=== PATIENT | female | born 1985 | race Caucasian/White ===

== ENCOUNTER 2019-12-15 23:16 | Inpatient (IN) | payer SELFPAY ==
[~2019-12-15] VITALS: Ht 165 cm; Wt 82.3 kg
[2019-12-15 23:44] LABS: BILIRUBIN,URINE NEGATIVE (NEGATIVE); CLARITY,URINE TURBID; COLOR,URINE OTHER; GLUCOSE, URINE (UA) 3+ (NEGATIVE); KETONES,URINE NEGATIVE (NEGATIVE); LEUKOCYTE ESTERASE ,URINE 2+ (NEGATIVE); NITRITE,URINE NEGATIVE (NEGATIVE); PROTEIN,URINE 3+ (NEGATIVE)
[2019-12-16 00:05] LABS: RBC,URINE TNTC /HPF
[2019-12-16 00:09] LABS: WBC,URINE >100 /HPF
[2019-12-16 00:10] LABS: BACTERIA,URINE FEW /HPF
[2019-12-16] MEDS ORDERED: fentaNYL INJECTION 100 MCG/2 ML AMP IVP STA (00:53)
[2019-12-16] MEDS ORDERED: LACTATED RINGERS 1,000 ML IV ONE ×2 (00:53→03:28)
--- NOTE | 2019-12-16 01:11 | ED GU-Female ---
General Chief Complaint: - Urinary Stated Complaint: FREQ URINATION, BURNING SENSATION, CRAMPING Nursing Triage Note: COMPLAINT OF URINARY ISSUES X1 MONTH. STATES RECENTLY TREATED WITH BACTRIM. Nursing Sepsis Screen: No Definite Risk Source: patient Exam Limitations: no limitations History of Present Illness Date Seen by Provider: Dec 16, 2019 Time Seen by Provider: 00:48 Initial Comments Here with report of dysuria and hematuria over the last month associated with frequency. Patient has been on Bactrim DS multiple times including within the last month and is not getting better. She does have history of multiple renal stones and 5 stents placed. She states that she always has some blood in her urine and was told that was likely related to her diabetes. She states that her blood sugars are probably out of control. Does have history of seizure disorder. Denies nausea or vomiting but has had chills recently and believes that she is starting to get sick. Reports that she has had sepsis from urinary tract infections previously and she is starting to feel that way. Tearful on exam due to pain. Timing/Duration: week, getting worse Severity/Quality: moderate, severe Location: suprapubic, urethral Radiation: none Activities at Onset: none Prior Genitourinary Problems: similar symptoms Associated Symptoms: abdominal pain, dysuria, fever/chills; No lower back pain, No nausea/vomiting; urinary frequency Allergies and Home Medications Allergies Coded Allergies: aspirin (Verified Allergy, Unknown, 12/16/19) Patient Home Medication List Home Medication List Reviewed: Yes Review of Systems Review of Systems Constitutional: see HPI EENTM: no symptoms reported Respiratory: no symptoms reported Cardiovascular: no symptoms reported Gastrointestinal: see HPI, constipation; No diarrhea, No vomiting Genitourinary: see HPI Musculoskeletal: no symptoms reported Skin: no symptoms reported All Other Systemes Reviewed Negative Unless Noted: Yes Past Umzzekb-Oxxnmm-Wyyhme Hx Past Med/Social Hx: Reviewed Nursing Past Med/Soc Hx Patient Social History Alcohol Use: Denies Use Recreational Drug Use: No Smoking Status: Never a Smoker Recent Foreign Travel: No Contact w/Someone Who Travel: No Recent Infectious Disease Expo: No Past Medical History Surgeries: Yes (ureteral stents) Respiratory: No Cardiac: No Neurological: Yes Seizure Disorder : No Genitourinary: Yes Kidney Stones Gastrointestinal: No Musculoskeletal: No Endocrine: Yes Diabetes, Non-Insulin dep Integumentary: No Family Medical History Reviewed Nursing Family Hx Physical Exam Vital Signs Vital Signs - First Documented 12/15/19 23:38 Temp 36.7 Pulse 99 Resp 18 B/P (MAP) 141/91 (108) O2 Delivery Room Air Capillary Refill : Less Than 3 Seconds Height, Weight, BMI Height: '" Weight: lbs. oz. kg; 31.00 BMI Method: General Appearance: WD/WN, mild distress HEENT: PERRL/EOMI, pharynx normal Neck: full range of motion, supple Cardiovascular: no murmur, tachycardia Respiratory: lungs clear, normal breath sounds Gastrointestinal: non tender, soft Back: normal inspection, no CVA tenderness, no vertebral tenderness Extremities: non-tender, normal inspection Neurologic/Psychiatric: alert, oriented x 3 Skin: normal color, warm/dry Focused Exam Lactate Level 12/16/19 01:07: Lactic Acid Level 0.94 Lactic Acid Level Laboratory Tests Test 12/16/19 01:07 Lactic Acid Level 0.94 MMOL/L (0.50-2.00) Progress/Results/Core Measures Suspected Sepsis Recent Fever Within 48 Hours: No Infection Criteria Present: None New/Unexplained Altered Menta: No Sepsis Screen: No Definite Risk SIRS Temperature: Pulse: 99 Respiratory Rate: 18 Laboratory Tests 12/16/19 01:07: White Blood Count 10.6 Blood Pressure 141 /91 Mean: 108 12/16/19 01:07: Lactic Acid Level 0.94 Laboratory Tests 12/16/19 01:07: Creatinine 1.18, INR Comment 0.9, Platelet Count 327, Total Bilirubin 0.1 Results/Orders Lab Results Laboratory Tests Test 12/15/19 23:34 12/16/19 01:07 Range/Units Urine Color OTHER H Urine Clarity TURBID Urine pH 6.0 5-9 Urine Specific [place] 1.020 1.016-1.022 Urine Protein 3+ H NEGATIVE Urine Glucose (UA) 3+ H NEGATIVE Urine Ketones NEGATIVE NEGATIVE Urine Nitrite NEGATIVE NEGATIVE Urine Bilirubin NEGATIVE NEGATIVE Urine Urobilinogen 0.2 < = 1.0 MG/DL Urine Leukocyte Esterase 2+ H NEGATIVE Urine RBC (Auto) 3+ H NEGATIVE Urine RBC TNTC H /HPF Urine WBC >100 H /HPF Urine Squamous Epithelial Cells NONE /HPF Urine Crystals NONE /LPF Urine Bacteria FEW H /HPF Urine Casts NONE /LPF Urine Mucus NEGATIVE /LPF Urine Culture Indicated YES White Blood Count 10.6 4.3-11.0 10^3/uL Red Blood Count 3.81 L 4.35-5.85 10^6/uL Hemoglobin 8.9 L 11.5-16.0 G/DL Hematocrit 29 L 35-52 % Mean Corpuscular Volume 76 L 80-99 FL Mean Corpuscular Hemoglobin 23 L 25-34 PG Mean Corpuscular Hemoglobin Concent 31 L 32-36 G/DL Red Cell Distribution Width 15.4 H 10.0-14.5 % Platelet Count 327 130-400 10^3/uL Mean Platelet Volume 10.2 7.4-10.4 FL Neutrophils (%) (Auto) 70 42-75 % Lymphocytes (%) (Auto) 21 12-44 % Monocytes (%) (Auto) 7 0-12 % Eosinophils (%) (Auto) 2 0-10 % Basophils (%) (Auto) 0 0-10 % Neutrophils # (Auto) 7.4 1.8-7.8 X 10^3 Lymphocytes # (Auto) 2.2 1.0-4.0 X 10^3 Monocytes # (Auto) 0.7 0.0-1.0 X 10^3 Eosinophils # (Auto) 0.2 0.0-0.3 10^3/uL Basophils # (Auto) 0.0 0.0-0.1 10^3/uL Prothrombin Time 12.7 12.2-14.7 SEC INR Comment 0.9 0.8-1.4 Activated Partial Thromboplast Time 26 24-35 SEC Sodium Level 135 135-145 MMOL/L Potassium Level 4.6 3.6-5.0 MMOL/L Chloride Level 102 98-107 MMOL/L Carbon Dioxide Level 22 21-32 MMOL/L Anion Gap 11 5-14 MMOL/L Blood Urea Nitrogen 20 H 7-18 MG/DL Creatinine 1.18 0.60-1.30 MG/DL Estimat Glomerular Filtration Rate 53 BUN/Creatinine Ratio 17 Glucose Level 338 H 70-105 MG/DL Lactic Acid Level 0.94 0.50-2.00 MMOL/L Calcium Level 9.2 8.5-10.1 MG/DL Corrected Calcium 9.5 8.5-10.1 MG/DL Total Bilirubin 0.1 0.1-1.0 MG/DL Aspartate Amino Transf (AST/SGOT) 15 5-34 U/L Alanine Aminotransferase (ALT/SGPT) 10 0-55 U/L Alkaline Phosphatase 77 40-136 U/L Total Protein 8.3 H 6.4-8.2 GM/DL Albumin 3.6 3.2-4.5 GM/DL My Orders Orders - ESTUARDO RODRIGUEZ MD Cbc With Automated Diff (12/16/19 00:53) Comprehensive Metabolic Panel (12/16/19 00:53) Blood Culture (12/16/19 00:53) Sputum Culture (12/16/19 00:53) Protime With Inr (12/16/19 00:53) Partial Thromboplastin Time (12/16/19 00:53) Chest 1 View, Ap/Pa Only (12/16/19 00:53) Ed Iv/Invasive Line Start (12/16/19 00:53) Vital Signs Adult Sepsis Patie Q15M (12/16/19 00:53) O2 (12/16/19 00:53) Remove Rings In Anticipation O (12/16/19 00:53) Lactic Acid Analyzer (12/16/19 00:53) Lactated Ringers (Lr 1000 Ml Iv Solution (12/16/19 00:53) Fentanyl Injection (Sublimaze Injection (12/16/19 00:53) Ct Abd/Pelvis Wo(Kidney Stone) (12/16/19 00:57) Piperacillin Sodium/Tazobactam (Zosyn Vi (12/16/19 02:45) Piperacillin Sodium/Tazobactam (Zosyn Vi (12/16/19 02:45) Hemoglobin A1c (12/16/19 02:37) Medications Given in ED Current Medications Medications Dose Ordered Sig/Colton Route Start Time Stop Time Status Last Admin Dose Admin Lactated Ringer's 1,000 ml @ 0 mls/hr Q0M ONCE IV 12/16/19 00:53 12/16/19 00:56 DC 12/16/19 01:17 999 MLS/HR Vital Signs/I&O 12/15/19 23:38 Temp 36.7 Pulse 99 Resp 18 B/P (MAP) 141/91 (108) O2 Delivery Room Air Capillary Refill : Less Than 3 Seconds Blood Pressure Mean: 108 Progress Note : Progress Note Seen and evaluated. IV, labs, UA, blood cultures, lactic acid, LR 1 L bolus and fentanyl 50 g IV ordered. Monitor patient. CT abdomen and pelvis kidney stone protocol ordered. Monitor patient. 0235: Findings of right pyelonephritis and hydroureter. In the setting of uncontrolled diabetes, I have significant concerns related to the patient progress into sepsis. Labs look okay at currently and blood pressures are right ring she does need hydration and better control of her sugars as well as aggressive antibiotic management. Does have history of cephalosporins precipitating seizures in her so we will avoid that currently. Zosyn 4.5 g IV initiated. I did discuss the case with Dr. Salvador and she accepts patient for admission, inpatient status. Findings concerns were discussed with the patient and significant other and they agree with plan. Patient has no local doctor currently but is considering [facility]. Diagnostic Imaging Diagonstic Imaging: Xray Plain Films/CT/US/NM/MRI: chest Comments No acute findings Diagonstic Imaging: CT Plain Films/CT/US/NM/MRI: abdomen, pelvis Comments Findings of right pyelonephritis and cystitis with possible infected right renal collecting system. There are dilated irregular calyces with decompressed or inflammatory scarring of the renal pelvis. Pyonephrosis needs to be considered. There is a 6 mm stone in a dilated lower pole calyx. No ureteral stones or stones in the urinary bladder are noted. Reviewed: Reviewed Night Sidney Study, Reviewed by Me Departure Communication (Admissions) Time/Spoke to Admitting Phy: 02:35 Impression Primary Impression: Pyelonephritis of right kidney Disposition: ADMITTED INPATIENT Condition: Stable Admissions Decision to Admit Reason: Admit from ER (General) Decision to Admit/Date: Dec 16, 2019 Time/Decision to Admit Time: 02:35 Departure-Patient Inst. Referrals: NO,LOCAL PHYSICIAN (PCP/Family) Primary Care Physician ESTUARDO RODRIGUEZ MD Dec 16, 2019 01:11
[2019-12-16 01:33] LABS: BASOPHILS % (AUTO) 0 % (0-10); EOSINOPHILS # (AUTO) 0.2 10^3/uL (0.0-0.3); EOSINOPHILS % (AUTO) 2 % (0-10); HEMATOCRIT 29 % (35-52); HEMOGLOBIN 8.9 G/DL (11.5-16.0); LYMPHOCYTES # (AUTO) 2.2 X 10^3 (1.0-4.0); LYMPHOCYTES % (AUTO) 21 % (12-44); MEAN CORPUSCULAR HEMOGLOBIN 23 PG (25-34); MEAN CORPUSCULAR HGB CONC 31 G/DL (32-36); MEAN CORPUSCULAR VOLUME 76 FL (80-99); MEAN PLATELET VOLUME 10.2 FL (7.4-10.4); MONOCYTES # (AUTO) 0.7 X 10^3 (0.0-1.0); MONOCYTES % (AUTO) 7 % (0-12); NEUTROPHILS # (AUTO) 7.4 X 10^3 (1.8-7.8); NEUTROPHILS % (AUTO) 70 % (42-75); PLATELET COUNT 327 10^3/uL (130-400); RED CELL DISTRIBUTION WIDTH 15.4 % (10.0-14.5); WHITE BLOOD COUNT 10.6 10^3/uL (4.3-11.0)
[2019-12-16 01:38] LABS: INR 0.9 (0.8-1.4); PROTHROMBIN TIME PATIENT 12.7 SEC (12.2-14.7)
[2019-12-16 01:43] LABS: ALBUMIN 3.6 GM/DL (3.2-4.5); BILIRUBIN,TOTAL 0.1 MG/DL (0.1-1.0); CALCIUM 9.2 MG/DL (8.5-10.1); CREATININE SERUM 1.18 MG/DL (0.60-1.30); POTASSIUM 4.6 MMOL/L (3.6-5.0); TOTAL PROTEIN 8.3 GM/DL (6.4-8.2)
[2019-12-16] MEDS ORDERED: PIPERACILLIN SODIUM/TAZOBACTAM 4.5 GM in NS (IVPB) 100 ML IV ONE ×4 (02:45)
[2019-12-16 03:50] VITALS: BP 130/85
[2019-12-16 04:01] VITALS: BP 130/85
[2019-12-16] MEDS ORDERED: ACETAMINOPHEN 500 MG TAB (TYLENOL) ONE (04:50)
[2019-12-16] MEDS: LACTATED RINGERS 1,000 ML IV SCH ×2 (05:00→15:08)
[2019-12-16] MEDS: ACETAMINOPHEN 500 MG TAB (TYLENOL) PO PRN ×2 (05:00→11:14)
[2019-12-16] MEDS: inSUlin ASPART (NovoLOG) 1 UNIT/0.01 ML (CHARGE PER UNIT) SC SCH ×5 (06:13→20:15)
[2019-12-16] MEDS: fentaNYL INJECTION 100 MCG/2 ML AMP IV PRN ×3 (06:42→12:08)
--- NOTE | 2019-12-16 08:17 | NUR ---
REPORT CALLED TO STEFANO SINGER. PT TRANSPORTED VIA W/C TO ROOM 411 WITHOUT DIFFICULTIES. ALL PERSONAL BELONGINGS WITH PATIENT.
--- NOTE | 2019-12-16 08:30 | NUR ---
TRANSFERRED FROM ICU TO ROOM 411. ALERT AND COOPERATIVE. SKIN W/D. RESP.REGULAR. UP TO BATHROOM VOIDED SMALL AMT. REDDISH-YELLOWISH URINE AFTER STRAINING TO HAVE A BM. HEART RATE REGULAR. LUNGS CLEAR AND DIM. DEEP BREATHING ENCOURAGED. SL. EDEMA IN ANKLES. ABD. SOFT. BOWEL SOUNDS PRESENT. DR. JUNIOR HERE AND TOLD HIM ABOUT PT. STRAINING AND BLOOD IN URINE. PT. TALKATIVE. IN SEIZURE PRECAUTIONS. PT. STATED IT HAS BEEN A MONTH SINCE HER LAST CONFUSION,
--- NOTE | 2019-12-16 08:36 | Diagnostic Imaging Report ---
EXAMINATION: Chest radiograph, portable AP view. DATE: 12/16/2019 1:56 AM. INDICATION: 34-year-old female, cough. COMPARISON: March 23, 2016. FINDINGS: The heart size and mediastinal contours are unremarkable. There is no identified pneumothorax. There is no large pleural effusion. There is no identified focal airspace consolidation. IMPRESSION: No identified acute cardiopulmonary abnormality. Dictated by: Dictated on workstation # [id number]
--- NOTE | 2019-12-16 08:40 | Diagnostic Imaging Report ---
PROCEDURE: CT urinary tract, rule out kidney stone. TECHNIQUE: Multiple contiguous axial images were obtained through the abdomen and pelvis without the use of intravenous contrast. Auto Exposure Controls were utilized during the CT exam to meet ALARA standards for radiation dose reduction. DATE: December 16, 2019. COMPARISON: CT abdomen pelvis April 21, 2016. INDICATION: 34-year-old female, frequent urination and burning sensations. FINDINGS: There are limitations for evaluation of the abdominal organs, neoplastic processes, abscess, and limited evaluation of the vasculature relating to the lack of intravenous contrast. The visualized portions of the lung bases are clear. The heart is not enlarged. There is no identified pericardial effusion. The liver is unremarkable in size and contour. The gallbladder is unremarkable. There is no biliary ductal dilation. The main pancreatic duct is not abnormally dilated. Limited noncontrast evaluation of the pancreatic parenchyma is unremarkable. The spleen is not enlarged. The adrenal glands are unremarkable. There are multiple abnormal low-attenuation foci in the right kidney which potentially could relate to abnormal dilated renal calyces. There is a nonobstructing right renal stone present on axial image 56 which measures 7 mm in size. There are additional smaller nonobstructing right renal stones. There appears to be abnormal high attenuation in the region of the right renal pelvis and proximal right ureter. There is abnormal dilation of the right ureter. There is no identified distal ureteral stone. There is diffuse urinary bladder wall thickening with adjacent inflammatory stranding. There is no left hydroureter or hydronephrosis. Unremarkable noncontrast appearance of the left renal parenchyma. The intestinal tract is not distended. The appendix is unremarkable. There is no free intraperitoneal air. There is no drainable fluid collection. There is no free pelvic fluid. There is an abnormally enlarged right retroperitoneal lymph node measuring 1.6 cm in short axis on axial image 42. This is unchanged from prior exam. There are additional abnormally enlarged right retroperitoneal lymph nodes which also appear present previously. There are mildly prominent subcentimeter short axis left retroperitoneal lymph nodes. There is no acute bony abnormality. IMPRESSION: CT ABDOMEN AND PELVIS. 1. Abnormal low-attenuation lesions in the right kidney which potentially could relate to abnormally dilated and distorted renal calyces. There are nonobstructing right renal stones. There appears to be abnormal high attenuation in the region of the right renal pelvis and proximal right ureter. There is moderate right hydroureter without identified distal ureteral stone. Noncontrast CT does not well evaluate for pyelonephritis. The findings at the level of the renal pelvis in particular do raise at least some concern for potential upper tract infectious or inflammatory process. 2. Diffuse abnormal urinary bladder wall thickening suspicious for cystitis. 3. Abnormally enlarged right retroperitoneal lymph nodes similar to prior exam. Dictated by: Dictated on workstation # [id number]
[2019-12-16 08:50] VITALS: BP 124/85
[2019-12-16] MEDS: PIPERACILLIN/TAZO 4.5 GM/NS 100 ML IV SCH ×4 (09:32→16:24)
[2019-12-16] MEDS ORDERED: IBUP-2473 PO (10:42)
[2019-12-16] MEDS ORDERED: ACET-2267 PO (10:42)
--- NOTE | 2019-12-16 10:42 | NUR ---
SPOKE WITH THE PT AND CALLED [facility] IN [facility] ([facility]) TO COMPLETE THE MED REC. PT SAID SHE TAKES A TOTAL OF 750MG OF DEPAKOTE AT BEDTIME (250MG +500MG) HOWEVER WHEN I CALLED [facility] THEY LET ME KNOW THEY HAVE NOT FILLED ANYTHING FOR HER SINCE NOVEMBER 2018. THEY DID LET ME KNOW THE 500MG AND 250MG ARE BOTH EXTENDED RELEASE. DUE TO THE LAST DUE FILL I AM NOT INCLUDING EITHER OF THESE DOSES ON THE MED REC. PT ALSO MENTIONED SHE WAS TAKING GABAPENTIN 400 : 1 TAB TID- HOWEVER THIS HAS ALSO NOT BEEN FILLED SINCE NOVEMBER 2018- THIS WAS ALSO NOT INCLUDED ON THE MED REC. PT SAYS SHE HAS TAKEN SHORT (USES A SLIDING SCALE) AND LONG (60 UNITS HS) ACTING INSULIN AND THINKS SHE HAS PICKED THAT UP FROM A COMMUNITY CLINIC/PHARM IN [place] BUT COULD NOT REMEMBER WHEN SHE HAS PICKED THIS UP (PT ADMITS SHE IS NOT COMPLIANT). I CALLED A FACILITY CALLED [facility] BUT I JUST HAD TO LEAVE A MESSAGE. I DID NOT INCLUDE EITHER OF THESE ON THE MED REC AT THIS TIME- BUT WHEN I HEAR BACK FROM THE CLINIC I WILL UPDATE MED REC AND NOTES NEEDED. OTC MEDS: TYLENOL IBUPROFEN DUE TO THE MISSING INFORMATION OR OVER DUE FILLS THE OTC MEDS WERE THE ONLY MEDS THAT WERE PUT ON THE MED REC AT THIS TIME. I WILL UPDATE NEEDED.
[2019-12-16 12:00] VITALS: BP 108/72
--- NOTE | 2019-12-16 14:00 | NUR ---
VOIDED 250 CC GUSTAVO COLORED VERY CLOUDY URINE. C/O OF PAIN IN RIGHT KIDNEY AND STATED IT HURTS IN PERINEUM AREA WHEN SHE VOIDS. C/O OF CRAMPING IN LOWER ABD.
[2019-12-16] MEDS ORDERED: MELATONIN 3 MG TABLET PO PRN (15:15)
[2019-12-16] MEDS ORDERED: ONDANSETRON 4 MG/2 ML (SDV) Z0FRAN IV PRN (15:15)
[2019-12-16] MEDS ORDERED: CATHETER FLUSH 10 ML SYR IV PRN (15:15)
[2019-12-16] MEDS ORDERED: diphenhydrAMINE 25 MG TAB (BENADRYL) PO PRN (15:15)
[2019-12-16] MEDS ORDERED: BISACODYL 10 MG SUPP (DULCOLAX) PR PRN (15:15)
[2019-12-16] MEDS ORDERED: ACETAMINOPHEN 325 MG TABLET PO PRN (15:15)
[2019-12-16] MEDS ORDERED: ACETAMINOPHEN 500 MG TAB (TYLENOL) PO PRN (15:15)
[2019-12-16] MEDS ORDERED: MILK OF MAGNESIA 400 MG/5 ML 30 ML UDC PO PRN (15:15)
[2019-12-16] MEDS ORDERED: ANTACID SUSP 30 ML UDC (MYLANTA) PO PRN (15:15)
[2019-12-16] MEDS ORDERED: polyethylene glycoL POWDER 17 GM (MIRALAX) PACK PO PRN (15:15)
--- NOTE | 2019-12-16 15:19 | History & Physical-Hospitalist ---
History of Present Illness HPI/Chief Complaint Verónica Ogedn is a 34-year-old female with past medical history of bipolar disorder, seizure disorder, type II diabetes mellitus, who presented with multiple urinary symptoms. She reports that she has been having dysuria, urinary frequency, hematuria, and suprapubic abdominal pain. She denies any fevers or chills. She reports some right-sided back pain. She denies any nausea or vomiting. She denies any chest pain or shortness of breath. She was recently treated for urinary tract infection with Bactrim but says that she never got better. She recently moved to the area and has not been on her medications for an unknown amount of time. Source: patient Exam Limitations: no limitations Date Seen 12/16/19 Time Seen by a Provider: 09:50 Attending Physician Katerin Salvador MD PCP No,Local Physician Referring Physician Date of Admission Dec 16, 2019 at 02:57 Home Medications & Allergies Home Medications Reviewed patient Home Medication Reconciliation performed by pharmacy medication reconciliations shop technician and/or nursing. Patients Allergies have been reviewed. Allergies Allergies Coded Allergies cephalexin (Verified Allergy, Severe, 12/16/19) SEIZURES cinnamon (Verified Allergy, Severe, Anaphylaxis, 12/16/19) aspirin (Verified Allergy, Unknown, 12/16/19) Past Innklbg-Xhwcfn-Cobmwr Hx Past Med/Social Hx: Reviewed Nursing Past Med/Soc Hx Patient Social History Alcohol Use: Denies Use Recreational Drug Use: No Smoking Status: Never a Smoker Recent Foreign Travel: No Contact w/other who traveled: No Recent Infectious Disease Expo: No Past Medical History Neurological: Seizure Disorder : No Genitourinary: Kidney Stones Endocrine: Diabetes, Non-Insulin dep Family History Reviewed Nursing Family Hx Diabetes mellitus 19 MOTHER FH: bipolar disorder 19 MOTHER Hypertension 19 MOTHER Review of Systems Constitutional: no symptoms reported EENTM: no symptoms reported Respiratory: no symptoms reported Cardiovascular: no symptoms reported Gastrointestinal: abdominal pain Genitourinary: dysuria, frequency, hematuria, pain Musculoskeletal: no symptoms reported Skin: no symptoms reported Psychiatric/Neurological: No Symptoms Reported Physical Exam Physical Exam Vital Signs Vital Signs - First Documented 12/15/19 12/16/19 23:38 03:26 Temp 36.7 Pulse 99 Resp 18 B/P (MAP) 141/91 (108) Pulse Ox 100 O2 Delivery Room Air Capillary Refill : Less Than 3 Seconds Height, Weight, BMI Height: '" Weight: lbs. oz. kg; 30.33 BMI Method: General Appearance: No Apparent Distress, WD/WN, Other (uncomfortable) Neck: Normal Inspection, Supple Respiratory: Lungs Clear, Normal Breath Sounds, No Respiratory Distress Cardiovascular: Regular Rate, Rhythm, No Edema Gastrointestinal: Normal Bowel Sounds, Soft, Tenderness Extremity: Normal Inspection, Non Tender, No Pedal Edema Neurologic/Psychiatric: Alert, Oriented x3, No Motor/Sensory Deficits, Normal Mood/Affect Skin: Normal Color, Warm/Dry Results Results/Procedures Labs Laboratory Tests 12/16/19 01:07 Patient resulted labs reviewed. Imaging: Reviewed Imaging Report Assessment/Plan Admission Diagnosis acute pyelonephritis Admission Status: Inpatient Order (span 2 midnights) Reason for Inpatient Admission: acute pyelonephritis requiring IV antibiotics Assessment and Plan acute pyelonephritis UA consistent with urinary tract infection Urine culture pending Failed outpatient antibiotics Continue Zosyn continue IV fluids ALDO on CKD creatinine 1.18, unknown baseline Continue IV fluids anemia Hemoglobin 8.9, microcytic, unknown baseline Obtain iron studies bipolar disorder Seizure disorder Resume Depakote Type II diabetes mellitus with polyneuropathy begin Levemir 15 units nightly NovoLog 3 units with meals NovoLog sliding scale Resume gabapentin obtain hemoglobin A1c DVT prophylaxis: Lovenox Diagnosis/Problems Diagnosis/Problems (1) Pyelonephritis of right kidney Status: Acute (2) Urinary tract infection Status: Acute Qualifiers: Urinary tract infection type: acute cystitis Hematuria presence: with hematuria Qualified Codes: N30.01 - Acute cystitis with hematuria (3) Acute kidney injury superimposed on chronic kidney disease Status: Acute (4) Microcytic anemia Status: Acute (5) Bipolar disorder Status: Chronic Qualifiers: Active/Remission status: remission status unspecified Qualified Codes: F31.9 - Bipolar disorder, unspecified (6) Seizure disorder Status: Chronic (7) Type II diabetes mellitus Status: Chronic Qualifiers: Diabetes mellitus termination clerk insulin use: with correction use Diabetes mellitus complication status: with neurologic complications Diabetes mellitus complication detail: with polyneuropathy Qualified Codes: E11.42 - Type 2 diabetes mellitus with diabetic polyneuropathy; Z79.4 - MCC (current) use of insulin Clinical Quality Measures DVT/VTE Risk/Contraindication: Risk Factor Score Per Nursin RFS Level Per Nursing on Admit: 2=Moderate KRISH JUNIOR MD Dec 16, 2019 15:19
[2019-12-16 16:00] VITALS: BP 114/72
[2019-12-16] MEDS ORDERED: ENOXAPARIN 40 MG/0.4 ML (LOVENOX) SYR SC SCH (16:00)
[2019-12-16] MEDS: ONDANSETRON 4 MG (ZOFRAN) ORAL DISSOLVE TAB PO PRN (16:25)
[2019-12-16 20:00] VITALS: BP 106/70
[2019-12-16] MEDS: GABAPENTIN 100 MG (NEURONTIN) CAP PO SCH (20:14)
[2019-12-16] MEDS: SENNOSIDES 8.6 MG (SENOKOT) TAB PO SCH (20:14)
[2019-12-16] MEDS: DOCUSATE SODIUM 100 MG (COLACE) CAP PO SCH (20:14)
[2019-12-16] MEDS ORDERED: DIVALPROEX EXT RELEASE 250 MG (DEPAKOTE ER) TAB PO SCH (21:00)
[2019-12-17] VITALS: BP 116/75
[2019-12-17] MEDS: ONDANSETRON 4 MG (ZOFRAN) ORAL DISSOLVE TAB PO PRN (00:03)
[2019-12-17] MEDS: LACTATED RINGERS 1,000 ML IV SCH ×2 (00:03→12:17)
[2019-12-17 01:13] VITALS: BP 116/75
[2019-12-17] MEDS: PIPERACILLIN/TAZO 4.5 GM/NS 100 ML IV SCH ×4 (02:13→09:52)
[2019-12-17 04:00] VITALS: BP 106/68
[2019-12-17 07:03] LABS: BASOPHILS % (AUTO) 0 % (0-10); EOSINOPHILS # (AUTO) 0.2 10^3/uL (0.0-0.3); EOSINOPHILS % (AUTO) 2 % (0-10); HEMATOCRIT 24 % (35-52); HEMOGLOBIN 7.4 G/DL (11.5-16.0); LYMPHOCYTES # (AUTO) 2.7 X 10^3 (1.0-4.0); LYMPHOCYTES % (AUTO) 26 % (12-44); MEAN CORPUSCULAR HEMOGLOBIN 24 PG (25-34); MEAN CORPUSCULAR HGB CONC 31 G/DL (32-36); MEAN CORPUSCULAR VOLUME 78 FL (80-99); MEAN PLATELET VOLUME 10.2 FL (7.4-10.4); MONOCYTES # (AUTO) 0.7 X 10^3 (0.0-1.0); MONOCYTES % (AUTO) 6 % (0-12); NEUTROPHILS # (AUTO) 6.7 X 10^3 (1.8-7.8); NEUTROPHILS % (AUTO) 65 % (42-75); PLATELET COUNT 261 10^3/uL (130-400); RED CELL DISTRIBUTION WIDTH 15.9 % (10.0-14.5); WHITE BLOOD COUNT 10.3 10^3/uL (4.3-11.0)
[2019-12-17 07:20] LABS: BUN/CREATININE RATIO 20; CALCIUM 8.8 MG/DL (8.5-10.1); CARBON DIOXIDE 22 MMOL/L (21-32); CHLORIDE 104 MMOL/L (98-107); CREATININE SERUM 0.85 MG/DL (0.60-1.30); GFR ESTIMATED > 60; GLUCOSE 253 MG/DL (70-105); POTASSIUM 4.3 MMOL/L (3.6-5.0); SODIUM 136 MMOL/L (135-145)
[2019-12-17] MEDS: inSUlin ASPART (NovoLOG) 1 UNIT/0.01 ML (CHARGE PER UNIT) SC SCH ×3 (07:22→12:23)
[2019-12-17] MEDS ORDERED: NS IV 500 ML 500 ML IV SCH (08:08)
[2019-12-17] MEDS ORDERED: IRON DEXTRAN INJECTION 25 MG in NS (IVPB) 5.75 ML IV NR (08:15)
[2019-12-17] MEDS ORDERED: diphenhydrAMINE 50 MG/ML INJ (BENADRYL) IV PRN (08:15)
[2019-12-17] MEDS ORDERED: EPINEPHrine INJECTION 1 MG/ML AMP IM PRN (08:15)
[2019-12-17] MEDS ORDERED: RT-ALBUTEROL SULF 2.5 MG/3 ML PRE-MIX VIAL IH PRN (08:15)
[2019-12-17] MEDS ORDERED: IRON DEXTRAN INJECTION 1,000 MG in NS (IVPB) 250 ML IV NR (08:15)
[2019-12-17] MEDS ORDERED: HYDROCORTISONE 100 MG/2 ML (Solu-CORTEF) VIAL IV PRN (08:15)
--- NOTE | 2019-12-17 08:20 | NUR ---
DR. JUNIOR NOTIFIED THAT LAST PM NURSE REPORTS PT REFUSED PM LEVEMIR.
--- NOTE | 2019-12-17 08:30 | NUR ---
IV STARTED WITH #22 RT HAND X 1 STICK SECOND IV NEEDED FOR INFED ADMINISTRATION.
[2019-12-17 08:57] VITALS: BP 105/56
[2019-12-17] MEDS: DOCUSATE SODIUM 100 MG (COLACE) CAP PO SCH (09:50)
[2019-12-17] MEDS: GABAPENTIN 100 MG (NEURONTIN) CAP PO SCH (09:50)
[2019-12-17] MEDS: SENNOSIDES 8.6 MG (SENOKOT) TAB PO SCH (09:50)
--- NOTE | 2019-12-17 10:05 | NUR ---
OXYIR 5MG PO FOR PELVIC DISCOMFORT.
[2019-12-17 12:00] VITALS: BP 125/77
[2019-12-17] MEDS ORDERED: inSUlin ASPART (NovoLOG) 1 UNIT/0.01 ML (CHARGE PER UNIT) SC SCH (12:00)
[2019-12-17] MEDS ORDERED: CEFD300C3 PO (13:25)
[2019-12-17] MEDS ORDERED: METF-397 PO (13:25)
[2019-12-17] MEDS ORDERED: INSU100I10 SQ (13:25)
--- NOTE | 2019-12-17 14:00 | NUR ---
DISCHARGE PLANNING: PATIENT TO DISCHARGE TODAY AFTER IV ABX AND HER IRON INFUSION. SHE IS SET UP AT [facility] FOR HER PRESCRIPTIONS THROUGH THE [facility] AND PALS PROGRAM. PATIENT IS AWARE OF THIS AND HER RN STEFANO IS ALSO MADE AWARE.
--- NOTE | 2019-12-17 15:06 | Discharge Summary ---
Discharge Summary Hospital Course Was the Problem List Reviewed?: Yes Problems/Dx: (1) Pyelonephritis of right kidney Status: Acute (2) Urinary tract infection Status: Acute Qualifiers: Qualified Codes: N30.01 - Acute cystitis with hematuria (3) Acute kidney injury superimposed on chronic kidney disease Status: Acute (4) Microcytic anemia Status: Acute (5) Bipolar disorder Status: Chronic Qualifiers: Qualified Codes: F31.9 - Bipolar disorder, unspecified (6) Seizure disorder Status: Chronic (7) Type II diabetes mellitus Status: Chronic Qualifiers: Qualified Codes: E11.42 - Type 2 diabetes mellitus with diabetic polyneuropathy; 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 She had recently taken antibiotics as an outpatient and her symptoms failed to improve. Her urinalysis was indicative of a urinary tract infection. She had a CT scan which was indicative of pyelonephritis. She was started on ceftriaxone and her symptoms began to improve. Her urine culture appeared to be contaminated and thus was not speciated. She was given an empiric course of Omnicef on discharge. Her course was complicated by type II diabetes mellitus for which she had not been taking medications. Her hemoglobin A1c was 10.9 percent. She was given a prescription for Lantus and metformin on discharge. She also has a history of bipolar disorder and a seizure disorder for which she had not been taking her Depakote. Due to financial constraints she chose to wait until her follow-up appointment for a prescription for this. Her course was also complicated by iron deficiency anemia and she was given an infusion of Infed. She should have a repeat CBC at her follow-up appointment. She was set up to establish care with the [facility] in about a week. Labs and Pending Lab Test: Laboratory Tests 12/16/19 16:19: Glucometer 332H 12/16/19 20:02: Glucometer 149H 12/17/19 06:10: White Blood Count 10.3, Red Blood Count 3.11L, Hemoglobin 7.4L, Hematocrit 24L, Mean Corpuscular Volume 78L, Mean Corpuscular Hemoglobin 24L, Mean Corpuscular Hemoglobin Concent 31L, Red Cell Distribution Width 15.9H, Platelet Count 261, Mean Platelet Volume 10.2, Neutrophils (%) (Auto) 65, Lymphocytes (%) (Auto) 26, Monocytes (%) (Auto) 6, Eosinophils (%) (Auto) 2, Basophils (%) (Auto) 0, Neutrophils # (Auto) 6.7, Lymphocytes # (Auto) 2.7, Monocytes # (Auto) 0.7, Eosinophils # (Auto) 0.2, Basophils # (Auto) 0.0, Sodium Level 136, Potassium Level 4.3, Chloride Level 104, Carbon Dioxide Level 22, Anion Gap 10, Blood Urea Nitrogen 17, Creatinine 0.85, Estimat Glomerular Filtration Rate > 60, BUN/Creatinine Ratio 20, Glucose Level 253H, Calcium Level 8.8 12/17/19 11:12: Glucometer 182H Microbiology 12/15/19 Urine Culture - Final, Complete 3 or more isolates Home Meds Active Lantus Solostar (Insulin Glargine,Hum.rec.anlog) 100 Unit/1 Ml Insuln.pen 15 Unit SQ DAILY 90 Days PLEASE USE 340B PLAN Cefdinir 300 Mg Capsule 300 Mg PO BID 8 Days Metformin HCl 500 Mg Tablet 1,000 Mg PO BID 90 Days Reported Ibuprofen 200 Mg Tablet 400 Mg PO Q8H PRN Tylenol Extra Strength (Acetaminophen) 500 Mg Tablet 1,000 Mg PO Q8H PRN Assessment/Pt Instructions Take medications as prescribed. Complete your antibiotics even if you are feeling better. Establish care with a new primary care physician. Discharge Planning: <30 minutes discharge planning Discharge Instructions Discharge Diet: ADA Diet Activity as Tolerated: Yes Discharge Physical Examination Vital Signs Vital Signs Date Time Temp Pulse Resp B/P (MAP) Pulse Ox O2 Delivery O2 Flow Rate FiO2 12/17/19 12:00 36.8 85 18 125/77 (93) 98 Nasal Cannula 2.00 General Appearance: No Apparent Distress, WD/WN Respiratory: Lungs Clear, Normal Breath Sounds, No Respiratory Distress Cardiovascular: Regular Rate, Rhythm, No Edema, No Murmur Gastrointestinal: Normal Bowel Sounds, Non Tender, Soft Extremity: Normal Inspection, Non Tender, No Pedal Edema Skin: Normal Color, Warm/Dry Neurologic/Psychiatric: Alert, Oriented x3, No Motor/Sensory Deficits, Normal M ood/Affect Allergies: Coded Allergies: cephalexin (Verified Allergy, Severe, 12/16/19) SEIZURES cinnamon (Verified Allergy, Severe, Anaphylaxis, 12/16/19) aspirin (Verified Allergy, Unknown, 12/16/19) Discharge Summary Date of Admission Dec 16, 2019 at 02:57 Date of Discharge Discharge Date: Dec 17, 2019 Discharge Time: 15:04 Admission Diagnosis acute pyelonephritis Discharge Diagnosis acute pyelonephritis (1) Pyelonephritis of right kidney Status: Acute (2) Urinary tract infection Status: Acute Qualifiers: Qualified Codes: N30.01 - Acute cystitis with hematuria (3) Acute kidney injury superimposed on chronic kidney disease Status: Acute (4) Microcytic anemia Status: Acute (5) Bipolar disorder Status: Chronic Qualifiers: Qualified Codes: F31.9 - Bipolar disorder, unspecified (6) Seizure disorder Status: Chronic (7) Type II diabetes mellitus Status: Chronic Qualifiers: Qualified Codes: E11.42 - Type 2 diabetes mellitus with diabetic polyneuropathy; 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
--- NOTE | 2019-12-17 15:18 | NUR ---
IVS REMOVED, SITES CLEAR. RX AND INST REVIEWED AND VERBALIZED UNDERSTANDING. AWAITING RIDE. READY FOR DISCHARGE.
--- NOTE | 2019-12-17 15:20 | NUR ---
DC'D AMBULATORY WITH SO.
== END 2019-12-17 15:20 | disposition home or self-care (01) | DRG 690 ==
LOC: ER 23:19 → ICU 12-16 02:57 → 4TH 12-16 08:30
PROVIDERS: ADMIT Family Medicine; ATTEND Family Medicine
DX: N10 Acute pyelonephritis (principal); N17.9 Acute kidney failure, unspecified; N18.9 Chronic kidney disease, unspecified; D50.9 Iron deficiency anemia, unspecified; F31.9 Bipolar disorder, unspecified; G40.909 Epilepsy, unspecified, not intractable, without status epilepticus; E11.42 Type 2 diabetes mellitus with diabetic polyneuropathy; E11.49 Type 2 diabetes mellitus with other diabetic neurological complication; N92.0 Excessive and frequent menstruation with regular cycle; Z79.4 Long term (current) use of insulin
CPT/HCPCS: 36415; 71045; 74176; 80048; 80053; 81000; 82728; 82962; 83036; 83540; 83605; 84703; 85025; 85610; 85730; 87040; 87088; 96361; 96365; 96375

== ENCOUNTER 2020-02-25 11:43 | Emergency (ER) | payer SELFPAY ==
[~2020-02-25] VITALS: Ht 165 cm; Wt 76.5 kg
[~2020-02-25 11:43] MED LIST: ACET-2267 PO; CEFD300C3 PO; IBUP-2473 PO; INSU100I10 SQ; METF-397 PO
--- NOTE | 2020-02-25 11:59 | ED GU-Female ---
General Chief Complaint: Abdominal/GI Problems Stated Complaint: URINATING BLOOD Source: patient Exam Limitations: no limitations History of Present Illness Date Seen by Provider: February 25, 2020 Time Seen by Provider: 11:56 Initial Comments To ER by private vehicle with reports of kidney infection. For the past week she has had suprapubic discomfort, urinary frequency. She was given Macrobid one week ago but denies improvement. No fever no chills. She did vomit once this morning. She is a type I diabetic. History of surgical extraction of staghorn calculus right kidney several years ago, history of several kidney stones.. She was admitted here in December for pyelonephritis on the right. Timing/Duration: week, getting worse Severity/Quality: moderate Radiation: none Activities at Onset: none Prior Genitourinary Problems: none Associated Symptoms: dysuria, nausea/vomiting, urinary frequency Allergies and Home Medications Allergies Coded Allergies: cephalexin (Verified Allergy, Severe, 12/16/19) SEIZURES cinnamon (Verified Allergy, Severe, Anaphylaxis, 12/16/19) aspirin (Verified Allergy, Unknown, 12/16/19) Home Medications Cefdinir 300 Mg Capsule, 300 MG PO BID Prescribed by: BRAYDEN TORRES on 02/25/20 1304 Hydrocodone/Acetaminophen 1 Each Tablet, 1 EACH PO Q4-6HR PRN for PAIN-MODERATE Prescribed by: BRAYDEN TORRES on 02/25/20 1304 Insulin Glargine,Hum.rec.anlog 100 Unit/1 Ml Insuln.pen, 15 UNIT SQ DAILY PLEASE USE 340B PLAN Prescribed by: KRISH JUNIOR on 12/17/19 1325 Metformin HCl 500 Mg Tablet, 1,000 MG PO BID Prescribed by: KRISH JUNIOR on 12/17/19 1325 Patient Home Medication List Home Medication List Reviewed: Yes Review of Systems Review of Systems Constitutional: see HPI EENTM: see HPI Respiratory: no symptoms reported Cardiovascular: no symptoms reported Genitourinary: see HPI Musculoskeletal: no symptoms reported Skin: no symptoms reported Psychiatric/Neurological: No Symptoms Reported Endocrine: No Symptoms Reported Past Xiqxuoi-Ryrcpx-Ioxnot Hx Patient Social History Recent Foreign Travel: No Contact w/Someone Who Travel: No Past Medical History Surgeries: Yes (ureteral stents) Respiratory: No Cardiac: No Neurological: Yes Seizure Disorder Genitourinary: Yes Kidney Stones Gastrointestinal: No Musculoskeletal: No Endocrine: Yes Diabetes, Non-Insulin dep Integumentary: No Family Medical History Diabetes mellitus 19 MOTHER FH: bipolar disorder 19 MOTHER Hypertension 19 MOTHER Physical Exam Vital Signs Vital Signs - First Documented 02/25/20 11:48 Temp 36.6 Pulse 89 Resp 16 B/P (MAP) 135/92 (106) Pulse Ox 97 O2 Delivery Room Air Capillary Refill : Height, Weight, BMI Height: '" Weight: lbs. oz. kg; 30.33 BMI Method: General Appearance: WD/WN, no apparent distress HEENT: PERRL/EOMI, normal ENT inspection Neck: non-tender, full range of motion Cardiovascular: regular rate, rhythm, no murmur Respiratory: no respiratory distress, no accessory muscle use Gastrointestinal: normal bowel sounds, non tender, soft Back: CVA tenderness (R); No CVA tenderness (L) Extremities: normal range of motion, non-tender Neurologic/Psychiatric: alert, normal mood/affect, oriented x 3 Skin: normal color, warm/dry Focused Exam Lactate Level 02/25/20 11:49: Lactic Acid Level 0.98 Lactic Acid Level Progress/Results/Core Measures Suspected Sepsis SIRS Temperature: Pulse: Respiratory Rate: Laboratory Tests 02/25/20 11:49: White Blood Count 9.0 Blood Pressure / Mean: 02/25/20 11:49: Lactic Acid Level 0.98 Laboratory Tests 02/25/20 11:49: Creatinine 1.11, INR Comment 0.9, Platelet Count 359, Total Bilirubin 0.1 Results/Orders Lab Results Laboratory Tests Test 02/25/20 11:49 02/25/20 11:50 02/25/20 13:22 Range/Units White Blood Count 9.0 4.3-11.0 10^3/uL Red Blood Count 4.23 L 4.35-5.85 10^6/uL Hemoglobin 10.3 L 11.5-16.0 G/DL Hematocrit 33 L 35-52 % Mean Corpuscular Volume 78 L 80-99 FL Mean Corpuscular Hemoglobin 24 L 25-34 PG Mean Corpuscular Hemoglobin Concent 31 L 32-36 G/DL Red Cell Distribution Width 15.7 H 10.0-14.5 % Platelet Count 359 130-400 10^3/uL Mean Platelet Volume 10.3 7.4-10.4 FL Neutrophils (%) (Auto) 69 42-75 % Lymphocytes (%) (Auto) 21 12-44 % Monocytes (%) (Auto) 7 0-12 % Eosinophils (%) (Auto) 2 0-10 % Basophils (%) (Auto) 0 0-10 % Neutrophils # (Auto) 6.3 1.8-7.8 X 10^3 Lymphocytes # (Auto) 1.9 1.0-4.0 X 10^3 Monocytes # (Auto) 0.7 0.0-1.0 X 10^3 Eosinophils # (Auto) 0.2 0.0-0.3 10^3/uL Basophils # (Auto) 0.0 0.0-0.1 10^3/uL Prothrombin Time 12.0 L 12.2-14.7 SEC INR Comment 0.9 0.8-1.4 Sodium Level 136 135-145 MMOL/L Potassium Level 4.7 3.6-5.0 MMOL/L Chloride Level 101 98-107 MMOL/L Carbon Dioxide Level 25 21-32 MMOL/L Anion Gap 10 5-14 MMOL/L Blood Urea Nitrogen 29 H 7-18 MG/DL Creatinine 1.11 0.60-1.30 MG/DL Estimat Glomerular Filtration Rate 57 BUN/Creatinine Ratio 26 Glucose Level 415 *H 70-105 MG/DL Lactic Acid Level 0.98 0.50-2.00 MMOL/L Calcium Level 10.1 8.5-10.1 MG/DL Corrected Calcium 10.3 H 8.5-10.1 MG/DL Total Bilirubin 0.1 0.1-1.0 MG/DL Aspartate Amino Transf (AST/SGOT) 10 5-34 U/L Alanine Aminotransferase (ALT/SGPT) 6 0-55 U/L Alkaline Phosphatase 69 40-136 U/L Total Protein 9.0 H 6.4-8.2 GM/DL Albumin 3.7 3.2-4.5 GM/DL Beta-Hydroxybutyrate (Chem panel) 0.15 0.00-0.27 MMOL/L Serum Test, Qualitative NEGATIVE NEGATIVE Urine Color OTHER H Urine Clarity CLOUDY Urine pH 6.0 5-9 Urine Specific [place] 1.015 L 1.016-1.022 Urine Protein 2+ H NEGATIVE Urine Glucose (UA) 3+ H NEGATIVE Urine Ketones NEGATIVE NEGATIVE Urine Nitrite NEGATIVE NEGATIVE Urine Bilirubin NEGATIVE NEGATIVE Urine Urobilinogen 0.2 < = 1.0 MG/DL Urine Leukocyte Esterase 2+ H NEGATIVE Urine RBC (Auto) 3+ H NEGATIVE Urine RBC TNTC H /HPF Urine WBC TNTC H /HPF Urine Crystals NONE /LPF Urine Bacteria MODERATE H /HPF Urine Casts NONE /LPF Urine Mucus NEGATIVE /LPF Urine Culture Indicated YES Glucometer 266 H 70-110 MG/DL My Orders Orders - BRAYDEN TORRES APRN Cbc With Automated Diff (02/25/20 11:44) Hcg,Qualitative Serum (02/25/20 11:44) Comprehensive Metabolic Panel (02/25/20 11:44) Ua Culture If Indicated (02/25/20 11:44) Ed Iv/Invasive Line Start (02/25/20 11:44) Blood Culture (02/25/20 11:44) Lactic Acid Analyzer (02/25/20 11:44) Accucheck Achs ACHS (02/25/20 11:44) Beta Hydroxybutyrate (02/25/20 11:44) Protime With Inr (02/25/20 11:55) Ondansetron Injection (Zofran Injectio (02/25/20 12:00) Fentanyl Injection (Sublimaze Injection (02/25/20 12:00) Ns Iv 1000 Ml (Sodium Chloride 0.9%) (02/25/20 12:00) Ct Abd/Pelvis Wo(Kidney Stone) (02/25/20 11:55) Urine Culture (02/25/20 11:50) Ceftriaxone For Iv Use (Rocephin For I (02/25/20 12:30) Insulin (Regular) Human (Humulin R (Per (02/25/20 12:45) Medications Given in ED Current Medications Medications Dose Ordered Sig/Colton Route Start Time Stop Time Status Last Admin Dose Admin Ceftriaxone Sodium 1000 mg/ Sterile Water 10 ml @ 200 mls/hr ONCE ONCE IV 02/25/20 12:30 02/25/20 12:32 DC 02/25/20 12:52 200 MLS/HR Fentanyl Citrate 50 mcg ONCE ONCE IVP 02/25/20 12:00 02/25/20 12:01 DC 02/25/20 12:04 50 MCG Insulin Human Regular 8 unit ONCE ONCE IV 02/25/20 12:45 02/25/20 12:46 DC 5/12/20 12:55 8 UNIT Ondansetron HCl 4 mg ONCE ONCE IVP 02/25/20 12:00 02/25/20 12:01 DC 02/25/20 12:04 4 MG Vital Signs/I&O 02/25/20 02/25/20 11:48 13:17 Temp 36.6 Pulse 89 95 Resp 16 16 B/P (MAP) 135/92 (106) 126/88 Pulse Ox 97 100 O2 Delivery Room Air Room Air Capillary Refill : Diagnostic Imaging Diagonstic Imaging: CT Comments NAME: [facility] REC#: [id number] PT STATUS: REG ER : 1985 PHYSICIAN: BRAYDEN TORRES APRN ADMIT DATE: 02/25/20/ER Draft Date of Exam:02/25/20 CT ABD/PELVIS WO(KIDNEY STONE) PROCEDURE: CT urinary tract, rule out kidney stone. TECHNIQUE: Multiple contiguous axial images were obtained through the abdomen and pelvis without the use of intravenous contrast. Auto Exposure Controls were utilized during the CT exam to meet ALARA standards for radiation dose reduction. INDICATION: Right-sided abdominal pain and hematuria. Correlation is made with prior CT from 12/16/2019. FINDINGS: The lung bases are clear. The liver and gallbladder are unremarkable. No biliary ductal dilatation is seen. The pancreas and spleen are unremarkable. No adrenal mass is detected. The left kidney is without evidence of calculi or hydronephrosis. Rounded low-attenuation lesions within the right kidney are again noted and similar to prior exam. Multiple nonobstructing calculi lower pole right kidney are seen, largest 7 mm in size. There continues to diffuse dilatation of the right ureter traced into the pelvis but no definite obstructing calculus is identified. No bladder calculus is seen. Diffuse bladder wall thickening is again noted and appears improved when compared with prior CT. There continues to be some mild higher attenuation in the upper right ureter and right renal pelvis, similar to prior exam. Mild surrounding inflammatory stranding is seen. The prominent lymph node in the right central retroperitoneum is 15 mm compared with 16 mm. Additional prominent aortocaval nodes are similar. Aorta is non-aneurysmal. The small and large bowel loops are normal caliber. There is no obstruction. The appendix is unremarkable. No free fluid or fluid collection is identified. The uterus is unremarkable. No definite pelvic lymphadenopathy is identified. IMPRESSION: Nonobstructing right renal calculi. Continues to be diffuse dilatation of the right ureter without evidence of an opaque obstructing lesion. Low-attenuation lesions in the right kidney appear to be stable. Central retroperitoneal lymphadenopathy is stable. There has been improvement in the degree of bladder wall thickening when compared with prior CT from 12/16/2019. Dictated on workstation # [id number] Dict: 02/25/20 1250 Trans: 02/25/20 1258 [facility] [id number] Interpreted by: PJ DELEON MD Electronically signed by: Departure Communication (Admissions) Reports allergy to cephalexin, states it causes her seizures. States that she's had Omnicef and Rocephin before without difficulty. Her symptoms improved after empiric Rocephin last time with transition to oral Omnicef outpatient. She does not meet sepsis criteria today. Spoke with Dr. Moser, agrees with discharge home. Impression Primary Impression: Urinary tract infection Qualified Codes: N30.01 - Acute cystitis with hematuria Disposition: HOME, SELF-CARE Condition: Stable Departure-Patient Inst. Decision time for Depature: 13:02 Ref[facility]: [facility] [place] Primary Care Physician [facility] (Family) Primary Care Physician Patient Instructions: Urinary Tract Infections in Adults Add. Discharge Instructions: 1. Return to ER for any concerns 2. Follow-up with your doctor this week for recheck. Antibiotics as directed starting tomorrow. Pain medication as needed starting today. All discharge instructions reviewed with patient and/or family. Voiced understanding. Scripts Hydrocodone/Acetaminophen (Lorcet 5-325 mg Tablet) 1 Each Tablet 1 EACH PO Q4-6HR PRN for PAIN-MODERATE MDD 10 for 7 Days, #10 TAB Prov: BRAYDEN TORRES APRN 02/25/20 Cefdinir (Cefdinir) 300 Mg Capsule 300 MG PO BID, #14 CAP Prov: BRAYDEN TORRES COLLABORATIVE PHYSICIAN 02/25/20 Copy Copies To 1: SHELDON HAY PETER J APRN February 25, 2020 11:58
[2020-02-25] MEDS ORDERED: fentaNYL INJECTION 100 MCG/2 ML AMP IVP ONE (12:00)
[2020-02-25] MEDS ORDERED: ONDANSETRON 4 MG/2 ML (SDV) Z0FRAN IVP ONE (12:00)
[2020-02-25] MEDS ORDERED: NS IV 1000 ML 1,000 ML IV SCH (12:00)
[2020-02-25 12:01] LABS: BASOPHILS % (AUTO) 0 % (0-10); EOSINOPHILS # (AUTO) 0.2 10^3/uL (0.0-0.3); EOSINOPHILS % (AUTO) 2 % (0-10); HEMATOCRIT 33 % (35-52); HEMOGLOBIN 10.3 G/DL (11.5-16.0); LYMPHOCYTES # (AUTO) 1.9 X 10^3 (1.0-4.0); LYMPHOCYTES % (AUTO) 21 % (12-44); MEAN CORPUSCULAR HEMOGLOBIN 24 PG (25-34); MEAN CORPUSCULAR HGB CONC 31 G/DL (32-36); MEAN CORPUSCULAR VOLUME 78 FL (80-99); MEAN PLATELET VOLUME 10.3 FL (7.4-10.4); MONOCYTES # (AUTO) 0.7 X 10^3 (0.0-1.0); MONOCYTES % (AUTO) 7 % (0-12); NEUTROPHILS # (AUTO) 6.3 X 10^3 (1.8-7.8); NEUTROPHILS % (AUTO) 69 % (42-75); PLATELET COUNT 359 10^3/uL (130-400); RED CELL DISTRIBUTION WIDTH 15.7 % (10.0-14.5)
[2020-02-25 12:07] LABS: BILIRUBIN,URINE NEGATIVE (NEGATIVE); CLARITY,URINE CLOUDY; COLOR,URINE OTHER; GLUCOSE, URINE (UA) 3+ (NEGATIVE); KETONES,URINE NEGATIVE (NEGATIVE); LEUKOCYTE ESTERASE ,URINE 2+ (NEGATIVE); NITRITE,URINE NEGATIVE (NEGATIVE); PROTEIN,URINE 2+ (NEGATIVE)
[2020-02-25 12:09] LABS: ALBUMIN 3.7 GM/DL (3.2-4.5); POTASSIUM 4.7 MMOL/L (3.6-5.0)
[2020-02-25 12:10] LABS: CALCIUM 10.1 MG/DL (8.5-10.1)
[2020-02-25 12:11] LABS: INR 0.9 (0.8-1.4)
[2020-02-25 12:13] LABS: BILIRUBIN,TOTAL 0.1 MG/DL (0.1-1.0)
[2020-02-25 12:15] LABS: CREATININE SERUM 1.11 MG/DL (0.60-1.30)
[2020-02-25 12:23] LABS: BACTERIA,URINE MODERATE /HPF; RBC,URINE TNTC /HPF; WBC,URINE TNTC /HPF
[2020-02-25] MEDS ORDERED: cefTRIAXone FOR IV USE 1,000 MG in WATER (STERILE) FOR INJECTION 10 ML IV ONE (12:30)
--- NOTE | 2020-02-25 12:31 | NUR ---
LAB IN ROOM DRAWING BLOOD AT THIS TIME.
[2020-02-25] MEDS ORDERED: inSUlin (REGULAR) HUMAN 1 UNIT/0.01 ML (CHARGE PER UNIT) IV ONE (12:45)
--- NOTE | 2020-02-25 12:58 | Diagnostic Imaging Report ---
PROCEDURE: CT urinary tract, rule out kidney stone. TECHNIQUE: Multiple contiguous axial images were obtained through the abdomen and pelvis without the use of intravenous contrast. Auto Exposure Controls were utilized during the CT exam to meet ALARA standards for radiation dose reduction. INDICATION: Right-sided abdominal pain and hematuria. Correlation is made with prior CT from 12/16/2019. FINDINGS: The lung bases are clear. The liver and gallbladder are unremarkable. No biliary ductal dilatation is seen. The pancreas and spleen are unremarkable. No adrenal mass is detected. The left kidney is without evidence of calculi or hydronephrosis. Rounded low-attenuation lesions within the right kidney are again noted and similar to prior exam. Multiple nonobstructing calculi lower pole right kidney are seen, largest 7 mm in size. There continues to diffuse dilatation of the right ureter traced into the pelvis but no definite obstructing calculus is identified. No bladder calculus is seen. Diffuse bladder wall thickening is again noted and appears improved when compared with prior CT. There continues to be some mild higher attenuation in the upper right ureter and right renal pelvis, similar to prior exam. Mild surrounding inflammatory stranding is seen. The prominent lymph node in the right central retroperitoneum is 15 mm compared with 16 mm. Additional prominent aortocaval nodes are similar. Aorta is non-aneurysmal. The small and large bowel loops are normal caliber. There is no obstruction. The appendix is unremarkable. No free fluid or fluid collection is identified. The uterus is unremarkable. No definite pelvic lymphadenopathy is identified. IMPRESSION: Nonobstructing right renal calculi. Continues to be diffuse dilatation of the right ureter without evidence of an opaque obstructing lesion. Low-attenuation lesions in the right kidney appear to be stable. Central retroperitoneal lymphadenopathy is stable. There has been improvement in the degree of bladder wall thickening when compared with prior CT from 12/16/2019. Dictated by: Dictated on workstation # [id number]
[2020-02-25] MEDS ORDERED: HYDR-3870 PO (13:04)
[2020-02-25] MEDS ORDERED: CEFD300C3 PO (13:04)
[2020-02-25 13:17] VITALS: BP 126/88
--- OUTSIDE RECORDS SUMMARY | 2020-02-25 13:18 | XMS REPORT | Continuity of Care Document ---
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 Bilirubin Negative Negative Urobilinogen Negative 0.2 - 1.0 mg/dl pH 6.0 5.0 - 9.0 Blood Large Negative Ketone Negative Negative Nitrites Negative Negative Leukocytes Large Negative Spec Grav 1.020 1.005 - 1.030 RBC's 51-99 NRG WBC's >100 NRG Epith Squam [none] NRG Epith Transit [none] NRG Epith Renal [none] NRG Bacteria 1+ NRG HYALINE [none] NRG CELLULAR [none] NRG GRANULAR [none] NRG WAXY [none] NRG CALCIUM OXALATE [none] NRG AMORPHOUS [none] NRG TRIPLE PHOSPHATE [none] NRG URIC ACID(C) [none] NRG Trich. vaginalis [none] NRG SPERM [none] NRG Mucous [none] NRG YEAST [none] NRG UA dipstick W Reflex Micro pnl Ur - 04/16 05/03 04:00 GLUCOSE >=500 Negative Color Yellow Yellow - Jacki Appearance Turbid Clear Protein 100 Negative Bilirubin Negative Negative Urobilinogen Negative 0.2 - 1.0 mg/dl pH 6.0 5.0 - 9.0 Blood Moderate Negative Ketone Negative Negative Nitrites Negative Negative Leukocytes Large Negative Spec Grav 1.014 1.005 - 1.030 RBC's >100 NRG WBC's >100 NRG Epith Squam Many NRG Epith Transit [none] NRG Epith Renal [none] NRG Bacteria Trace NRG HYALINE [none] NRG CELLULAR [none] NRG GRANULAR [none] NRG WAXY [none] NRG CALCIUM OXALATE [none] NRG AMORPHOUS Few NRG TRIPLE PHOSPHATE [none] NRG URIC ACID(C) [none] NRG Trich. vaginalis [none] NRG SPERM [none] NRG Mucous [none] NRG YEAST Many NRG UA dipstick W Reflex Micro pnl Ur - 05/17 01/01 20:20 GLUCOSE >=500 Negative Color Red Yellow - Jacki Appearance Turbid Clear Protein 100 Negative Bilirubin Negative Negative Urobilinogen Negative 0.2 - 1.0 mg/dl pH 6.0 5.0 - 9.0 Blood Large Negative Ketone Negative Negative Nitrites Negative Negative Leukocytes Moderate Negative Spec Grav 1.017 1.005 - 1.030 RBC's >100 NRG WBC's >100 NRG Epith Squam [none] NRG Epith Transit [none] NRG Epith Renal [none] NRG Bacteria 1+ NRG HYALINE [none] NRG CELLULAR [none] NRG GRANULAR [none] NRG WAXY [none] NRG CALCIUM OXALATE [none] NRG AMORPHOUS [none] NRG TRIPLE PHOSPHATE [none] NRG URIC ACID(C) [none] NRG Trich. vaginalis [none] NRG SPERM [none] NRG Mucous [none] NRG YEAST [none] NRG UA dipstick W Reflex Micro pnl Ur - 08/16 01/01 12:45 GLUCOSE >=500 Negative Color Jacki Yellow - Jacki Appearance Turbid Clear Protein >=500 Negative Bilirubin Negative Negative Urobilinogen Negative 0.2 - 1.0 mg/dl pH 5.0 5.0 - 9.0 Blood Large Negative Ketone Negative Negative Nitrites Negative Negative Leukocytes Large Negative Spec Grav 1.015 1.005 - 1.030 RBC's >100 NRG WBC's >100 NRG Epith Squam Many NRG Epith Transit [none] NRG Epith Renal [none] NRG Bacteria 2+ NRG HYALINE 26-50 NRG CELLULAR [none] NRG GRANULAR [none] NRG WAXY [none] NRG CALCIUM OXALATE [none] NRG AMORPHOUS [none] NRG TRIPLE PHOSPHATE [none] NRG URIC ACID(C) [none] NRG Trich. vaginalis [none] NRG SPERM [none] NRG Mucous Present NRG YEAST [none] NRG Bas Metab 2000 Pnl SerPl - 08/28/19 12:5 0 GLUCOSE 320 mg/dl 74 - 118 BUN 23.0 mg/dl 8.0 - 26.0 SODIUM 133 mmol/L 136 - 144 POTASSIUM 3.7 mmol/L 3.6 - 5.1 CHLORIDE 99 mmol/L 101 - 111 CO2 24 mmol/L 22 - 32 CREATININE 1.14 mg/dl 0.44 - 1.10 CALCIUM 8.8 mg/dl 8.4 - 10.0 AGE 34 yrs NRG GFR 55 NRG Magnesium SerPl-mCnc - 08/28/19 12:50 MAGNESIUM 1.8 MG/DL 1.8 - 2.5 UA WITH MICROSCOPY/CULTURE IF INDICATED - 09/08/19 13:48 URINE SAMPLE RANDOM U COLOR PINK NORMAL: STRAW-YELLOW U TURBIDITY Cloudy NORMAL: CLEAR U SP GRAVITY 1.025 NORMAL: 1.005-1.0 30 U NITRITE Negative NORMAL: NEGATIVE U pH 5.5 NORMAL: 5.0-8.0 U PROTEIN 3+ NORMAL: NEGATIVE U GLUCOSE 2+ NORMAL: NEGATIVE U KETONES Negative NORMAL: NEGATIVE U UROBILINOGEN 0.2 NORMAL: 0.2 mg/ dl U BILIRUBIN Negative NORMAL: NEGATIVE U BLOOD 3+ NORMAL: NEG - TRACE U LEUKO DEB 1+ NORMAL: NEGATIVE U MICROSCOPIC See Below U WBC >100 NORMAL: 0-5 U RBC 21-30 NORMAL: 0-4 U BACTERIA 4+ NORMAL: NONE SEEN U MUCUS NEGATIVE NORMAL: NONE SEEN U CRYSTALS NONE SEEN U CASTS NONE SEEN U CULTURE SET YES Sample of Urine: 10 ML UAMICROSCOPYANDCULTUREIFINDICATED CULTURE URINE - 09/08/19 13:48 NOTIFY IFC YES SPECIMEN TYPE RANDOM CULTUREURINEWITHID/ASTIFINDICATED Complete urinalysis with reflex to cultu re - 12/15/19 23:34 Urine color determination OTHER NRG Urine clarity determination TURBID NR G Urine pH measurement by test strip 6.0 5-9 Specific gravity of urine by test strip 1.020 1.016-1.022 Urine protein assay by test strip, semi-quantitative 3+ NEGATIVE Urine glucose detection by automated test strip 3+ NEGATIVE Erythrocytes detection in urine sediment by light micr oscopy 3+ NEGATIVE Urine ketones detection by automated test strip NE GATIVE NEGATIVE Urine nitrite detection by test strip NEGATIVE NEGATIVE Urine total bilirubin detection by test strip NEGA TIVE NEGATIVE Urine urobilinogen measurement by automated test strip (mass/volume) 0.2 mg/dL < = 1.0 Urine leukocyte esterase detection by dipstick 2+ NEGATIVE Automated urine sediment erythrocyte cou nt by microscopy (number/high power field) TNTC NRG Automated urine sediment leukocyte count by microscopy (number/high power field) > [HPF] NRG Bacteria detection in urine sediment by light microsco py FEW NRG Squamous epithelial cells detection in u rine sediment by light microscopy NONE NRG Crystals detection in urine sediment by light microsco py NONE NRG Casts detection in urine sediment by light microscopy NONE NRG Mucus detection in urine sediment by light microscopy NEGATIVE NRG Complete urinalysis with reflex to culture YES NRG Bacterial urine culture - 12/15/19 23:34 Bacterial urine culture 3 OR MORE NRG COLONY COUNT 30,000 CFU/ML NRG FTX;REPORTABLE GRAM POSITIVES, SUGGESTING PROBABLE NRG FREE TEXT ENTRY 2 COLLECTION CONTAMINATION WITH SK IN KARENA NRG FREE TEXT ENTRY 3 NO SUSCEPTIBILITY PERFORMED NRG Complete blood count (CBC) with automate d white blood cell (WBC) differential - 12/16/19 01:07 Blood leukocytes automated count (number/volume) 10.6 10*3/uL 4.3-11.0 Blood erythrocytes automated count (number/volume) 3.81 10*6/uL 4.35-5.85 Venous blood hemoglobin measurement (mass/volume) 8.9 g/dL 11.5-16.0 Blood hematocrit (volume fraction) 29 % 35-52 Automated erythrocyte mean corpuscular volume 76 [ foz_us] 80-99 Automated erythrocyte mean corpuscular h emoglobin (mass per erythrocyte) 23 pg 25-34 Automated erythrocyte mean corpuscular h emoglobin concentration measurement (mass/volume) 31 g/dL 32-36 Automated erythrocyte distribution width ratio 15. 4 % 10.0- 14.5 Automated blood platelet count (count/volume) 327 10*3/uL 130-400 Automated blood platelet mean volume measurement 10.2 [foz_us] 7.4-10.4 Automated blood neutrophils/100 leukocytes 70 % 42-75 Automated blood lymphocytes/100 leukocytes 21 % 12-44 Blood monocytes/100 leukocytes 7 % 0-12 Automated blood eosinophils/100 leukocytes 2 % 0-10 Automated blood basophils/100 leukocytes 0 % 0-10 Blood neutrophils automated count (number/volume) 7.4 10*3 1.8-7.8 Blood lymphocytes automated count (number/volume) 2.2 10*3 1.0-4.0 Blood monocytes automated count (number/volume) 0. 7 10*3 0.0-1.0 Automated eosinophil count 0.2 10*3/uL 0 .0-0.3 Automated blood basophil count (count/volume) 0.0 10*3/uL 0.0-0.1 Blood lactic acid measurement (moles/vol ume) - 12/16/19 01:07 Blood lactic acid measurement (moles/volume) 0.94 mmol/L 0.50-2.00 Comprehensive metabolic panel - 12/16/19 01:07 Serum or plasma sodium measurement (moles/volume) 135 mmol/L 135-145 Serum or plasma potassium measurement (moles/volume) 4.6 mmol/L 3.6-5.0 Serum or plasma chloride measurement (moles/volume) 102 mmol/L 98-107 Carbon dioxide 22 mmol/L 21-32 Serum or plasma anion gap determination (moles/volume) 11 mmol/L 5-14 Serum or plasma urea nitrogen measurement (mass/volume ) 20 mg/dL 7-18 Serum or plasma creatinine measurement (mass/volume) 1.18 mg/dL 0.60-1.30 Serum or plasma urea nitrogen/creatinine mass ratio 17 NRG Serum or plasma creatinine measurement w ith calculation of estimated glomerular filtration rate 53 NRG Serum or plasma glucose measurement (mass/volume) 338 mg/dL 70-105 Serum or plasma calcium measurement (mass/volume) 9.2 mg/dL 8.5-10.1 Serum or plasma total bilirubin measurement (mass/volu me) 0.1 mg/dL 0.1-1.0 Serum or plasma alkaline phosphatase gatito surement (enzymatic activity/volume) 77 U/L 40-136 Serum or plasma aspartate aminotransfera se measurement (enzymatic activity/volume) 15 U/L 5-34 Serum or plasma alanine aminotransferase measurement (enzymatic activity/volume) 10 U/L 0-55 Serum or plasma protein measurement (mass/volume) 8.3 g/dL 6.4-8.2 Serum or plasma albumin measurement (mass/volume) 3.6 g/dL 3.2-4.5 CALCIUM CORRECTED 9.5 mg/dL 8.5-10.1 PT panel in platelet poor plasma by coag ulation assay - 12/16/19 01:07 Prothrombin time (PT) in platelet poor plasma by coagu lation assay 12.7 s 12.2-14.7 INR in platelet poor plasma or blood by coagulation as say 0.9 0.8-1.4 Activated partial thromboplastin time (a PTT) in platelet poor plasma bycoagulation assay - 12/16/19 01:07 Activated partial thromboplastin time (a PTT) in platelet poor plasma bycoagulation assay 26 s 24-35 Serum iron and total iron binding capaci ty panel - 12/16/19 01:07 TIBC 314 % 280-380 UIBC 302 % 55-450 Serum or plasma iron measurement (mass/volume) 12 % 35-180 Total iron binding capacity and transferrin saturation measurement 4 % 15-50 Serum or plasma ferritin measurement (mass/volume) 62.7 % 20.0-177.0 Hemoglobin A1c measurement - 12/16/19 01 :07 Blood hemoglobin A1C measurement (mass/volume) 10. 9 % 4.0- 5.6 MEAN BLOOD GLUCOSE 266 % <=126 Bacterial blood culture - 12/16/19 01:07 Bacterial blood culture NG NRG Bacterial blood culture - 12/16/19 01:30 Bacterial blood culture NG NRG Capillary blood glucose measurement by g lucometer (mass/volume) - 12/16/19 06:05 Capillary blood glucose measurement by glucometer (mas s/volume) 298 mg/dL 70-110 Capillary blood glucose measurement by g lucometer (mass/volume) - 12/16/19 09:45 Capillary blood glucose measurement by glucometer (mas s/volume) 291 mg/dL 70-110 Capillary blood glucose measurement by g lucometer (mass/volume) - 12/16/19 16:19 Capillary blood glucose measurement by glucometer (mas s/volume) 332 mg/dL 70-110 Capillary blood glucose measurement by g lucometer (mass/volume) - 12/16/19 20:02 Capillary blood glucose measurement by glucometer (mas s/volume) 149 mg/dL 70-110 Complete blood count (CBC) with automate d white blood cell (WBC) differential - 12/17/19 06:10 Blood leukocytes automated count (number/volume) 10.3 10*3/uL 4.3-11.0 Blood erythrocytes automated count (number/volume) 3.11 10*6/uL 4.35-5.85 Venous blood hemoglobin measurement (mass/volume) 7.4 g/dL 11.5-16.0 Blood hematocrit (volume fraction) 24 % 35-52 Automated erythrocyte mean corpuscular volume 78 [ foz_us] 80-99 Automated erythrocyte mean corpuscular h emoglobin (mass per erythrocyte) 24 pg 25-34 Automated erythrocyte mean corpuscular h emoglobin concentration measurement (mass/volume) 31 g/dL 32-36 Automated erythrocyte distribution width ratio 15. 9 % 10.0- 14.5 Automated blood platelet count (count/volume) 261 10*3/uL 130-400 Automated blood platelet mean volume measurement 10.2 [foz_us] 7.4-10.4 Automated blood neutrophils/100 leukocytes 65 % 42-75 Automated blood lymphocytes/100 leukocytes 26 % 12-44 Blood monocytes/100 leukocytes 6 % 0-12 Automated blood eosinophils/100 leukocytes 2 % 0-10 Automated blood basophils/100 leukocytes 0 % 0-10 Blood neutrophils automated count (number/volume) 6.7 10*3 1.8-7.8 Blood lymphocytes automated count (number/volume) 2.7 10*3 1.0-4.0 Blood monocytes automated count (number/volume) 0. 7 10*3 0.0-1.0 Automated eosinophil count 0.2 10*3/uL 0 .0-0.3 Automated blood basophil count (count/volume) 0.0 10*3/uL 0.0-0.1 Whole blood basic metabolic panel - 01/02 06:10 Serum or plasma sodium measurement (moles/volume) 136 mmol/L 135-145 Serum or plasma potassium measurement (moles/volume) 4.3 mmol/L 3.6-5.0 Serum or plasma chloride measurement (moles/volume) 104 mmol/L 98-107 Carbon dioxide 22 mmol/L 21-32 Serum or plasma anion gap determination (moles/volume) 10 mmol/L 5-14 Serum or plasma urea nitrogen measurement (mass/volume ) 17 mg/dL 7-18 Serum or plasma creatinine measurement (mass/volume) 0.85 mg/dL 0.60-1.30 Serum or plasma urea nitrogen/creatinine mass ratio 20 NRG Serum or plasma creatinine measurement w ith calculation of estimated glomerular filtration rate > NRG Serum or plasma glucose measurement (mass/volume) 253 mg/dL 70-105 Serum or plasma calcium measurement (mass/volume) 8.8 mg/dL 8.5-10.1 Capillary blood glucose measurement by g lucometer (mass/volume) - 12/17/19 11:12 Capillary blood glucose measurement by glucometer (mas s/volume) 182 mg/dL 70-110 CULTURE, URINE - 02/17/20 13:34 CULTURE, URINE, ROUTINE SEE NOTE NRG Complete blood count (CBC) with automate d white blood cell (WBC) differential - 02/25/20 11:49 Blood leukocytes automated count (number/volume) 9.0 10*3/uL 4.3-11.0 Blood erythrocytes automated count (number/volume) 4.23 10*6/uL 4.35-5.85 Venous blood hemoglobin measurement (mass/volume) 10.3 g/dL 11.5-16.0 Blood hematocrit (volume fraction) 33 % 35-52 Automated erythrocyte mean corpuscular volume 78 [ foz_us] 80-99 Automated erythrocyte mean corpuscular h emoglobin (mass per erythrocyte) 24 pg 25-34 Automated erythrocyte mean corpuscular h emoglobin concentration measurement (mass/volume) 31 g/dL 32-36 Automated erythrocyte distribution width ratio 15. 7 % 10.0- 14.5 Automated blood platelet count (count/volume) 359 10*3/uL 130-400 Automated blood platelet mean volume measurement 10.3 [foz_us] 7.4-10.4 Automated blood neutrophils/100 leukocytes 69 % 42-75 Automated blood lymphocytes/100 leukocytes 21 % 12-44 Blood monocytes/100 leukocytes 7 % 0-12 Automated blood eosinophils/100 leukocytes 2 % 0-10 Automated blood basophils/100 leukocytes 0 % 0-10 Blood neutrophils automated count (number/volume) 6.3 10*3 1.8-7.8 Blood lymphocytes automated count (number/volume) 1.9 10*3 1.0-4.0 Blood monocytes automated count (number/volume) 0. 7 10*3 0.0-1.0 Automated eosinophil count 0.2 10*3/uL 0 .0-0.3 Automated blood basophil count (count/volume) 0.0 10*3/uL 0.0-0.1 Comprehensive metabolic panel - 02/25/20 11:49 Serum or plasma sodium measurement (moles/volume) 136 mmol/L 135-145 Serum or plasma potassium measurement (moles/volume) 4.7 mmol/L 3.6-5.0 Serum or plasma chloride measurement (moles/volume) 101 mmol/L 98-107 Carbon dioxide 25 mmol/L 21-32 Serum or plasma anion gap determination (moles/volume) 10 mmol/L 5-14 Serum or plasma urea nitrogen measurement (mass/volume ) 29 mg/dL 7-18 Serum or plasma creatinine measurement (mass/volume) 1.11 mg/dL 0.60-1.30 Serum or plasma urea nitrogen/creatinine mass ratio 26 NRG Serum or plasma creatinine measurement w ith calculation of estimated glomerular filtration rate 57 NRG Serum or plasma glucose measurement (mass/volume) 415 mg/dL 70-105 Serum or plasma calcium measurement (mass/volume) 10.1 mg/dL 8.5-10.1 Serum or plasma total bilirubin measurement (mass/volu me) 0.1 mg/dL 0.1-1.0 Serum or plasma alkaline phosphatase gatito surement (enzymatic activity/volume) 69 U/L 40-136 Serum or plasma aspartate aminotransfera se measurement (enzymatic activity/volume) 10 U/L 5-34 Serum or plasma alanine aminotransferase measurement (enzymatic activity/volume) 6 U/L 0-55 Serum or plasma protein measurement (mass/volume) 9.0 g/dL 6.4-8.2 Serum or plasma albumin measurement (mass/volume) 3.7 g/dL 3.2-4.5 CALCIUM CORRECTED 10.3 mg/dL 8.5-10.1 Blood lactic acid measurement (moles/vol ume) - 02/25/20 11:49 Blood lactic acid measurement (moles/volume) 0.98 mmol/L 0.50-2.00 Serum or plasma choriogonadotropin (preg pilar test) detection - 02/25/20 11:49 Serum or plasma choriogonadotropin ( test) de tection NEGATIVE NEGATIVE Beta-hydroxybutyric acid measurement - 0 02/25/20 11:49 Beta-hydroxybutyric acid measurement 0.15 mmol/L 0.00-0.27 PT panel in platelet poor plasma by coag ulation assay - 02/25/20 11:49 Prothrombin time (PT) in platelet poor plasma by coagu lation assay 12.0 s 12.2-14.7 INR in platelet poor plasma or blood by coagulation as say 0.9 0.8-1.4 Complete urinalysis with reflex to cultu re - 02/25/20 11:50 Urine color determination OTHER NRG Urine clarity determination CLOUDY NR G Urine pH measurement by test strip 6.0 5-9 Specific gravity of urine by test strip 1.015 1.016-1.022 Urine protein assay by test strip, semi-quantitative 2+ NEGATIVE Urine glucose detection by automated test strip 3+ NEGATIVE Erythrocytes detection in urine sediment by light micr oscopy 3+ NEGATIVE Urine ketones detection by automated test strip NE GATIVE NEGATIVE Urine nitrite detection by test strip NEGATIVE NEGATIVE Urine total bilirubin detection by test strip NEGA TIVE NEGATIVE Urine urobilinogen measurement by automated test strip (mass/volume) 0.2 mg/dL < = 1.0 Urine leukocyte esterase detection by dipstick 2+ NEGATIVE Automated urine sediment erythrocyte cou nt by microscopy (number/high power field) TNTC NRG Automated urine sediment leukocyte count by microscopy (number/high power field) TNTC NRG Bacteria detection in urine sediment by light microsco py MODERATE NRG Crystals detection in urine sediment by light microsco py NONE NRG Casts detection in urine sediment by light microscopy NONE NRG Mucus detection in urine sediment by light microscopy NEGATIVE NRG Complete urinalysis with reflex to culture YES NRG Radiology Report from [id number] on 03/02 16:59:00 Reason For Examkidney stoneREPORTINDICAT ION: Nephrolithiasis.EXAMINATION: Nephrostomy access for percutaneous nephrolithotomy.PROCEDURE: Using maximal sterile barrier technique and local anesthesia, withfluoroscopic and ultrasound guidance, a dorsal lower pole calyx was puncturedwith a 21-gauge Chiba needle. Antegrade pyelogram was performed. This showed adilated calyceal complex involving four calyces in the lower pole of the rightkidney. There is an obstructing staghorn calculus extending into the lower poleinfundibulum. Attempts were made to cross the infundibulum with a guidewire butthis was uns uccessful. The other lower pole dorsal calyx was then punctured andattempts made from the second access to cross the obstructed infundibulum butthis was also unsuccessful. Ultimately, a catheter was placed from each of thedorsal lower pole calyx and advanced to the other lower pole calyces incrisscross fashion and the catheters were secured to the skin. The patient wastransferred to surgery.SEDATION: Because of the painful nature of the procedure, IV conscious sedationwas administered with continuous physiologic monitoring done by the radiologynurse under my supervision for 1 hour and 25 minutes.IMPRESSION: Two accesses were made in dorsal lower pole calyces of the rightkidney. There is an obstructing calculus in the infundibulum which could not besuccessfully crossed from a percutaneous approach.Tech Comments: IV Contrast Name: Omnipaque 300Dictated on workstation:[id number] Line PRELIMINARY DICTATED BY: ESTUARDO HILL MDDICTATED DT/TM: 03/02/2016 3:55 Radiology Report from [id number] on 03/02 16:55:00 Reason For Examkidney disorderREPORTINDI CATION: Nephrolithiasis.IMPRESSION: Ultrasound guidance was used to obtain percutaneous access into thedorsal lower pole calyces of the right kidney.Dictated on workstation:[id number] Line PRELIMINARY DICTATED BY: ESTUARDO HILL MDDICTATED DT/TM: 03/02/2016 4:33 Radiology Report from [id number] on 03/02 16:55:00 Reason For ExamRT PERC NEPHREPORTINDICAT ION: Nephrolithiasis.EXAMINATION: Seven digital images from surgery were obtained.FINDINGS: Images show placement of a 30 Bengali sheath into a lower pole calyxfrom a previous percutaneous access. Images also show a guidewire introducedretrograde coiled in an upper pole calyx and another image shows a flexibleureteroscope introduced retrograde projecting over an upper pole calyx. Thefinal image submitted shows double-J ureteral stent in place.IMPRESSION: Procedural images were obtained during percutaneousnephrolithotomy.Dictated on workstation:[id number] Line PRELIMINARY DICTATED BY: ESTUARDO HILL MDDICTATED DT/TM: 03/02/2016 4:35 Radiology Report from [id number] on 03/02 21:25:00 Reason For Examperc nephREPORTINDICATION : Percutaneous nephrostomy.IMPRESSION: Fluoroscopy was utilized for 2 hours and [address] Marie.IN: 1131OUT: 1343Actual fluoro time: 2:27 minutesKV: 110MA: 3.9Tech Comments: Fluoroscopy time (in minutes): 2.27Dictated on workstation:[id number] Line PRELIMINARY DICTATED BY: CONTRIBUTOR_SYSTEM, PSCRIBEDICTATED DT/TM: 03/02/2016 9:23 Radiology Report from [id number] on 03/03 08:49:00 Reason For ExamS/P RIGHT pcnl WITH HIGH WHITE COUNT, FEVERREPORTPROCEDURE: CT Abdomen Pelvis without contrast.TECHNIQUE: Multiple contiguous axial images were obtained through the abdomenand pelvis without the use of intravenous contrast.INDICATION: Leukocytosis with right renal calculi and internal stent.Comparison is made study of 02/02/2016 from [facility].FINDINGS: There has been development of right basilar atelectasis and/orpneumonitis. There is low-density throughout the liver which may due to fattyinfiltration. There is contrast material present within the lumen of thegallbladder without associated inflammation. No pancreatic, adrenal or splenicabnormality is identified. Evaluation of the kidneys is somewhat limitedwithout intravenous contrast. Left kidney has a stable appearance withoutevidence of stone or hydronephrosis. Multiple calculi are seen within the rightkidney. Largest stone within the mid region and measures approximately 1.5 x2.5 cm. There has been decompression of the right renal collecting system withdouble-J right nephroureteral stent. There is also moderate amount of gaswithin the right renal collecting system. High density fluid extends along theright perirenal space into the right retroperitoneum compatible withperinephric hematoma which extends into the pelvis.Evaluation of the bladder is also somewhat limited without contrast. The stentappears to be coiled within the lumen of the bladder, near the uretericorifice. There is also gas present within the lumen of the bladder.IMPRESSION: Persistence right renal calculi with decreased righthydronephrosis. There is a right double-J nephroureteral stent in place withgas in the renal collecting system and bladder. There is also moderate amountof perinephric hematoma extending into the right hemipelvis.There has been development of right basilar atelectasis and/or pneumonitis.Dictated on workstation:[id number] Line PRELIMINARY DICTATED BY: REYNALDO PIERRE MDDICTATED DT/TM: 03/03/2016 8:35 Radiology Report from [id number] on 03/21 19:21:00 Reason For Examright kidney stoneREPORTI NDICATION: Right renal calculiFINDINGS: Spot intraoperative images demonstrate a filling defect in the lowerrenal pelvis and upper ureter. This could be thrombus. This is more linearthan a regular calculi. Subsequent images demonstrate placement of a ureteralstent.IMPRESSION:1. There is a filling defect of the right renal collecting system.2. Placement of a right ureteral stent.Tech Comments: Fluoroscopy time (in minutes): 49Dictated on workstation:[id number] Line PRELIMINARY DICTATED BY: ARTURO BENITEZ MDDICTATED DT/TM: 03/21/2016 4:19 Encounters ACCT No. Visit Date/Time Discharge Status Pt. Type Provider Facility Loc./Unit Complaint [id number] 08/28/2019 12:24:00 08/28/2019 14:38: 00 DIS Emergency [facility] 025 SEIZURES [id number] 07/22/2019 13:13:00 07/22/2019 13:30: 00 DIS Emergency [facility] 025 BATTERY [id number] 06/07/2019 20:29:00 06/07/2019 21:22: 00 DIS Emergency [facility] 025 SEIZURES [id number] 05/11/2019 03:48:00 05/11/2019 04:28: 00 DIS Emergency [facility] 025 POSS UTI [id number] 04/17/2019 15:50:00 04/17/2019 16:48: 00 DIS Emergency [facility] [facility] 025 POSS UTI [id number] 01/17/2019 05:05:00 01/17/2019 06:18: 00 DIS Emergency [facility]I [facility] 025 POSS EAR INFECTION [id number] 10/28/2018 18:15:00 10/28/2018 19:27: 00 DIS Emergency [facility] 025 MIGRAINE [id number] 09/21/2018 19:33:00 09/21/2018 19:33: 00 DIS Outpatient ALEXUS GONZALES [id number] 07/25/2018 13:29:00 07/25/2018 13:45: 00 DIS Emergency [facility]I [facility] 025 EARACHE [id number] 06/15/2019 07:08:32 06/15/2019 23:59:59 CLS Outpatient [id number] 06/15/2019 06:51:03 06/15/2019 23:59:59 CLS Outpatient [id number] 06/07/2016 03:12:06 06/07/2016 03:12:06 ACT Outpatient [id number] 06/07/2016 03:11:22 06/07/2016 03:11:22 ACT Outpatient [id number] 06/07/2016 03:11:21 06/07/2016 03:11:21 ACT Outpatient [id number] 06/07/2016 03:00:55 06/07/2016 03:00:55 ACT Outpatient [id number] 06/07/2016 02:48:17 06/07/2016 02:48:17 ACT Outpatient [id number] 06/06/2016 16:02:21 06/06/2016 23:59:59 CLS Outpatient [id number] 06/06/2016 16:02:11 06/06/2016 23:59:59 CLS Outpatient [id number] 06/06/2016 16:02:10 06/06/2016 23:59:59 CLS Outpatient [id number] 06/06/2016 16:02:09 06/06/2016 23:59:59 CLS Outpatient [id number] 06/06/2016 23:06:15 06/06/2016 23:06:15 ACT Outpatient [id number] 06/06/2016 22:58:52 06/06/2016 22:58:52 ACT Outpatient [id number] 06/06/2016 19:47:18 06/06/2016 19:47:18 ACT Outpatient [id number] 06/06/2016 19:26:16 06/06/2016 19:26:16 ACT Outpatient [id number] 06/06/2016 19:22:59 06/06/2016 19:22:59 ACT Outpatient [id number] 06/06/2016 19:20:43 06/06/2016 19:20:43 ACT Outpatient [id number] 06/06/2016 19:17:48 06/06/2016 19:17:48 ACT Outpatient [id number] 06/06/2016 19:17:26 06/06/2016 19:17:26 ACT Outpatient [id number] 06/06/2016 19:17:14 06/06/2016 19:17:14 ACT Outpatient [id number] 06/06/2016 19:16:38 06/06/2016 19:16:38 ACT Outpatient [id number] 06/06/2016 19:16:33 06/06/2016 19:16:33 ACT Outpatient [id number] 06/06/2016 19:16:32 06/06/2016 19:16:32 ACT Outpatient [id number] 06/06/2016 18:47:31 06/06/2016 18:47:31 ACT Outpatient [id number] 06/06/2016 18:19:48 06/06/2016 18:19:48 ACT Outpatient [id number] 06/06/2016 18:19:38 06/06/2016 18:19:38 ACT Outpatient [id number] 12/14/2015 10:58:53 12/14/2015 10:58:53 DIS Outpatient [id number] 09/07/2015 08:22:38 09/07/2015 08:22:38 DIS Outpatient [id number] 08/28/2015 11:12:44 08/28/2015 23:59:59 CLS Outpatient [id number] 08/28/2015 11:12:41 08/28/2015 23:59:59 CLS Outpatient [id number] 08/28/2015 11:12:35 08/28/2015 23:59:59 CLS Outpatient [id number] 08/28/2015 11:12:32 08/28/2015 11:12:32 DIS Outpatient [id number] 06/06/2016 16:03:03 Document Registration [id number] 06/06/2016 16:00:00 Document Registration [id number] 03/23/2016 07:46:00 016 10:15:00 DIS Inpatient Maxime Marie [facility] J5W pyleonephritis [id number] 03/21/2016 10:40:00 016 17:05:00 DIS Outpatient Maxime Marie [facility] Right renal stones [id number] 03/02/2016 05:48:00 016 13:38:00 DIS Outpatient Maxime Marie [facility] J5W Kidney Disorder [id number] 03/27/2016 05:15:37 Document Registration [id number] 03/26/2016 05:17:15 Document Registration [id number] 03/24/2016 05:16:08 Document Registration [id number] 03/22/2016 05:16:07 Document Registration [id number] 03/05/2016 05:17:05 Document Registration [id number] 03/04/2016 05:16:49 Document Registration [id number] 03/03/2016 05:17:28 Document Registration [id number] 03/02/2016 05:17:19 Document Registration [id number] 02/17/2016 05:18:10 Document Registration [id number] 12/16/2019 02:57:00 020 15:20:00 DIS Inpatient GARRET BELL MD Via [facility] 4TH RT PYELONEPHRITIS [id number] 02/25/2020 12:01:00 Document Registration [id number] 09/08/2019 13:15:00 09/08/2019 15:36 :00 DIS Emergency ABENA SINGER I [facility] [id number] 02/17/2020 11:20:00 Document Registration [id number] 08/28/2019 12:24:00 Document Registration [id number] 06/07/2019 20:29:00 Document Registration [id number] 05/11/2019 03:48:00 Document Registration [id number] 04/17/2019 15:50:00 Document Registration [id number] 10/28/2018 18:15:00 Document Registration [id number] 04/21/2016 08:24:00 23:59:00 DIS Outpatient Maxime Marie [facility] [place] CYSTO STENT REMOVAL [id number] 02/18/2016 11:33:00 23:59:00 DIS Outpatient Maxime Marie [facility] Card PRE OP [id number] 02/18/2016 10:56:00 23:59:00 DIS Outpatient Maxime Marie [facility] [place] POST CT FROM [facility]ONCA/PT TO CLAUDINE NG CD [id number] 02/16/2016 10:30:00 23:59:00 DIS Outpatient Maxime Marie [facility] [place] KIDNEY STONES [id number] 03/23/2016 07:46:00 Document Registration [id number] 03/21/2016 10:40:00 Document Registration [id number] 03/02/2016 05:48:00 Document Registration
== END 2020-02-25 13:17 | disposition home or self-care (01) ==
LOC: EDUNIT# 11:43 → ER 11:44
DX: N39.0 Urinary tract infection, site not specified (principal); E11.9 Type 2 diabetes mellitus without complications; Z88.6 Allergy status to analgesic agent; Z88.1 Allergy status to other antibiotic agents; Z79.4 Long term (current) use of insulin; Z96.0 Presence of urogenital implants; Z82.49 Family history of ischemic heart disease and other diseases of the circulatory system
CPT/HCPCS: 36415; 74176; 80053; 81000; 82010; 82962; 83605; 84703; 85025; 85610; 87040; 87088

== ENCOUNTER 2020-03-07 06:11 | Emergency (ER) | payer SELFPAY ==
[~2020-03-07] VITALS: Ht 165 cm; Wt 86.3 kg
[~2020-03-07 06:11] MED LIST changes: +HYDR-3870 PO
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
[2020-03-07] MEDS ORDERED: DIVA500T PO (06:25)
[2020-03-07] MEDS ORDERED: DIVA250T2 PO (06:25)
[2020-03-07] MEDS ORDERED: LEVOFLOXACIN 750 MG/150 ML IV 150 ML IV ONE (07:00)
[2020-03-07] MEDS ORDERED: NS IV 1000 ML 1,000 ML IV ONE (07:00)
[2020-03-07 07:15] LABS: BILIRUBIN,URINE NEGATIVE (NEGATIVE); CLARITY,URINE TURBID; COLOR,URINE OTHER; GLUCOSE, URINE (UA) 3+ (NEGATIVE); KETONES,URINE NEGATIVE (NEGATIVE); LEUKOCYTE ESTERASE ,URINE 3+ (NEGATIVE); NITRITE,URINE NEGATIVE (NEGATIVE); PROTEIN,URINE 3+ (NEGATIVE)
[2020-03-07 07:25] LABS: BACTERIA,URINE LARGE /HPF; RBC,URINE >100 /HPF; WBC,URINE TNTC /HPF
[2020-03-07] MEDS ORDERED: fentaNYL INJECTION 100 MCG/2 ML AMP IVP ONE (07:30)
[2020-03-07 07:35] LABS: BASOPHILS % (AUTO) 0 % (0-10); EOSINOPHILS # (AUTO) 0.2 10^3/uL (0.0-0.3); EOSINOPHILS % (AUTO) 1 % (0-10); HEMATOCRIT 32 % (35-52); HEMOGLOBIN 10.2 G/DL (11.5-16.0); LYMPHOCYTES # (AUTO) 1.6 X 10^3 (1.0-4.0); LYMPHOCYTES % (AUTO) 12 % (12-44); MEAN CORPUSCULAR HEMOGLOBIN 25 PG (25-34); MEAN CORPUSCULAR HGB CONC 32 G/DL (32-36); MEAN CORPUSCULAR VOLUME 78 FL (80-99); MONOCYTES # (AUTO) 0.8 X 10^3 (0.0-1.0); MONOCYTES % (AUTO) 6 % (0-12); NEUTROPHILS # (AUTO) 11.1 X 10^3 (1.8-7.8); NEUTROPHILS % (AUTO) 81 % (42-75); PLATELET COUNT 314 10^3/uL (130-400); RED CELL DISTRIBUTION WIDTH 15.4 % (10.0-14.5); WHITE BLOOD COUNT 13.7 10^3/uL (4.3-11.0)
[2020-03-07 07:44] LABS: ALBUMIN 3.5 GM/DL (3.2-4.5); CHLORIDE 102 MMOL/L (98-107); POTASSIUM 4.4 MMOL/L (3.6-5.0); SODIUM 133 MMOL/L (135-145)
[2020-03-07 07:45] LABS: CALCIUM 9.4 MG/DL (8.5-10.1)
[2020-03-07 07:46] LABS: GLUCOSE 343 MG/DL (70-105)
[2020-03-07 07:47] LABS: TOTAL PROTEIN 8.3 GM/DL (6.4-8.2)
[2020-03-07 07:48] LABS: BILIRUBIN,TOTAL 0.2 MG/DL (0.1-1.0); CARBON DIOXIDE 23 MMOL/L (21-32)
[2020-03-07 07:50] LABS: ALKALINE PHOSPHATASE 65 U/L (40-136); CREATININE SERUM 0.88 MG/DL (0.60-1.30); GFR ESTIMATED > 60
[2020-03-07 07:51] LABS: BUN/CREATININE RATIO 15
[2020-03-07 07:53] LABS: ALANINE AMINOTRANSFERASE 13 U/L (0-55)
--- NOTE | 2020-03-07 08:06 | NUR ---
in talking to the pt at this time.
--- NOTE | 2020-03-07 08:35 | ED General ---
General Chief Complaint: - Urinary Stated Complaint: COUGH,FEVER,CHILLS Nursing Triage Note: reported temp 99.0, intermittant nonproductive cough starting hs 03/06/2020. currently being treated for uti. Nursing Sepsis Screen: No Definite Risk Source of Information: Patient Exam Limitations: No Limitations History of Present Illness Date Seen by Provider: March 07, 2020 Time Seen by Provider: 06:25 Initial Comments This 34-year-old woman presents to the emergency room with multiple complaints including mild cough, chills and sweats, suprapubic discomfort and purulent appearing urine, uncontrolled blood sugars up to the 400s, and mild shortness of breath. She is a type I diabetic. She has been struggling with persistent and recurrent urinary tract infections including pyelonephritis that resulted in admission in early December. Most recently she has been cephalosporins and Macrobid without significant improvement. She is afebrile at present. Her primary care provider is Alexus Holman at [facility]. 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 During review of her chart she was noted to have multiple urine cultures growing 3 or more isolate's. Unfortunately, this means no sensitivities or definitive identification of species was possible. Allergies and Home Medications Allergies Coded Allergies: cephalexin (Verified Allergy, Severe, 12/16/19) SEIZURES cinnamon (Verified Allergy, Severe, Anaphylaxis, 12/16/19) aspirin (Verified Allergy, Unknown, 12/16/19) Home Medications Cefdinir 300 Mg Capsule, 300 MG PO BID Prescribed by: BRAYDEN TORRES on 02/25/20 1304 Ciprofloxacin HCl 500 Mg Tablet, 500 MG PO BID Prescribed by: HARPREET SANTANA on 03/07/20 0837 Hyoscyamine Sulfate 0.125 Mg Tab.subl, 0.125 MG SL Q4H PRN for SPASMS Prescribed by: HARPREET SANTANA on 03/07/20 0837 Insulin Glargine,Hum.rec.anlog 100 Unit/1 Ml Insuln.pen, 15 UNIT SQ DAILY PLEASE USE 340B PLAN Prescribed by: KRISH JUNIOR on 12/17/19 1325 Patient Home Medication List Home Medication List Reviewed: Yes Review of Systems Review of Systems Constitutional: see HPI EENTM: no symptoms reported Respiratory: see HPI Cardiovascular: no symptoms reported Gastrointestinal: see HPI Genitourinary: see HPI : No Musculoskeletal: no symptoms reported Skin: no symptoms reported Psychiatric/Neurological: No Symptoms Reported Hematologic/Lymphatic: No Symptoms Reported Immunological/Allergic: no symptoms reported Past Hpsdyop-Lapxue-Metmdq Hx Past Med/Social Hx: Reviewed Nursing Past Med/Soc Hx Patient Social History Alcohol Use: Denies Use Recreational Drug Use: No Smoking Status: Never a Smoker 2nd Hand Smoke Exposure: No Recent Foreign Travel: No Contact w/Someone Who Travel: No Recent Infectious Disease Expo: No Recent Hopitalizations: No Physical Abuse: No Sexual Abuse: No Mistreated: No Fear: No Immunizations Up To Date Tetanus Booster (TDap): Unknown Seasonal Allergies Seasonal Allergies: No Past Medical History Surgeries: Yes (ureteral stents) Respiratory: No Cardiac: No Neurological: Yes Seizure Disorder : No Genitourinary: Yes Kidney Stones, UTI-Chronic Gastrointestinal: No Musculoskeletal: No Endocrine: Yes Diabetes, Insulin dep HEENT: No Cancer: No Psychosocial: No Integumentary: No Blood Disorders: No Family Medical History Reviewed Nursing Family Hx Diabetes mellitus 19 MOTHER FH: bipolar disorder 19 MOTHER Hypertension 19 MOTHER Physical Exam Vital Signs Vital Signs - First Documented 03/07/20 06:19 Temp 36.4 Pulse 86 Resp 14 B/P (MAP) 147/84 (105) Pulse Ox 96 O2 Delivery Room Air Capillary Refill : Less Than 3 Seconds Height, Weight, BMI Height: '" Weight: lbs. oz. 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 Norm as Tested Skin: Normal Color, Warm/Dry Progress/Results/Core Measures Suspected Sepsis Recent Fever Within 48 Hours: No Infection Criteria Present: None New/Unexplained Altered Menta: No Sepsis Screen: No Definite Risk SIRS Temperature: Pulse: 86 Respiratory Rate: 14 Laboratory Tests 03/07/20 07:25: White Blood Count 13.7H Blood Pressure 147 /84 Mean: 105 Laboratory Tests 03/07/20 07:25: Creatinine 0.88, Platelet Count 314, Total Bilirubin 0.2 Results/Orders Lab Results Laboratory Tests Test 03/07/20 06:30 03/07/20 06:50 03/07/20 07:25 Range/Units Urine Color OTHER H Urine Clarity TURBID Urine pH 6.0 5-9 Urine Specific [place] 1.020 1.016-1.022 Urine Protein 3+ H NEGATIVE Urine Glucose (UA) 3+ H NEGATIVE Urine Ketones NEGATIVE NEGATIVE Urine Nitrite NEGATIVE NEGATIVE Urine Bilirubin NEGATIVE NEGATIVE Urine Urobilinogen 0.2 < = 1.0 MG/DL Urine Leukocyte Esterase 3+ H NEGATIVE Urine RBC (Auto) 3+ H NEGATIVE Urine RBC >100 H /HPF Urine WBC TNTC H /HPF Urine Crystals NONE /LPF Urine Bacteria LARGE H /HPF Urine Casts NONE /LPF Urine Mucus NEGATIVE /LPF Urine Culture Indicated YES White Blood Count 13.7 H 4.3-11.0 10^3/uL Red Blood Count 4.02 L 4.35-5.85 10^6/uL Hemoglobin 10.2 L 11.5-16.0 G/DL Hematocrit 32 L 35-52 % Mean Corpuscular Volume 78 L 80-99 FL Mean Corpuscular Hemoglobin 25 25-34 PG Mean Corpuscular Hemoglobin Concent 32 32-36 G/DL Red Cell Distribution Width 15.4 H 10.0-14.5 % Platelet Count 314 130-400 10^3/uL Mean Platelet Volume 10.0 7.4-10.4 FL Neutrophils (%) (Auto) 81 H 42-75 % Lymphocytes (%) (Auto) 12 12-44 % Monocytes (%) (Auto) 6 0-12 % Eosinophils (%) (Auto) 1 0-10 % Basophils (%) (Auto) 0 0-10 % Neutrophils # (Auto) 11.1 H 1.8-7.8 X 10^3 Lymphocytes # (Auto) 1.6 1.0-4.0 X 10^3 Monocytes # (Auto) 0.8 0.0-1.0 X 10^3 Eosinophils # (Auto) 0.2 0.0-0.3 10^3/uL Basophils # (Auto) 0.0 0.0-0.1 10^3/uL Sodium Level 133 L 135-145 MMOL/L Potassium Level 4.4 3.6-5.0 MMOL/L Chloride Level 102 98-107 MMOL/L Carbon Dioxide Level 23 21-32 MMOL/L Anion Gap 8 5-14 MMOL/L Blood Urea Nitrogen 13 7-18 MG/DL Creatinine 0.88 0.60-1.30 MG/DL Estimat Glomerular Filtration Rate > 60 BUN/Creatinine Ratio 15 Glucose Level 343 H 70-105 MG/DL Calcium Level 9.4 8.5-10.1 MG/DL Corrected Calcium 9.8 8.5-10.1 MG/DL Total Bilirubin 0.2 0.1-1.0 MG/DL Aspartate Amino Transf (AST/SGOT) 12 5-34 U/L Alanine Aminotransferase (ALT/SGPT) 13 0-55 U/L Alkaline Phosphatase 65 40-136 U/L C-Reactive Protein High Sensitivity 6.24 H 0.00-0.50 MG/DL Total Protein 8.3 H 6.4-8.2 GM/DL Albumin 3.5 3.2-4.5 GM/DL Serum Test, Qualitative NEGATIVE NEGATIVE Micro Results Microbiology 03/07/20 Influenza Types A,B Antigen (SHANIQUE) - Final, Complete My Orders Orders - HARPREET WALKER MD Cbc With Automated Diff (03/07/20 07:00) Comprehensive Metabolic Panel (03/07/20 07:00) Hs C Reactive Protein (03/07/20 07:00) Hcg,Qualitative Serum (03/07/20 07:00) Influenza A And B Antigens (03/07/20 07:00) Ed Iv/Invasive Line Start (03/07/20 07:00) Ns Iv 1000 Ml (Sodium Chloride 0.9%) (03/07/20 07:00) Coronavirus Sars-Cov-2 So 2018 (03/07/20 07:00) Levofloxacin 750 Mg/150 Ml Iv (Levaquin (03/07/20 07:00) Ua Culture If Indicated (03/07/20 07:00) Urine Culture (03/07/20 06:30) Fentanyl Injection (Sublimaze Injection (03/07/20 07:30) Hyoscyamine Sl Tablet (Levsin Sl Tablet) (03/07/20 08:45) Medications Given in ED Current Medications Medications Dose Ordered Sig/Colton Route Start Time Stop Time Status Last Admin Dose Admin Fentanyl Citrate 50 mcg ONCE ONCE IVP 03/07/20 07:30 03/07/20 07:31 DC 03/07/20 07:37 50 MCG Hyoscyamine Sulfate 0.125 mg ONCE ONCE SL 03/07/20 08:45 03/07/20 08:46 DC 03/07/20 09:05 0.125 MG Levofloxacin/ Dextrose 150 ml @ 100 mls/hr ONCE ONCE IV 03/07/20 07:00 03/07/20 08:29 DC 03/07/20 07:33 100 MLS/HR Sodium Chloride 1,000 ml @ 0 mls/hr Q0M ONCE IV 03/07/20 07:00 03/07/20 07:02 DC 03/07/20 07:34 1,000 MLS/HR Vital Signs/I&O 03/07/20 03/07/20 06:19 09:09 Temp 36.4 Pulse 86 77 Resp 14 16 B/P (MAP) 147/84 (105) 119/59 Pulse Ox 96 98 O2 Delivery Room Air Room Air Capillary Refill : Less Than 3 Seconds Blood Pressure Mean: 105 Progress Note : Progress Note Patient's urine was very high uric. WBC was elevated. CRP was also elevated. Patient received a liter of IV fluid and IV Levaquin 750 mg. Fentanyl was used for pain. COVID screening was performed. Influenza screen was negative. Case was discussed with Dr. Oreilly to ensure patient has close follow-up. Departure Impression Primary Impression: Recurrent urinary tract infection Additional Impressions: Hyperglycemia Cough Disposition: 01 HOME, SELF-CARE Condition: Improved Departure-Patient Inst. Decision time for Depature: 08:36 Referrals: [facility] (PCP) Primary Care Physician ALEXUS HOLMAN (Family) Primary Care Physician Patient Instructions: Urinary Tract Infection, Adult (DC), Hyperglycemia, Adult (DC) Add. Discharge Instructions: Drink plenty of sugar-free clear liquids to help flush out your urinary tract. Increase your long-acting insulin to 25 units. Monitor your blood sugars closely. If you are using scheduled doses of insulin and check your blood sugars fasting and 2 hours after meals. If you're using sliding scale insulin, check your blood sugars before meals and at bedtime. Complete your antibiotics as prescribed. If you are not improving after 2 or 3 days of antibiotic therapy on Cipro, you may need to add another antibiotic, possibly Bactrim. Follow-up at [facility] as soon as possible. Contact them by phone on Monday for at least a minimum of a phone consultation to review blood sugars and symptoms. Home isolate until the results of your coronavirus testing are known. Please have a very low threshold for returning to the ER if you have worsening symptoms, uncontrollable blood sugars, or new symptoms such as fevers over 100, vomiting, etc. All discharge instructions reviewed with patient and/or family. Voiced understanding. Scripts Hyoscyamine Sulfate (Levsin-Sl) 0.125 Mg Tab.subl 0.125 MG SL Q4H PRN for SPASMS, #10 TAB 0 Refills Prov: HARPREET WALKER MD 03/07/20 Ciprofloxacin HCl (Ciprofloxacin HCl) 500 Mg Tablet 500 MG PO BID, #20 TAB Prov: HARPREET WALKER MD 03/07/20 Copy Copies To 1: DEANDRE OREILLY MD, JOSHUA T MD March 07, 2020 08:35
[2020-03-07] MEDS ORDERED: HYOS0.1283 SL (08:37)
[2020-03-07] MEDS ORDERED: CIPR500T4 PO (08:37)
--- NOTE | 2020-03-07 08:38 | NUR ---
UP TO THE BATHROOM ET DENIES NEEDS AT THIS TIME.
[2020-03-07] MEDS ORDERED: HYOSCYAMINE 0.125 MG (LEVSIN) TAB SL ONE (08:45)
[2020-03-07 09:09] VITALS: BP 119/59
== END 2020-03-07 09:09 | disposition home or self-care (01) ==
LOC: EDUNIT# 06:11 → ER 06:15
DX: N39.0 Urinary tract infection, site not specified (principal); E10.65 Type 1 diabetes mellitus with hyperglycemia; R05 Cough; Z88.1 Allergy status to other antibiotic agents; Z88.8 Allergy status to other drugs, medicaments and biological substances; Z87.891 Personal history of nicotine dependence; Z82.49 Family history of ischemic heart disease and other diseases of the circulatory system; Z20.828 Contact with and (suspected) exposure to other viral communicable diseases
CPT/HCPCS: 36415; 80053; 81000; 84703; 85025; 86141; 87088; 87635; 87804

== ENCOUNTER 2020-03-30 23:53 | Emergency (ER) | payer OTHER ==
[~2020-03-30 23:53] MED LIST changes: +CIPR500T4 PO; +DIVA250T2 PO; +DIVA500T PO; +HYOS0.1283 SL
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
== END 2020-03-31 00:45 | disposition left against medical advice (07) ==
LOC: EDUNIT# 23:53 → ER 23:56
DX: N39.0 Urinary tract infection, site not specified (principal)

== ENCOUNTER 2020-06-10 16:10 | Emergency (ER) | payer MEDICAID, OTHER ==
[~2020-06-10] VITALS: Ht 165.1 cm; Wt 89.4 kg
[2020-06-10] MEDS ORDERED: ACETAMINOPHEN 500 MG TAB (TYLENOL) PO ONE (16:15)
[2020-06-10] MEDS ORDERED: DIVALPROEX 500 MG DELAYED RELEASE (DEPAKOTE) TAB PO SCH (16:15)
[2020-06-10] MEDS ORDERED: LACTATED RINGERS 1,000 ML IV SCH (16:15)
[2020-06-10] MEDS ORDERED: IBUPROFEN 600 MG (MOTRIN) TAB PO ONE (16:15)
--- NOTE | 2020-06-10 16:38 | ED Neurological Problem ---
General Chief Complaint: Neurological Problems Stated Complaint: SEIZURE,FEVER,COUGH,SOB Nursing Triage Note: PT TO ROOM 09 WITH C/O SEIZURE LIKE ACTIVITY. PT ALSO C/O FEVER/COUGH/SOA. Nursing Sepsis Screen: Possible Severe Sepsis Risk Source: patient Exam Limitations: no limitations History of Present Illness Date Seen by Provider: Jun 10, 2020 Time Seen by Provider: 16:09 Initial Comments To ER by EMS with reports of seizure-like activity. He has known seizure disorder managed on Depakote 700 mg daily. She has been without that as well as her insulin for the past 1 month. She was also noted to be febrile at one 1.5 on EMS arrival. She is been complaining of cough shortness of breath and nausea. Those symptoms have been present for 2 days. Timing/Duration: other Severity: moderate Associated Symptoms: fever/chills Allergies and Home Medications Allergies Coded Allergies: cephalexin (Verified Allergy, Severe, 12/16/19) SEIZURES cinnamon (Verified Allergy, Severe, Anaphylaxis, 12/16/19) aspirin (Verified Allergy, Unknown, 12/16/19) Home Medications Cefdinir 300 Mg Capsule, 300 MG PO BID Prescribed by: BRAYDEN TORRES on 02/25/20 1304 Ciprofloxacin HCl 500 Mg Tablet, 500 MG PO BID Prescribed by: HARPREET SANTANA on 03/07/20 0837 Hyoscyamine Sulfate 0.125 Mg Tab.subl, 0.125 MG SL Q4H PRN for SPASMS Prescribed by: HARPREET SANTANA on 03/07/20 0837 Insulin Glargine,Hum.rec.anlog 100 Unit/1 Ml Insuln.pen, 15 UNIT SQ DAILY PLEASE USE 340B PLAN Prescribed by: KRISH JUNIOR on 12/17/19 1325 Patient Home Medication List Home Medication List Reviewed: Yes Review of Systems Review of Systems Constitutional: see HPI, chills, fever Eyes: No Symptoms Reported Ears, Nose, Mouth, Throat: no symptoms reported Respiratory: see HPI, cough Cardiovascular: no symptoms reported, edema Genitourinary: no symptoms reported Musculoskeletal: no symptoms reported Skin: no symptoms reported Psychiatric/Neurological: See HPI Endocrine: No Symptoms Reported Hematologic/Lymphatic: No Symptoms Reported Past Yycktpc-Jvnegj-Wdzsbc Hx Patient Social History 2nd Hand Smoke Exposure: No Recent Foreign Travel: No Contact w/Someone Who Travel: No Recent Infectious Disease Expo: No Recent Hopitalizations: No Immunizations Up To Date Tetanus Booster (TDap): Unknown Seasonal Allergies Seasonal Allergies: No Past Medical History Surgeries: Yes (ureteral stents) Respiratory: No Cardiac: No Neurological: Yes Seizure Disorder Genitourinary: Yes Kidney Stones, UTI-Chronic Gastrointestinal: No Musculoskeletal: No Endocrine: Yes Diabetes, Insulin dep HEENT: No Cancer: No Psychosocial: No Integumentary: No Blood Disorders: No Family Medical History Diabetes mellitus 19 MOTHER FH: bipolar disorder 19 MOTHER Hypertension 19 MOTHER Physical Exam Vital Signs Vital Signs - First Documented 06/10/20 16:14 Pulse 99 Resp 19 B/P (MAP) 114/74 (87) O2 Delivery Room Air Capillary Refill : Less Than 3 Seconds Height, Weight, BMI Height: '" Weight: lbs. oz. kg; 32.00 BMI Method: General Appearance: WD/WN, no apparent distress, other (Alert and oriented no distress) HEENT: PERRL/EOMI, normal ENT inspection Neck: non-tender, full range of motion Respiratory: no respiratory distress, no accessory muscle use Cardiovascular: regular rate, rhythm, no murmur Gastrointestinal: normal bowel sounds, non tender, soft Extremities: normal range of motion, non-tender Neurologic/Psychiatric: alert, normal mood/affect, oriented x 3 Crainal Nerves: normal hearing, normal speech, PERRL Skin: normal color, warm/dry Focused Exam Lactate Level 06/10/20 16:14: Lactic Acid Level 1.03 Lactic Acid Level Laboratory Tests Test 06/10/20 16:14 Lactic Acid Level 1.03 MMOL/L (0.50-2.00) Progress/Results/Core Measures Results/Orders Lab Results Laboratory Tests Test 06/10/20 16:14 06/10/20 16:32 06/10/20 16:41 Range/Units White Blood Count 16.7 H 4.3-11.0 10^3/uL Red Blood Count 3.80 L 4.35-5.85 10^6/uL Hemoglobin 8.8 L 11.5-16.0 G/DL Hematocrit 27 L 35-52 % Mean Corpuscular Volume 72 L 80-99 FL Mean Corpuscular Hemoglobin 23 L 25-34 PG Mean Corpuscular Hemoglobin Concent 32 32-36 G/DL Red Cell Distribution Width 14.9 H 10.0-14.5 % Platelet Count 363 130-400 10^3/uL Mean Platelet Volume 10.4 7.4-10.4 FL Neutrophils (%) (Auto) 89 H 42-75 % Lymphocytes (%) (Auto) 5 L 12-44 % Monocytes (%) (Auto) 5 0-12 % Eosinophils (%) (Auto) 1 0-10 % Basophils (%) (Auto) 0 0-10 % Neutrophils # (Auto) 14.8 H 1.8-7.8 X 10^3 Lymphocytes # (Auto) 0.9 L 1.0-4.0 X 10^3 Monocytes # (Auto) 0.8 0.0-1.0 X 10^3 Eosinophils # (Auto) 0.2 0.0-0.3 10^3/uL Basophils # (Auto) 0.0 0.0-0.1 10^3/uL Neutrophils % (Manual) 90 % Lymphocytes % (Manual) 5 % Monocytes % (Manual) 1 % Eosinophils % (Manual) 1 % Basophils % (Manual) 0 % Band Neutrophils 3 % Polychromasia SLIGHT Hypochromasia SLIGHT Anisocytosis SLIGHT Sodium Level 129 L 135-145 MMOL/L Potassium Level 4.6 3.6-5.0 MMOL/L Chloride Level 100 98-107 MMOL/L Carbon Dioxide Level 17 L 21-32 MMOL/L Anion Gap 12 5-14 MMOL/L Blood Urea Nitrogen 41 H 7-18 MG/DL Creatinine 1.72 H 0.60-1.30 MG/DL Estimat Glomerular Filtration Rate 34 BUN/Creatinine Ratio 24 Glucose Level 357 H 70-105 MG/DL Lactic Acid Level 1.03 0.50-2.00 MMOL/L Calcium Level 9.2 8.5-10.1 MG/DL Corrected Calcium 9.9 8.5-10.1 MG/DL Total Bilirubin 0.3 0.1-1.0 MG/DL Aspartate Amino Transf (AST/SGOT) 10 5-34 U/L Alanine Aminotransferase (ALT/SGPT) 10 0-55 U/L Alkaline Phosphatase 85 40-136 U/L C-Reactive Protein High Sensitivity 13.60 H 0.00-0.50 MG/DL Total Protein 8.6 H 6.4-8.2 GM/DL Albumin 3.1 L 3.2-4.5 GM/DL Beta-Hydroxybutyrate (Chem panel) 0.51 H 0.00-0.27 MMOL/L Serum Test, Qualitative NEGATIVE NEGATIVE Urine Color YELLOW Urine Clarity TURBID Urine pH 5.5 5-9 Urine Specific [place] 1.025 H 1.016-1.022 Urine Protein 2+ H NEGATIVE Urine Glucose (UA) 3+ H NEGATIVE Urine Ketones NEGATIVE NEGATIVE Urine Nitrite NEGATIVE NEGATIVE Urine Bilirubin NEGATIVE NEGATIVE Urine Urobilinogen 0.2 < = 1.0 MG/DL Urine Leukocyte Esterase 3+ H NEGATIVE Urine RBC (Auto) 3+ H NEGATIVE Urine RBC 0-2 /HPF Urine WBC >100 H /HPF Urine Squamous Epithelial Cells RARE /HPF Urine Crystals NONE /LPF Urine Bacteria FEW H /HPF Urine Casts NONE /LPF Urine Mucus NEGATIVE /LPF Urine Culture Indicated YES Urine Opiates Screen NEGATIVE NEGATIVE Urine Oxycodone Screen NEGATIVE NEGATIVE Urine Methadone Screen NEGATIVE NEGATIVE Urine Propoxyphene Screen NEGATIVE NEGATIVE Urine Barbiturates Screen NEGATIVE NEGATIVE Ur Tricyclic Antidepressants Screen NEGATIVE NEGATIVE Urine Phencyclidine Screen NEGATIVE NEGATIVE Urine Amphetamines Screen NEGATIVE NEGATIVE Urine Methamphetamines Screen NEGATIVE NEGATIVE Urine Benzodiazepines Screen NEGATIVE NEGATIVE Urine Cocaine Screen NEGATIVE NEGATIVE Urine Cannabinoids Screen NEGATIVE NEGATIVE My Orders Orders - BRAYDEN TORRES APRN Acetaminophen Tablet (Tylenol Tablet) (06/10/20 16:15) Ibuprofen Tablet (Motrin Tablet) (06/10/20 16:15) Lactated Ringers (Lr 1000 Ml Iv Solution (06/10/20 16:15) Cbc With Automated Diff (06/10/20 16:11) Comprehensive Metabolic Panel (06/10/20 16:11) Chest 1 View, Ap/Pa Only (06/10/20 16:11) Coronavirus Sars-Cov-2 So 2018 (06/10/20 16:11) Hcg,Qualitative Serum (06/10/20 16:11) Hs C Reactive Protein (06/10/20 16:11) Beta Hydroxybutyrate (06/10/20 16:11) Urinalysis (06/10/20 16:11) Divalproex Delay Release Tab (Depakote T (06/10/20 16:15) Manual Differential (06/10/20 16:14) Lactic Acid Analyzer (06/10/20 17:02) Blood Culture (06/10/20 17:02) Drug Screen Stat (Urine) (06/10/20 17:02) Urine Culture (06/10/20 16:41) Levofloxacin Tablet (Levaquin Tablet) (06/10/20 17:15) Medications Given in ED Current Medications Medications Dose Ordered Sig/Colton Route Start Time Stop Time Status Last Admin Dose Admin Acetaminophen 1,000 mg ONCE ONCE PO 06/10/20 16:15 06/10/20 16:16 DC 06/10/20 16:40 1,000 MG Ibuprofen 600 mg ONCE ONCE PO 06/10/20 16:15 06/10/20 16:16 DC 06/10/20 16:40 600 MG Vital Signs/I&O 06/10/20 06/10/20 06/10/20 16:14 16:40 16:40 Temp 37.1 37.1 Pulse 99 Resp 19 B/P (MAP) 114/74 (87) O2 Delivery Room Air Blood Pressure Mean: 87 Departure Impression Primary Impression: ALDO (acute kidney injury) Additional Impressions: Seizure disorder Uncontrolled diabetes mellitus Disposition: HOME, SELF-CARE Condition: Stable Departure-Patient Inst. Decision time for Depature: 17:27 Referrals: [facility]/ (PCP) Primary Care Physician ALEXUS NGO (Family) Primary Care Physician Patient Instructions: Urinary Tract Infection, Adult (DC) Add. Discharge Instructions: 1. Antibiotics as directed 2. Depakote as directed. If unable to afford her medications go to [facility] with a can help with prescription vouchers. All discharge instructions reviewed with patient and/or family. Voiced understanding. Scripts Ciprofloxacin HCl (Ciprofloxacin HCl) 500 Mg Tablet 500 MG PO BID, #10 TAB Prov: BRAYDEN TORRES APRN 06/10/20 Divalproex Sodium (Depakote ER) 500 Mg Tab.er.24h 500 MG PO DAILY, #30 TAB Prov: BRAYDEN TORRES APRN 06/10/20 Divalproex Sodium (Depakote ER) 250 Mg Tab.er.24h 250 MG PO HS, #30 TAB Prov: BRAYDEN TORRES APRN 06/10/20 BRAYDEN TORRES APRN Jun 10, 2020 16:38
[2020-06-10 16:39] LABS: BASOPHILS % (AUTO) 0 % (0-10); EOSINOPHILS # (AUTO) 0.2 10^3/uL (0.0-0.3); EOSINOPHILS % (AUTO) 1 % (0-10); HEMATOCRIT 27 % (35-52); HEMOGLOBIN 8.8 G/DL (11.5-16.0); LYMPHOCYTES # (AUTO) 0.9 X 10^3 (1.0-4.0); LYMPHOCYTES % (AUTO) 5 % (12-44); MEAN CORPUSCULAR HEMOGLOBIN 23 PG (25-34); MEAN CORPUSCULAR HGB CONC 32 G/DL (32-36); MEAN CORPUSCULAR VOLUME 72 FL (80-99); MEAN PLATELET VOLUME 10.4 FL (7.4-10.4); MONOCYTES # (AUTO) 0.8 X 10^3 (0.0-1.0); MONOCYTES % (AUTO) 5 % (0-12); NEUTROPHILS # (AUTO) 14.8 X 10^3 (1.8-7.8); NEUTROPHILS % (AUTO) 89 % (42-75); PLATELET COUNT 363 10^3/uL (130-400); RED CELL DISTRIBUTION WIDTH 14.9 % (10.0-14.5); WHITE BLOOD COUNT 16.7 10^3/uL (4.3-11.0)
[2020-06-10 16:49] LABS: ALBUMIN 3.1 GM/DL (3.2-4.5)
[2020-06-10 16:50] LABS: POTASSIUM 4.6 MMOL/L (3.6-5.0)
[2020-06-10 16:51] LABS: CALCIUM 9.2 MG/DL (8.5-10.1)
[2020-06-10 16:52] LABS: TOTAL PROTEIN 8.6 GM/DL (6.4-8.2)
[2020-06-10 16:53] LABS: BILIRUBIN,URINE NEGATIVE (NEGATIVE); CLARITY,URINE TURBID; COLOR,URINE YELLOW; GLUCOSE, URINE (UA) 3+ (NEGATIVE); KETONES,URINE NEGATIVE (NEGATIVE); LEUKOCYTE ESTERASE ,URINE 3+ (NEGATIVE); NITRITE,URINE NEGATIVE (NEGATIVE); PH,URINE 5.5 (5-9); PROTEIN,URINE 2+ (NEGATIVE)
[2020-06-10 16:54] LABS: BILIRUBIN,TOTAL 0.3 MG/DL (0.1-1.0)
[2020-06-10 16:56] LABS: CREATININE SERUM 1.72 MG/DL (0.60-1.30)
[2020-06-10 17:03] LABS: BACTERIA,URINE FEW /HPF; RBC,URINE 0-2 /HPF; SQUAMOUS EPITHELIAL CELL,UR RARE /HPF; WBC,URINE >100 /HPF
--- NOTE | 2020-06-10 17:13 | Diagnostic Imaging Report ---
INDICATION: Seizure activity with fever and cough and shortness of breath. EXAMINATION: Single view of the chest was obtained. COMPARISON: 12/16/2019. FINDINGS: Heart and mediastinal silhouette are normal in appearance. Lungs are clear. There is no pneumothorax or pleural fluid. IMPRESSION: Negative chest. Dictated by: Dictated on workstation # [id number]
[2020-06-10] MEDS ORDERED: LEVOFLOXACIN 500 MG TAB (LEVAQUIN) PO ONE (17:15)
[2020-06-10 17:18] LABS: ANISOCYTOSIS SLIGHT; BAND NEUTROPHILS 3 %; BASOPHILS % (MANUAL) 0 %; EOSINOPHILS % (MANUAL) 1 %; HYPOCHROMASIA SLIGHT; LYMPHOCYTES % (MANUAL) 5 %; MONOCYTES % (MANUAL) 1 %; NEUTROPHILS % (MANUAL) 90 %; POLYCHROMASIA SLIGHT
[2020-06-10 17:20] LABS: AMPHETAMINE SCREEN, URINE NEGATIVE (NEGATIVE); BARBITURATE SCREEN URINE NEGATIVE (NEGATIVE); BENZODIAZEPINES SCREEN URINE NEGATIVE (NEGATIVE); CANNABINOID SCREEN, URINE NEGATIVE (NEGATIVE); COCAINE SCREEN URINE NEGATIVE (NEGATIVE); METHADONE STAT NEGATIVE (NEGATIVE); METHAMPHETAMINE SCREEN URINE S NEGATIVE (NEGATIVE); OPIATE SCREEN URINE NEGATIVE (NEGATIVE); OXYCODONE STAT NEGATIVE (NEGATIVE); PROPOXYPHENE STAT NEGATIVE (NEGATIVE); TRICYCLIC ANTIDEPRESSANTS SCRE NEGATIVE (NEGATIVE)
[2020-06-10] MEDS ORDERED: DIVA-21 PO (17:29)
[2020-06-10] MEDS ORDERED: CIPR500T4 PO (17:29)
[2020-06-10] MEDS ORDERED: DIVA250T PO (17:29)
[2020-06-10] MEDS ORDERED: NS IV 1000 ML 1,000 ML IV SCH (17:45)
[2020-06-10 18:50] VITALS: BP 120/71
== END 2020-06-10 18:50 | disposition home or self-care (01) ==
LOC: EDUNIT# 16:10 → ER 16:11
DX: G40.909 Epilepsy, unspecified, not intractable, without status epilepticus (principal); E11.65 Type 2 diabetes mellitus with hyperglycemia; N17.9 Acute kidney failure, unspecified; R05 Cough; R50.9 Fever, unspecified; Z82.49 Family history of ischemic heart disease and other diseases of the circulatory system; Z79.4 Long term (current) use of insulin; Z88.1 Allergy status to other antibiotic agents; Z88.6 Allergy status to analgesic agent
CPT/HCPCS: 71045; 80053; 80306; 81000; 82010; 83605; 84703; 85007; 85027; 86141; 87040; 87088; U0002; 36415; 87635

== ENCOUNTER 2020-07-26 17:22 | Inpatient (IN) | payer SELFPAY ==
[~2020-07-26] VITALS: Ht 165.1 cm; Wt 90.0 kg
[~2020-07-26 17:22] MED LIST changes: +DIVA-21 PO; +DIVA250T PO
[2020-07-26] MEDS ORDERED: NS IV 1000 ML 1,000 ML IV SCH (17:47)
[2020-07-26 18:12] LABS: BILIRUBIN,URINE NEGATIVE (NEGATIVE); CLARITY,URINE TURBID; COLOR,URINE YELLOW; GLUCOSE, URINE (UA) 1+ (NEGATIVE); KETONES,URINE TRACE (NEGATIVE); LEUKOCYTE ESTERASE ,URINE 3+ (NEGATIVE); NITRITE,URINE NEGATIVE (NEGATIVE); PROTEIN,URINE 3+ (NEGATIVE)
[2020-07-26 18:16] LABS: BACTERIA,URINE FEW /HPF; RBC,URINE 50-100 /HPF; WBC,URINE TNTC /HPF
[2020-07-26 18:30] LABS: BASOPHILS # (AUTO) 0.1 10^3/uL (0.0-0.1); BASOPHILS % (AUTO) 0 % (0-10); EOSINOPHILS # (AUTO) 0.1 10^3/uL (0.0-0.3); EOSINOPHILS % (AUTO) 1 % (0-10); HEMATOCRIT 26 % (35-52); LYMPHOCYTES # (AUTO) 1.5 10^3/uL (1.0-4.0); LYMPHOCYTES % (AUTO) 9 % (12-44); MEAN CORPUSCULAR HEMOGLOBIN 23 pg (25-34); MEAN CORPUSCULAR HGB CONC 31 g/dL (32-36); MEAN CORPUSCULAR VOLUME 73 fL (80-99); MEAN PLATELET VOLUME 10.1 fL (9.0-12.2); MONOCYTES # (AUTO) 1.1 10^3/uL (0.0-1.0); MONOCYTES % (AUTO) 6 % (0-12); NEUTROPHILS % (AUTO) 83 % (42-75); PLATELET COUNT 403 10^3/uL (130-400); WHITE BLOOD COUNT 16.9 10^3/uL (4.3-11.0)
[2020-07-26 18:45] LABS: FIBRIN DEGRADATION PRODUCTS 1.31 UG/ML (0.00-0.49); INR 1.1 (0.8-1.4); PROTHROMBIN TIME PATIENT 14.1 SEC (12.2-14.7)
[2020-07-26 18:46] LABS: ALBUMIN 3.1 GM/DL (3.2-4.5); POTASSIUM 4.1 MMOL/L (3.6-5.0)
[2020-07-26 18:47] LABS: CALCIUM 9.2 MG/DL (8.5-10.1)
[2020-07-26 18:48] LABS: TOTAL PROTEIN 8.2 GM/DL (6.4-8.2)
[2020-07-26 18:50] LABS: BILIRUBIN,TOTAL 0.3 MG/DL (0.1-1.0)
[2020-07-26 18:52] LABS: CREATININE SERUM 1.63 MG/DL (0.60-1.30)
[2020-07-26 19:00] LABS: BASOPHILS % (MANUAL) 1 %; EOSINOPHILS % (MANUAL) 1 %; ERYTHROCYTE SEDIMENTATION RATE > 140 MM/HR (0-20); HYPOCHROMASIA MODERATE; LYMPHOCYTES % (MANUAL) 4 %; MONOCYTES % (MANUAL) 4 %; NEUTROPHILS % (MANUAL) 90 %; POLYCHROMASIA SLIGHT
[2020-07-26] MEDS ORDERED: PIPERACILLIN SODIUM/TAZOBACTAM 4.5 GM in NS (IVPB) 100 ML IV ONE (19:00)
--- NOTE | 2020-07-26 19:39 | ED General ---
General Chief Complaint: Fever-Adult/Adol Stated Complaint: FEVER, VOMITING, SEIZURES Nursing Triage Note: PT AMBULATE TO ROOM 08 WITH C/O FEVER, CHILLS, N/V. PT STATES WAS SEEN AT [facility] AND WITH UTI AND GIVEN ABX ON MONDAY. PT STATES SHE IS NOT FEELING BETTER. Nursing Sepsis Screen: No Definite Risk History of Present Illness Date Seen by Provider: Jul 26, 2020 Time Seen by Provider: 17:35 Initial Comments 35-year-old female presents with fevers, nausea and vomiting, history of recurrent UTIs and pyelonephritis. She was seen at [facility] on 07/20/20 and started on Cipro after receiving Rocephin IM. She has been trying to increase her fluids and take antibiotics as prescribed but with symptoms not resolving. No known COVID exposure she was last tested here in May and it was negative. She denies any shortness of air, loss of taste or smell. Known seizure disorder and takes Depakote, partner reports that she had a seizure at 1:15 today that lasted approximately 3 minutes. Timing/Duration: 4-5 Days Severity: Moderate Associated Systoms: No Chest Pain, No Cough; Fever/Chills, Loss of Appetite, Nausea/Vomiting, Seizure; No Shortness of Air; Weakness Allergies and Home Medications Allergies Coded Allergies: cephalexin (Verified Allergy, Severe, 12/16/19) SEIZURES cinnamon (Verified Allergy, Severe, Anaphylaxis, 12/16/19) aspirin (Verified Allergy, Unknown, 12/16/19) Home Medications Cefdinir 300 Mg Capsule, 300 MG PO BID Prescribed by: BRAYDEN TORRES on 02/25/20 1304 Ciprofloxacin HCl 500 Mg Tablet, 500 MG PO BID Prescribed by: HARPREET SANTANA on 03/07/20 0837 Ciprofloxacin HCl 500 Mg Tablet, 500 MG PO BID Prescribed by: BRAYDEN TORRES on 06/10/20 1729 Divalproex Sodium 250 Mg Tab.er.24h, 250 MG PO HS Prescribed by: BRAYDEN TORRES on 06/10/20 1729 Divalproex Sodium 500 Mg Tab.er.24h, 500 MG PO DAILY Prescribed by: BRAYDEN TORRES on 06/10/20 1729 Hyoscyamine Sulfate 0.125 Mg Tab.subl, 0.125 MG SL Q4H PRN for SPASMS Prescribed by: HARPREET SANTANA on 03/07/20 0837 Insulin Glargine,Hum.rec.anlog 100 Unit/1 Ml Insuln.pen, 15 UNIT SQ DAILY PLEASE USE 340B PLAN Prescribed by: KRISH JUNIOR on 12/17/19 1325 Patient Home Medication List Home Medication List Reviewed: Yes Review of Systems Review of Systems Constitutional: no symptoms reported, chills, fever, malaise, weakness EENTM: see HPI, no symptoms reported Respiratory: no symptoms reported, see HPI Cardiovascular: no symptoms reported, see HPI Gastrointestinal: see HPI, abdominal pain, loss of appetite, nausea, vomiting Genitourinary: see HPI, dysuria, frequency, hematuria, pain : No Musculoskeletal: no symptoms reported, see HPI All Other Systems Reviewed Negative Unless Noted: Yes Past Wdkwqje-Pcgejq-Kbwule Hx Past Med/Social Hx: Reviewed Nursing Past Med/Soc Hx Patient Social History Alcohol Use: Denies Use Recreational Drug Use: No Smoking Status: Never a Smoker 2nd Hand Smoke Exposure: No Recent Foreign Travel: No Contact w/Someone Who Travel: No Recent Infectious Disease Expo: No Recent Hopitalizations: No Physical Abuse: No Sexual Abuse: No Mistreated: No Fear: No Immunizations Up To Date Tetanus Booster (TDap): Unknown Seasonal Allergies Seasonal Allergies: No Past Medical History Surgeries: Yes (ureteral stents) Respiratory: No Cardiac: No Neurological: Yes Seizure Disorder Genitourinary: Yes Kidney Stones, UTI-Chronic Gastrointestinal: No Musculoskeletal: No Endocrine: Yes Diabetes, Insulin dep HEENT: No Cancer: No Psychosocial: No Integumentary: No Blood Disorders: No Family Medical History Diabetes mellitus 19 MOTHER FH: bipolar disorder 19 MOTHER Hypertension 19 MOTHER Physical Exam-Suspected Sepsis Physical Exam Vital Signs Vital Signs - First Documented 07/26/20 07/26/20 17:32 20:37 Temp 38.5 Pulse 104 Resp 18 B/P (MAP) 112/76 (88) Pulse Ox 100 O2 Delivery Room Air Capillary Refill : Less Than 3 Seconds Blood Pressure Mean: 88 Height, Weight, BMI Height: '" Weight: lbs. oz. kg; 29.00 BMI Method: General Appearance: WD/WN, Mild Distress Eyes: Bilateral Eye Normal Inspection, Bilateral Eye PERRL, Bilateral Eye EOMI HEENT: PERRL/EOMI, TMs Normal, Normal ENT Inspection, Pharynx Normal Neck: Full Range of Motion, Normal Inspection, Non Tender, Supple Respiratory: Chest Non Tender, Lungs Clear, Normal Breath Sounds Cardiovascular: Regular Rate, Rhythm, No Edema, No Murmur, Normal Peripheral Pulses Gastrointestinal: Normal Bowel Sounds, Soft; No Distended, No Mass, No Rebound; Tenderness (generalized) Back: Normal Inspection, No Vertebral Tenderness, CVA Tenderness (R) Extremity: Normal Capillary Refill, Normal Inspection, Normal Range of Motion, No Pedal Edema Neurologic/Psychiatric: Alert, Oriented x3, No Motor/Sensory Deficits, Normal Mood/Affect Skin: normal color, warm/dry; No rash, No ulcerations Lymphatic: No Adenopathy Focused Exam Lactate Level 07/26/20 18:00: Lactic Acid Level 0.76 Lactic Acid Level Laboratory Tests Test 07/26/20 18:00 Lactic Acid Level 0.76 MMOL/L (0.50-2.00) Progress/Results/Core Measures Suspected Sepsis Recent Fever Within 48 Hours: No Infection Criteria Present: None New/Unexplained Altered Menta: No Sepsis Screen: No Definite Risk SIRS Temperature: Pulse: 104 Respiratory Rate: 18 Laboratory Tests 07/26/20 18:00: White Blood Count 16.9H Blood Pressure 112 /76 Mean: 88 07/26/20 18:00: Lactic Acid Level 0.76 Laboratory Tests 07/26/20 18:00: Creatinine 1.63H, INR Comment 1.1, Platelet Count 403H, Total Bilirubin 0.3 Results/Orders Lab Results Laboratory Tests Test 07/26/20 18:00 07/26/20 18:50 Range/Units White Blood Count 16.9 H 4.3-11.0 10^3/uL Red Blood Count 3.52 L 3.80-5.11 10^6/uL Hemoglobin 8.0 L 11.5-16.0 g/dL Hematocrit 26 L 35-52 % Mean Corpuscular Volume 73 L 80-99 fL Mean Corpuscular Hemoglobin 23 L 25-34 pg Mean Corpuscular Hemoglobin Concent 31 L 32-36 g/dL Red Cell Distribution Width 16.1 H 10.0-14.5 % Platelet Count 403 H 130-400 10^3/uL Mean Platelet Volume 10.1 9.0-12.2 fL Immature Granulocyte % (Auto) 1 % Neutrophils (%) (Auto) 83 H 42-75 % Lymphocytes (%) (Auto) 9 L 12-44 % Monocytes (%) (Auto) 6 0-12 % Eosinophils (%) (Auto) 1 0-10 % Basophils (%) (Auto) 0 0-10 % Neutrophils # (Auto) 14.0 H 1.8-7.8 10^3/uL Lymphocytes # (Auto) 1.5 1.0-4.0 10^3/uL Monocytes # (Auto) 1.1 H 0.0-1.0 10^3/uL Eosinophils # (Auto) 0.1 0.0-0.3 10^3/uL Basophils # (Auto) 0.1 0.0-0.1 10^3/uL Immature Granulocyte # (Auto) 0.1 0.0-0.1 10^3/uL Neutrophils % (Manual) 90 % Lymphocytes % (Manual) 4 % Monocytes % (Manual) 4 % Eosinophils % (Manual) 1 % Basophils % (Manual) 1 % Polychromasia SLIGHT Hypochromasia MODERATE Basophilic Stippling SLIGHT Erythrocyte Sedimentation Rate > 140 H 0-20 MM/HR Prothrombin Time 14.1 12.2-14.7 SEC INR Comment 1.1 0.8-1.4 Activated Partial Thromboplast Time 31 24-35 SEC D-Dimer 1.31 H 0.00-0.49 UG/ML Urine Color YELLOW Urine Clarity TURBID Urine pH 6.0 5-9 Urine Specific [place] 1.025 H 1.016-1.022 Urine Protein 3+ H NEGATIVE Urine Glucose (UA) 1+ H NEGATIVE Urine Ketones TRACE H NEGATIVE Urine Nitrite NEGATIVE NEGATIVE Urine Bilirubin NEGATIVE NEGATIVE Urine Urobilinogen 0.2 < = 1.0 MG/DL Urine Leukocyte Esterase 3+ H NEGATIVE Urine RBC (Auto) 3+ H NEGATIVE Urine RBC 50-100 H /HPF Urine WBC TNTC H /HPF Urine Crystals NONE /LPF Urine Bacteria FEW H /HPF Urine Casts NONE /LPF Urine Mucus NEGATIVE /LPF Urine Culture Indicated CULTURE PENDING Sodium Level 132 L 135-145 MMOL/L Potassium Level 4.1 3.6-5.0 MMOL/L Chloride Level 101 98-107 MMOL/L Carbon Dioxide Level 20 L 21-32 MMOL/L Anion Gap 11 5-14 MMOL/L Blood Urea Nitrogen 30 H 7-18 MG/DL Creatinine 1.63 H 0.60-1.30 MG/DL Estimat Glomerular Filtration Rate 36 BUN/Creatinine Ratio 18 Glucose Level 272 H 70-105 MG/DL Lactic Acid Level 0.76 0.50-2.00 MMOL/L Calcium Level 9.2 8.5-10.1 MG/DL Corrected Calcium 9.9 8.5-10.1 MG/DL Total Bilirubin 0.3 0.1-1.0 MG/DL Aspartate Amino Transf (AST/SGOT) 10 5-34 U/L Alanine Aminotransferase (ALT/SGPT) 10 0-55 U/L Alkaline Phosphatase 93 40-136 U/L Lactate Dehydrogenase 138 125-220 U/L C-Reactive Protein High Sensitivity 21.75 H 0.00-0.50 MG/DL Total Protein 8.2 6.4-8.2 GM/DL Albumin 3.1 L 3.2-4.5 GM/DL Procalcitonin 0.24 H <0.10 NG/ML Serum Test, Qualitative NEGATIVE NEGATIVE Coronavirus 2019 (RICHARD) Negative Negative Micro Results Microbiology 07/26/20 Influenza Types A,B Antigen (SHANIQUE) - Final, Complete My Orders Orders - PINEDA ROMERO Cbc With Automated Diff (07/26/20 17:47) Comprehensive Metabolic Panel (07/26/20 17:47) Blood Culture (07/26/20 17:47) Sputum Culture (07/26/20 17:47) Urinalysis (07/26/20 17:47) Urine Culture (07/26/20 17:47) Protime With Inr (07/26/20 17:47) Partial Thromboplastin Time (07/26/20 17:47) Chest 1 View, Ap/Pa Only (07/26/20 17:47) Ed Iv/Invasive Line Start (07/26/20 17:47) Influenza A And B Antigens (07/26/20 17:47) Ns Iv 1000 Ml (Sodium Chloride 0.9%) (07/26/20 17:47) Lactic Acid Analyzer (07/26/20 17:47) Fibrin Degradation Products (07/26/20 17:47) Procalcitonin (Pct) (07/26/20 17:47) Hs C Reactive Protein (07/26/20 17:47) Erythrocyte Sedimentation Rate (07/26/20 17:47) LDH (07/26/20 17:47) Covid 19 Inhouse Test (07/26/20 17:47) Urine Bedside (07/26/20 17:47) Manual Differential (07/26/20 18:00) Hcg,Qualitative Serum (07/26/20 18:56) Piperacillin Sodium/Tazobactam (Zosyn Vi (07/26/20 19:00) Ct Abd/Pelvis Wo(Kidney Stone) (07/26/20 19:07) Coronavirus Sars-Cov-2 So 2019 (07/26/20 19:32) Medications Given in ED Current Medications Medications Dose Ordered Sig/Colton Route Start Time Stop Time Status Last Admin Dose Admin Piperacillin Sod/ Tazobactam Sod 4.5 gm/Sodium Chloride 100 ml @ 200 mls/hr ONCE ONCE IV 07/26/20 19:00 07/26/20 19:29 DC 07/26/20 19:45 200 MLS/HR Vital Signs/I&O 07/26/20 07/26/20 17:32 20:37 Temp 38.5 36.5 Pulse 104 90 Resp 18 18 B/P (MAP) 112/76 (88) 106/67 Pulse Ox 100 O2 Delivery Room Air Room Air Capillary Refill : Less Than 3 Seconds Blood Pressure Mean: 88 Progress Note : Time: 17:35 Progress Note Patient seen and evaluated, will obtain labs, chest x-ray, CT abdomen and pelvis. Normal saline 1 L per IV. She denies any nausea at this time, he took Tylenol prior to arrival. 1814 temp 98.5. [address] abdomen and plevis. [address] Melendrez, agreed with plan to admit, will cover with Meropenum and Vanc. Patient agreeable to admission plans. 2014 patient has remained stable, afebrile. No complaints at this time. Diagnostic Imaging Diagonstic Imaging: Xray Plain Films/CT/US/NM/MRI: chest Comments Date of Exam:07/26/20 CHEST 1 VIEW, AP/PA ONLY INDICATION: Sepsis. COMPARISON: 06/10/2020. EXAMINATION: Single view of the chest was obtained. FINDINGS: Clear lungs, bilaterally. The heart is normal. There is no pneumothorax but osseous structures are normal. IMPRESSION: Negative chest. Dictated by: Dictated on workstation # [id number] Dict: 07/26/201942 Trans: 07/26/201945 [facility] [id number] Interpreted by: YUMIKO KHAN Electronically signed by: YUMIKO KHAN 07/26/201945 Diagonstic Imaging: CT Plain Films/CT/US/NM/MRI: abdomen, pelvis Comments Date of Exam:07/26/20 CT ABD/PELVIS WO(KIDNEY STONE) PROCEDURE: CT urinary tract, rule out kidney stone. TECHNIQUE: Multiple contiguous axial images were obtained through the abdomen and pelvis without the use of intravenous contrast. Auto Exposure Controls were utilized during the CT exam to meet ALARA standards for radiation dose reduction. INDICATION: Right flank pain. COMPARISON: 02/25/2020. FINDINGS: There is worsening of right-sided hydronephrosis. There is some inflammatory change seen within the renal pelvis and along the right ureter which may represent pyelonephritis. There is nonobstructing stones in the inferior pole of the right kidney. There is a tiny punctate stone in the proximal right ureter. No additional obstructive calculi are seen. The urinary bladder is thick walled and decompressed. The left kidney is stable. Stable retroperitoneal lymphadenopathy is identified. The lung bases are clear. The gallbladder and the remainder of the solid organs and bowel are stable. There are diverticuli of the sigmoid colon without diverticulitis. The uterus is intact. There is no free air or free fluid. IMPRESSION: 1. Worsening, now severe, right-sided hydronephrosis with inflammatory change in the renal pelvis and the proximal ureter, likely related to pyelonephritis. Please correlate clinically. 2. Punctate stone in the proximal right ureter. 3. Stable retroperitoneal lymphadenopathy. Dictated on workstation # [id number] Dict: 07/26/201939 Trans: 07/26/201950 [facility] [id number] Interpreted by: YUMIKO KHAN Electronically signed by: Departure Impression Primary Impression: Pyelonephritis Additional Impressions: Seizure disorder Diabetes type 1, controlled Qualified Codes: E10.22 - Type 1 diabetes mellitus with diabetic chronic kidney disease; N18.1 - Chronic kidney disease, stage 1 Person under investigation for COVID-19 Disposition: ADMITTED INPATIENT Condition: Stable Admissions Decision to Admit Reason: Admit from ER (General) Decision to Admit/Date: Jul 26, 2020 Time/Decision to Admit Time: 19:30 Departure-Patient Inst. Referrals: [facility] (PCP) Primary Care Physician ALEXUS NGO (Family) Primary Care Physician PINEDA ROMERO Jul 26, 2020 19:39
--- NOTE | 2020-07-26 19:46 | Diagnostic Imaging Report ---
INDICATION: Sepsis. COMPARISON: 06/10/2020. EXAMINATION: Single view of the chest was obtained. FINDINGS: Clear lungs, bilaterally. The heart is normal. There is no pneumothorax but osseous structures are normal. IMPRESSION: Negative chest. Dictated by: Dictated on workstation # [id number]
--- NOTE | 2020-07-26 19:51 | Diagnostic Imaging Report ---
PROCEDURE: CT urinary tract, rule out kidney stone. TECHNIQUE: Multiple contiguous axial images were obtained through the abdomen and pelvis without the use of intravenous contrast. Auto Exposure Controls were utilized during the CT exam to meet ALARA standards for radiation dose reduction. INDICATION: Right flank pain. COMPARISON: 02/25/2020. FINDINGS: There is worsening of right-sided hydronephrosis. There is some inflammatory change seen within the renal pelvis and along the right ureter which may represent pyelonephritis. There is nonobstructing stones in the inferior pole of the right kidney. There is a tiny punctate stone in the proximal right ureter. No additional obstructive calculi are seen. The urinary bladder is thick walled and decompressed. The left kidney is stable. Stable retroperitoneal lymphadenopathy is identified. The lung bases are clear. The gallbladder and the remainder of the solid organs and bowel are stable. There are diverticuli of the sigmoid colon without diverticulitis. The uterus is intact. There is no free air or free fluid. IMPRESSION: 1. Worsening, now severe, right-sided hydronephrosis with inflammatory change in the renal pelvis and the proximal ureter, likely related to pyelonephritis. Please correlate clinically. 2. Punctate stone in the proximal right ureter. 3. Stable retroperitoneal lymphadenopathy. Dictated by: Dictated on workstation # [id number]
--- NOTE | 2020-07-26 21:05 | NUR ---
JOE HUBER admitted to room 406-1, with an admitting diagnosis of Right Pyelonephritis; Seizure Disorder; Type-1 DM, on 07/26/20 from ED via wheelchair, accompanied by staff.JOE HUBER introduced to surroundings, call light, bed controls, phone, TV, temperature control, lights, meal times, smoking policy, visitor policy, side rail policy, bathrooms and showers. Patient Rights given to patient in the handbook. JOE HUBER verbalizes understanding that [facility] is not responsible for the loss or damage to any personal effects or valuables that are kept in the patients posession during their hospitalization. JOE HUBER verbalizes understanding of Interdisciplinary Patient Education. Patient and/or family were informed about the Rapid Response Team and its purpose.
[2020-07-26 21:18] VITALS: BP 124/68
[2020-07-26] MEDS ORDERED: NS IV 1000 ML 1,000 ML ONE (21:24)
[2020-07-26] MEDS ORDERED: VANCOMYCIN 1 GM/NS 250 ML IVPB IV SCH ×2 (21:45)
[2020-07-26] MEDS ORDERED: fentaNYL INJECTION 100 MCG/2 ML AMP IVP PRN (21:45)
[2020-07-26] MEDS ORDERED: LORazepam INJ 2 MG/ML (ATIVAN) VIAL IVP PRN (22:15)
[2020-07-26] MEDS ORDERED: NS (IVPB) 250 ML ONE (22:20)
[2020-07-26] MEDS ORDERED: VANCOMYCIN 1000 MG/VIAL ONE (22:21)
[2020-07-26] MEDS ORDERED: inSUlin ASPART (NovoLOG) 1 UNIT/0.01 ML (CHARGE PER UNIT) ONE (22:50)
[2020-07-26] MEDS: DIVALPROEX EXT RELEASE 250 MG (DEPAKOTE ER) TAB PO SCH (22:53)
[2020-07-26] MEDS: ENOXAPARIN 40 MG/0.4 ML (LOVENOX) SYR SC SCH (22:53)
[2020-07-26] MEDS: MEROPENEM 500 MG/SWFI 10 ML IV PUSH IV SCH ×2 (22:54)
[2020-07-26] MEDS: HYDROcodone/APAP 5 MG/325 MG (LORTAB) TAB PO PRN (22:54)
[2020-07-26] MEDS: inSUlin ASPART (NovoLOG) 1 UNIT/0.01 ML (CHARGE PER UNIT) SC SCH (22:57)
[2020-07-26] MEDS: NS IV 1000 ML 1,000 ML IV SCH (22:58)
[2020-07-26 23:06] VITALS: BP 113/65
[2020-07-27 04:24] VITALS: BP 106/59
[2020-07-27] MEDS: ACETAMINOPHEN 325 MG TABLET PO PRN (04:31)
[2020-07-27 05:23] LABS: BASOPHILS # (AUTO) 0.1 10^3/uL (0.0-0.1); BASOPHILS % (AUTO) 0 % (0-10); EOSINOPHILS # (AUTO) 0.3 10^3/uL (0.0-0.3); EOSINOPHILS % (AUTO) 2 % (0-10); HEMATOCRIT 24 % (35-52); HEMOGLOBIN 7.1 g/dL (11.5-16.0); LYMPHOCYTES % (AUTO) 15 % (12-44); MEAN CORPUSCULAR HEMOGLOBIN 22 pg (25-34); MEAN CORPUSCULAR HGB CONC 30 g/dL (32-36); MEAN CORPUSCULAR VOLUME 74 fL (80-99); MEAN PLATELET VOLUME 10.3 fL (9.0-12.2); MONOCYTES # (AUTO) 1.1 10^3/uL (0.0-1.0); MONOCYTES % (AUTO) 9 % (0-12); NEUTROPHILS # (AUTO) 9.9 10^3/uL (1.8-7.8); NEUTROPHILS % (AUTO) 74 % (42-75); PLATELET COUNT 329 10^3/uL (130-400); WHITE BLOOD COUNT 13.4 10^3/uL (4.3-11.0)
[2020-07-27 05:49] LABS: ALBUMIN 2.7 GM/DL (3.2-4.5); POTASSIUM 4.4 MMOL/L (3.6-5.0)
[2020-07-27 05:50] LABS: CALCIUM 8.4 MG/DL (8.5-10.1)
[2020-07-27 05:53] LABS: BILIRUBIN,TOTAL 0.2 MG/DL (0.1-1.0)
[2020-07-27 05:55] LABS: CREATININE SERUM 1.41 MG/DL (0.60-1.30)
[2020-07-27] MEDS: inSUlin ASPART (NovoLOG) 1 UNIT/0.01 ML (CHARGE PER UNIT) SC SCH ×4 (06:22→21:00)
[2020-07-27] MEDS: MEROPENEM 500 MG/SWFI 10 ML IV PUSH IV SCH ×2 (06:23)
--- NOTE | 2020-07-27 07:46 | NUR ---
PTD VANCOMYCIN LABS: SCR 1.41 (1.63) PLAN: CHANGE VANCOMYCIN TO 1,250MG IV Q8HR, NEXT DOSE NOW (ONLY GOT 1GRAM AT 07/26 @ 2300) WILL CHECK A TROUGH PRIOR TO MORNING DOSE ON 07/28 @ 0700.
[2020-07-27 08:00] VITALS: BP 107/58
[2020-07-27] MEDS ORDERED: VANCOMYCIN 1250 MG/NS 250 ML IVPB IV SCH ×2 (08:00)
[2020-07-27] MEDS: NS IV 1000 ML 1,000 ML IV SCH ×2 (08:43→17:34)
--- NOTE | 2020-07-27 11:45 | History & Physical ---
HPI History of Present Illness: 35 yo female came to ER due to worsening flank and pelvic pain, has had problems with severe UTI with sepsis in past and felt she was getting septic. Had rocephin and cipro prescribed at clinic on Monday but has gotten worse anyway. She has a seizure disorder and had a seizure yesterday. Prior to that had been about a month since her last seizure which had lasted almost 20 minutes so she was sent to ER. She doesn't have insurance, isn't seeing a Neurologist regularly. Source: patient Date seen by provider: Jul 27, 2020 Time Seen by Provider: 11:30 Attending Physician Deandre Morrissey MD [place] [place] Consult Date of Admission Jul 26, 2020 at 20:04 Home Medications Home Medications Reviewed patient Home Medication Reconciliation performed by pharmacy medication reconciliations line service technician and/or nursing. Patients Allergies have been reviewed. Allergies Coded Allergies: cephalexin (Verified Allergy, Severe, 12/16/19) SEIZURES cinnamon (Verified Allergy, Severe, Anaphylaxis, 12/16/19) aspirin (Verified Allergy, Unknown, 12/16/19) FLB-Nmuwca-Xgpstk Hx Patient Social History Alcohol Use: Denies Use Recreational Drug Use: No Smoking Status: Never a Smoker 2nd Hand Smoke Exposure: No Recent Foreign Travel: No Contact w/other who traveled: No Recent Hopitalizations: No Recent Infectious Disease Expo: No Immunizations Up To Date Tetanus Booster (TDap): Unknown Past Medical History PMHx: Epilepsy Diabetes- dx at age 16, started on orals but shortly went on insulin- was 426 lbs Bipolar depression PTSD OCD Anxiety Peripheral neuropathy SurgHx: Kidney stone treatment x 2 Family Medical History Significant Family History: Heart Disease, Diabetes, Psychiatric Problems Review of Systems ([facility]) Constitutional: chills, fever EENTM: nose congestion; No throat pain Respiratory: cough (started last night after getting to hospital); No short of breath Cardiovascular: No chest pain Gastrointestinal: abdominal pain, constipation; No diarrhea; nausea, vomiting Genitourinary: dysuria Skin: No rash Reviewed Test Results Reviewed Test Results Lab Laboratory Tests Test 07/26/20 18:00 07/26/20 18:50 07/26/20 22:51 07/27/20 04:28 Range/Units White Blood Count 16.9 H 13.4 H 4.3-11.0 10^3/uL Red Blood Count 3.52 L 3.19 L 3.80-5.11 10^6/uL Hemoglobin 8.0 L 7.1 L 11.5-16.0 g/dL Hematocrit 26 L 24 L 35-52 % Mean Corpuscular Volume 73 L 74 L 80-99 fL Mean Corpuscular Hemoglobin 23 L 22 L 25-34 pg Mean Corpuscular Hemoglobin Concent 31 L 30 L 32-36 g/dL Red Cell Distribution Width 16.1 H 16.3 H 10.0-14.5 % Platelet Count 403 H 329 130-400 10^3/uL Mean Platelet Volume 10.1 10.3 9.0-12.2 fL Immature Granulocyte % (Auto) 1 1 % Neutrophils (%) (Auto) 83 H 74 42-75 % Lymphocytes (%) (Auto) 9 L 15 12-44 % Monocytes (%) (Auto) 6 9 0-12 % Eosinophils (%) (Auto) 1 2 0-10 % Basophils (%) (Auto) 0 0 0-10 % Neutrophils # (Auto) 14.0 H 9.9 H 1.8-7.8 10^3/uL Lymphocytes # (Auto) 1.5 2.0 1.0-4.0 10^3/uL Monocytes # (Auto) 1.1 H 1.1 H 0.0-1.0 10^3/uL Eosinophils # (Auto) 0.1 0.3 0.0-0.3 10^3/uL Basophils # (Auto) 0.1 0.1 0.0-0.1 10^3/uL Immature Granulocyte # (Auto) 0.1 0.1 0.0-0.1 10^3/uL Neutrophils % (Manual) 90 % Lymphocytes % (Manual) 4 % Monocytes % (Manual) 4 % Eosinophils % (Manual) 1 % Basophils % (Manual) 1 % Polychromasia SLIGHT Hypochromasia MODERATE Basophilic Stippling SLIGHT Erythrocyte Sedimentation Rate > 140 H 0-20 MM/HR Prothrombin Time 14.1 12.2-14.7 SEC INR Comment 1.1 0.8-1.4 Activated Partial Thromboplast Time 31 24-35 SEC D-Dimer 1.31 H 0.00-0.49 UG/ML Urine Color YELLOW Urine Clarity TURBID Urine pH 6.0 5-9 Urine Specific [place] 1.025 H 1.016-1.022 Urine Protein 3+ H NEGATIVE Urine Glucose (UA) 1+ H NEGATIVE Urine Ketones TRACE H NEGATIVE Urine Nitrite NEGATIVE NEGATIVE Urine Bilirubin NEGATIVE NEGATIVE Urine Urobilinogen 0.2 < = 1.0 MG/DL Urine Leukocyte Esterase 3+ H NEGATIVE Urine RBC (Auto) 3+ H NEGATIVE Urine RBC 50-100 H /HPF Urine WBC TNTC H /HPF Urine Crystals NONE /LPF Urine Bacteria FEW H /HPF Urine Casts NONE /LPF Urine Mucus NEGATIVE /LPF Urine Culture Indicated CULTURE PENDING Sodium Level 132 L 135 135-145 MMOL/L Potassium Level 4.1 4.4 3.6-5.0 MMOL/L Chloride Level 101 106 98-107 MMOL/L Carbon Dioxide Level 20 L 21 21-32 MMOL/L Anion Gap 11 8 5-14 MMOL/L Blood Urea Nitrogen 30 H 27 H 7-18 MG/DL Creatinine 1.63 H 1.41 H 0.60-1.30 MG/DL Estimat Glomerular Filtration Rate 36 43 BUN/Creatinine Ratio 18 19 Glucose Level 272 H 252 H 70-105 MG/DL Lactic Acid Level 0.76 0.50-2.00 MMOL/L Calcium Level 9.2 8.4 L 8.5-10.1 MG/DL Corrected Calcium 9.9 9.4 8.5-10.1 MG/DL Total Bilirubin 0.3 0.2 0.1-1.0 MG/DL Aspartate Amino Transf (AST/SGOT) 10 11 5-34 U/L Alanine Aminotransferase (ALT/SGPT) 10 8 0-55 U/L Alkaline Phosphatase 93 97 40-136 U/L Lactate Dehydrogenase 138 125-220 U/L C-Reactive Protein High Sensitivity 21.75 H 0.00-0.50 MG/DL Total Protein 8.2 7.0 6.4-8.2 GM/DL Albumin 3.1 L 2.7 L 3.2-4.5 GM/DL Procalcitonin 0.24 H <0.10 NG/ML Serum Test, Qualitative NEGATIVE NEGATIVE Coronavirus 2019 (RICHARD) Negative Negative Glucometer 327 H 70-110 MG/DL Test 07/27/20 12:20 07/27/20 16:41 07/27/20 20:09 Range/Units Glucometer 193 H 218 H 182 H 70-110 MG/DL Radiology CT abd/pelvis: IMPRESSION: 1. Worsening, now severe, right-sided hydronephrosis with inflammatory change in the renal pelvis and the proximal ureter, likely related to pyelonephritis. Please correlate clinically. 2. Punctate stone in the proximal right ureter. 3. Stable retroperitoneal lymphadenopathy. Physical Exam-([facility]) Physical Exam Vital Signs VS - Last 72 Hours, by Label 07/26/20 07/26/20 07/26/20 07/26/20 17:32 20:37 21:18 21:45 Temp 38.5 36.5 37.0 Pulse 104 90 97 Resp 18 18 18 B/P (MAP) 112/76 (88) 106/67 124/68 Pulse Ox 100 100 100 O2 Delivery Room Air Room Air Room Air Room Air 07/26/20 07/27/20 07/27/20 07/27/20 23:06 04:24 04:31 05:00 Temp 36.2 38.0 38.0 37.5 Pulse 98 93 Resp 18 18 B/P (MAP) 113/65 (81) 106/59 (75) Pulse Ox 100 97 O2 Delivery Room Air Room Air 07/27/20 07/27/20 07/27/20 07/27/20 08:00 08:00 12:00 16:38 Temp 37.0 37.1 36.9 Pulse 84 94 93 Resp 20 20 20 B/P (MAP) 107/58 (74) 113/77 (89) 101/55 (70) Pulse Ox 97 95 97 100 O2 Delivery Room Air Room Air Room Air Room Air 07/27/20 20:06 Temp 37.3 Pulse 91 Resp 18 B/P (MAP) 100/57 (71) Pulse Ox 96 O2 Delivery Room Air Capillary Refill : Less Than 3 Seconds General Appearance: WD/WN, no apparent distress Respiratory: lungs clear, normal breath sounds Cardiovascular: regular rate, rhythm, no murmur Gastrointestinal: normal bowel sounds, non tender, soft Extremities: no pedal edema Neurologic/Psychiatric: alert, normal mood/affect Skin: normal color, warm/dry Assessment/Plan Assessment/Plan Admission Status: Inpatient Order (span 2 midnights) Reason for Inpatient Admission: Sepsis (1) Pyelonephritis Status: Acute Assessment & Plan: Severe right sided hydronephrosis, febrile. However, has not had positive urine culture inpatient or in clinic with past episodes. Consider Nephrology/Urology eval outpatient after acute issue resolved. (2) Sepsis Status: Acute Assessment & Plan: Secondary to suspected urinary tract infection. Started on meropenem and vancomycin on admit. Change to Zosyn today to avoid seizure interactions, no evidence of MRSA. Qualifiers: Qualified Codes: A41.9 - Sepsis, unspecified organism; R65.20 - Severe sepsis without septic shock; N17.9 - Acute kidney failure, unspecified (3) Acute renal insufficiency Status: Acute Assessment & Plan: Improving, continue IVF and antibiotics. (4) Microcytic anemia Status: Chronic Assessment & Plan: Labs in December consistent with iron deficiency. Uncertain etiology, possibly menstrual related, start iron. (5) Person under investigation for COVID-19 Status: Acute Assessment & Plan: Send out negative confirmation pending. (6) Seizure disorder Status: Chronic Assessment & Plan: Resume home depakote. (7) Diabetes type 1, controlled Status: Chronic Assessment & Plan: Uncertain whether DMI or II, but is on chronic insulin at this point. Not taking long acting outpatient for sometime, will resume. Diabetic diet, sliding scale insulin. Qualifiers: Qualified Codes: E10.22 - Type 1 diabetes mellitus with diabetic chronic kidney disease; N18.1 - Chronic kidney disease, stage 1 (8) DVT prophylaxis Status: Acute Assessment & Plan: Enoxaparin Clinical Quality Measures DVT/VTE Risk/Contraindication: Risk Factor Score Per Nursin RFS Level Per Nursing on Admit: 1=Low/No VTE PPX DEANDRE MORRISSEY MD Jul 27, 2020 11:44
[2020-07-27 12:00] VITALS: BP 113/77
[2020-07-27] MEDS: HYDROcodone/APAP 5 MG/325 MG (LORTAB) TAB PO PRN ×2 (12:00→22:16)
[2020-07-27] MEDS ORDERED: DIVA-21 PO (13:43)
[2020-07-27] MEDS ORDERED: INSU100I14 SQ (13:43)
[2020-07-27] MEDS ORDERED: ACET-2267 PO (13:43)
[2020-07-27] MEDS ORDERED: IBUP-2473 PO (13:43)
[2020-07-27] MEDS ORDERED: DIVA250T PO (13:43)
--- NOTE | 2020-07-27 13:45 | NUR ---
SPOKE WITH THE PT (I CALLED HER ROOM PHONE) AND CALLED [facility] TO COMPLETE THE MED REC 06-10-2020 NOVOLOG #[id number] 06-10-2020 DEPAKOTE ER 500MG #DS 06-10-2020 DEPAKOTE ER 250MG #DS PT MENTIONS SHE HAS HAD LANTUS IN THE PAST HOWEVER IT WAS LAST FILLED IN DECEMBER 2019 AND PT SAYS SHE HAS BEEN OUT FOR MONTHS. OTC MEDS: TYLENOL IBUPROFEN
--- NOTE | 2020-07-27 14:03 | NUR ---
Received dietary consult for MST score. Note pt is currently COVID-19 PUI and in isolation. Will monitor PO intake and have full assessment on 07/29. Melissa Barnes MS LUZ LD
[2020-07-27 16:38] VITALS: BP 101/55
[2020-07-27] MEDS: IBUPROFEN 600 MG (MOTRIN) TAB PO PRN (17:37)
[2020-07-27] MEDS: PIPERACILLIN/TAZO 4.5 GM/NS 100 ML IV SCH ×2 (17:56)
[2020-07-27] MEDS ORDERED: MILK OF MAGNESIA 400 MG/5 ML 30 ML UDC PO PRN (19:00)
[2020-07-27 20:06] VITALS: BP 100/57
[2020-07-27] MEDS: ENOXAPARIN 40 MG/0.4 ML (LOVENOX) SYR SC SCH (21:37)
[2020-07-27] MEDS: polyethylene glycoL POWDER 17 GM (MIRALAX) PACK PO PRN (21:37)
[2020-07-27] MEDS: DIVALPROEX EXT RELEASE 250 MG (DEPAKOTE ER) TAB PO SCH (21:37)
--- NOTE | 2020-07-27 22:27 | NUR ---
DR OREILLY NOTIFIED OF PT NEGATIVE COVID PCR RESULTS, ORDERED TO REMOVE FROM ISOLATION.
[2020-07-28] VITALS (10 sets, daily range): BP systolic 97–135; BP diastolic 57–92
[2020-07-28] MEDS ORDERED: diphenhydrAMINE 25 MG TAB (BENADRYL) PO PRN (00:30)
--- NOTE | 2020-07-28 00:34 | NUR ---
pt complains of generalized itching, denies shortness of breath or any other discomfort. vitals stable. request something for itching. Dr. Morrissey notified, new order received, see order history.
[2020-07-28] MEDS: PIPERACILLIN/TAZO 4.5 GM/NS 100 ML IV SCH ×8 (01:08→23:20)
[2020-07-28 04:52] LABS: BASOPHILS # (AUTO) 0.1 10^3/uL (0.0-0.1); BASOPHILS % (AUTO) 0 % (0-10); EOSINOPHILS # (AUTO) 0.3 10^3/uL (0.0-0.3); EOSINOPHILS % (AUTO) 2 % (0-10); HEMATOCRIT 24 % (35-52); LYMPHOCYTES # (AUTO) 1.9 10^3/uL (1.0-4.0); LYMPHOCYTES % (AUTO) 16 % (12-44); MEAN CORPUSCULAR HEMOGLOBIN 22 pg (25-34); MEAN CORPUSCULAR HGB CONC 29 g/dL (32-36); MEAN CORPUSCULAR VOLUME 75 fL (80-99); MEAN PLATELET VOLUME 9.5 fL (9.0-12.2); MONOCYTES % (AUTO) 9 % (0-12); NEUTROPHILS # (AUTO) 8.3 10^3/uL (1.8-7.8); NEUTROPHILS % (AUTO) 72 % (42-75); PLATELET COUNT 330 10^3/uL (130-400); WHITE BLOOD COUNT 11.6 10^3/uL (4.3-11.0)
[2020-07-28 05:09] LABS: POTASSIUM 4.4 MMOL/L (3.6-5.0)
[2020-07-28 05:11] LABS: CALCIUM 8.5 MG/DL (8.5-10.1)
[2020-07-28 05:15] LABS: CREATININE SERUM 1.46 MG/DL (0.60-1.30)
[2020-07-28] MEDS: HYDROcodone/APAP 5 MG/325 MG (LORTAB) TAB PO PRN ×2 (05:24→16:04)
[2020-07-28] MEDS: inSUlin ASPART (NovoLOG) 1 UNIT/0.01 ML (CHARGE PER UNIT) SC SCH ×4 (06:40→20:51)
[2020-07-28] MEDS ORDERED: TROUGH ORDER-PHARMACY XX ONE (07:00)
[2020-07-28 07:33] LABS: MEAN PLATELET VOLUME 9.6 fL (9.0-12.2); WHITE BLOOD COUNT 15.2 10^3/uL (4.3-11.0)
[2020-07-28 07:47] LABS: HEMOGLOBIN 6.7 g/dL (11.5-16.0)
--- NOTE | 2020-07-28 08:05 | NUR ---
THIS RN PHONE DR. OREILLY TO INFORM OF HGB 6.7. DR. OREILLY GAVE TELEPHONE ORDER TO TYPE/SCREEN AND TRANSFUSE 1 UNIT PRBC'S.
[2020-07-28] MEDS ORDERED: NS IV 500 ML 500 ML IV SCH (08:15)
[2020-07-28] MEDS: ONDANSETRON 4 MG/2 ML (SDV) Z0FRAN IVP PRN (08:42)
[2020-07-28] MEDS: polyethylene glycoL POWDER 17 GM (MIRALAX) PACK PO PRN (08:42)
[2020-07-28] MEDS: FERROUS SULF 325 MG (IRON) TAB PO SCH (08:43)
--- NOTE | 2020-07-28 12:04 | Progress Note ---
Subjective Subjective/Events-last exam Afebrile last 24 hours, but still feeling very weak and overall still poorly. Focused Exam Lactate Level 07/26/20 18:00: Lactic Acid Level 0.76 Objective Exam Last Set of Vital Signs Vital Signs Date Time Temp Pulse Resp B/P (MAP) Pulse Ox O2 Delivery O2 Flow Rate FiO2 07/28/20 11:54 37.8 88 16 135/92 (106) 95 Room Air Capillary Refill : Less Than 3 Seconds I&O Intake and Output 07/28/20 00:00 Intake Total 1860 ml Output Total 2 ml Balance 1858 ml Intake Oral 1860 ml Output Stool Total 2 ml # Voids 11 General: Alert, No Acute Distress Lungs: Clear to Auscultation, Normal Air Movement Heart: Regular Rate, No Murmurs Abdomen: Normal Bowel Sounds, Soft Extremities: No Edema Psych/Mental Status: Mood NL Results/Procedures Lab Laboratory Tests 07/27/20 12:20: Glucometer 193H 07/27/20 16:41: Glucometer 218H 07/27/20 20:09: Glucometer 182H 07/28/20 04:27: White Blood Count 11.6H, Red Blood Count 3.19L, Hemoglobin 7.0L, Hematocrit 24L, Mean Corpuscular Volume 75L, Mean Corpuscular Hemoglobin 22L, Mean Corpuscular Hemoglobin Concent 29L, Red Cell Distribution Width 16.3H, Platelet Count 330, Mean Platelet Volume 9.5, Immature Granulocyte % (Auto) 1, Neutrophils (%) (Auto) 72, Lymphocytes (%) (Auto) 16, Monocytes (%) (Auto) 9, Eosinophils (%) (Auto) 2, Basophils (%) (Auto) 0, Neutrophils # (Auto) 8.3H, Lymphocytes # (Auto) 1.9, Monocytes # (Auto) 1.0, Eosinophils # (Auto) 0.3, Basophils # (Auto) 0.1, Immature Granulocyte # (Auto) 0.1, Sodium Level 134L, Potassium Level 4.4, Chloride Level 105, Carbon Dioxide Level 21, Anion Gap 8, Blood Urea Nitrogen 22H, Creatinine 1.46H, Estimat Glomerular Filtration Rate 41, BUN/Creatinine Ratio 15, Glucose Level 233H, Calcium Level 8.5 07/28/20 05:41: Glucometer 245H 07/28/20 07:23: White Blood Count 15.2H, Red Blood Count 2.98L, Hemoglobin 6.7*L, Hematocrit 22L , Mean Corpuscular Volume 75L, Mean Corpuscular Hemoglobin 22L, Mean Corpuscular Hemoglobin Concent 30L, Red Cell Distribution Width 16.4H, Platelet Count 351, Mean Platelet Volume 9.6 07/28/20 11:11: Glucometer 179H Microbiology 07/26/20 Blood Culture - Preliminary, Resulted No growth 07/26/20 Urine Culture - Final, Complete YEAST See Comments 07/26/20 Influenza Types A,B Antigen (SHANIQUE) - Final, Complete Radiology CT abd/pelvis: IMPRESSION: 1. Worsening, now severe, right-sided hydronephrosis with inflammatory change in the renal pelvis and the proximal ureter, likely related to pyelonephritis. Please correlate clinically. 2. Punctate stone in the proximal right ureter. 3. Stable retroperitoneal lymphadenopathy. Assessment/Plan Assessment/Plan (1) Pyelonephritis Status: Acute Assessment & Plan: Severe right sided hydronephrosis, febrile. However, has not had positive urine culture inpatient or in clinic with past episodes. Consider Nephrology/Urology eval outpatient after acute issue resolved. 07/28 continue Zosyn, will likely transition to Augmentin on d/c, no growth from urine or blood (2) Sepsis Status: Acute Assessment & Plan: Secondary to suspected urinary tract infection. Started on meropenem and vancomycin on admit. Change to Zosyn 07/27 to avoid seizure interactions, no evidence of MRSA. Qualifiers: Qualified Codes: A41.9 - Sepsis, unspecified organism; R65.20 - Severe sepsis without septic shock; N17.9 - Acute kidney failure, unspecified (3) Acute renal insufficiency Status: Acute Assessment & Plan: Improving, continue IVF and antibiotics. (4) Microcytic anemia Status: Chronic Assessment & Plan: Labs in December consistent with iron deficiency. Uncertain etiology, possibly menstrual related, start iron. 07/28- hgb below 7 and symptomatic, will transfuse, and if remains stable will need outpatient work up, possible endoscopy. (5) Person under investigation for COVID-19 Status: Resolved Assessment & Plan: NAAT and PCR neg. (6) Seizure disorder Status: Chronic Assessment & Plan: Resume home depakote. (7) Diabetes type 1, controlled Status: Chronic Assessment & Plan: Uncertain whether DMI or II, but is on chronic insulin at this point. Not taking long acting outpatient for sometime, will resume. Diabetic diet, sliding scale insulin. 07/28 patient declined long acting reporting it causes leg cramps Qualifiers: Qualified Codes: E10.22 - Type 1 diabetes mellitus with diabetic chronic kidney disease; N18.1 - Chronic kidney disease, stage 1 (8) DVT prophylaxis Status: Acute Assessment & Plan: Enoxaparin Clinical Quality Measures DVT/VTE Risk/Contraindication: Risk Factor Score Per Nursin RFS Level Per Nursing on Admit: 1=Low/No VTE PPX DEANDRE OREILLY MD Jul 28, 2020 12:04
[2020-07-28] MEDS ORDERED: MAGNESIUM CITRATE 300 ML BTL PO NR (12:15)
[2020-07-28] MEDS: ACETAMINOPHEN 325 MG TABLET PO PRN (12:20)
--- NOTE | 2020-07-28 12:30 | NUR ---
PATIENT DOESN'T WANT MAG CITRATE AT THIS TIME. STATE'S MAYBE LATER TODAY. THIS RN PUT IN MED ROOM [facility]
--- NOTE | 2020-07-28 13:43 | NUR ---
RD ASSESSMENT PMHx: seizure disorder; chronic UTI; DM PT INTERACTION: Pt was awake and pleasant during nutrition consult for MST score. Pt states current appetite is not good and has been this way prior to admit. Note avg PO intake 38% x1d, per chart review. Pt states following a regular diet at home, and has no issues with chewing/swallowing food. Pt states recent issues with nausea, constipation, and diarrhea, and that her last BM was 07/28. Note pt currently on bowel regimen of miralax PRN, per chart review. Pt states recent 15# wt loss, but unsure of timeframe. Note recent 13# wt loss x2mon, per chart review. This is significant at 6.6% x2mon. Upon visual assessment, pt appears to be adequately nourished with no visible signs of muscle/fat wasting and a BMI of 30.7 (Obese, class I for age). Pt states current DM management is "not good, but I'm trying." Note recent HbA1c of 10.9 on 12/16/2019, per chart review. Given current PO intake, wt hx, and visual assessment, pt does not meet criteria for malnutrition per ASPEN guidelines. ABNORMAL NUTRITION-RELATED LAB VALUES LOW: Na 134; HIGH: glu 253; BUN 22; cr 1.46 Est. kcal needs: 1675 kcal | 20 kcal/kg Est. Pro needs: 67 g Pro | 0.8 g Pro/kg PES STATEMENT: Inadequate oral intake (NI-2.1) related to loss of appetite | nausea | constipation | diarrhea as evidenced by pt interview | avg PO intake 38% x1d INTERVENTION: Continue with current diet order of CHO 75g/m 0snack diet. Pt may benefit from more aggressive CHO restriction as blood glucose levels are elevated. Switch current supplementation order from Ensure Enlive with meals TID, to Glucerna (vary) with meals TID, for increased kcal intake and better glucose control. Glucerna provides 220 kcal and 10 g Pro per serving. Discussed and provided diet education on DM management. Discussed CHO counting, fiber intake, portion control, and smartphone applications. Pt verbalized understanding of information provided. Will continue to follow and reassess as pt needs, intake, and status change. Melissa Barnes, MS RD LD
[2020-07-28] MEDS: ENOXAPARIN 40 MG/0.4 ML (LOVENOX) SYR SC SCH (20:49)
[2020-07-28] MEDS: IBUPROFEN 600 MG (MOTRIN) TAB PO PRN (20:50)
[2020-07-28] MEDS: DIVALPROEX EXT RELEASE 250 MG (DEPAKOTE ER) TAB PO SCH (23:17)
[2020-07-29] VITALS (9 sets, daily range): BP systolic 104–124; BP diastolic 67–77
[2020-07-29 05:09] LABS: MEAN PLATELET VOLUME 9.8 fL (9.0-12.2); WHITE BLOOD COUNT 11.5 10^3/uL (4.3-11.0)
[2020-07-29 05:21] LABS: HEMOGLOBIN 6.7 g/dL (11.5-16.0)
[2020-07-29 05:29] LABS: POTASSIUM 4.4 MMOL/L (3.6-5.0)
[2020-07-29 05:30] LABS: CALCIUM 8.5 MG/DL (8.5-10.1)
[2020-07-29 05:35] LABS: CREATININE SERUM 1.59 MG/DL (0.60-1.30)
[2020-07-29] MEDS: PIPERACILLIN/TAZO 4.5 GM/NS 100 ML IV SCH ×6 (06:25→22:13)
[2020-07-29] MEDS: inSUlin ASPART (NovoLOG) 1 UNIT/0.01 ML (CHARGE PER UNIT) SC SCH ×4 (06:26→21:06)
[2020-07-29] MEDS: FERROUS SULF 325 MG (IRON) TAB PO SCH (06:27)
[2020-07-29] MEDS: ONDANSETRON 4 MG/2 ML (SDV) Z0FRAN IVP PRN (07:54)
[2020-07-29] MEDS ORDERED: NS IV 500 ML 500 ML ONE (09:36)
[2020-07-29] MEDS: NS IV 1000 ML 1,000 ML IV SCH ×3 (10:24→14:36)
--- NOTE | 2020-07-29 12:07 | NUR ---
1130- PT LEFT AC IV LEAKING, THIS RN CHANGED IV DRESSING AND FLUSHED WITH NACL 10ML, PT DENIED PAIN OR IRRITATION AT/AROUND SITE, TRANSFUSION CONTINUED WITHOUT ADDITIONAL LEAKING. CALL LIGHT WITHIN REACH, PT ENCOURAGED TO USE CALL LIGHT IF PROBLEMS CONTINUE OR PT HAS A NEED. WILL MONITOR CLOSELY 1145- PT LEFT AC IV LEAKING AGAIN, THIS RN CHANGED IV DRESSING AND FLUSHED WITH NACL 10ML, PT DENIED PAIN OR IRRITATION AT/AROUND SITE, TRANSFUSION CONTINUED WITHOUT ADDITIONAL LEAKING. CALL LIGHT WITHIN REACH, PT ENCOURAGED TO USE CALL LIGHT IF PROBLEMS CONTINUE OR PT HAS A NEED. WILL MONITOR CLOSELY. 1200- PT IV SITE LEAKING, THIS RN UNABLE TO FLUSH WITH NACL 10ML. LEFT AC IV REMOVED AND NEW IV PLACED IN LEFT HAND 20G X1 ATTEMPT BY THIS RN. TRANSFUSION CONTINUED THROUGH LEFT HAND IV. CALL LIGHT WITHIN REACH. WILL CONTINUE TO MONITOR
--- NOTE | 2020-07-29 12:27 | Diagnostic Imaging Report ---
PROCEDURE: US Renal Bilateral. TECHNIQUE: Multiple real-time grayscale images were obtained over the kidneys in various projections bilaterally. INDICATION: Hydronephrosis. Correlation is made with CT study performed 07/26/2020. Right kidney measures 16.4 x 7.8 x 8.2 cm and the left kidney measures 13.2 x 6.2 x 5.4 cm. There continues to be severe right-sided hydronephrosis, similar to prior CT. Left kidney is unremarkable. No definite calculi are detected. Urinary bladder evaluation demonstrates a left ureteral jet. Right ureteral jet was not visualized. IMPRESSION: Continued severe right-sided hydronephrosis. Dictated by: Dictated on workstation # [id number]
[2020-07-29 14:34] LABS: HEMOGLOBIN 7.9 g/dL (11.5-16.0)
[2020-07-29] MEDS: ACETAMINOPHEN 325 MG TABLET PO PRN (18:46)
[2020-07-29] MEDS: ENOXAPARIN 40 MG/0.4 ML (LOVENOX) SYR SC SCH (21:12)
[2020-07-29] MEDS: DIVALPROEX EXT RELEASE 250 MG (DEPAKOTE ER) TAB PO SCH (22:12)
[2020-07-30] VITALS: BP 117/76
[2020-07-30] MEDS: HYDROcodone/APAP 5 MG/325 MG (LORTAB) TAB PO PRN ×2 (00:38→06:45)
[2020-07-30 04:00] VITALS: BP 145/81
[2020-07-30] MEDS: IBUPROFEN 600 MG (MOTRIN) TAB PO PRN (05:03)
[2020-07-30 06:24] LABS: HEMOGLOBIN 7.3 g/dL (11.5-16.0); MEAN PLATELET VOLUME 9.6 fL (9.0-12.2); WHITE BLOOD COUNT 12.5 10^3/uL (4.3-11.0)
[2020-07-30 06:42] LABS: CALCIUM 8.5 MG/DL (8.5-10.1); CREATININE SERUM 1.24 MG/DL (0.60-1.30); POTASSIUM 4.1 MMOL/L (3.6-5.0)
[2020-07-30] MEDS: NS IV 1000 ML 1,000 ML IV SCH (06:45)
[2020-07-30] MEDS: PIPERACILLIN/TAZO 4.5 GM/NS 100 ML IV SCH ×2 (06:45)
[2020-07-30] MEDS: inSUlin ASPART (NovoLOG) 1 UNIT/0.01 ML (CHARGE PER UNIT) SC SCH ×2 (06:45→11:55)
[2020-07-30 08:00] VITALS: BP 105/68
[2020-07-30] MEDS ORDERED: FERR325T18 PO (11:13)
[2020-07-30] MEDS ORDERED: AMOX-358 PO (11:13)
--- NOTE | 2020-07-30 11:17 | Discharge Summary ---
Discharge Summary Hospital Course Problems/Diagnosis: (1) Pyelonephritis Status: Acute Assessment & Plan: Severe right sided hydronephrosis, febrile. However, has not had positive urine culture inpatient or in clinic with past episodes. Consider Nephrology/Urology eval outpatient after acute issue resolved. 07/28 continue Zosyn, will likely transition to Augmentin on d/c, no growth from urine or blood 07/30 discharged to complete 10 more days of Augmentin (total of 2 weeks of antibiotics) Right sided hydronephrosis persistent per US, consulted Urology and they recommended [facility] after 2 weeks of antibiotics as next step in eval. (2) Sepsis Status: Resolved Resolution Date/Time: 07/29/20 @ 11:14 Assessment & Plan: Secondary to suspected urinary tract infection. Started on meropenem and vancomycin on admit. Change to Zosyn 07/27 to avoid seizure interactions, no evidence of MRSA. Qualifiers: Qualified Codes: A41.9 - Sepsis, unspecified organism; R65.20 - Severe sepsis without septic shock; N17.9 - Acute kidney failure, unspecified (3) Acute renal insufficiency Status: Resolved Resolution Date/Time: 07/30/20 @ 11:15 Assessment & Plan: Improving, continue IVF and antibiotics. (4) Microcytic anemia Status: Chronic Assessment & Plan: Labs in December consistent with iron deficiency. Uncertain nacho ology, possibly menstrual related, start iron. 07/28- hgb below 7 and symptomatic, will transfuse, and if remains stable will need outpatient work up, possible endoscopy. 07/30 required second unit yesterday, remained above 7 since then, hemoccult positive, recommend outpatient scopes. Started iron. (5) Person under investigation for COVID-19 Status: Resolved Resolution Date/Time: 07/28/20 @ 12:04 Assessment & Plan: NAAT and PCR neg. (6) Seizure disorder Status: Chronic Assessment & Plan: Resume home depakote. (7) Diabetes type 1, controlled Status: Chronic Assessment & Plan: Uncertain whether DMI or II, but is on chronic insulin at this point. Not taking long acting outpatient for sometime, will resume. Diabetic diet, sliding scale insulin. 07/28 patient declined long acting reporting it causes leg cramps Qualifiers: Qualified Codes: E10.22 - Type 1 diabetes mellitus with diabetic chronic kidney disease; N18.1 - Chronic kidney disease, stage 1 Hospital Course Date of Admission: Jul 26, 2020 at 20:04 Admission Diagnosis : Family Physician/Provider: William Holman Date of Discharge: 07/30/20 Discharge Diagnosis: See problem list Hospital Course: See problem list Labs and Pending Lab Test: Laboratory Tests 07/29/20 14:20: Hemoglobin 7.9L, Hematocrit 25L 07/29/20 16:27: Glucometer 141H 07/29/20 17:35: Stool Occult Blood Immunoassay POSITIVEH 07/29/20 20:16: Glucometer 173H 07/30/20 06:10: White Blood Count 12.5H, Red Blood Count 3.05L, Hemoglobin 7.3L, Hematocrit 23L, Mean Corpuscular Volume 76L, Mean Corpuscular Hemoglobin 24L, Mean Corpuscular Hemoglobin Concent 32, Red Cell Distribution Width 17.3H, Platelet Count 342, Mean Platelet Volume 9.6, Sodium Level 134L, Potassium Level 4.1, Chloride Level 104, Carbon Dioxide Level 22, Anion Gap 8, Blood Urea Nitrogen 14, Creatinine 1.24, Estimat Glomerular Filtration Rate 50, BUN/Creatinine Ratio 11, Glucose Level 202H, Calcium Level 8.5 07/30/20 06:28: Glucometer 211H Microbiology 07/26/20 Blood Culture - Preliminary, Resulted No growth 07/26/20 Urine Culture - Final, Complete YEAST See Comments 07/26/20 Influenza Types A,B Antigen (SHANIQUE) - Final, Complete Home Meds Active Reported Ibuprofen 200 Mg Tablet 400 Mg PO Q8H PRN Tylenol Extra Strength (Acetaminophen) 500 Mg Tablet 1,000 Mg PO Q6H PRN Depakote ER (Divalproex Sodium) 500 Mg Tab.er.24h 500 Mg PO DAILY TAKES 500MG +250MG TO EQUAL 750MG Depakote ER (Divalproex Sodium) 250 Mg Tab.er.24h 250 Mg PO DAILY TAKES 500MG +250MG TO EQUAL 750MG Novolog Flexpen (Insulin Aspart) 300 Units/3 Ml Solution Units SQ AC Assessment/Pt DC Instructions Follow up with William Holman at [facility] on 08/03 at 11:40 am. Discharge Diet: ADA Diet Activity as Tolerated: Yes Orders-Post D/C & Referrals Pneu Vac Indicated: Yes Discharge Physical Examination Allergies: Coded Allergies: cephalexin (Verified Allergy, Severe, 12/16/19) SEIZURES cinnamon (Verified Allergy, Severe, Anaphylaxis, 12/16/19) aspirin (Verified Allergy, Unknown, 12/16/19) General Appearance: No Apparent Distress Respiratory: Lungs Clear, Normal Breath Sounds Cardiovascular: Regular Rate, Rhythm, No Murmur Gastrointestinal: Normal Bowel Sounds, Soft Skin: Normal Color, Warm/Dry Neurologic/Psychiatric: Alert, Normal Mood/Affect Copy Copies To 1: CATE Vasquez Clinical Quality Measures DVT/VTE Risk/Contraindication: Risk Factor Score Per Nursin RFS Level Per Nursing on Admit: 1=Low/No VTE PPX DEANDRE OREILLY MD Jul 30, 2020 11:17
[2020-07-30 12:00] VITALS: BP 100/64
[2020-07-30] MEDS: FERROUS SULF 325 MG (IRON) TAB PO SCH (12:03)
--- NOTE | 2020-07-30 12:55 | CONSULTATION REPORT ---
DATE OF SERVICE: 07/30/2020 ATTENDING PHYSICIAN: Jennifer Morrissey MD SUMMARY: After reviewing the patient's records and x-ray, this is a 35-year-old female with another bout of right pyelonephritis and pelvic pain with UTI and sepsis, which compounded her seizure disorder. She had a CT scan of the abdomen and pelvis, which did not change much from the 2 months before starting in February, which showed right pyeloureteronephrosis all the way down to the bladder. There is some thickening in the ortiz of the pelvis of the kidney, the ureter as well as the bladder. The right side is okay. There is a stone in the right renal pelvis. She was put on antibiotic and seemed to respond well. H and H is 7.3 and 23. She has been running low since admission. Her white count is 12.5. Her creatinine 1.24 with an estimated GFR of 50. Urinalysis was positive. She was put on piperacillin. She tolerated well. She has been afebrile since 14 and feeling better. IMPRESSION: Recurrent pyelonephritis with hydroureteronephrosis. Possibilities include vesicoureteral reflux or oliver ureter where obstructing or nonobstructing. I did not see any stones in the ureter to explain the obstruction. RECOMMENDATIONS AND PLAN: Total antibiotics for two weeks including the IV. At the end of that, check her urine culture and if it is negative, proceed with a voiding cystourethrogram and manage accordingly. She may need to undergo a renal scan with split functions or a cysto retrograde. The plan was fully explained to the patient. Job ID: [id number] DocumentID: [id number] Dictated Date: 07/30/2020 11:32:18 Human Resources Receptionist Date: 07/30/2020 12:54:14 Dictated By: ABEBA HARRISON MD
--- NOTE | 2020-07-30 13:15 | NUR ---
Patient d/c instructions and education packet given to patient at this time. Patient expresses understanding of d/c instruction and follow up date/time. This RN took patient's IV out; catheter tip intact. LUCRECIA Dale took patient out per wheelchair at this time. All patient's belongings gathered and taken out of room 406 by the patient herself.
== END 2020-07-30 13:15 | disposition home or self-care (01) | DRG 872 ==
LOC: EDUNIT# 17:22 → ER 17:23 → 4TH 20:04
PROVIDERS: ADMIT Internal Medicine; ATTEND Family Medicine
DX: A41.9 Sepsis, unspecified organism (principal); N13.6 Pyonephrosis; G40.909 Epilepsy, unspecified, not intractable, without status epilepticus; E10.22 Type 1 diabetes mellitus with diabetic chronic kidney disease; E10.42 Type 1 diabetes mellitus with diabetic polyneuropathy; N18.1 Chronic kidney disease, stage 1; N28.9 Disorder of kidney and ureter, unspecified; D50.9 Iron deficiency anemia, unspecified; F31.9 Bipolar disorder, unspecified; F43.10 Post-traumatic stress disorder, unspecified; F42.9 Obsessive-compulsive disorder, unspecified; F41.9 Anxiety disorder, unspecified; Z79.4 Long term (current) use of insulin; Z20.828 Contact with and (suspected) exposure to other viral communicable diseases
CPT/HCPCS: 36415; 71045; 74176; 76770; 80048; 80053; 81000; 82274; 82962; 83605; 83615; 84145; 84703; 85007; 85014; 85018; 85025; 85027; 85379; 85610; 85652; 85730; 86141; 86850; 86900; 86901; 86920; 87040; 87088; 87635; 87804

== ENCOUNTER 2020-09-24 13:27 | Emergency (ER) | payer SELFPAY ==
[~2020-09-24 13:27] MED LIST changes: +AMOX-358 PO; +FERR325T18 PO; +INSU100I14 SQ
== END 2020-09-24 13:57 | disposition left against medical advice (07) ==
LOC: EDUNIT# 13:27 → ER 13:29
DX: M54.9 Dorsalgia, unspecified (principal); R56.9 Unspecified convulsions

== ENCOUNTER 2020-10-16 03:52 | Inpatient (IN) | payer SELFPAY ==
[~2020-10-16] VITALS: Ht 165.1 cm; Wt 84.0 kg
[2020-10-16] MEDS ORDERED: ONDANSETRON 4 MG/2 ML (SDV) Z0FRAN ONE (04:08)
[2020-10-16 04:14] LABS: BASOPHILS # (AUTO) 0.1 10^3/uL (0.0-0.1); BASOPHILS % (AUTO) 0 % (0-10); EOSINOPHILS # (AUTO) 0.3 10^3/uL (0.0-0.3); EOSINOPHILS % (AUTO) 2 % (0-10); HEMATOCRIT 26 % (35-52); HEMOGLOBIN 8.2 g/dL (11.5-16.0); LYMPHOCYTES # (AUTO) 2.4 10^3/uL (1.0-4.0); LYMPHOCYTES % (AUTO) 21 % (12-44); MEAN CORPUSCULAR HEMOGLOBIN 25 pg (25-34); MEAN CORPUSCULAR HGB CONC 31 g/dL (32-36); MEAN CORPUSCULAR VOLUME 78 fL (80-99); MONOCYTES # (AUTO) 0.6 10^3/uL (0.0-1.0); MONOCYTES % (AUTO) 6 % (0-12); NEUTROPHILS % (AUTO) 70 % (42-75); PLATELET COUNT 378 10^3/uL (130-400); WHITE BLOOD COUNT 11.4 10^3/uL (4.3-11.0)
[2020-10-16 04:15] LABS: BILIRUBIN,URINE NEGATIVE (NEGATIVE); CLARITY,URINE SL CLOUDY; COLOR,URINE YELLOW; GLUCOSE, URINE (UA) 3+ (NEGATIVE); KETONES,URINE NEGATIVE (NEGATIVE); LEUKOCYTE ESTERASE ,URINE 3+ (NEGATIVE); NITRITE,URINE NEGATIVE (NEGATIVE); PROTEIN,URINE 2+ (NEGATIVE)
[2020-10-16] MEDS ORDERED: NS IV 1000 ML 1,000 ML IV SCH ×2 (04:15→05:00)
[2020-10-16 04:25] LABS: BACTERIA,URINE TRACE /HPF; WBC,URINE TNTC /HPF
[2020-10-16 04:27] LABS: AMPHETAMINE SCREEN, URINE NEGATIVE (NEGATIVE); BARBITURATE SCREEN URINE NEGATIVE (NEGATIVE); BENZODIAZEPINES SCREEN URINE NEGATIVE (NEGATIVE); CANNABINOID SCREEN, URINE NEGATIVE (NEGATIVE); COCAINE SCREEN URINE NEGATIVE (NEGATIVE); METHADONE STAT NEGATIVE (NEGATIVE); METHAMPHETAMINE SCREEN URINE S NEGATIVE (NEGATIVE); OPIATE SCREEN URINE NEGATIVE (NEGATIVE); OXYCODONE STAT NEGATIVE (NEGATIVE); PROPOXYPHENE STAT NEGATIVE (NEGATIVE); TRICYCLIC ANTIDEPRESSANTS SCRE NEGATIVE (NEGATIVE)
[2020-10-16 04:31] LABS: ALBUMIN 3.2 GM/DL (3.2-4.5); CHLORIDE 100 MMOL/L (98-107); POTASSIUM 4.9 MMOL/L (3.6-5.0); SODIUM 129 MMOL/L (135-145)
[2020-10-16 04:32] LABS: AMYLASE 34 U/L (25-125)
[2020-10-16 04:33] LABS: TOTAL PROTEIN 8.9 GM/DL (6.4-8.2)
[2020-10-16 04:34] LABS: CARBON DIOXIDE 16 MMOL/L (21-32)
[2020-10-16 04:35] LABS: BILIRUBIN,TOTAL 0.1 MG/DL (0.1-1.0)
[2020-10-16 04:37] LABS: ALKALINE PHOSPHATASE 70 U/L (40-136); CREATININE SERUM 1.65 MG/DL (0.60-1.30); GFR ESTIMATED 36
[2020-10-16 04:38] LABS: BUN/CREATININE RATIO 27; GLUCOSE 453 MG/DL (70-105)
[2020-10-16 04:40] LABS: ALANINE AMINOTRANSFERASE 14 U/L (0-55); MAGNESIUM 1.7 MG/DL (1.6-2.4)
[2020-10-16 04:41] LABS: CREATINE KINASE 31 U/L (29-168); LIPASE 48 U/L (8-78)
[2020-10-16] MEDS ORDERED: ONDANSETRON 4 MG/2 ML (SDV) Z0FRAN IVP ONE (04:45)
[2020-10-16] MEDS ORDERED: PIPERACILLIN SODIUM/TAZOBACTAM 4.5 GM in NS (IVPB) 100 ML IV ONE (04:45)
[2020-10-16 04:49] LABS: CREATINE KINASE MB 0.4 NG/ML (<6.6)
[2020-10-16 04:51] LABS: VALPROIC ACID < 2.0 UG/ML (50.0-100.0)
--- NOTE | 2020-10-16 04:54 | ED General ---
General Chief Complaint: Neurological Problems Stated Complaint: SEIZURE Source of Information: Patient, EMS, Old Records Exam Limitations: Intoxication History of Present Illness Date Seen by Provider: Oct 16, 2020 Time Seen by Provider: 03:52 Initial Comments PT ARRIVES VIA EMS--PT STATES SHE WAS AT A DEMOCRAT AT HER GIRLFRIEND'S PARENTS HOUSE EMS WAS CALLED FOR PT HAVING SEIZURES PT REPORTEDLY HAD "3 LITTLE SEIZURES AND 1 BIG ONE" JUST PRIOR TO ARRIVAL. WITNE SSED BY BYSTANDERS DURATION OF SEIZURES IS UNKNOWN. NO REPORTED INJURY AND PT DENIES PAIN ANYWHERE NO INCONTINENCE, AND EMS REPORT NO POST-ICTAL SYMPTOMS ON THEIR ARRIVAL AT SCENE PT HAS BEEN DRINKING VERY HEAVILY TONIGHT, UNKNOWN AMOUNT OF UNKNOWN ALCOHOL. BUT REPORTEDLY HAS BEEN DOING "SHOTS" AND DRINKING "MIXED DRINKS" PT'S ONLY COMPLAINT IS OF NAUSEA NO HEADACHE NO PAIN ANYWHERE ELSE PT HAS LONGSTANDING HISTORY OF SEIZURES, SINCE AGE 26--UNKNOWN CAUSE, PER PT, BUT PT HAS NOT SEEN NEUROLOGY--STATES SHE "CAN'T AFFORD IT" PT STATES HER LAST SEIZURE WAS APPROXIMATELY 2 WEEKS AGO PT ADMITS TO FREQUENTLY NOT TAKING HER SEIZURE MEDICATION--WAS REPORTED TO EMS THAT SHE HAD NOT TAKEN ANY SEIZURE MEDICATION FOR 8-9 MONTHS, BUT PT STATES SHE HAS NOT TAKEN ANY FOR 4 DAYS. PT STATES SHE IS SUPPOSED TO BE TAKING DEPAKOTE PT IS ALSO DIABETIC--DX AGE 16 ACCUCHECK 445 FOR EMS PT STATES SHE IS SUPPOSED TO TAKE LANTUS AT BEDTIME AND NOVOLOG "SLIDING SCALE" PT STATES SHE QUIT TAKING LANTUS A COUPLE OF MONTHS AGO--THOUGHT IT WAS MAKING HER SICK TO HER STOMACH. HAS NOT DISCUSSED THIS WITH HER PROVIDER. PT STATES SHE HAS NOT TAKEN ANY NOVOLOG INSULIN FOR AT LEAST 2 WEEKS. PT DOES NOT CHECK HER BLOOD SUGAR. HAS NOT SEEN AN MAGNETOMETER OPERATOR, AND HAS NOT SEEN A DR ABOUT HER BLOOD SUGAR "FOR A LONG TIME" ADDITIONALLY, PT STATES SHE HAS CHRONIC UTI'S, AND WAS SEEN AT [facility] A COUPLE OF WEEKS AGO FOR UTI( INSTEAD OF KEEPING THE APPOINTMENT THAT SHE HAD WITH [facility] THAT SAME DAY FOR UTI ) WAS PLACED ON BACTRIM, FINISHED IT 5 DAYS AGO--ADMITS TO NOT TAKING ALL OF THE MEDICATION PRESCRIBED. PT DOES NOT HAVE ANY URINARY SYMPTOMS AT THIS TIME, AND NO ABDOMINAL PAIN OR BACK PAIN HAS NOT ATTEMPTED TO FOLLOW UP WITH HER PCP FOR THIS PROBLEM PT JUST MOVED HERE EARLIER THIS YEAR FROM [facility] HER FIRST VISIT HERE WAS 12/16/19 SHE HAS HAD 8 VISITS TO THIS ER SINCE THEN, ALL FOR UTI COMPLAINTS, AND HAS BEEN ADMITTED HERE TWICE FOR PYELONEPHRITIS. LAST ADMIT WAS 07/26/20. DR. HARRISON HAS BEEN CONSULTED WHILE SHE WAS ADMITTED, BUT PT HAS NOT FOLLOWED UP WITH HIM IN OFFICE. CULTURES HAVE GROWN OUT > 3 ISOLATES, AND REPORTED OUT CONTAMINATED SPECIMENS AND NO FURTHER CULTURE OR SENSITIVITIES HAVE BEEN DONE HER. PT STATES "THEY ALWAYS PUT ME ON BACTRIM" PT ADDITIONALLY HAS HISTORY OF KIDNEY STONES AND HAS HAD SURGICAL REMOVAL OF KIDNEY STONES X2 AND URETERAL STENTS X 5. PT FREELY ADMITS TO "BEING IRRESPONSIBLE" ABOUT ALL OF THE ABOVE--NOT TAKING HER MEDICATIONS, NOT CHECKING HER BLOOD SUGAR, NOT FOLLOWING UP WITH HER PCP OR SPECIALISTS IT HAS BEEN ADVISED TO HER. DENIES FEVER, COUGH, SHORTNESS OF BREATH, NO HEADACHE, NO BODY ACHES, NO LOSS OF TASTE/SMELL, NO VOMITING OR DIARRHEA. NO KNOWN COVID-19 EXPOSURE LMP 09/09/20. NO CONTROL. 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er.24h, 500 MG PO DAILY TAKES 500MG +250MG TO EQUAL 750MG Prescribed by: MARIA EUGENIA JUDD on 10/18/20 1326 Ferrous Sulfate 325 Mg Tablet, 325 MG PO DAILY@0700 Prescribed by: DEANDRE OREILLY on 07/30/20 1113 Hydrocodone/Acetaminophen 1 Each Tablet, 1 TAB PO Q4H PRN for PAIN-MODERATE (5- 7) Prescribed by: MARIA EUGENIA JUDD on 10/18/20 1326 Insulin Aspart 300 Units/3 Ml Solution, UNITS SQ AC, (Reported) Linezolid 600 Mg Tablet, 600 MG PO BID Prescribed by: MARIA EUGENIA Rocha DUTCH on 10/18/20 1326 Patient Home Medication List Home Medication List Reviewed: Yes Review of Systems Review of Systems Constitutional: no symptoms reported EENTM: no symptoms reported Respiratory: no symptoms reported Cardiovascular: no symptoms reported Gastrointestinal: see HPI; No abdominal pain, No diarrhea; nausea; No vomiting Genitourinary: see HPI; No dysuria; frequency; No incontinence Musculoskeletal: no symptoms reported, other Skin: no symptoms reported Psychiatric/Neurological: See HPI; Denies Headache, Denies Numbness, Denies Paresthesia; Seizure; Denies Tingling, Denies Tremors, Denies Weakness Hematologic/Lymphatic: No Symptoms Reported Immunological/Allergic: no symptoms reported Past Jlmgzvc-Hfbjdk-Hvnwgy Hx Patient Social History Alcohol Use: Occasionally Uses Recreational Drug Use: Yes (METH--DENIES IV USE) Drug of Choice: METH--DENIES IV USE Smoking Status: Never a Smoker 2nd Hand Smoke Exposure: No Recent Hopitalizations: No Immunizations Up To Date Tetanus Booster (TDap): Unknown Seasonal Allergies Seasonal Allergies: No Past Medical History Surgeries: Yes (KIDNEY STONE REMOVAL X 2; URETERAL STENTS X 5) Renal Respiratory: No Cardiac: No Neurological: Yes (SEIZURES DX AGE 26-UNKNOWN CAUSE--NON-COMPLIANT IN ALL ASPECTS OF CARE) Seizure Disorder : No Reproductive Disorders: No Genitourinary: Yes (CHRONIC KIDNEY DISEASE;KIDNEY STONE REMOVAL X 2;URETERAL STENTS X 5) Kidney Stones, Renal Failure, UTI-Chronic Gastrointestinal: No Musculoskeletal: No Endocrine: Yes (DX AGE 16; NON-COMPLIANT IN ALL ASPECTS OF CARE) Diabetes, Insulin dep HEENT: No Cancer: No Psychosocial: Yes (OCD) Anxiety, PTSD, Bipolar, Depression Integumentary: No Blood Disorders: No Family Medical History Diabetes mellitus 19 MOTHER FH: bipolar disorder 19 MOTHER Hypertension 19 MOTHER Heart Disease, Diabetes, Psychiatric Problems SOCIAL HISTORY: -ETOH--PT STATES " I USED TO BE A BAD ALCOHOLIC 10 YEARS AGO" --CLAIMS SHE ONLY "OCCASIONALLY"DRINKS, BUT STILL DRINKS HEAVY AT TIMES. -DRUGS-ADMITS TO METH USE, DENIES IV USE. CLAIMS "NONE FOR 10 YEARS" -DENIES SMOKING Physical Exam Vital Signs Vital Signs - First Documented 10/16/20 03:54 Temp 36.1 Pulse 104 Resp 16 B/P (MAP) 128/86 (100) Pulse Ox 98 O2 Delivery Room Air Capillary Refill : Height, Weight, BMI Height: '" Weight: lbs. oz. kg; 29.12 BMI Method: General Appearance: No Apparent Distress, WD/WN, Other (HAIR EXTREMELY SHORT/ALMOST SHAVED. DOES NOT APPEAR TO BE IN ANY DISCOMFORT OR DISTRESS. SPEECH SLIGHTLY SLURRED. STRONG ODOR OF ETOH) HEENT: Normal ENT Inspection Neck: Normal Inspection Respiratory: Normal Breath Sounds, No Accessory Muscle Use, No Respiratory Distress Cardiovascular: Regular Rate, Rhythm, No Edema, No JVD, No Murmur Gastrointestinal: Non Tender, Soft Extremity: Other (LEFT GREAT TOE WITH EVIDENCE OF PARONYCHIA WITH CELLULITIS OF TOE, AND SUB-UNGUAL PURULENCE. ALSO HAS 2 WART-LIKE GROWTHS TO PLANTAR ASPECT OF BALL OF GREAT TOE. ) Neurologic/Psychiatric: Alert, Oriented x3, No Motor/Sensory Deficits, Normal Mood/Affect, manager telecom II-XII Norm as Tested, Other (DOES NOT APPEAR POST-ICTAL. SPEECH SLIGHTLY SLURRED. ) Skin: Normal Color, Warm/Dry, Tattoos/Piercings (EXTENSIVE TATTOOS, MULTIPLE PIERCINGS. ), Other ( ABOVE) Focused Exam Lactate Level 10/16/20 04:53: Lactic Acid Level 3.01*H 10/16/20 09:50: Lactic Acid Level 1.90 Lactic Acid Level Progress/Results/Core Measures Suspected Sepsis SIRS Temperature: Pulse: Respiratory Rate: Laboratory Tests 10/16/20 09:50: White Blood Count 11.7H 10/17/20 07:38: White Blood Count 11.7H 10/18/20 05:40: White Blood Count 13.1H Blood Pressure / Mean: 10/16/20 04:53: Lactic Acid Level 3.01*H 10/16/20 09:50: Lactic Acid Level 1.90 Laboratory Tests 10/16/20 04:00: Total Bilirubin 0.1 10/16/20 09:50: Creatinine 1.25, Platelet Count 317 10/17/20 07:38: Total Bilirubin 0.2, Creatinine 1.34H, Platelet Count 269 10/18/20 05:40: Total Bilirubin 0.2, Creatinine 1.59H, Platelet Count 251 Results/Orders Lab Results Laboratory Tests Test 10/16/20 20:09 10/17/20 05:28 10/17/20 07:38 10/17/20 10:40 Range/Units Glucometer 164 H 211 H 70-110 MG/DL White Blood Count 11.7 H 4.3-11.0 10^3/uL Red Blood Count 2.83 L 3.08 L 3.80-5.11 10^6/uL Hemoglobin 6.9 *L 11.5-16.0 g/dL Hematocrit 23 L 35-52 % Mean Corpuscular Volume 80 80-99 fL Mean Corpuscular Hemoglobin 24 L 25-34 pg Mean Corpuscular Hemoglobin Concent 30 L 32-36 g/dL Red Cell Distribution Width 17.8 H 10.0-14.5 % Platelet Count 269 130-400 10^3/uL Mean Platelet Volume 9.6 9.0-12.2 fL Immature Granulocyte % (Auto) 0 % Neutrophils (%) (Auto) 79 H 42-75 % Lymphocytes (%) (Auto) 13 12-44 % Monocytes (%) (Auto) 6 0-12 % Eosinophils (%) (Auto) 2 0-10 % Basophils (%) (Auto) 0 0-10 % Neutrophils # (Auto) 9.2 H 1.8-7.8 10^3/uL Lymphocytes # (Auto) 1.5 1.0-4.0 10^3/uL Monocytes # (Auto) 0.7 0.0-1.0 10^3/uL Eosinophils # (Auto) 0.2 0.0-0.3 10^3/uL Basophils # (Auto) 0.1 0.0-0.1 10^3/uL Immature Granulocyte # (Auto) 0.1 0.0-0.1 10^3/uL Sodium Level 135 135-145 MMOL/L Potassium Level 4.2 3.6-5.0 MMOL/L Chloride Level 109 H 98-107 MMOL/L Carbon Dioxide Level 20 L 21-32 MMOL/L Anion Gap 6 5-14 MMOL/L Blood Urea Nitrogen 30 H 7-18 MG/DL Creatinine 1.34 H 0.60-1.30 MG/DL Estimat Glomerular Filtration Rate 45 BUN/Creatinine Ratio 22 Glucose Level 186 H 70-105 MG/DL Calcium Level 8.3 L 8.5-10.1 MG/DL Corrected Calcium 9.3 8.5-10.1 MG/DL Total Bilirubin 0.2 0.1-1.0 MG/DL Aspartate Amino Transf (AST/SGOT) 9 5-34 U/L Alanine Aminotransferase (ALT/SGPT) 11 0-55 U/L Alkaline Phosphatase 61 40-136 U/L Total Protein 6.8 6.4-8.2 GM/DL Albumin 2.7 L 3.2-4.5 GM/DL Absolute Reticulocyte Count 57 24-90 10e9/uL Percent Reticulocyte Count 1.84 0.50-2.40 % Iron Level 21 L 33-167 ug/dL Total Iron Binding Capacity 180 L 237-330 ug/dL Unsaturated Iron Binding Capacity 159 25-500 ug/dL Transferrin % Saturation 12 L 17-57 % Ferritin 276.9 H 20.0-177.0 ng/mL Test 10/17/20 11:00 10/17/20 15:40 10/17/20 20:19 10/18/20 05:40 Range/Units Glucometer 128 H 183 H 177 H 70-110 MG/DL White Blood Count 13.1 H 4.3-11.0 10^3/uL Red Blood Count 3.40 L 3.80-5.11 10^6/uL Hemoglobin 8.4 #L 11.5-16.0 g/dL Hematocrit 28 L 35-52 % Mean Corpuscular Volume 82 80-99 fL Mean Corpuscular Hemoglobin 25 25-34 pg Mean Corpuscular Hemoglobin Concent 30 L 32-36 g/dL Red Cell Distribution Width 17.6 H 10.0-14.5 % Platelet Count 251 130-400 10^3/uL Mean Platelet Volume 9.2 9.0-12.2 fL Immature Granulocyte % (Auto) 0 % Neutrophils (%) (Auto) 81 H 42-75 % Lymphocytes (%) (Auto) 11 L 12-44 % Monocytes (%) (Auto) 6 0-12 % Eosinophils (%) (Auto) 2 0-10 % Basophils (%) (Auto) 0 0-10 % Neutrophils # (Auto) 10.6 H 1.8-7.8 10^3/uL Lymphocytes # (Auto) 1.4 1.0-4.0 10^3/uL Monocytes # (Auto) 0.8 0.0-1.0 10^3/uL Eosinophils # (Auto) 0.2 0.0-0.3 10^3/uL Basophils # (Auto) 0.1 0.0-0.1 10^3/uL Immature Granulocyte # (Auto) 0.1 0.0-0.1 10^3/uL Sodium Level 134 L 135-145 MMOL/L Potassium Level 4.3 3.6-5.0 MMOL/L Chloride Level 109 H 98-107 MMOL/L Carbon Dioxide Level 19 L 21-32 MMOL/L Anion Gap 6 5-14 MMOL/L Blood Urea Nitrogen 23 H 7-18 MG/DL Creatinine 1.59 H 0.60-1.30 MG/DL Estimat Glomerular Filtration Rate 37 BUN/Creatinine Ratio 14 Glucose Level 234 H 70-105 MG/DL Calcium Level 8.5 8.5-10.1 MG/DL Corrected Calcium 9.5 8.5-10.1 MG/DL Total Bilirubin 0.2 0.1-1.0 MG/DL Aspartate Amino Transf (AST/SGOT) 10 5-34 U/L Alanine Aminotransferase (ALT/SGPT) 10 0-55 U/L Alkaline Phosphatase 70 40-136 U/L Total Protein 7.3 6.4-8.2 GM/DL Albumin 2.8 L 3.2-4.5 GM/DL Test 10/18/20 10:34 10/18/20 12:00 Range/Units Glucometer 134 H 70-110 MG/DL Vancomycin Level Trough 9.6 L 10.0-20.0 UG/ML My Orders Medications Given in ED Vital Signs/I&O 10/18/20 10/18/20 10/18/20 10/18/20 06:20 06:30 07:30 09:00 Temp 37.3 37.3 37.0 Pulse 91 Resp 20 B/P (MAP) 124/72 (89) Pulse Ox 100 O2 Delivery Room Air Room Air 10/18/20 10/18/20 12:00 15:05 Temp 37.0 37.0 Pulse 83 83 Resp 20 20 B/P (MAP) 119/72 (88) 119/72 Pulse Ox 98 98 O2 Delivery Room Air Room Air Capillary Refill : Point of Care Testing Finger Stick Blood Glucose: 405 Progress Note : Progress Note ACCUCHECK 404K GIVEN IV FLUIDS AND ZOFRAN WITH RESOLUTION OF NAUSEA. GIVEN INSULIN--REPEAT GLUCOSE 164 GIVEN ZOSYN FOR UTI AND CELLULITIS OF TOE. PT ADAMANTLY REFUSES CATH UA. PT STATES SHE ALWAYS HAS BLOOD IN HER URINE. 0550--PT NOW ALSO WANTS HER LEFT GREAT TOE LOOKED AT--STATES TOE HAS BEEN VERY SORE, AND HAD A "BLISTER OF PUS" AROUND CUTICLE/NAIL EDGE FOR A MONTH AND IS GETTING WORSE, THEN TONIGHT SOMEONE STEPPED ON HER TOE AND IT IS HURTING WORSE CULTURE OBTAINED FROM AREA NO DETERIORATION IN PT'S CONDITION Departure Communication (Admissions) 0640--SPOKE WITH DR. JUDD, HOSPITALIST, ACCEPTS PT FOR ADMIT. Impression Primary Impression: DKA (diabetic ketoacidoses) Additional Impressions: Seizure disorder TYPE 1 DIABETES UNCONTROLLED Recurrent UTI EXTREME NONCOMPLIANCE Alcohol intoxication Renal insufficiency Chronic anemia Hyponatremia PARONYCHIA OF LEFT GREAT TOE WITH CELLULITIS Disposition: ADMITTED INPATIENT Condition: Stable Admissions Decision to Admit Reason: Admit from ER (General) Decision to Admit/Date: Oct 16, 2020 Time/Decision to Admit Time: 06:40 Departure-Patient Inst. Referrals: [facility] (PCP) Primary Care Physician [facility] (Family) Primary Care Physician Scripts Linezolid (Zyvox) 600 Mg Tablet 600 MG PO BID, #10 TAB Prov: MARIA EUGENIA JUDD DO 10/18/20 Amoxicillin/Potassium Clav (Augmentin 875-125 Tablet) 1 Each Tablet 1 EACH PO BID, #10 TAB Prov: MARIA EUGENIA JUDD DO 10/18/20 Hydrocodone/Acetaminophen (Hydrocodone-Acetamin 5-325 mg) 1 Each Tablet 1 TAB PO Q4H PRN for PAIN-MODERATE (5-7), #10 TAB Prov: MARIA EUGENIA JUDD DO 10/18/20 Divalproex Sodium (Depakote ER) 500 Mg Tab.er.24h 500 MG PO DAILY, #30 TAB TAKES 500MG +250MG TO EQUAL 750MG Prov: MARIA EUGENIA JUDD DO 10/18/20 Divalproex Sodium (Depakote ER) 250 Mg Tab.er.24h 250 MG PO DAILY, #30 TAB TAKES 500MG +250MG TO EQUAL 750MG Prov: MARIA EUGENIA JUDD DO 10/18/20 CHERYL SALINAS DO Oct 16, 2020 04:54
[2020-10-16] MEDS ORDERED: inSUlin (REGULAR) HUMAN 1 UNIT/0.01 ML (CHARGE PER UNIT) IV ONE (05:00)
--- NOTE | 2020-10-16 05:40 | NUR ---
WOUND CULTURE OBTAINED FROM GREAT TOE.
[2020-10-16 06:26] LABS: ABG BASE EXCESS -8.3 MMOL/L (-2.5-2.5); ABG OXYGEN SATURATION 98 % (94-100); ABG PCO2 34 MMHG (35-45); ABG PO2 104 MMHG (79-93)
[2020-10-16 06:34] LABS: ABG PH 7.31 (7.37-7.43)
[2020-10-16 06:35] LABS: ALLENS TEST POSITIVE; INSPIRED O2 RA; PATIENT TEMP 35.9; VENTILATOR NO
--- NOTE | 2020-10-16 06:50 | NUR ---
REPORT GIVEN TO LUCRECIA KLEIN TO ASSUME CARE OF PT AT THIS TIME.
--- NOTE | 2020-10-16 08:24 | NUR ---
meal tray delivered to pt.
[2020-10-16] MEDS ORDERED: ACETAMINOPHEN 500 MG TAB (TYLENOL) ONE (09:54)
[2020-10-16 10:00] LABS: HEMOGLOBIN 7.8 g/dL (11.5-16.0); MEAN PLATELET VOLUME 9.3 fL (9.0-12.2); WHITE BLOOD COUNT 11.7 10^3/uL (4.3-11.0)
[2020-10-16 10:23] LABS: POTASSIUM 4.7 MMOL/L (3.6-5.0)
[2020-10-16 10:24] LABS: CALCIUM 8.8 MG/DL (8.5-10.1)
[2020-10-16 10:29] LABS: CREATININE SERUM 1.25 MG/DL (0.60-1.30)
[2020-10-16] MEDS ORDERED: ONDANSETRON 4 MG/2 ML (SDV) Z0FRAN IV PRN (10:30)
[2020-10-16] MEDS ORDERED: D5 1/2 NS 1000 ML IV SOLUTION 1,000 ML IV SCH (10:45)
[2020-10-16] MEDS ORDERED: inSUlin REGULAR 100 UNITS/100 ML DRIP (Premix) IV SCH (10:45)
[2020-10-16] MEDS: NS IV 1000 ML 1,000 ML IV SCH ×2 (11:17→21:55)
--- NOTE | 2020-10-16 12:16 | History & Physical-Hospitalist ---
History of Present Illness HPI/Chief Complaint CC: Left great toe cellulitis and early DKA HPI: This is a complicated 35yoWF clinic patient of [facility] who has a h/o poorly controlled DM and seizure who presented to the ER with complaints of multiple issues and was noted to have acidosis and left great toe cellulitis. Patient resolved elevated sugars after given aggressive SQ insulin so she will be moved to 4th floor [address] Honeycutt consulted for the left great toe in case she needs I&D. Source: patient Exam Limitations: no limitations Date Seen 10/16/20 Time Seen by a Provider: 12:00 Attending Physician Bibi Melendrez DO [facility] Referring Physician Date of Admission Oct 16, 2020 at 08:17 Home Medications & Allergies Home Medications Reviewed patient Home Medication Reconciliation performed by pharmacy medication reconciliations metallurgical technician and/or nursing. Patients Allergies have been reviewed. 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 USE) Drug of Choice: METH--DENIES IV USE Smoking Status: Never a Smoker 2nd Hand Smoke Exposure: No Recent Foreign Travel: No Contact w/other who traveled: No Recent Hopitalizations: No Recent Infectious Disease Expo: No Immunizations Up To Date Tetanus Booster (TDap): Unknown Seasonal Allergies Seasonal Allergies: No Past Medical History Surgeries: Renal Neurological: Seizure Disorder : No Reproductive: No Genitourinary: Kidney Stones, Renal Failure, UTI-Chronic Endocrine: Diabetes, Insulin dep Psychosocial: Anxiety, PTSD, Bipolar, Depression History of Blood Disorders: No Family History Diabetes mellitus 19 MOTHER FH: bipolar disorder 19 MOTHER Hypertension 19 MOTHER Heart Disease, Diabetes, Psychiatric Problems SOCIAL HISTORY: -ETOH--PT STATES " I USED TO BE A BAD ALCOHOLIC 10 YEARS AGO" --CLAIMS SHE ONLY "OCCASIONALLY"DRINKS, BUT STILL DRINKS HEAVY AT TIMES. -DRUGS-ADMITS TO METH USE, DENIES IV USE. CLAIMS "NONE FOR 10 YEARS" -DENIES SMOKING Review of Systems Constitutional: see HPI, weakness Musculoskeletal: joint pain Physical Exam Physical Exam Vital Signs Vital Signs - First Documented 10/16/20 03:54 Temp 36.1 Pulse 104 Resp 16 B/P (MAP) 128/86 (100) Pulse Ox 98 O2 Delivery Room Air Capillary Refill : Less Than 3 Seconds Height, Weight, BMI Height: '" Weight: lbs. oz. kg; 30.00 BMI Method: General Appearance: No Apparent Distress, Chronically ill Eyes: Right Eye Normal Inspection, Right Eye PERRL HEENT: PERRL/EOMI, Normal ENT Inspection, Pharynx Normal, Moist Mucous Membranes Neck: Full Range of Motion, Normal Inspection, Non Tender Respiratory: Chest Non Tender, Lungs Clear, Normal Breath Sounds, No Accessory Muscle Use; No No Respiratory Distress Cardiovascular: Regular Rate, Rhythm, No Edema, No Gallop, No JVD, No Murmur, N ormal Peripheral Pulses Gastrointestinal: Normal Bowel Sounds, No Organomegaly, No Pulsatile Mass, Non Tender, Soft Back: Normal Inspection, No CVA Tenderness, No Vertebral Tenderness Extremity: Normal Capillary Refill, Normal Inspection, Normal Range of Motion, Non Tender, No Calf Tenderness, No Pedal Edema, Other (left great toe with cellullitis) Neurologic/Psychiatric: Alert, Oriented x3, No Motor/Sensory Deficits, Normal Mood/Affect Skin: Normal Color, Warm/Dry Lymphatic: No Adenopathy Results Results/Procedures Labs Laboratory Tests 10/16/20 04:00 10/16/20 09:50 Patient resulted labs reviewed. Assessment/Plan Admission Diagnosis Assessment: Early DKA Left great toe cellulitis high risk for amputation HTN HLP Plan: Insulin Abx Monitor pain Admission Status: Inpatient Order (span 2 midnights) Reason for Inpatient Admission: dka with cellulitis Clinical Quality Measures DVT/VTE Risk/Contraindication: Risk Factor Score Per Nursin RFS Level Per Nursing on Admit: 1=Low/No VTE PPX BIBI MELENDREZ DO Oct 16, 2020 12:16
[2020-10-16] MEDS ORDERED: MELATONIN 3 MG TABLET PO PRN (12:30)
[2020-10-16] MEDS ORDERED: diphenhydrAMINE 25 MG TAB (BENADRYL) PO PRN (12:30)
[2020-10-16] MEDS ORDERED: VANCOMYCIN INJECTION 0.1 MG in NS (IVPB) 250 ML IV SCH (12:30)
[2020-10-16] MEDS ORDERED: ALPRAZolam 0.25 MG (XANAX) TAB PO PRN (12:30)
[2020-10-16] MEDS ORDERED: ONDANSETRON 4 MG/2 ML (SDV) Z0FRAN IVP PRN (12:30)
[2020-10-16] MEDS ORDERED: LOPERAMIDE 2 MG (IMODIUM) TABLET PO PRN (12:30)
[2020-10-16] MEDS ORDERED: CALCIUM CARBONATE 500 MG (TUMS) TAB.CHEW PO PRN (12:30)
[2020-10-16] MEDS ORDERED: DOCUSATE SODIUM 100 MG (COLACE) CAP PO PRN (12:30)
--- NOTE | 2020-10-16 12:53 | NUR ---
VANCOMYCIN DOSING SCR 1.25; ADJ BW 66 KG; CRCL ~ 66; BOLUS VANC 20 MG/KG X 81 KG ~ 1750 MG THEN VANC 15 MG/KG ~ 1250 MG Q24H CHECK TROUGH LEVEL BEFORE THE 3RD DOSE 10/18 1200 HOLD DOSE AND CONTACT PHARMACY IF LEVEL IS GREATER THAN 20 OR LESS THAN 10
[2020-10-16] MEDS ORDERED: VANCOMYCIN INJECTION 1,750 MG in NS IV 500 ML 500 ML IV SCH (13:00)
[2020-10-16] MEDS ORDERED: inSUlin ASPART (NovoLOG) 1 UNIT/0.01 ML (CHARGE PER UNIT) ONE (14:02)
[2020-10-16] MEDS: ENOXAPARIN 40 MG/0.4 ML (LOVENOX) SYR SC SCH (14:11)
[2020-10-16] MEDS: HYDROcodone/APAP 5 MG/325 MG (LORTAB) TAB PO PRN (14:11)
[2020-10-16] MEDS: PIPERACILLIN/TAZO 4.5 GM/NS 100 ML IV SCH ×4 (14:11→20:29)
--- NOTE | 2020-10-16 15:26 | CONSULTATION REPORT ---
DATE OF SERVICE: 10/16/2020 ADMITTING PHYSICIAN: Dr. Melendrez. ATTENDING PRIMARY CARE PHYSICIAN: . HISTORY OF PRESENT ILLNESS: The patient is a 35-year-old female with an extensive past medical history. She has been an insulin-dependent diabetic; however, has been noncompliant and has developed some level of renal failure. She also does have a history of seizure disorder. She reports that she did also have a history of drug abuse in the past; however, not recently. She has a history of seizure disorder and did have a seizure episode earlier this morning. She reports that she has had redness and swelling along the left great toe for about 4 weeks now. However, it was stepped on yesterday and the pain worsened. Upon examination, there is redness and swelling as well as a convex curvature of the toenail consistent with a chronic fungal infection. At this time, there is some erythema and pain; however, there is no fluctuance to indicate any abscess. PAST MEDICAL HISTORY: Insulin-dependent diabetes, history of nephrolithiasis, renal failure, chronic urinary tract infection, anxiety, bipolar disorder, seizure disorder. ALLERGIES: CEPHALEXIN, ASPIRIN. MEDICATIONS: Insulin q. a.c. and at bedtime, Levemir insulin at bedtime, Depakote, iron. SOCIAL HISTORY: Previous drug abuse. Negative tobacco smoke. Occasional alcohol. PAST SURGICAL HISTORY: Open right nephrolithiasis removal, ureteral stent placement x5. FAMILY HISTORY: Noncontributory. VITAL SIGNS: Temperature 36.1, blood pressure 108/67, pulse 87, respirations 18, pulse ox 97% on room air. REVIEW OF SYSTEMS: Well-nourished female currently in no acute distress. She is not experiencing any shortness of breath or difficulty breathing. No chest pain, palpitations, diaphoresis. No nausea, vomiting, no diarrhea or constipation. No fever or chills, no recent inadvertent weight loss. She did have a grand mal seizure episode early this morning and was also found to be hyperglycemic. No recent inadvertent weight loss. All other review of systems negative. PHYSICAL EXAMINATION: CHEST: Few scattered rales bilaterally. HEART: Regular, no murmurs. EXTREMITIES: No lower extremity edema, negative Homans sign. There is some redness and erythema around the left great toe along the medial aspect, there is no fluctuance to indicate an abscess. There is a thick concave nails consistent with chronic fungal toenail infection. EXTREMITIES: No lower extremity edema, negative Homans sign. ABDOMEN: Soft, nontender, nondistended. SKIN: Warm, dry. LABORATORY DATA: WBC 11.7, hemoglobin 7.8, hematocrit 25, platelets 317. BUN 38, creatinine 1.25, glucose 202. ASSESSMENT AND PLAN: A 35-year-old female who is noncompliant insulin-dependent diabetes with a history of seizure disorder with an episode of a grand mal seizure early this morning. She had developed increased pain along her left great toe and at this time appears to have cellulitis; however, no abscess. We will continue with IV antibiotics and continue to monitor her toe for the development of an abscess. Job ID: [id number] DocumentID: [id number] Dictated Date: 10/16/2020 14:50:21 Cat Hooker Date: 10/16/2020 15:25:16 Dictated By: YEMI PATINO MD
[2020-10-16] MEDS: inSUlin ASPART (NovoLOG) 1 UNIT/0.01 ML (CHARGE PER UNIT) SQ SCH ×2 (16:30→20:23)
--- NOTE | 2020-10-16 17:40 | NUR ---
RECEIVED REP[ORT FROM MARILYN IN ICU PRIOR TO PATIENT BEING TRANSFERRED TO ROOM 420. TRANSPORTED VIA WHEELCHAIR BY ICU STAFF PATIENT ACCLIMATED TO ROOM, CONTROLS, STAFF AND IS ADJUSTING WELL.
--- NOTE | 2020-10-16 17:40 | NUR ---
PATIENT TRANSFERRED TO ROOM 420 VIA AT THIS TIME WITHOUT INCIDENT. PERSONAL BELONGINGS SENT WITH PATIENT. REPORT GIVEN TO BILLIE, TO ASSUME CARE OF PATIENT.
[2020-10-16 17:52] VITALS: BP 125/80
[2020-10-16 20:06] VITALS: BP 137/88
[2020-10-16] MEDS: SENNA W/DOCUSATE (SENOKOT S) TABLET PO SCH (20:29)
[2020-10-17] VITALS (9 sets, daily range): BP systolic 101–166; BP diastolic 56–84
[2020-10-17] MEDS: HYDROcodone/APAP 5 MG/325 MG (LORTAB) TAB PO PRN ×3 (00:31→21:59)
[2020-10-17] MEDS: PIPERACILLIN/TAZO 4.5 GM/NS 100 ML IV SCH ×6 (05:06→21:59)
[2020-10-17] MEDS: inSUlin ASPART (NovoLOG) 1 UNIT/0.01 ML (CHARGE PER UNIT) SQ SCH ×4 (06:49→20:21)
--- NOTE | 2020-10-17 07:21 | Progress Note - Hospitalist ---
Subjective HPI/CC On Admission Date Seen by Provider: Oct 17, 2020 Time Seen by Provider: 10:30 CC: Left great toe cellulitis and early DKA HPI: This is a complicated 35yoWF clinic patient of [facility] who has a h/o poorly controlled DM and seizure who presented to the ER with complaints of multiple issues and was noted to have acidosis and left great toe cellulitis. Patient resolved elevated sugars after given aggressive SQ insulin so she will be moved to 4[address] Honeycutt consulted for the left great toe in case she needs I&D. Subjective/Events-last exam Transfuse 1 unit of blood Hgb 6.9 Has had transfusions before Toe improved Checked meds and labs Review of Systems General: Fatigue, Malaise Focused Exam Lactate Level 10/16/20 04:53: Lactic Acid Level 3.01*H 10/16/20 09:50: Lactic Acid Level 1.90 Objective Exam Vital Signs Vital Signs Date Time Temp Pulse Resp B/P (MAP) Pulse Ox O2 Delivery O2 Flow Rate FiO2 10/18/20 06:20 37.3 10/18/20 04:12 96 18 124/67 (86) 90 Room Air Capillary Refill : Less Than 3 Seconds General Appearance: No Apparent Distress, WD/WN, Chronically ill Respiratory: Chest Non Tender, Lungs Clear, Normal Breath Sounds, No Accessory Muscle Use, No Respiratory Distress Cardiovascular: Regular Rate, Rhythm, No Edema, No Gallop, No JVD, No Murmur, Normal Peripheral Pulses Neurologic/Psychiatric: Alert, Oriented x3, No Motor/Sensory Deficits, Normal Mood/Affect Results/Procedures Lab Laboratory Tests 10/17/20 07:38 10/18/20 05:40 Patient resulted labs reviewed. Assessment/Plan Assessment and Plan Assess & Plan/Chief Complaint Assessment: Early DKA Left great toe cellulitis high risk for amputation HTN HLP Plan: Insulin Abx Monitor pain 10/17/20: Transfuse 1 unit of blood Anemia w/u Clinical Quality Measures DVT/VTE Risk/Contraindication: Risk Factor Score Per Nursin RFS Level Per Nursing on Admit: 1=Low/No VTE PPX MARIA EUGENIA JUDD DO Oct 17, 2020 07:21
[2020-10-17] MEDS: NS IV 1000 ML 1,000 ML IV SCH ×2 (07:58→17:13)
[2020-10-17] MEDS: SENNA W/DOCUSATE (SENOKOT S) TABLET PO SCH ×2 (07:58→20:26)
[2020-10-17 08:01] LABS: BASOPHILS # (AUTO) 0.1 10^3/uL (0.0-0.1); BASOPHILS % (AUTO) 0 % (0-10); EOSINOPHILS # (AUTO) 0.2 10^3/uL (0.0-0.3); EOSINOPHILS % (AUTO) 2 % (0-10); HEMATOCRIT 23 % (35-52); LYMPHOCYTES # (AUTO) 1.5 10^3/uL (1.0-4.0); LYMPHOCYTES % (AUTO) 13 % (12-44); MEAN CORPUSCULAR HEMOGLOBIN 24 pg (25-34); MEAN CORPUSCULAR HGB CONC 30 g/dL (32-36); MEAN CORPUSCULAR VOLUME 80 fL (80-99); MEAN PLATELET VOLUME 9.6 fL (9.0-12.2); MONOCYTES # (AUTO) 0.7 10^3/uL (0.0-1.0); MONOCYTES % (AUTO) 6 % (0-12); NEUTROPHILS # (AUTO) 9.2 10^3/uL (1.8-7.8); NEUTROPHILS % (AUTO) 79 % (42-75); PLATELET COUNT 269 10^3/uL (130-400); WHITE BLOOD COUNT 11.7 10^3/uL (4.3-11.0)
[2020-10-17] MEDS: ACETAMINOPHEN 500 MG TAB (TYLENOL) PO PRN (08:08)
[2020-10-17 08:10] LABS: HEMOGLOBIN 6.9 g/dL (11.5-16.0)
[2020-10-17 08:27] LABS: ALBUMIN 2.7 GM/DL (3.2-4.5); POTASSIUM 4.2 MMOL/L (3.6-5.0)
[2020-10-17 08:28] LABS: CALCIUM 8.3 MG/DL (8.5-10.1)
[2020-10-17 08:30] LABS: TOTAL PROTEIN 6.8 GM/DL (6.4-8.2)
[2020-10-17 08:31] LABS: BILIRUBIN,TOTAL 0.2 MG/DL (0.1-1.0)
[2020-10-17 08:33] LABS: CREATININE SERUM 1.34 MG/DL (0.60-1.30)
[2020-10-17] MEDS ORDERED: NS IV 500 ML 500 ML IV SCH (10:15)
[2020-10-17 11:08] LABS: RETICULOCYTE % 1.84 % (0.50-2.40)
--- NOTE | 2020-10-17 11:36 | Progress Note ---
Subjective Date Seen by a Provider: Oct 17, 2020 Time Seen by a Provider: 10:50 Subjective/Events-last exam Patient seen with Dr. Honeycutt. Patient reports doing well today. She reports that her toe feels much better. Denies any other issues. It was explained to patient that she did have a Hbg of 6.9 this morning and she reports that she does have chronic anemia and has had this for the past year and they have not been able to find out why this occurs. She reports that she does have to get blood transfusions periodically. Focused Exam Lactate Level 10/16/20 04:53: Lactic Acid Level 3.01*H 10/16/20 09:50: Lactic Acid Level 1.90 Objective Exam Vital Signs Date Time Temp Pulse Resp B/P (MAP) Pulse Ox O2 Delivery O2 Flow Rate FiO2 10/17/20 08:00 36.9 98 20 122/58 (79) 100 Room Air 10/17/20 03:53 36.9 86 16 108/71 (83) 94 Room Air 10/17/20 00:00 37.3 95 17 112/74 (87) 96 Room Air 10/16/20 20:30 Room Air 10/16/20 20:06 36.9 96 20 137/88 (104) 100 Room Air 10/16/20 17:52 36.6 97 18 125/80 (95) 100 Room Air 10/16/20 16:00 36.6 10/16/20 14:00 87 107/66 (80) 96 Room Air 10/16/20 13:02 87 10/16/20 13:00 88 5 103/69 (80) 99 Room Air 10/16/20 12:00 85 7 108/67 (81) 97 Room Air 10/16/20 11:30 99 Room Air I & O 10/17/20 07:00 Intake Total 1125 ml Balance 1125 ml Capillary Refill : Less Than 3 Seconds General Appearance: No Apparent Distress, WD/WN Neck: Normal Inspection, Supple Respiratory: Normal Breath Sounds, No Accessory Muscle Use, No Respiratory Distress Cardiovascular: Regular Rate, Rhythm, No Edema Gastrointestinal: normal bowel sounds, non tender, soft Extremity: Other (There is some mild redness and erythema of the distal left toe near the nail matrix. No pain with palpation) Neurologic/Psychiatric: Alert, Oriented x3 Skin: Normal Color, Warm/Dry Results Lab Laboratory Tests 1/1/21 11:30: Glucometer 202H 10/16/20 15:28: Glucometer 164H 10/16/20 20:09: Glucometer 164H 10/17/20 05:28: Glucometer 211H 10/17/20 07:38: White Blood Count 11.7H, Red Blood Count 2.83L, Hemoglobin 6.9*L, Hematocrit 23L , Mean Corpuscular Volume 80, Mean Corpuscular Hemoglobin 24L, Mean Corpuscular Hemoglobin Concent 30L, Red Cell Distribution Width 17.8H, Platelet Count 269, Mean Platelet Volume 9.6, Immature Granulocyte % (Auto) 0, Neutrophils (%) (Auto) 79H, Lymphocytes (%) (Auto) 13, Monocytes (%) (Auto) 6, Eosinophils (%) (Auto) 2, Basophils (%) (Auto) 0, Neutrophils # (Auto) 9.2H, Lymphocytes # (Auto) 1.5, Monocytes # (Auto) 0.7, Eosinophils # (Auto) 0.2, Basophils # (Auto) 0.1, Immature Granulocyte # (Auto) 0.1, Sodium Level 135, Potassium Level 4.2, Chloride Level 109H, Carbon Dioxide Level 20L, Anion Gap 6, Blood Urea Nitrogen 30H, Creatinine 1.34H, Estimat Glomerular Filtration Rate 45, BUN/Creatinine Ratio 22, Glucose Level 186H, Calcium Level 8.3L, Corrected Calcium 9.3, Total Bilirubin 0.2, Aspartate Amino Transf (AST/SGOT) 9, Alanine Aminotransferase (ALT/SGPT) 11, Alkaline Phosphatase 61, Total Protein 6.8, Albumin 2.7L 10/17/20 10:40: Red Blood Count 3.08L, Absolute Reticulocyte Count 57, Percent Reticulocyte Count 1.84 10/17/20 11:00: Glucometer 128H Microbiology 10/16/20 MRSA Screen - Final, Complete MRSA not isolated 10/16/20 Gram Stain - Final, Resulted 10/16/20 Wound Culture - Preliminary, Resulted Staphylococcus species 10/16/20 Urine Culture - Final, Complete Gram Pos Mixed Bacterial Kacey Assessment/Plan Assessment/Plan Assess & Plan/Chief Complaint A 35-year-old female insulin-dependent diabetes, history of seizure disorder with an episode of a grand mal seizure, chronic anemia, and left great toe cellulitis VSS WBC 11.7 this morning Hgb 6.9 No abscess at this time Continue with IV abx No surgical intervention at this time Clinical Quality Measures DVT/VTE Risk/Contraindication: Risk Factor Score Per Nursin RFS Level Per Nursing on Admit: 1=Low/No VTE PPX REZA RODRIGUEZ ENGLISH PROFESSOR Oct 17, 2020 11:36
[2020-10-17] MEDS: VANCOMYCIN 1250 MG/NS 250 ML IVPB IV SCH ×2 (16:03)
[2020-10-17] MEDS: ENOXAPARIN 40 MG/0.4 ML (LOVENOX) SYR SC SCH (16:18)
[2020-10-18 00:05] VITALS: BP 118/66
[2020-10-18] MEDS: NS IV 1000 ML 1,000 ML IV SCH (03:31)
[2020-10-18 04:12] VITALS: BP 124/67
[2020-10-18] MEDS: PIPERACILLIN/TAZO 4.5 GM/NS 100 ML IV SCH ×2 (05:25)
[2020-10-18] MEDS: ACETAMINOPHEN 500 MG TAB (TYLENOL) PO PRN (05:49)
[2020-10-18 06:05] LABS: BASOPHILS # (AUTO) 0.1 10^3/uL (0.0-0.1); BASOPHILS % (AUTO) 0 % (0-10); EOSINOPHILS # (AUTO) 0.2 10^3/uL (0.0-0.3); EOSINOPHILS % (AUTO) 2 % (0-10); HEMATOCRIT 28 % (35-52); HEMOGLOBIN 8.4 g/dL (11.5-16.0); LYMPHOCYTES # (AUTO) 1.4 10^3/uL (1.0-4.0); LYMPHOCYTES % (AUTO) 11 % (12-44); MEAN CORPUSCULAR HEMOGLOBIN 25 pg (25-34); MEAN CORPUSCULAR HGB CONC 30 g/dL (32-36); MEAN CORPUSCULAR VOLUME 82 fL (80-99); MEAN PLATELET VOLUME 9.2 fL (9.0-12.2); MONOCYTES # (AUTO) 0.8 10^3/uL (0.0-1.0); MONOCYTES % (AUTO) 6 % (0-12); NEUTROPHILS # (AUTO) 10.6 10^3/uL (1.8-7.8); NEUTROPHILS % (AUTO) 81 % (42-75); PLATELET COUNT 251 10^3/uL (130-400); WHITE BLOOD COUNT 13.1 10^3/uL (4.3-11.0)
[2020-10-18 06:12] LABS: ALBUMIN 2.8 GM/DL (3.2-4.5); POTASSIUM 4.3 MMOL/L (3.6-5.0)
[2020-10-18 06:13] LABS: CALCIUM 8.5 MG/DL (8.5-10.1)
[2020-10-18 06:15] LABS: TOTAL PROTEIN 7.3 GM/DL (6.4-8.2)
[2020-10-18 06:17] LABS: BILIRUBIN,TOTAL 0.2 MG/DL (0.1-1.0)
[2020-10-18 06:18] LABS: CREATININE SERUM 1.59 MG/DL (0.60-1.30)
[2020-10-18] MEDS: inSUlin ASPART (NovoLOG) 1 UNIT/0.01 ML (CHARGE PER UNIT) SQ SCH ×2 (06:46→12:29)
[2020-10-18 07:30] VITALS: BP 124/72
[2020-10-18] MEDS: SENNA W/DOCUSATE (SENOKOT S) TABLET PO SCH (08:12)
--- NOTE | 2020-10-18 10:46 | Progress Note ---
Subjective Date Seen by a Provider: Oct 18, 2020 Time Seen by a Provider: 10:00 Subjective/Events-last exam Patient seen with Dr. Honeycutt. Patient reports doing well today. Denies any complaints. Reports that she is ready to go home Focused Exam Lactate Level 10/16/20 04:53: Lactic Acid Level 3.01*H 10/16/20 09:50: Lactic Acid Level 1.90 Objective Exam Vital Signs Date Time Temp Pulse Resp B/P (MAP) Pulse Ox O2 Delivery O2 Flow Rate FiO2 10/18/20 07:30 37.0 91 20 124/72 (89) 100 Room Air 10/18/20 06:30 37.3 10/18/20 06:20 37.3 10/18/20 05:49 38.0 10/18/20 04:12 37.8 96 18 124/67 (86) 90 Room Air 10/18/20 00:05 36.7 97 18 118/66 (83) 88 Room Air 10/17/20 20:30 Room Air 10/17/20 19:17 38.2 95 18 101/56 (71) 98 Room Air 10/17/20 15:54 38.7 95 18 116/64 (81) 98 Room Air 10/17/20 12:55 36.0 87 18 117/72 100 Room Air 10/17/20 12:41 37.1 89 18 121/84 100 Room Air 10/17/20 12:00 36.9 91 20 110/59 (76) 98 Room Air 10/17/20 11:23 36.5 78 18 166/77 94 Room Air I & O 10/18/20 07:00 Intake Total 2335 ml Balance 2335 ml Capillary Refill : Less Than 3 Seconds General Appearance: No Apparent Distress, WD/WN Neck: Normal Inspection, Supple Respiratory: Normal Breath Sounds, No Accessory Muscle Use, No Respiratory Distress Cardiovascular: Regular Rate, Rhythm, No Edema Gastrointestinal: normal bowel sounds, non tender, soft Extremity: Normal Range of Motion, Other (There is some mild redness/erythema of the left great toe toward the distal end near the nail matrix. No drainage or abscess identified) Neurologic/Psychiatric: Alert, Oriented x3 Skin: Normal Color, Warm/Dry Results Lab Laboratory Tests 10/17/20 11:00: Glucometer 128H 10/17/20 15:40: Glucometer 183H 10/17/20 20:19: Glucometer 177H 10/18/20 05:40: White Blood Count 13.1H, Red Blood Count 3.40L, Hemoglobin 8.4#L, Hematocrit 28L , Mean Corpuscular Volume 82, Mean Corpuscular Hemoglobin 25, Mean Corpuscular Hemoglobin Concent 30L, Red Cell Distribution Width 17.6H, Platelet Count 251, Mean Platelet Volume 9.2, Immature Granulocyte % (Auto) 0, Neutrophils (%) (Auto) 81H, Lymphocytes (%) (Auto) 11L, Monocytes (%) (Auto) 6, Eosinophils (%) (Auto) 2, Basophils (%) (Auto) 0, Neutrophils # (Auto) 10.6H, Lymphocytes # (Auto) 1.4, Monocytes # (Auto) 0.8, Eosinophils # (Auto) 0.2, Basophils # (Auto) 0.1, Immature Granulocyte # (Auto) 0.1, Sodium Level 134L, Potassium Level 4.3, Chloride Level 109H, Carbon Dioxide Level 19L, Anion Gap 6, Blood Urea Nitrogen 23H, Creatinine 1.59H, Estimat Glomerular Filtration Rate 37, BUN/Creatinine Ratio 14, Glucose Level 234H, Calcium Level 8.5, Corrected Calcium 9.5, Total Bilirubin 0.2, Aspartate Amino Transf (AST/SGOT) 10, Alanine Aminotransferase (ALT/SGPT) 10, Alkaline Phosphatase 70, Total Protein 7.3, Albumin 2.8L 10/18/20 10:34: Glucometer 134H Microbiology 10/16/20 MRSA Screen - Final, Complete MRSA not isolated 10/16/20 Blood Culture - Preliminary, Resulted No growth 10/16/20 Gram Stain - Final, Resulted 10/16/20 Wound Culture - Preliminary, Resulted Staphylococcus species 10/16/20 Urine Culture - Final, Complete Gram Pos Mixed Bacterial Kacey Assessment/Plan Assessment/Plan Assess & Plan/Chief Complaint A 35-year-old female insulin-dependent diabetes, history of seizure disorder with an episode of a grand mal seizure, chronic anemia, and left great toe cellulitis VSS WBC 13.1 this morning Hgb 8.4 No abscess at this time Continue with IV abx No surgical intervention at this time Clinical Quality Measures DVT/VTE Risk/Contraindication: Risk Factor Score Per Nursin RFS Level Per Nursing on Admit: 1=Low/No VTE PPX REZA RODRIGUEZ APRN Oct 18, 2020 10:46
[2020-10-18 12:00] VITALS: BP 119/72
[2020-10-18] MEDS ORDERED: TROUGH ORDER-PHARMACY XX NR (12:00)
[2020-10-18] MEDS: ENOXAPARIN 40 MG/0.4 ML (LOVENOX) SYR SC SCH (12:39)
[2020-10-18] MEDS ORDERED: DIVA250T PO (13:26)
[2020-10-18] MEDS ORDERED: LINE600T12 PO (13:26)
[2020-10-18] MEDS ORDERED: AMOX-358 PO (13:26)
[2020-10-18] MEDS ORDERED: DIVA-21 PO (13:26)
[2020-10-18] MEDS ORDERED: ACHD5005 PO (13:26)
--- NOTE | 2020-10-18 13:27 | Discharge Summary ---
Discharge Summary Hospital Course Was the Problem List Reviewed?: Yes Hospital Course Date of Admission: Oct 16, 2020 at 08:17 Admission Diagnosis : Family Physician/Provider: William Holman Date of Discharge: 10/18/20 Discharge Diagnosis: early DKA, left great toe cellulitis Hospital Course: Short course after admitted. Dr Honeyuctt consulted for left great toe cellulitis. Insulin resolved the elevated sugar and IVF cleared the acidosis so she was moved down to [facility] on IV abx. Overall she responded to treatment and transfused 1 unit for anemia and anemia w/u ordered. She was deemed stable for DC. Labs and Pending Lab Test: Laboratory Tests 10/17/20 15:40: Glucometer 183H 10/17/20 20:19: Glucometer 177H 10/18/20 05:40: White Blood Count 13.1H, Red Blood Count 3.40L, Hemoglobin 8.4#L, Hematocrit 28L , Mean Corpuscular Volume 82, Mean Corpuscular Hemoglobin 25, Mean Corpuscular Hemoglobin Concent 30L, Red Cell Distribution Width 17.6H, Platelet Count 251, Mean Platelet Volume 9.2, Immature Granulocyte % (Auto) 0, Neutrophils (%) (Auto) 81H, Lymphocytes (%) (Auto) 11L, Monocytes (%) (Auto) 6, Eosinophils (%) (Auto) 2, Basophils (%) (Auto) 0, Neutrophils # (Auto) 10.6H, Lymphocytes # (A uto) 1.4, Monocytes # (Auto) 0.8, Eosinophils # (Auto) 0.2, Basophils # (Auto) 0.1, Immature Granulocyte # (Auto) 0.1, Sodium Level 134L, Potassium Level 4.3, Chloride Level 109H, Carbon Dioxide Level 19L, Anion Gap 6, Blood Urea Nitrogen 23H, Creatinine 1.59H, Estimat Glomerular Filtration Rate 37, BUN/Creatinine Ratio 14, Glucose Level 234H, Calcium Level 8.5, Corrected Calcium 9.5, Total Bilirubin 0.2, Aspartate Amino Transf (AST/SGOT) 10, Alanine Aminotransferase (ALT/SGPT) 10, Alkaline Phosphatase 70, Total Protein 7.3, Albumin 2.8L 10/18/20 10:34: Glucometer 134H 10/18/20 12:00: Vancomycin Level Trough 9.6L Microbiology 10/16/20 MRSA Screen - Final, Complete MRSA not isolated 10/16/20 Blood Culture - Preliminary, Resulted No growth 10/16/20 Gram Stain - Final, Resulted 10/16/20 Wound Culture - Preliminary, Resulted Staphylococcus species 10/16/20 Urine Culture - Final, Complete Gram Pos Mixed Bacterial Kacey Home Meds Active Zyvox (Linezolid) 600 Mg Tablet 600 Mg PO BID Augmentin 875-125 Tablet (Amoxicillin/Potassium Clav) 1 Each Tablet 1 Each PO BID Depakote ER (Divalproex Sodium) 500 Mg Tab.er.24h 500 Mg PO DAILY TAKES 500MG +250MG TO EQUAL 750MG Depakote ER (Divalproex Sodium) 250 Mg Tab.er.24h 250 Mg PO DAILY TAKES 500MG +250MG TO EQUAL 750MG Augmentin 875-125 Tablet (Amoxicillin/Potassium Clav) 1 Each Tablet 1 Each PO BID Ferrous Sulfate 325 Mg Tablet 325 Mg PO DAILY@0700 Reported Ibuprofen 200 Mg Tablet 400 Mg PO Q8H PRN Tylenol Extra Strength (Acetaminophen) 500 Mg Tablet 1,000 Mg PO Q6H PRN Novolog Flexpen (Insulin Aspart) 300 Units/3 Ml Solution Units SQ AC Assessment/Pt Instructions [facility] 1 week Discharge Planning: <30 minutes discharge planning Discharge Instructions Discharge Diet: ADA Diet Pneumonia Vaccine Order Indica: Yes Discharge Physical Examination Vital Signs Vital Signs Date Time Temp Pulse Resp B/P (MAP) Pulse Ox O2 Delivery O2 Flow Rate FiO2 10/18/20 12:00 37.0 83 20 119/72 (88) 98 Room Air General Appearance: No Apparent Distress, WD/WN, Chronically ill Allergies: Coded Allergies: cephalexin (Verified Allergy, Severe, 12/16/19) SEIZURES cinnamon (Verified Allergy, Severe, Anaphylaxis, 12/16/19) aspirin (Verified Allergy, Unknown, 12/16/19) Discharge Summary Date of Admission Oct 16, 2020 at 08:17 Date of Discharge Discharge Date: Oct 18, 2020 Admission Diagnosis Assessment: Early DKA Left great toe cellulitis high risk for amputation HTN HLP Plan: Insulin Abx Monitor pain Discharge Diagnosis Assessment: Early DKA Left great toe cellulitis high risk for amputation HTN HLP Plan: Insulin Abx Monitor pain 10/17/20: Transfuse 1 unit of blood Anemia w/u Clinical Quality Measures DVT/VTE Risk/Contraindication: Risk Factor Score Per Nursin RFS Level Per Nursing on Admit: 1=Low/No VTE PPX MARIA EUGENIA JUDD DO Oct 18, 2020 13:27
[2020-10-18] MEDS: VANCOMYCIN 1250 MG/NS 250 ML IVPB IV SCH ×2 (13:51)
[2020-10-18 15:05] VITALS: BP 119/72
--- NOTE | 2020-10-19 07:43 | NUR ---
Received dietary consult for MST score. Note pt has been discharged at this time. Melissa Barnes, MS RD LD
== END 2020-10-18 15:00 | disposition home or self-care (01) | DRG 602 ==
LOC: EDUNIT# 03:52 → ER 03:52 → ICU 08:17 → 4TH 18:34
PROVIDERS: ADMIT Internal Medicine; ATTEND Internal Medicine
DX: L03.032 Cellulitis of left toe (principal); E10.10 Type 1 diabetes mellitus with ketoacidosis without coma; N39.0 Urinary tract infection, site not specified; E87.1 Hypo-osmolality and hyponatremia; B07.9 Viral wart, unspecified; G40.909 Epilepsy, unspecified, not intractable, without status epilepticus; F10.129 Alcohol abuse with intoxication, unspecified; N18.9 Chronic kidney disease, unspecified; D64.9 Anemia, unspecified; F42.9 Obsessive-compulsive disorder, unspecified; F41.9 Anxiety disorder, unspecified; F43.10 Post-traumatic stress disorder, unspecified; F31.9 Bipolar disorder, unspecified; Z91.14 Patient's other noncompliance with medication regimen; Z79.4 Long term (current) use of insulin; Z79.2 Long term (current) use of antibiotics; Z79.899 Other long term (current) drug therapy; Z88.6 Allergy status to analgesic agent; Z88.1 Allergy status to other antibiotic agents; Z91.018 Allergy to other foods; Z81.8 Family history of other mental and behavioral disorders; Z83.3 Family history of diabetes mellitus; Z82.49 Family history of ischemic heart disease and other diseases of the circulatory system
CPT/HCPCS: 36415; 80048; 80053; 80164; 80202; 80306; 80320; 81000; 82010; 82150; 82550; 82553; 82728; 82805; 82962; 83036; 83540; 83605; 83690; 83735; 83874; 84145; 84703; 85025; 85027; 85045; 86850; 86900; 86901; 86920; 87040; 87070; 87081; 87088; 87205; 93041; 99291

== ENCOUNTER 2021-04-14 20:13 | Emergency (ER) | payer SELFPAY ==
[~2021-04-14] VITALS: Ht 165.1 cm; Wt 68.2 kg
[~2021-04-14 20:13] MED LIST changes: +ACHD5005 PO; -CIPR500T4 PO; +CIPR500T5 PO; +LINE600T12 PO
[2021-04-14 20:31] LABS: BILIRUBIN,URINE NEGATIVE (NEGATIVE); COLOR,URINE YELLOW; GLUCOSE, URINE (UA) NEGATIVE (NEGATIVE); KETONES,URINE NEGATIVE (NEGATIVE); LEUKOCYTE ESTERASE ,URINE 3+ (NEGATIVE); NITRITE,URINE NEGATIVE (NEGATIVE); PROTEIN,URINE 2+ (NEGATIVE)
--- NOTE | 2021-04-14 20:33 | ED GU-Female ---
General Stated Complaint: PAIN IN KIDNEYS Source: patient Exam Limitations: no limitations (JEANINE ANTUNEZ APRN) History of Present Illness Date Seen by Provider: Apr 14, 2021 Time Seen by Provider: 20:28 Initial Comments This is a well-appearing 35-year-old female who presents to the ER with complaints of left-sided abdominal and flank pain for the past 3 to 4 days. States that in February 2021 she was diagnosed with acute renal failure and had bilateral [facility] during that time. 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 States over the past few days she has felt "horrible" and feels that her kidney function is worse again. Reports mild nausea without emesis and chills. LMP "Mid March". No fevers, headache, cough, shortness of breath, chest pain, dysuria, or hematuria. (JEANINE ANTUNEZ APRN) Allergies and Home Medications Allergies Coded Allergies: cephalexin (Verified Allergy, Severe, 12/16/19) SEIZURES cinnamon (Verified Allergy, Severe, Anaphylaxis, 12/16/19) aspirin (Verified Allergy, Unknown, 12/16/19) Home Medications Acetaminophen 500 Mg Tablet, 1,000 MG PO Q6H PRN for PAIN-MILD (1-4), (Reported) Amoxicillin/Potassium Clav 1 Each Tablet, 1 EACH PO BID Prescribed by: MARIA EUGENIA JUDD on 10/18/20 1326 Divalproex Sodium 250 Mg Tab.er.24h, 250 MG PO DAILY TAKES 500MG +250MG TO EQUAL 750MG Prescribed by: MARIA EUGENIA JUDD on 10/18/20 1326 Divalproex Sodium 500 Mg Tab.er.24h, 500 MG PO DAILY TAKES 500MG +250MG TO EQUAL 750MG Prescribed by: MARIA EUGENIA JUDD on 10/18/20 1326 Ferrous Sulfate 325 Mg Tablet, 325 MG PO DAILY@0700 Prescribed by: DEANDRE OREILLY on 07/30/20 1113 Hydrocodone/Acetaminophen 1 Each Tablet, 1 TAB PO Q4H PRN for PAIN-MODERATE (5- 7) Prescribed by: MARIA EUGENIA JUDD on 10/18/20 1326 Insulin Aspart 300 Units/3 Ml Solution, UNITS SQ AC, (Reported) Linezolid 600 Mg Tablet, 600 MG PO BID Prescribed by: MARIA EUGENIA JUDD on 10/18/20 1326 Patient Home Medication List Home Medication List Reviewed: Yes (JEANINE ANTUNEZ APRN) Review of Systems Review of Systems Constitutional: chills; No fever; malaise; No weakness EENTM: no symptoms reported Respiratory: no symptoms reported Cardiovascular: no symptoms reported Gastrointestinal: LUQ, LLQ, loss of appetite, nausea, vomiting Genitourinary: denies burning, denies discharge; flank pain Musculoskeletal: no symptoms reported Skin: no symptoms reported Psychiatric/Neurological: No Symptoms Reported Endocrine: No Symptoms Reported Hematologic/Lymphatic: Anemia (JEANINE ANTUNEZ APRN) Past Nmtqfgi-Xmdsrc-Mnhqln Hx Immunizations Up To Date Tetanus Booster (TDap): Unknown (JEANINE ANTUNEZ APRN) Seasonal Allergies Seasonal Allergies: No (JEANINE ANTUNEZ APRN) Past Medical History Surgeries: Yes (KIDNEY STONE REMOVAL X 2; URETERAL STENTS X 5) Renal Respiratory: No Cardiac: No Neurological: Yes (SEIZURES DX AGE 26-UNKNOWN CAUSE--NON-COMPLIANT IN ALL ASPECTS OF CARE) Seizure Disorder Reproductive Disorders: No Genitourinary: Yes (CHRONIC KIDNEY DISEASE;KIDNEY STONE REMOVAL X 2;URETERAL STENTS X 5) Kidney Stones, Renal Failure, UTI-Chronic Gastrointestinal: No Musculoskeletal: No Endocrine: Yes (DX AGE 16; NON-COMPLIANT IN ALL ASPECTS OF CARE) Diabetes, Insulin dep HEENT: No Cancer: No Psychosocial: Yes (OCD) Anxiety, PTSD, Bipolar, Depression Integumentary: No Blood Disorders: No (JEANINE ANTUNEZ APRN) Family Medical History Diabetes mellitus 19 MOTHER FH: bipolar disorder 19 MOTHER Hypertension 19 MOTHER Heart Disease, Diabetes, Psychiatric Problems SOCIAL HISTORY: -ETOH--PT STATES " I USED TO BE A BAD ALCOHOLIC 10 YEARS AGO" --CLAIMS SHE ONLY "OCCASIONALLY"DRINKS, BUT STILL DRINKS HEAVY AT TIMES. -DRUGS-ADMITS TO METH USE, DENIES IV USE. CLAIMS "NONE FOR 10 YEARS" -DENIES SMOKING (JEANINE ANTUNEZ APRN) Physical Exam Vital Signs Vital Signs - First Documented 04/14/21 20:23 Temp 36.9 Pulse 118 Resp 16 B/P (MAP) 130/80 (97) Pulse Ox 100 O2 Delivery Room Air (DAISHA ALFONSO MD) Vital Signs Capillary Refill : (JEANINE ANTUNEZ APRN) Height, Weight, BMI Height: '" Weight: lbs. oz. kg; 30.00 BMI Method: General Appearance: WD/WN, no apparent distress HEENT: PERRL/EOMI, normal ENT inspection, pharynx normal Neck: full range of motion, normal inspection Cardiovascular: normal peripheral pulses, regular rate, rhythm, no murmur Respiratory: lungs clear, normal breath sounds, no respiratory distress Gastrointestinal: normal bowel sounds, soft, no organomegaly; No distended, No guarding; tenderness (LUQ, LLQ); No mass Back: normal inspection, CVA tenderness (L) Extremities: normal range of motion, normal inspection Neurologic/Psychiatric: no motor/sensory deficits, alert, normal mood/affect, oriented x 3 Skin: normal color, warm/dry (JEANINE ANTUNEZ APRN) Focused Exam Lactate Level 04/14/21 21:42: Lactic Acid Level 0.62 (DAISHA ALFONSO MD) Lactic Acid Level (DAISHA ALFONSO MD) Progress/Results/Core Measures Suspected Sepsis SIRS Temperature: Pulse: Respiratory Rate: Laboratory Tests 04/14/21 20:30: White Blood Count 12.3H Blood Pressure / Mean: 04/14/21 21:42: Lactic Acid Level 0.62 Laboratory Tests 04/14/21 20:30: Creatinine 5.88H, Platelet Count 460H, Total Bilirubin 0.3 (JEANINE ANTUNEZ APRN) Results/Orders Lab Results Laboratory Tests Test 04/14/21 20:25 04/14/21 20:30 04/14/21 21:42 Range/Units Urine Color YELLOW Urine Clarity CLOUDY H Urine pH 6.0 5-9 Urine Specific [place] 1.020 1.016-1.022 Urine Protein 2+ H NEGATIVE Urine Glucose (UA) NEGATIVE NEGATIVE Urine Ketones NEGATIVE NEGATIVE Urine Nitrite NEGATIVE NEGATIVE Urine Bilirubin NEGATIVE NEGATIVE Urine Urobilinogen 0.2 < = 1.0 MG/DL Urine Leukocyte Esterase 3+ H NEGATIVE Urine RBC (Auto) 3+ H NEGATIVE Urine RBC 0-2 /HPF Urine WBC TNTC H /HPF Urine Squamous Epithelial Cells 2-5 /HPF Urine Crystals NONE /LPF Urine Bacteria FEW H /HPF Urine Casts NONE /LPF Urine Mucus NEGATIVE /LPF Urine Culture Indicated YES White Blood Count 12.3 H 4.3-11.0 10^3/uL Red Blood Count 3.68 L 3.80-5.11 10^6/uL Hemoglobin 8.7 L 11.5-16.0 g/dL Hematocrit 29 L 35-52 % Mean Corpuscular Volume 79 L 80-99 fL Mean Corpuscular Hemoglobin 24 L 25-34 pg Mean Corpuscular Hemoglobin Concent 30 L 32-36 g/dL Red Cell Distribution Width 14.4 10.0-14.5 % Platelet Count 460 H 130-400 10^3/uL Mean Platelet Volume 9.5 9.0-12.2 fL Immature Granulocyte % (Auto) 1 % Neutrophils (%) (Auto) 78 H 42-75 % Lymphocytes (%) (Auto) 13 12-44 % Monocytes (%) (Auto) 6 0-12 % Eosinophils (%) (Auto) 2 0-10 % Basophils (%) (Auto) 0 0-10 % Neutrophils # (Auto) 9.6 H 1.8-7.8 10^3/uL Lymphocytes # (Auto) 1.6 1.0-4.0 10^3/uL Monocytes # (Auto) 0.7 0.0-1.0 10^3/uL Eosinophils # (Auto) 0.2 0.0-0.3 10^3/uL Basophils # (Auto) 0.1 0.0-0.1 10^3/uL Immature Granulocyte # (Auto) 0.1 0.0-0.1 10^3/uL Sodium Level 134 L 135-145 MMOL/L Potassium Level 5.3 H 3.6-5.0 MMOL/L Chloride Level 103 98-107 MMOL/L Carbon Dioxide Level 15 L 21-32 MMOL/L Anion Gap 16 H 5-14 MMOL/L Blood Urea Nitrogen 77 H 7-18 MG/DL Creatinine 5.88 H 0.60-1.30 MG/DL Estimat Glomerular Filtration Rate 8 BUN/Creatinine Ratio 13 Glucose Level 129 H 70-105 MG/DL Calcium Level 10.3 H 8.5-10.1 MG/DL Corrected Calcium 10.6 H 8.5-10.1 MG/DL Total Bilirubin 0.3 0.1-1.0 MG/DL Aspartate Amino Transf (AST/SGOT) 10 5-34 U/L Alanine Aminotransferase (ALT/SGPT) 8 0-55 U/L Alkaline Phosphatase 100 40-136 U/L Total Protein 10.1 H 6.4-8.2 GM/DL Albumin 3.6 3.2-4.5 GM/DL Lactic Acid Level 0.62 0.50-2.00 MMOL/L (DAISHA ALFONSO MD) My Orders Orders - DAISHA ALFONSO MD Ns Iv 1000 Ml (Sodium Chloride 0.9%) (04/14/21 23:00) Fentanyl Inj (Sublimaze Injection) (04/15/21 02:15) Fentanyl Inj (Sublimaze Injection) (04/15/21 04:45) Accucheck Stat ONCE (04/15/21 04:39) (DAISHA ALFONSO MD) Medications Given in ED Current Medications Medications Dose Ordered Sig/Colton Route Start Time Stop Time Status Last Admin Dose Admin Ceftriaxone Sodium 1000 mg/ Sterile Water 10 ml @ 200 mls/hr ONCE ONCE IV 04/14/21 22:30 04/14/21 22:32 DC 04/14/21 22:30 200 MLS/HR Fentanyl Citrate 25 mcg ONCE ONCE IVP 04/15/21 02:15 04/15/21 02:16 DC 04/15/21 02:11 25 MCG Fentanyl Citrate 50 mcg ONCE ONCE IVP 04/14/21 21:00 04/14/21 21:01 DC 04/14/21 21:05 50 MCG Ondansetron HCl 4 mg ONCE ONCE IVP 04/14/21 21:00 04/14/21 21:01 DC 04/14/21 21:05 4 MG Sodium Chloride 1,000 ml @ 999 mls/hr Q1H ONCE IV 04/14/21 21:00 04/14/21 22:00 DC 04/14/21 21:05 999 MLS/HR (DAISHA ALFONSO MD) Vital Signs/I&O 04/14/21 20:23 Temp 36.9 Pulse 118 Resp 16 B/P (MAP) 130/80 (97) Pulse Ox 100 O2 Delivery Room Air (DAISHA ALFONSO MD) Vital Signs/I&O Capillary Refill : (JEANINE ANTUNEZ APRN) Progress Note : Progress Note Patient examined and in no acute distress. Initiated basic labs, UA, CT abdomen pelvis without contrast. Orders given for Zofran 4 mg IV push, normal saline 1 L, fentanyl 50 mg IV push. Reported feeling improved after Zofran and Fentanyl. Labs reviewed. WBC-12.3, RBC-8.7, K-5.3, BUN-77, Creat-5.88, Glucose-129, GFR-8. Reviewed labs with patient. States her last creatinine in February was around 2.3. Discussed transfer to facility with nephrology and dialysis capabilities. She is agreeable with plan. 2113: Called [facility], declined transfer due to hospital diversion. 2116: Called [facility], hospital is at capacity. Will place patient on wait list for bed. 2119: Called [facility] for transfer. Pending return call. Informed of transfer delay due to hospital's capacity. Patient requested I call [facility] as this is where her previous treatment was performed. 2130: Called [facility] for possible transfer, declined due to hospital at capacity. Informed patient. She declined transfer to [facility] stating she would like to wait and be transferred to [facility] when bed becomes available due to distance. 2207: called with accepting provider. Informed that patient declined transfer. 2209: Care turned over to Dr. Alfonso. Orders placed for Rocephin 1gm IV for abx, states she has tolerated this well in the past despite adverse reaction to Cephalexin. Resting at this time. (JEANINE ANTUNEZ APRN) Progress Note : Time: 04:40 Progress Note Patient has been resting fairly comfortably throughout her ED stay. She is up most recently in the last few minutes to use the bathroom. She is complaining of increased left flank and left upper quadrant abdominal pain. She is requesting for more pain medications. We will do an Accu-Chek at this time. She has not had a blood sugar check since she has been here and had blood drawn. She has eaten. No nausea vomiting. Patient is pending transfer to [facility]. She is on the wait list. I did speak with the physician on at [facility] who accepted the patient pending discharges this morning. Patient's vital signs are stable currently. She will continue to be monitored. Rocephin has been given. (DAISHA ALFONSO MD) Progress Note : Progress Note 0600: Care assumed from Dr. Chay pending transfer to [facility] in [place], [place]. We are waiting for bed availability. Patient does report the left flank pain currently. We will initiate normal saline at 100 mL/h. She has tolerated p.o. fluids and food. Blood pressure currently 114/68. Monitor patient 0839: We have repeated fentanyl 50 mcg IV earlier and now have added Dilaudid 0.5 mg IV for longer term improvement. I have reviewed chemistry results from this morning and creatinine and BUN are slightly improved. Zofran 4 mg IV for nausea. Pain is better controlled. We are still awaiting bed for transfer in the [facility] system. Monitor patient. (ESTUARDO RODRIGUEZ MD) Diagnostic Imaging Diagonstic Imaging: CT Comments [facility] [place] NAME: [facility] REC#: [id number] PT STATUS: REG ER : 1985 PHYSICIAN: JEANINE ANTUNEZ KENNEL MANAGER DOG TRACK ADMIT DATE: 04/14/21/ER Draft Date of Exam:04/14/21 CT ABDOMEN/PELVIS WO PROCEDURE: CT abdomen and pelvis without contrast. TECHNIQUE: Multiple contiguous axial images were obtained through the abdomen and pelvis without the use of intravenous contrast. Auto Exposure Controls were utilized during the CT exam to meet ALARA standards for radiation dose reduction. INDICATION: Left flank discomfort radiating into the left lower quadrant, nausea and vomiting. EXAMINATION: CT abdomen and pelvis without contrast 04/14/2021 FINDINGS: The lung bases appear clear. The nonopacified liver and spleen unremarkable. Gallbladder and adrenal glands normal. Pancreas unremarkable. Innumerable cystic lesions are seen throughout both kidneys with both kidneys diffusely enlarged. There are ureteral stents in both kidneys. There is mild fat stranding about the right renal pelvis and ureter with no ureteral stones appreciated. Mild similar findings noted on the left. Multiple nonobstructive stones seen throughout the inferior pole of the right kidney. The distal stents are both looped within the urinary bladder. Urinary bladder wall is thickened perhaps due to cystitis. Cystic lesions noted in the right adnexa likely ovarian. There is no ascites or free air. There are findings of mild constipation. Appendix normal. There is an umbilical hernia with a thick wall to the periphery of the herniation noted perhaps a chronic process but inflammatory process not excluded, correlate for any point tenderness. There is no acute osseous abnormality. Lung bases unremarkable. IMPRESSION: 1. Fat stranding about the course of both ureters with ureteral stents in place and no ureteral stones appreciated. This in addition to the wall thickening of the urinary bladder would suggest pyelonephritis and cystitis. 2. Innumerable cystic lesions throughout both kidneys which are enlarged with nonobstructive nephrolithiasis on the right. 3. Not mentioned in the body of the report there is a nonspecific cystic-appearing collection posterior to the inferior pole of the right kidney and abutting the superior border of the right iliacus muscle of uncertain etiology but stable since a study dated 07/26/2020 suggesting a benign process. This could be better evaluated non-emergently with postcontrast imaging, 4. Mild wall thickening about the umbilical hernia, likely a chronic finding given similar process on study from 07/26/2020. Dictated on workstation # [id number] Dict: 04/14/21 221 Trans: 04/14/212219 [facility] [id number] Interpreted by: THUAN BLANKENSHIP MD Electronically signed by: (DAISHA ALFONSO MD) Departure Impression Primary Impression: Acute pyelonephritis Additional Impression: Renal failure, acute on chronic Disposition: XF SHT-TRM HOSP Condition: Stable Transfer Transfer Reason: Exceeds level of care (JEANINE ANTUNEZ KENNEL MANAGER DOG TRACK) Departure-Patient Inst. Referrals: [facility] (PCP) Primary Care Physician ALEXUS [facility] (Family) Primary Care Physician JEANINE ANTUNEZ APRN Apr 14, 2021 20:33 DAISHA ALFONSO MD Apr 14, 2021 22:52 ESTUARDO RODRIGUEZ MD Apr 15, 2021 06:32
[2021-04-14 20:36] LABS: CLARITY,URINE CLOUDY
[2021-04-14 20:38] LABS: BACTERIA,URINE FEW /HPF; RBC,URINE 0-2 /HPF; WBC,URINE TNTC /HPF
[2021-04-14 20:47] LABS: ALBUMIN 3.6 GM/DL (3.2-4.5); POTASSIUM 5.3 MMOL/L (3.6-5.0)
[2021-04-14 20:48] LABS: CALCIUM 10.3 MG/DL (8.5-10.1)
[2021-04-14 20:49] LABS: BASOPHILS # (AUTO) 0.1 10^3/uL (0.0-0.1); BASOPHILS % (AUTO) 0 % (0-10); EOSINOPHILS # (AUTO) 0.2 10^3/uL (0.0-0.3); EOSINOPHILS % (AUTO) 2 % (0-10); HEMATOCRIT 29 % (35-52); HEMOGLOBIN 8.7 g/dL (11.5-16.0); LYMPHOCYTES # (AUTO) 1.6 10^3/uL (1.0-4.0); LYMPHOCYTES % (AUTO) 13 % (12-44); MEAN CORPUSCULAR HEMOGLOBIN 24 pg (25-34); MEAN CORPUSCULAR HGB CONC 30 g/dL (32-36); MEAN CORPUSCULAR VOLUME 79 fL (80-99); MEAN PLATELET VOLUME 9.5 fL (9.0-12.2); MONOCYTES # (AUTO) 0.7 10^3/uL (0.0-1.0); MONOCYTES % (AUTO) 6 % (0-12); NEUTROPHILS # (AUTO) 9.6 10^3/uL (1.8-7.8); NEUTROPHILS % (AUTO) 78 % (42-75); PLATELET COUNT 460 10^3/uL (130-400); WHITE BLOOD COUNT 12.3 10^3/uL (4.3-11.0)
[2021-04-14 20:50] LABS: TOTAL PROTEIN 10.1 GM/DL (6.4-8.2)
[2021-04-14 20:51] LABS: BILIRUBIN,TOTAL 0.3 MG/DL (0.1-1.0)
[2021-04-14 20:53] LABS: CREATININE SERUM 5.88 MG/DL (0.60-1.30)
[2021-04-14] MEDS ORDERED: fentaNYL INJ 100 MCG/2 ML AMP IVP ONE (21:00)
[2021-04-14] MEDS ORDERED: ONDANSETRON 4 MG/2 ML (SDV) Z0FRAN IVP ONE (21:00)
[2021-04-14] MEDS ORDERED: NS IV 1000 ML 1,000 ML IV ONE (21:00)
--- NOTE | 2021-04-14 22:20 | Diagnostic Imaging Report ---
PROCEDURE: CT abdomen and pelvis without contrast. TECHNIQUE: Multiple contiguous axial images were obtained through the abdomen and pelvis without the use of intravenous contrast. Auto Exposure Controls were utilized during the CT exam to meet ALARA standards for radiation dose reduction. INDICATION: Left flank discomfort radiating into the left lower quadrant, nausea and vomiting. EXAMINATION: CT abdomen and pelvis without contrast 04/14/2021 FINDINGS: The lung bases appear clear. The nonopacified liver and spleen unremarkable. Gallbladder and adrenal glands normal. Pancreas unremarkable. Innumerable cystic lesions are seen throughout both kidneys with both kidneys diffusely enlarged. There are ureteral stents in both kidneys. There is mild fat stranding about the right renal pelvis and ureter with no ureteral stones appreciated. Mild similar findings noted on the left. Multiple nonobstructive stones seen throughout the inferior pole of the right kidney. The distal stents are both looped within the urinary bladder. Urinary bladder wall is thickened perhaps due to cystitis. Cystic lesions noted in the right adnexa likely ovarian. There is no ascites or free air. There are findings of mild constipation. Appendix normal. There is an umbilical hernia with a thick wall to the periphery of the herniation noted perhaps a chronic process but inflammatory process not excluded, correlate for any point tenderness. There is no acute osseous abnormality. Lung bases unremarkable. IMPRESSION: 1. Fat stranding about the course of both ureters with ureteral stents in place and no ureteral stones appreciated. This in addition to the wall thickening of the urinary bladder would suggest pyelonephritis and cystitis. 2. Innumerable cystic lesions throughout both kidneys which are enlarged with nonobstructive nephrolithiasis on the right. 3. Not mentioned in the body of the report there is a nonspecific cystic-appearing collection posterior to the inferior pole of the right kidney and abutting the superior border of the right iliacus muscle of uncertain etiology but stable since a study dated 07/26/2020 suggesting a benign process. This could be better evaluated non-emergently with postcontrast imaging, 4. Mild wall thickening about the umbilical hernia, likely a chronic finding given similar process on study from 07/26/2020. Dictated by: Dictated on workstation # [id number]
[2021-04-14] MEDS ORDERED: cefTRIAXone 1,000 MG in WATER (STERILE) FOR INJECTION 10 ML IV ONE (22:30)
[2021-04-14] MEDS ORDERED: NS IV 1000 ML 1,000 ML IV SCH (23:00)
[2021-04-15] MEDS ORDERED: fentaNYL INJ 100 MCG/2 ML AMP IVP ONE ×2 (02:15→04:45)
[2021-04-15] MEDS ORDERED: NS IV 1000 ML 1,000 ML IV SCH ×2 (06:00→14:15)
[2021-04-15] MEDS ORDERED: fentaNYL INJ 100 MCG/2 ML AMP IVP STA (06:16)
[2021-04-15 06:28] LABS: POTASSIUM 5.5 MMOL/L (3.6-5.0)
[2021-04-15 06:29] LABS: CALCIUM 8.9 MG/DL (8.5-10.1)
[2021-04-15 06:33] LABS: CREATININE SERUM 5.51 MG/DL (0.60-1.30)
[2021-04-15] MEDS ORDERED: HYDROmorphone 2 MG/ML VIAL (DILAUDID) IV ONE ×3 (07:45→15:00)
[2021-04-15] MEDS ORDERED: ONDANSETRON 4 MG/2 ML (SDV) Z0FRAN ONE (08:38)
[2021-04-15] MEDS ORDERED: ONDANSETRON 4 MG/2 ML (SDV) Z0FRAN IVP ONE (08:45)
[2021-04-15 16:43] VITALS: BP 99/61
== END 2021-04-15 16:54 | disposition short-term general hospital (02) ==
LOC: EDUNIT# 20:13 → ER 20:16
DX: N10 Acute pyelonephritis (principal); E11.22 Type 2 diabetes mellitus with diabetic chronic kidney disease; N18.9 Chronic kidney disease, unspecified; G40.909 Epilepsy, unspecified, not intractable, without status epilepticus; F31.9 Bipolar disorder, unspecified; Z79.4 Long term (current) use of insulin; Z79.899 Other long term (current) drug therapy
CPT/HCPCS: 36415; 74176; 80048; 80053; 81000; 82947; 83605; 85025; 87040; 87088; 96361; 96374; 96375; 96376

== ENCOUNTER 2021-05-18 14:21 | Inpatient (IN) | payer OTHER ==
[~2021-05-18] VITALS: Ht 152 cm; Wt 67.0 kg
[2021-05-18 15:00] LABS: BILIRUBIN,URINE NEGATIVE (NEGATIVE); CLARITY,URINE CLOUDY; COLOR,URINE YELLOW; GLUCOSE, URINE (UA) NEGATIVE (NEGATIVE); KETONES,URINE NEGATIVE (NEGATIVE); LEUKOCYTE ESTERASE ,URINE 3+ (NEGATIVE); NITRITE,URINE NEGATIVE (NEGATIVE); PROTEIN,URINE 2+ (NEGATIVE)
[2021-05-18] MEDS ORDERED: ONDANSETRON 4 MG/2 ML (SDV) Z0FRAN IVP ONE (15:00)
[2021-05-18 15:10] LABS: BACTERIA,URINE LARGE /HPF; RBC,URINE TNTC /HPF; WBC,URINE TNTC /HPF
--- NOTE | 2021-05-18 15:24 | ED GU-Female ---
General Chief Complaint: Abdominal/GI Problems Stated Complaint: LOWER ABD PAIN Source: patient, spouse Exam Limitations: no limitations History of Present Illness Date Seen by Provider: May 18, 2021 Time Seen by Provider: 14:50 Initial Comments 36-year-old female with past medical history of type 1 diabetes, CKD, kidney stones with ureteral stents, seizure disorder coming in due to left flank pain that is severe, sharp, intermittent with associated dysuria, and cloudy urine. Has had some chills but no fever that she knows of. She has had some associated nausea and nonbloody nonbilious vomiting. This started Monday. Similar to an episode where she had a kidney infection a couple months ago. She was last on IV antibiotics when she was discharged from the hospital early April. She states she has had stents in place since the end of February. She continues to make urine and has no issues with volume overload that she believes. She states she is breathing comfortably. She is otherwise denying any other acute complaints. Allergies and Home Medications Allergies Coded Allergies: cephalexin (Verified Allergy, Severe, 12/16/19) SEIZURES cinnamon (Verified Allergy, Severe, Anaphylaxis, 12/16/19) aspirin (Verified Allergy, Unknown, 12/16/19) Home Medications Acetaminophen 500 Mg Tablet, 1,000 MG PO Q6H PRN for PAIN-MILD (1-4), (Reported) Amoxicillin/Potassium Clav 1 Each Tablet, 1 EACH PO BID Prescribed by: MARIA EUGENIA JUDD on 10/18/20 1326 Divalproex Sodium 250 Mg Tab.er.24h, 250 MG PO DAILY TAKES 500MG +250MG TO EQUAL 750MG Prescribed by: MARIA EUGENIA JUDD on 10/18/20 1326 Divalproex Sodium 500 Mg Tab.er.24h, 500 MG PO DAILY TAKES 500MG +250MG TO EQUAL 750MG Prescribed by: MARIA EUGENIA JUDD on 10/18/20 1326 Ferrous Sulfate 325 Mg Tablet, 325 MG PO DAILY@0700 Prescribed by: DEANDRE OREILLY on 07/30/20 1113 Hydrocodone/Acetaminophen 1 Each Tablet, 1 TAB PO Q4H PRN for PAIN-MODERATE (5- 7) Prescribed by: MARIA EUGENIA JUDD on 10/18/20 1326 Insulin Aspart 300 Units/3 Ml Solution, UNITS SQ AC, (Reported) Linezolid 600 Mg Tablet, 600 MG PO BID Prescribed by: MARIA EUGENIA JUDD on 10/18/20 3376 Patient Home Medication List Home Medication List Reviewed: Yes Review of Systems Review of Systems Constitutional: chills; No fever EENTM: No blurred vision, No double vision, No throat pain Respiratory: No short of breath, No stridor Cardiovascular: No chest pain, No edema, No palpitations, No syncope Gastrointestinal: No diarrhea; nausea, vomiting Genitourinary: see HPI, dysuria, frequency, flank pain; denies incontinence : No Musculoskeletal: No joint pain Skin: no symptoms reported Psychiatric/Neurological: See HPI; Denies Paresthesia, Denies Seizure, Denies Tingling Endocrine: See HPI; Denies Excessive Sweating, Denies Flushing, Denies Incr eased Urine Hematologic/Lymphatic: No Symptoms Reported All Other Systemes Reviewed Negative Unless Noted: Yes Past Fijpyam-Jauvgx-Cytkcq Hx Patient Social History Tobacco Use?: No Immunizations Up To Date Tetanus Booster (TDap): Unknown Seasonal Allergies Seasonal Allergies: No Past Medical History Surgeries: Yes (KIDNEY STONE REMOVAL X 2; URETERAL STENTS X 5) Renal Respiratory: No Cardiac: No Neurological: Yes (SEIZURES DX AGE 26-UNKNOWN CAUSE--NON-COMPLIANT IN ALL ASPECTS OF CARE) Seizure Disorder Reproductive Disorders: No Genitourinary: Yes (CHRONIC KIDNEY DISEASE;KIDNEY STONE REMOVAL X 2;URETERAL STENTS X 5) Kidney Stones, Renal Failure, UTI-Chronic Gastrointestinal: No Musculoskeletal: No Endocrine: Yes (DX AGE 16; NON-COMPLIANT IN ALL ASPECTS OF CARE) Diabetes, Insulin dep HEENT: No Cancer: No Psychosocial: Yes (OCD) Anxiety, PTSD, Bipolar, Depression Integumentary: No Blood Disorders: No Family Medical History Diabetes mellitus 19 MOTHER FH: bipolar disorder 19 MOTHER Hypertension 19 MOTHER Heart Disease, Diabetes, Psychiatric Problems SOCIAL HISTORY: -ETOH--PT STATES " I USED TO BE A BAD ALCOHOLIC 10 YEARS AGO" --CLAIMS SHE ONLY "OCCASIONALLY"DRINKS, BUT STILL DRINKS HEAVY AT TIMES. -DRUGS-ADMITS TO METH USE, DENIES IV USE. CLAIMS "NONE FOR 10 YEARS" -DENIES SMOKING Physical Exam Vital Signs Vital Signs - First Documented 05/18/21 15:55 Temp 36.0 Pulse 102 Resp 18 B/P (MAP) 107/85 (92) Capillary Refill : Height, Weight, BMI Height: '" Weight: lbs. oz. kg; 25.00 BMI Method: General Appearance: WD/WN, no apparent distress HEENT: PERRL/EOMI, normal ENT inspection, pharynx normal Neck: non-tender, full range of motion, supple, normal inspection Cardiovascular: normal peripheral pulses, regular rate, rhythm, no edema, no gallop, no JVD, no murmur Respiratory: chest non-tender, lungs clear, normal breath sounds, no respiratory distress, no accessory muscle use, respiratory distress Gastrointestinal: normal bowel sounds, soft, no organomegaly, no pulsatile mass , abnormal bowel sounds; No distended, No guarding, No rebound; tenderness (LLQ and L flank) Back: normal inspection, no vertebral tenderness, CVA tenderness (L) Extremities: normal range of motion, non-tender, normal inspection, no pedal edema, no calf tenderness, normal capillary refill, pelvis stable Neurologic/Psychiatric: no motor/sensory deficits, alert, normal mood/affect, oriented x 3 Skin: normal color, warm/dry, cyanosis, cool, diaphoresis, pallor Lymphatic: no adenopathy, axilla node tender (R), axilla node tender (L), inguinal node tender (R), inguinal node tender (L) Progress/Results/Core Measures Suspected Sepsis SIRS Temperature: Pulse: Respiratory Rate: Laboratory Tests 05/18/21 15:07: White Blood Count 10.5 Blood Pressure / Mean: Laboratory Tests 05/18/21 15:07: Creatinine 4.91H, Platelet Count 383, Total Bilirubin 0.3 Results/Orders Lab Results Laboratory Tests Test 05/18/21 14:50 05/18/21 15:07 Range/Units Urine Color YELLOW Urine Clarity CLOUDY Urine pH 6.0 5-9 Urine Specific [place] 1.025 H 1.016-1.022 Urine Protein 2+ H NEGATIVE Urine Glucose (UA) NEGATIVE NEGATIVE Urine Ketones NEGATIVE NEGATIVE Urine Nitrite NEGATIVE NEGATIVE Urine Bilirubin NEGATIVE NEGATIVE Urine Urobilinogen 0.2 < = 1.0 MG/DL Urine Leukocyte Esterase 3+ H NEGATIVE Urine RBC (Auto) 3+ H NEGATIVE Urine RBC TNTC H /HPF Urine WBC TNTC H /HPF Urine Crystals NONE /LPF Urine Bacteria LARGE H /HPF Urine Casts NONE /LPF Urine Mucus NEGATIVE /LPF Urine Culture Indicated YES White Blood Count 10.5 4.3-11.0 10^3/uL Red Blood Count 3.46 L 3.80-5.11 10^6/uL Hemoglobin 8.2 L 11.5-16.0 g/dL Hematocrit 27 L 35-52 % Mean Corpuscular Volume 79 L 80-99 fL Mean Corpuscular Hemoglobin 24 L 25-34 pg Mean Corpuscular Hemoglobin Concent 30 L 32-36 g/dL Red Cell Distribution Width 15.0 H 10.0-14.5 % Platelet Count 383 130-400 10^3/uL Mean Platelet Volume 9.6 9.0-12.2 fL Immature Granulocyte % (Auto) 2 % Neutrophils (%) (Auto) 79 H 42-75 % Lymphocytes (%) (Auto) 11 L 12-44 % Monocytes (%) (Auto) 6 0-12 % Eosinophils (%) (Auto) 2 0-10 % Basophils (%) (Auto) 0 0-10 % Neutrophils # (Auto) 8.3 H 1.8-7.8 10^3/uL Lymphocytes # (Auto) 1.1 1.0-4.0 10^3/uL Monocytes # (Auto) 0.6 0.0-1.0 10^3/uL Eosinophils # (Auto) 0.2 0.0-0.3 10^3/uL Basophils # (Auto) 0.0 0.0-0.1 10^3/uL Immature Granulocyte # (Auto) 0.2 H 0.0-0.1 10^3/uL Sodium Level 132 L 135-145 MMOL/L Potassium Level 5.4 H 3.6-5.0 MMOL/L Chloride Level 104 98-107 MMOL/L Carbon Dioxide Level 13 L 21-32 MMOL/L Anion Gap 15 H 5-14 MMOL/L Blood Urea Nitrogen 72 H 7-18 MG/DL Creatinine 4.91 H 0.60-1.30 MG/DL Estimat Glomerular Filtration Rate 10 BUN/Creatinine Ratio 15 Glucose Level 165 H 70-105 MG/DL Calcium Level 9.9 8.5-10.1 MG/DL Corrected Calcium 10.3 H 8.5-10.1 MG/DL Total Bilirubin 0.3 0.1-1.0 MG/DL Aspartate Amino Transf (AST/SGOT) 8 5-34 U/L Alanine Aminotransferase (ALT/SGPT) 9 0-55 U/L Alkaline Phosphatase 98 40-136 U/L C-Reactive Protein High Sensitivity 11.24 H 0.00-0.50 MG/DL Total Protein 9.6 H 6.4-8.2 GM/DL Albumin 3.5 3.2-4.5 GM/DL My Orders Orders - JANIA ZAVALETA MD Hydromorphone Injection (Dilaudid Inject (05/18/21 15:30) Ceftriaxone (Rocephin) (05/18/21 15:25) Ct Abd/Pelvis Wo(Kidney Stone) (05/18/21 15:25) Lactated Ringers (Lr 1000 Ml Iv Solution (05/18/21 17:15) Medications Given in ED Current Medications Medications Dose Ordered Sig/Colton Route Start Time Stop Time Status Last Admin Dose Admin Hydromorphone HCl 0.5 mg ONCE ONCE IV 05/18/21 15:30 05/18/21 15:31 DC 05/18/21 15:36 0.5 MG Lactated Ringer's 500 ml @ 0 mls/hr Q0M ONCE IV 05/18/21 17:15 05/18/21 17:16 DC 05/18/21 17:22 0 MLS/HR Ondansetron HCl 8 mg ONCE ONCE IVP 05/18/21 15:00 05/18/21 15:01 DC 05/18/21 14:59 8 MG Vital Signs/I&O 05/18/21 15:55 Temp 36.0 Pulse 102 Resp 18 B/P (MAP) 107/85 (92) Capillary Refill : Progress Note : Progress Note 36-year-old female with above history coming in due to dysuria and left flank pain. ABCs were intact and vitals were stable on presentation. Physical exam with left flank pain. Clinically she has pyelonephritis. Urinalysis and basic labs have been sent. Creatinine is around 4 which is below last time where she was around 5. UA with TNTC WBC consistent with pyelonephritis. Potassium around 5 as well. She makes a good amount of urine so she was given IV fluids to help with this. No signs of hyperkalemia on the monitor. Blood pressure around 100/70 consistently. The patient states this is around her baseline. Heart rate has remained around in the 80s. Clinically she is not septic at this time and I do not believe she needs a full 30 cc/kg of IV fluids. I believe with her CKD this could actually be harmful to her. CT ordered and on my interpretation there is stranding around the kidney consistent with pyelonephritis and the ureteral stents are in place. I believe she needs admission for pyelo and would be appropriate in our hospital given her CKD is stable and she makes urine without the need of diuretics, and has no needs at this time for dialysis. I have called and dis cussed the case with the [facility] provider on-call Dr. Moser and recommend admission for acute pyelonephritis that I have treated with ceftriaxone. She is agreeable to this plan and recommends admission under observation status. Departure Impression Primary Impression: Acute pyelonephritis Additional Impressions: CKD (chronic kidney disease) Qualified Codes: N18.9 - Chronic kidney disease, unspecified Chronic anemia Disposition: ADMITTED INPATIENT Condition: Stable Admissions Decision to Admit Reason: Admit from ER (General) Decision to Admit/Date: May 18, 2021 Time/Decision to Admit Time: 17:21 Departure-Patient Inst. Referrals: [facility] (PCP) Primary Care Physician ALEXUS NGO (Family) Primary Care Physician JANIA ZAVALETA MD May 18, 2021 15:24
[2021-05-18] MEDS ORDERED: cefTRIAXone 1,000 MG in WATER (STERILE) FOR INJECTION 10 ML IV STA (15:25)
[2021-05-18] MEDS ORDERED: HYDROmorphone 2 MG/ML VIAL (DILAUDID) IV ONE (15:30)
[2021-05-18 15:42] LABS: ALBUMIN 3.5 GM/DL (3.2-4.5); POTASSIUM 5.4 MMOL/L (3.6-5.0)
[2021-05-18 15:43] LABS: CALCIUM 9.9 MG/DL (8.5-10.1)
[2021-05-18 15:44] LABS: TOTAL PROTEIN 9.6 GM/DL (6.4-8.2)
[2021-05-18 15:46] LABS: BILIRUBIN,TOTAL 0.3 MG/DL (0.1-1.0)
[2021-05-18 15:48] LABS: CREATININE SERUM 4.91 MG/DL (0.60-1.30)
[2021-05-18 15:52] LABS: BASOPHILS % (AUTO) 0 % (0-10); EOSINOPHILS # (AUTO) 0.2 10^3/uL (0.0-0.3); EOSINOPHILS % (AUTO) 2 % (0-10); HEMATOCRIT 27 % (35-52); HEMOGLOBIN 8.2 g/dL (11.5-16.0); LYMPHOCYTES # (AUTO) 1.1 10^3/uL (1.0-4.0); LYMPHOCYTES % (AUTO) 11 % (12-44); MEAN CORPUSCULAR HEMOGLOBIN 24 pg (25-34); MEAN CORPUSCULAR HGB CONC 30 g/dL (32-36); MEAN CORPUSCULAR VOLUME 79 fL (80-99); MEAN PLATELET VOLUME 9.6 fL (9.0-12.2); MONOCYTES # (AUTO) 0.6 10^3/uL (0.0-1.0); MONOCYTES % (AUTO) 6 % (0-12); NEUTROPHILS # (AUTO) 8.3 10^3/uL (1.8-7.8); NEUTROPHILS % (AUTO) 79 % (42-75); PLATELET COUNT 383 10^3/uL (130-400); WHITE BLOOD COUNT 10.5 10^3/uL (4.3-11.0)
--- NOTE | 2021-05-18 17:05 | Diagnostic Imaging Report ---
PROCEDURE: CT urinary tract, rule out kidney stone. TECHNIQUE: Multiple contiguous axial images were obtained through the abdomen and pelvis without the use of intravenous contrast. Auto Exposure Controls were utilized during the CT exam to meet ALARA standards for radiation dose reduction. INDICATION: Abdominal pain and nausea with vomiting and decreased appetite. COMPARISON: Correlation is made with prior CT from 04/14/2021. FINDINGS: The lung bases are clear. The liver and gallbladder are unremarkable. There is no biliary ductal dilatation. Pancreas and spleen are unremarkable. No adrenal mass is identified. Multiple cystic lesions within both kidneys are again noted, particularly on the right. There are nonobstructing calculi in the lower pole of the right kidney. Bilateral double-J nephroureteral stents remain in place extending from the renal pelves into the urinary bladder. Both ureteral ortiz are thickened, similar to prior exam. No definite calculi along the course of ureters are seen. No bladder calculi are seen. Uterus is unremarkable. Aorta is nonaneurysmal. The small and large bowel loops are normal in caliber. There is no ascites. No definite inflammatory changes are identified. Previously noted bladder wall thickening does appear to be improved. IMPRESSION: Fairly similar appearance to the abdomen and pelvis when compared with examination approximately one month earlier. There are nonobstructing calculi in the lower pole of the right kidney. The patient has bilateral double-J nephroureteral stents. No definite calculi along the course of the stents are seen. Previously noted bladder wall thickening has improved, however. Dictated by: Dictated on workstation # [id number]
[2021-05-18] MEDS ORDERED: LACTATED RINGERS 500 ML IV ONE (17:15)
[2021-05-18] MEDS ORDERED: CATHETER FLUSH 10 ML SYR IV PRN (18:30)
[2021-05-18] MEDS ORDERED: ACETAMINOPHEN 500 MG TAB (TYLENOL) PO PRN (19:00)
[2021-05-18] MEDS: NS IV 1000 ML 1,000 ML IV SCH (19:33)
[2021-05-18 19:37] VITALS: BP 112/75
[2021-05-18] MEDS: inSUlin ASPART (NovoLOG) 1 UNIT/0.01 ML (CHARGE PER UNIT) SC SCH (19:57)
[2021-05-18] MEDS: SENNA W/DOCUSATE (SENOKOT S) TABLET PO SCH (20:34)
[2021-05-18] MEDS: HYDROcodone/APAP 5 MG/325 MG (LORTAB) TAB PO PRN (20:35)
[2021-05-18] MEDS: CATHETER FLUSH 10 ML SYR IV SCH (22:03)
[2021-05-18 23:41] VITALS: BP 106/66
[2021-05-19] MEDS: HYDROcodone/APAP 5 MG/325 MG (LORTAB) TAB PO PRN ×4 (02:28→20:30)
[2021-05-19 03:34] VITALS: BP 105/69
[2021-05-19] MEDS: inSUlin ASPART (NovoLOG) 1 UNIT/0.01 ML (CHARGE PER UNIT) SC SCH ×5 (05:43→20:22)
[2021-05-19] MEDS: CATHETER FLUSH 10 ML SYR IV SCH ×3 (05:43→20:58)
[2021-05-19 06:37] LABS: BILIRUBIN,TOTAL 0.2 MG/DL (0.1-1.0); CALCIUM 8.9 MG/DL (8.5-10.1); CREATININE SERUM 5.13 MG/DL (0.60-1.30); POTASSIUM 4.9 MMOL/L (3.6-5.0); TOTAL PROTEIN 8.6 GM/DL (6.4-8.2)
[2021-05-19 06:59] LABS: BASOPHILS # (AUTO) 0.1 10^3/uL (0.0-0.1); BASOPHILS % (AUTO) 1 % (0-10); EOSINOPHILS # (AUTO) 0.3 10^3/uL (0.0-0.3); EOSINOPHILS % (AUTO) 3 % (0-10); HEMATOCRIT 25 % (35-52); HEMOGLOBIN 7.7 g/dL (11.5-16.0); LYMPHOCYTES # (AUTO) 1.4 10^3/uL (1.0-4.0); LYMPHOCYTES % (AUTO) 14 % (12-44); MEAN CORPUSCULAR HEMOGLOBIN 24 pg (25-34); MEAN CORPUSCULAR HGB CONC 31 g/dL (32-36); MEAN CORPUSCULAR VOLUME 79 fL (80-99); MEAN PLATELET VOLUME 9.9 fL (9.0-12.2); MONOCYTES # (AUTO) 0.8 10^3/uL (0.0-1.0); MONOCYTES % (AUTO) 8 % (0-12); NEUTROPHILS # (AUTO) 7.5 10^3/uL (1.8-7.8); NEUTROPHILS % (AUTO) 73 % (42-75); PLATELET COUNT 320 10^3/uL (130-400); WHITE BLOOD COUNT 10.2 10^3/uL (4.3-11.0)
[2021-05-19 07:53] VITALS: BP 110/66
[2021-05-19] MEDS: SENNA W/DOCUSATE (SENOKOT S) TABLET PO SCH ×2 (07:58→20:30)
[2021-05-19] MEDS: NS IV 1000 ML 1,000 ML IV SCH (08:00)
--- NOTE | 2021-05-19 09:03 | Physician Query Clarification ---
PQ-Link Infection to Dev/Proc Admission/Discharge Admission Date: May 18, 2021 at 18:10 Discharge Date: Dr. Moser, The medical record reflects the following clinical scenario: History/Risk Factors: kidney stones w/ureteral stents, DM Type 1, CKD Clinical Findings: urine specific gravity 1.025, Esterase 2+, urine RBC TNTC, urine WBC TNTC, bacte baltazar large Treatment: IV Ceftriaxone Question: Can you specify if the acute pyelonephritis is due to/associated with ureteral stents? Please document a response in Progress Note or Discharge Summary. 1. Yes - acute pyelonephritis is due to/associated with ureteral stents. 2. No - acute pyelonephritis is due to/associated with ureteral stents. 3. Other, with explanation of the clinical findings. 4. Clinically undetermined, no explanation for the clinical findings. PHYSICIAN RESPONSE Specify if infection: 2 (Not associated with stents) Please remember a lack of response to the above will prompt a phone page by [facility]oding staff. In responding to this query, please exercise your independent professional judgment. The purpose of this communication is to more accurately reflect the complexity of your patients condition. The fact that a question is asked does not imply that any particular answer is desired or expected. Thank you for your timely response to this clarification. Requestors name: Sy THIS PHYSICIAN QUERY FORM IS A PERMANENT PART OF THE MEDICAL RECORD SY TREJO May 19, 2021 09:03 CHARLES MOSER MD May 19, 2021 20:17
[2021-05-19] MEDS: ONDANSETRON 4 MG/2 ML (SDV) Z0FRAN IVP PRN ×3 (09:34→21:33)
[2021-05-19 11:29] VITALS: BP 111/69
[2021-05-19] MEDS ORDERED: INSU100I23 SQ (11:35)
[2021-05-19] MEDS ORDERED: METH-336 PO (11:35)
[2021-05-19] MEDS ORDERED: FERR-84 PO (11:35)
[2021-05-19] MEDS ORDERED: DIVA-21 PO (11:35)
[2021-05-19] MEDS ORDERED: ACET-2267 PO (11:35)
[2021-05-19 16:23] VITALS: BP 107/56
[2021-05-19] MEDS: cefTRIAXone 1,000 MG in WATER (STERILE) FOR INJECTION 10 ML IV SCH (16:43)
[2021-05-19 19:23] VITALS: BP 109/56
--- NOTE | 2021-05-19 20:01 | History & Physical ---
HPI History of Present Illness: 36 yo F with Type I DM and CKD with multiple recent hospitalizations that presented with flank pain. Flank pain started 2 days ago. Denies any fever or chills. Patient has recent h/o kidney stones and has bilateral urethral stents present. Patient states that she does not know what her Cr recently has been but when she went home from [place] her Cr was 4. States that she just recently in the last 2 years started having problems with her kidneys. Denies ever having kidney bx. States that she was diagnosed with DM at age 16. She states that she has been taking her insulin and she has not missed any doses. Source: patient Date seen by provider: May 19, 2021 Time Seen by Provider: 08:00 Attending Physician Charles Moser MD [facility], [facility] Consult Date of Admission May 18, 2021 at 18:10 Home Medications Home Medications Reviewed patient Home Medication Reconciliation performed by pharmacy medication reconciliations facilities maintenance technician and/or nursing. Patients Allergies have been reviewed. Allergies Coded Allergies: cephalexin (Verified Allergy, Severe, 12/16/19) SEIZURES cinnamon (Verified Allergy, Severe, Anaphylaxis, 12/16/19) aspirin (Verified Allergy, Unknown, 12/16/19) TKU-Stqibt-Lkxaru Hx Patient Social History Drug of Choice: METH--DENIES IV USE 2nd Hand Smoke Exposure: No Recent Hopitalizations: No Alcohol Use?: Yes Substance type: Methamphetamine Have you traveled recently?: No Immunizations Up To Date Tetanus Booster (TDap): Unknown Past Medical History PMHx: Epilepsy Diabetes- dx at age 16, started on orals but shortly went on insulin- was 426 lbs Bipolar depression PTSD OCD Anxiety Peripheral neuropathy SurgHx: Kidney stone treatment x 2 Family Medical History Significant Family History: Heart Disease, Diabetes, Psychiatric Problems Other Significan Family Hx: SOCIAL HISTORY: -ETOH--PT STATES " I USED TO BE A BAD ALCOHOLIC 10 YEARS AGO" --CLAIMS SHE ONLY "OCCASIONALLY"DRINKS, BUT STILL DRINKS HEAVY AT TIMES. -DRUGS-ADMITS TO METH USE, DENIES IV USE. CLAIMS "NONE FOR 10 YEARS" -DENIES SMOKING Family History: Diabetes mellitus 19 MOTHER FH: bipolar disorder 19 MOTHER Hypertension 19 MOTHER Review of Systems (CHC) Constitutional: No chills, No fever; malaise EENTM: no symptoms reported; No mouth pain, No nose congestion, No nose pain Respiratory: no symptoms reported; No cough, No dyspnea on exertion, No short of breath Cardiovascular: no symptoms reported; No chest pain, No edema, No palpitations Gastrointestinal: abdominal pain, constipation; No diarrhea; loss of appetite, nausea; No vomiting Genitourinary: frequency; No hematuria : No Musculoskeletal: no symptoms reported; No back pain, No joint pain, No muscle pain Skin: no symptoms reported; No lesions, No rash Psychiatric/Neurological: Numbness, Paresthesia Reviewed Test Results Reviewed Test Results Lab Laboratory Tests Test 05/19/21 05:20 05/19/21 05:37 05/19/21 10:02 05/19/21 15:49 Range/Units Glucometer 168 H 145 H 115 H 70-110 MG/DL White Blood Count 10.2 4.3-11.0 10^3/uL Red Blood Count 3.18 L 3.80-5.11 10^6/uL Hemoglobin 7.7 L 11.5-16.0 g/dL Hematocrit 25 L 35-52 % Mean Corpuscular Volume 79 L 80-99 fL Mean Corpuscular Hemoglobin 24 L 25-34 pg Mean Corpuscular Hemoglobin Concent 31 L 32-36 g/dL Red Cell Distribution Width 14.9 H 10.0-14.5 % Platelet Count 320 130-400 10^3/uL Mean Platelet Volume 9.9 9.0-12.2 fL Immature Granulocyte % (Auto) 1 % Neutrophils (%) (Auto) 73 42-75 % Lymphocytes (%) (Auto) 14 12-44 % Monocytes (%) (Auto) 8 0-12 % Eosinophils (%) (Auto) 3 0-10 % Basophils (%) (Auto) 1 0-10 % Neutrophils # (Auto) 7.5 1.8-7.8 10^3/uL Lymphocytes # (Auto) 1.4 1.0-4.0 10^3/uL Monocytes # (Auto) 0.8 0.0-1.0 10^3/uL Eosinophils # (Auto) 0.3 0.0-0.3 10^3/uL Basophils # (Auto) 0.1 0.0-0.1 10^3/uL Immature Granulocyte # (Auto) 0.1 0.0-0.1 10^3/uL Sodium Level 130 L 135-145 MMOL/L Potassium Level 4.9 3.6-5.0 MMOL/L Chloride Level 106 98-107 MMOL/L Carbon Dioxide Level 13 L 21-32 MMOL/L Anion Gap 11 5-14 MMOL/L Blood Urea Nitrogen 76 H 7-18 MG/DL Creatinine 5.13 H 0.60-1.30 MG/DL Estimat Glomerular Filtration Rate 10 BUN/Creatinine Ratio 15 Glucose Level 154 H 70-105 MG/DL Calcium Level 8.9 8.5-10.1 MG/DL Corrected Calcium 9.7 8.5-10.1 MG/DL Total Bilirubin 0.2 0.1-1.0 MG/DL Aspartate Amino Transf (AST/SGOT) 13 5-34 U/L Alanine Aminotransferase (ALT/SGPT) 15 0-55 U/L Alkaline Phosphatase 94 40-136 U/L Total Protein 8.6 H 6.4-8.2 GM/DL Albumin 3.0 L 3.2-4.5 GM/DL Physical Exam-(CHC) Physical Exam Vital Signs VS - Last 72 Hours, by Label 05/18/21 05/18/21 05/18/21 05/18/21 15:55 17:51 18:18 19:37 Temp 36.0 36.0 36.5 Pulse 102 79 88 Resp 18 16 20 B/P (MAP) 107/85 (92) 107/77 112/75 (87) Pulse Ox 98 97 100 O2 Delivery Room Air Room Air 05/18/21 05/18/21 05/19/21 05/19/21 20:34 23:41 03:34 07:53 Temp 37.2 37.0 37.6 Pulse 86 87 87 Resp 20 18 18 B/P (MAP) 106/66 (79) 105/69 (81) 110/66 (81) Pulse Ox 96 97 98 100 O2 Delivery Room Air Room Air Room Air Room Air 05/19/21 05/19/21 05/19/21 05/19/21 08:00 11:29 16:23 19:23 Temp 37.0 37.3 37.6 Pulse 88 90 96 Resp 16 18 20 B/P (MAP) 111/69 (83) 107/56 (73) 109/56 (73) Pulse Ox 100 100 97 99 O2 Delivery Room Air Room Air Room Air Room Air Capillary Refill : Less Than 3 Seconds General Appearance: WD/WN, no apparent distress HEENT: PERRL/EOMI Neck: non-tender, full range of motion, supple Respiratory: chest non-tender, lungs clear, normal breath sounds, no respiratory distress, no accessory muscle use Cardiovascular: normal peripheral pulses, regular rate, rhythm, no murmur Gastrointestinal: normal bowel sounds, non tender, soft Back: CVA tenderness (R), CVA tenderness (L) Extremities: normal range of motion, non-tender, normal inspection, no calf tenderness, pedal edema (1+ equal bilaterally) Neurologic/Psychiatric: shove up II-XII nml as tested, alert, normal mood/affect Skin: normal color, warm/dry Lymphatic: no adenopathy Assessment/Plan Assessment/Plan Admission Status: Inpatient Order (span 2 midnights) Reason for Inpatient Admission: Patient requiring monitoring and daily labs due to kidney failure with pyelonephritis (1) Pyelonephritis Status: Acute Assessment & Plan: - Reviewed previous urine cultures, Started on Rocephin D2, culture pending (2) Renal failure, acute on chronic Status: Acute Assessment & Plan: - Records requested from [place], discussed with patient that if it does not start trending down she will need transferred to hospital with nephrology Qualifiers: Qualified Codes: N17.9 - Acute kidney failure, unspecified; N18.5 - Chronic kidney disease, stage 5 (3) Diabetes type 1, controlled Status: Chronic Assessment & Plan: - A1c pending, SSI, Accucheck Qualifiers: Qualified Codes: E10.22 - Type 1 diabetes mellitus with diabetic chronic kidney disease; N18.5 - Chronic kidney disease, stage 5 (4) Anemia in chronic kidney disease (CKD) Status: Chronic Assessment & Plan: - Iron studies pending, PO iron restarted Qualifiers: Qualified Codes: N18.5 - Chronic kidney disease, stage 5; D63.1 - Anemia in chronic kidney disease (5) Microcytic anemia Status: Chronic (6) Retained urethral stent Status: Chronic (7) Seizure disorder Status: Chronic Assessment & Plan: - Continued on home meds (8) DVT prophylaxis Status: Acute Assessment & Plan: - CHARLES Naranjo MD May 19, 2021 20:01
[2021-05-19] MEDS ORDERED: NS IV 500 ML 500 ML ONE (21:25)
[2021-05-19] MEDS ORDERED: DIVALPROEX EXT RELEASE 500 MG (DEPAKOTE ER) TAB PO ONE (21:29)
[2021-05-19] MEDS ORDERED: NS (IVPB) 250 ML IV ONE (23:15)
[2021-05-19 23:48] VITALS: BP 98/61
[2021-05-20] MEDS: HYDROcodone/APAP 5 MG/325 MG (LORTAB) TAB PO PRN ×4 (02:32→20:02)
[2021-05-20 04:50] VITALS: BP 103/61
[2021-05-20] MEDS: ONDANSETRON 4 MG/2 ML (SDV) Z0FRAN IVP PRN ×3 (04:59→21:36)
[2021-05-20] MEDS: CATHETER FLUSH 10 ML SYR IV SCH ×3 (05:32→20:03)
[2021-05-20] MEDS: inSUlin ASPART (NovoLOG) 1 UNIT/0.01 ML (CHARGE PER UNIT) SC SCH ×4 (05:46→20:38)
[2021-05-20 06:34] LABS: BASOPHILS # (AUTO) 0.1 10^3/uL (0.0-0.1); BASOPHILS % (AUTO) 1 % (0-10); EOSINOPHILS # (AUTO) 0.2 10^3/uL (0.0-0.3); EOSINOPHILS % (AUTO) 2 % (0-10); HEMATOCRIT 24 % (35-52); HEMOGLOBIN 7.2 g/dL (11.5-16.0); LYMPHOCYTES # (AUTO) 1.6 10^3/uL (1.0-4.0); LYMPHOCYTES % (AUTO) 17 % (12-44); MEAN CORPUSCULAR HEMOGLOBIN 24 pg (25-34); MEAN CORPUSCULAR HGB CONC 30 g/dL (32-36); MEAN CORPUSCULAR VOLUME 81 fL (80-99); MEAN PLATELET VOLUME 9.8 fL (9.0-12.2); MONOCYTES # (AUTO) 0.9 10^3/uL (0.0-1.0); MONOCYTES % (AUTO) 9 % (0-12); NEUTROPHILS # (AUTO) 6.7 10^3/uL (1.8-7.8); NEUTROPHILS % (AUTO) 71 % (42-75); PLATELET COUNT 287 10^3/uL (130-400); WHITE BLOOD COUNT 9.5 10^3/uL (4.3-11.0)
[2021-05-20 06:49] LABS: ALBUMIN 2.9 GM/DL (3.2-4.5); POTASSIUM 5.1 MMOL/L (3.6-5.0)
[2021-05-20 06:50] LABS: CALCIUM 8.9 MG/DL (8.5-10.1)
[2021-05-20 06:51] LABS: TOTAL PROTEIN 8.1 GM/DL (6.4-8.2)
[2021-05-20 06:53] LABS: BILIRUBIN,TOTAL 0.1 MG/DL (0.1-1.0)
[2021-05-20 06:55] LABS: CREATININE SERUM 5.84 MG/DL (0.60-1.30)
[2021-05-20 07:56] VITALS: BP 104/57
[2021-05-20] MEDS ORDERED: DIVALPROEX EXT RELEASE 500 MG (DEPAKOTE ER) TAB PO SCH ×2 (09:00→21:00)
[2021-05-20] MEDS: SENNA W/DOCUSATE (SENOKOT S) TABLET PO SCH ×2 (09:00→16:32)
[2021-05-20] MEDS ORDERED: FERROUS SULF 325 MG (IRON) TAB PO SCH (09:00)
[2021-05-20 11:40] VITALS: BP 111/67
[2021-05-20 16:23] VITALS: BP 112/70
[2021-05-20] MEDS: cefTRIAXone 1,000 MG in WATER (STERILE) FOR INJECTION 10 ML IV SCH (16:26)
[2021-05-20] MEDS: SIMETHICONE 80 MG (MYLICON) CHEW PO SCH ×2 (16:32→20:02)
[2021-05-20 20:00] VITALS: BP 107/59
--- NOTE | 2021-05-20 20:13 | Discharge Summary ---
Diagnosis/Chief Complaint Date of Admission May 18, 2021 at 18:10 Date of Discharge 05/20/21 Admission Diagnosis Admission Diagnosis See problem list Discharge Diagnosis See below Problems/Diagnosis: (1) Pyelonephritis Assessment & Plan: - Reviewed previous urine cultures, Started on Rocephin D2, culture pending 05/20: Culture pending, continue on rocpehin D3 Status: Acute (2) Renal failure, acute on chronic Assessment & Plan: - Records requested from [place], discussed with patient that if it does not start trending down she will need transferred to hospital with nephrology 05/20: Cr trending up, recommend transfer to facility with nephrology, transfer request initiated, patient prefers [facility], Patient has not had renal bx, discussed with patient that she is approaching HD Qualifiers: Qualified Codes: N17.9 - Acute kidney failure, unspecified; N18.5 - Chronic kidney disease, stage 5 Status: Acute (3) Diabetes type 1, controlled Assessment & Plan: - A1c pending, SSI, Accucheck Qualifiers: Qualified Codes: E10.22 - Type 1 diabetes mellitus with diabetic chronic kidney disease; N18.5 - Chronic kidney disease, stage 5 Status: Chronic (4) Anemia in chronic kidney disease (CKD) Assessment & Plan: - Iron studies pending, PO iron restarted Qualifiers: Qualified Codes: N18.5 - Chronic kidney disease, stage 5; D63.1 - Anemia in chronic kidney disease Status: Chronic (5) Microcytic anemia Status: Chronic (6) Retained urethral stent Status: Chronic (7) Seizure disorder Assessment & Plan: - Continued on home meds 05/20: Sz yesterday, continue home meds Status: Chronic (8) DVT prophylaxis Assessment & Plan: - Lovenox Status: Acute Chief Complaint/HPI Chief Complaint/HPI 36 yo F with Type I DM and CKD with multiple recent hospitalizations that presented with flank pain. Flank pain started 2 days ago. Denies any fever or chills. Patient has recent h/o kidney stones and has bilateral urethral stents present. Patient states that she does not know what her Cr recently has been but when she went home from [place] her Cr was 4. States that she just recently in the last 2 years started having problems with her kidneys. Denies ever having kidney bx. States that she was diagnosed with DM at age 16. She states that she has been taking her insulin and she has not missed any doses. Discharge Summary-Simple/Stand Consultations Discharge Physical Examination Allergies: Coded Allergies: cephalexin (Verified Allergy, Severe, 12/16/19) SEIZURES cinnamon (Verified Allergy, Severe, Anaphylaxis, 12/16/19) levetiracetam (Verified Allergy, Intermediate, seizures, 05/19/21) aspirin (Verified Allergy, Unknown, 12/16/19) Vitals & I&Os Vital Sign - Last 12Hours Date Time Temp Pulse Resp B/P (MAP) Pulse Ox O2 Delivery O2 Flow Rate FiO2 05/20/21 20:00 36.7 90 20 107/59 (75) 100 Room Air Intake and Output 05/20/21 00:00 Intake Total 1822 ml Output Total 1150 ml Balance 672 ml General Appearance: Alert, Oriented X3, Cooperative, No Acute Distress HEENT: Mucous Memb Moist/[place] Respiratory: Clear to Auscultation, Normal Air Movement Cardiovascular: Regular Rate, No Murmurs Abdominal: Normal Bowel Sounds, Soft, No Tenderness, No Masses Extremities: Other (trace edema bilaterally) Skin: No Rashes Neuro: Normal Speech, Sensation Intact, Cranial Nerves 3-12 NL Psych/Mental Status: Mood NL Hospital Course Was the Problem List Reviewed?: Yes See final discharge diagnosis. Discussion & Recommendations 36 yo F with DM type I and CKD. Patient had recent pyelonephris and seems to have had it reoccur. Started on IV antibiotics. Cr upon arrival was 4.0 and it has trended up to 5.9. Patient states last admission she was aroun 2.0 when she discharged. Due to CKD and Cr Trending up transfer to [facility] was initiated and patient was accepted. Discharge Condition at discharge Guarded Instructions to patient/family Please see electronic discharge instructions given to patient. Discharge Medications Reviewed and agree with Discharge Medication list on patient's Discharge Instruction sheet CHARLES SHEA MD May 20, 2021 20:13
--- NOTE | 2021-05-20 20:16 | Discharge Summary ---
Discharge [facility] Reconcile Patient Problems Problems Reviewed?: Yes Discharge Medications New, Converted or Re-Newed RX: Other (Transfer to [facility]) Continued Medications: Acetaminophen (Tylenol Extra Strength) 500 Mg Tablet 1000 MG PO Q8H PRN for PAIN-MILD (1-4), TAB Divalproex Sodium (Depakote ER) 500 Mg Tab.er.24h 500 MG PO DAILY, TAB LAST FILLED 01-05-2021 #60/60 DAY SUPPLY Ferrous Sulfate (Iron) 325 Mg Tablet 325 MG PO DAILY, TAB Insulin Lispro (Humalog Kwikpen) 100 Unit/1 Ml Insuln.pen UNIT SQ SLIDING/SCALE, EA Methylcellulose (Fiber) 500 Mg Tablet 1000 MG PO BID, TAB Patient Instructions Goal/Follow Up Appt: Patient will need f.u after D.c from [facility] Activity & Diet Discharge Diet: Cardiac Diet Activity as Tolerated: Yes CHARLES SHEA MD May 20, 2021 20:16
[2021-05-20 23:41] VITALS: BP 105/67
[2021-05-21] MEDS: HYDROcodone/APAP 5 MG/325 MG (LORTAB) TAB PO PRN (00:22)
--- OUTSIDE RECORDS SUMMARY | 2021-05-21 14:11 | XMS REPORT ---
Author Author [facility] Organization [facility] Address Unknown Phone Unavailable Care Team Providers Care Olericulture Teacher Name Role Phone ASHLY EMERY Unavailable PROBLEMS No Information ALLERGIES No Information ENCOUNTERS from 1985 to 2021-03-23 Encounter Location Date Provider Diagnosis [facility], [facility] [address] [place] [address] Mar, ASHLY EMERY IMMUNIZATIONS No Information SOCIAL HISTORY Sex Assigned At : Social History Observation Description Sex Assigned At Unknown REASON FOR REFERRAL No Information VITAL SIGNS No information MEDICATIONS No Information PROCEDURES No Information RESULTS No Results REASON FOR VISIT Hosp Follow Up Goals Section No Information Health Concerns No Information MEDICAL EQUIPMENT No Information MENTAL STATUS No Information FUNCTIONAL STATUS No Information ASSESSMENTS No Information PLAN OF TREATMENT No Information Insurance Providers Payer Name Payer Address Payer Phone Insured Name Patient Relati onship to Insured Coverage Start Date Coverage End Date PATIENT HAS NO INSURANCE Verónica Ogden self 2020
== END 2021-05-21 01:50 | disposition short-term general hospital (02) | DRG 690 ==
LOC: EDUNIT# 14:21 → ER 14:22 → 4TH 17:21 → OBSVTOIN 18:10 → 4TH 05-19 16:46
PROVIDERS: ADMIT Family Medicine; ATTEND Family Medicine
DX: N10 Acute pyelonephritis (principal); N20.0 Calculus of kidney; N17.9 Acute kidney failure, unspecified; E10.22 Type 1 diabetes mellitus with diabetic chronic kidney disease; Z96.0 Presence of urogenital implants; G40.909 Epilepsy, unspecified, not intractable, without status epilepticus; N18.5 Chronic kidney disease, stage 5; Z79.4 Long term (current) use of insulin; F41.9 Anxiety disorder, unspecified; F43.10 Post-traumatic stress disorder, unspecified; F31.9 Bipolar disorder, unspecified; Z79.899 Other long term (current) drug therapy; D63.1 Anemia in chronic kidney disease; E10.42 Type 1 diabetes mellitus with diabetic polyneuropathy; F42.9 Obsessive-compulsive disorder, unspecified
CPT/HCPCS: 36415; 74176; 80053; 81000; 82728; 82947; 83036; 83540; 83550; 84703; 85025; 86141; 87088

== ENCOUNTER 2021-06-29 18:02 | Inpatient (IN) | payer OTHER ==
[~2021-06-29] VITALS: Ht 165 cm; Wt 78.6 kg
[~2021-06-29 18:02] MED LIST changes: +FERR-84 PO; +INSU100I23 SQ; +METH-336 PO
--- NOTE | 2021-06-29 18:52 | ED General ---
General Chief Complaint: General Problems/Pain Stated Complaint: L FOOT TOE INFECTION, KIDNEY PAIN, DEHYDRATED Nursing Triage Note: AMB TO ED WITH PAIN IN L FIRST TOE HAD NAIL REMOVED 1 MONTH AGO ALSO CONCERN HAVING BACK PAIN THINKS SHE MAY BE HAVING A UTI. Source of Information: Patient (DAISHA MEJIA MED STUDENT) History of Present Illness Date Seen by Provider: Jun 29, 2021 Time Seen by Provider: 18:25 Initial Comments Verónica is a 36 yo F here with a cc of L kidney pain. Pt stated that it pain started around four days ago. pain described as stabbing, radiating to the groin. Pain rated as a 9/10. Tried taking tylenol, which did not help with the pain. Pt reports that she believes it could be an infection, since she is prone to those, or that she is dehydrated. Pt denies possibility of kidney stone because of bilateral ureteral stent placement and imaging done one month ago. Pt reports that she had a seizure yesterday, even after her depakote dosage had recently been increased. Verónica is a 36 yo F here with a cc of L foot pain. Pt has hx of surgical intervention of infection on L big toe, about a month ago, an artificial skin graft was placed at that time. Surgery done at [facility] in [place], [place]. Pt states that her toe is sensitive to touch, even putting on a sock is too painful for her. Pain described as sharp and stabbing, rated 9/10. Sensitivity increased 2 days ago. Pt also reports mild drainage from the toe. Pt is to see surgeon later this week about healing progression. Timing/Duration: 3-4 Days Severity: Moderate Associated Systoms: No Chest Pain, No Cough, No Diaphoresis, No Fever/Chills; Nausea/Vomiting; No Shortness of Air (DAISHA MEJIA MED STUDENT) Initial Comments Patient reports her baseline creatinine upon departure from [facility] after her last admit was 1.7. (HARPREET WALKER MD) Allergies and Home Medications Allergies Coded Allergies: cephalexin (Verified Allergy, Severe, 12/16/19) SEIZURES cinnamon (Verified Allergy, Severe, Anaphylaxis, 12/16/19) levetiracetam (Verified Allergy, Intermediate, seizures, 05/19/21) aspirin (Verified Allergy, Unknown, 12/16/19) Patient Home Medication List Home Medication List Reviewed: Yes (HARPREET WALKER MD) Acetaminophen (Tylenol Extra Strength) 500 Mg Tablet, 1,000 MG PO Q8H PRN for PAIN-MILD (1-4), (Reported) Entered as Reported by: KALEE MERCEDES on 05/19/211134 Last Action: Reviewed Divalproex Sodium (Depakote ER) 500 Mg Tab.er.24h, 500 MG PO HS, (Reported) Entered as Reported by: KALEE MERCEDES on 05/19/211134 Last Action: Reviewed Ferrous Sulfate (Iron) 325 Mg Tablet, 325 MG PO DAILY, (Reported) Entered as Reported by: KALEE MERCEDES on 05/19/211134 Last Action: Continued Folic Acid (Folic Acid) 1 Mg Tablet, 1 MG PO DAILY, (Reported) Entered as Reported by: KALEE MERCEDES on 06/30/21 100 Last Action: Continued Insulin Lispro (Humalog Kwikpen) 100 Unit/1 Ml Insuln.pen, UNIT SQ SLIDING/SCALE, (Reported) Entered as Reported by: KALEE MERCEDES on 05/19/211134 Last Action: Reviewed Methylcellulose (Fiber) 500 Mg Tablet, 1,000 MG PO BID, (Reported) Entered as Reported by: KALEE MERCEDES on 05/19/211134 Last Action: Reviewed Pantoprazole Sodium (Pantoprazole Sodium) 40 Mg Tablet.dr, 40 MG PO DAILY, (Reported) Entered as Reported by: KALEE MERCEDES on 06/30/21958 Last Action: Held Sennosides/Docusate Sodium (Senna-S Tablet) 1 Each Tablet, 2 EACH PO BID, (Reported) Entered as Reported by: KALEE MERCEDES on 06/30/21958 Last Action: Reviewed Sodium Bicarbonate (Sodium Bicarbonate) 650 Mg Tablet, 650 MG PO BID, (Reported) Entered as Reported by: KALEE MERCEDES on 06/30/21958 Last Action: Continued Review of Systems Review of Systems Constitutional: No chills, No diaphoresis, No fever EENTM: No blurred vision Respiratory: No cough, No short of breath Cardiovascular: No chest pain, No palpitations Gastrointestinal: LUQ (tenderness), LLQ (tenderness), abdominal pain; No constipation, No diarrhea, No heartburn; nausea, vomiting Genitourinary: No dysuria, No frequency, No hematuria Musculoskeletal: back pain (bilateral ) Psychiatric/Neurological: Other (Bipolar depression ) (DAISHA MEJIA) Past Jhsmbvr-Eklhen-Sngnvd Hx Patient Social History Tobacco Use?: No Smoking Status: Former Smoker Smokeless Tobacco Frequency: Never a User Use of E-Cig and/or Vaping dev: No Substance use?: No Alcohol Use?: No Pt feels they are or have been: No (DAISHA MEJIA) Immunizations Up To Date Tetanus Booster (TDap): Unknown (DAISHA MEJIA) Seasonal Allergies Seasonal Allergies: No (DAISHA MEJIA) Past Medical History Surgery/Hospitalization HX: Recent kidney stents placed in February Surgeries: Yes (KIDNEY STONE REMOVAL X 2; URETERAL STENTS X 5) Orthopedic (L toe 2020), Renal (bilateral ureteral shunts ) Respiratory: No Cardiac: No Neurological: Yes (SEIZURES DX AGE 26-UNKNOWN CAUSE--NON-COMPLIANT IN ALL ASPECTS OF CARE) Seizure Disorder Reproductive Disorders: No Genitourinary: Yes (CHRONIC KIDNEY DISEASE;KIDNEY STONE REMOVAL X 2;URETERAL ST ENTS X 5) Kidney Stones, Renal Failure, UTI-Chronic Gastrointestinal: No Musculoskeletal: No Endocrine: Yes (DX AGE 16; NON-COMPLIANT IN ALL ASPECTS OF CARE) Diabetes, Insulin dep HEENT: No Cancer: No Psychosocial: Yes (OCD) Anxiety, PTSD, Bipolar, Depression (Bipolar type ) Integumentary: No Blood Disorders: No (DAISHA MEJIA) Family Medical History Diabetes mellitus 19 MOTHER FH: bipolar disorder 19 MOTHER Hypertension 19 MOTHER Heart Disease, Diabetes, Psychiatric Problems SOCIAL HISTORY: -ETOH--PT STATES " I USED TO BE A BAD ALCOHOLIC 10 YEARS AGO" --CLAIMS SHE ONLY "OCCASIONALLY"DRINKS, BUT STILL DRINKS HEAVY AT TIMES. -DRUGS-ADMITS TO METH USE, DENIES IV USE. CLAIMS "NONE FOR 10 YEARS" -DENIES SMOKING (DAISHA MEJIA) Physical Exam Vital Signs Vital Signs - First Documented 06/29/21 18:12 Temp 36.1 Pulse 104 Resp 18 B/P (MAP) 134/104 (114) Pulse Ox 99 O2 Delivery Room Air (HARPREET WALKER MD) Vital Signs Capillary Refill : Less Than 3 Seconds (FIX,DAISHA MED STUDENT) Height, Weight, BMI Height: '" Weight: lbs. oz. kg; 24.00 BMI Method: General Appearance: WD/WN, Moderate Distress HEENT: No Scleral Icterus (L), No Scleral Icterus (R) Neck: Full Range of Motion; No Lymphadenopathy (L), No Lymphadenopathy (R) Respiratory: Chest Non Tender, Lungs Clear Cardiovascular: Regular Rate, Rhythm, No Murmur, Normal Peripheral Pulses Gastrointestinal: Normal Bowel Sounds, Guarding, Tenderness (LLQ, LUQ ) Back: CVA Tenderness (L), CVA Tenderness (R) Extremity: Normal Capillary Refill, No Pedal Edema, Other (non-erythematous, non-edematous L big toe. Black graft present over nail bed. ) Neurologic/Psychiatric: Alert, Oriented x3, Normal Mood/Affect Skin: Normal Color, Warm/Dry; No Diaphoresis Lymphatic: No Adenopathy (DAISHA MEJIA MED STUDENT) Focused Exam Lactate Level 06/29/21 20:36: Lactic Acid Level 1.05 (HARPREET WALKER MD) Lactic Acid Level Laboratory Tests Test 06/29/21 20:36 Lactic Acid Level 1.05 MMOL/L (0.50-2.00) (HARPREET WALKER MD) Progress/Results/Core Measures Suspected Sepsis SIRS Temperature: Pulse: 104 Respiratory Rate: 18 Laboratory Tests 06/29/21 19:25: White Blood Count 10.8 Blood Pressure 134 /104 Mean: 114 06/29/21 20:36: Lactic Acid Level 1.05 Laboratory Tests 06/29/21 19:25: Creatinine 4.06H, Platelet Count 325, Total Bilirubin 0.2 (DAISHA MEJIA MED STUDENT) Results/Orders Lab Results Laboratory Tests Test 06/29/21 18:48 06/29/21 19:25 06/29/21 20:36 06/29/21 20:46 Range/Units Urine Color YELLOW Urine Clarity CLOUDY Urine pH 6.0 5-9 Urine Specific Berger 1.025 H 1.016-1.022 Urine Protein 3+ H NEGATIVE Urine Glucose (UA) NEGATIVE NEGATIVE Urine Ketones NEGATIVE NEGATIVE Urine Nitrite NEGATIVE NEGATIVE Urine Bilirubin NEGATIVE NEGATIVE Urine Urobilinogen 0.2 < = 1.0 MG/DL Urine Leukocyte Esterase 3+ H NEGATIVE Urine RBC (Auto) 3+ H NEGATIVE Urine RBC 25-50 H /HPF Urine WBC TNTC H /HPF Urine Squamous Epithelial Cells 2-5 /HPF Urine Crystals NONE /LPF Urine Bacteria FEW H /HPF Urine Casts NONE /LPF Urine Mucus SMALL H /LPF Urine Culture Indicated YES White Blood Count 10.8 4.3-11.0 10^3/uL Red Blood Count 3.71 L 3.80-5.11 10^6/uL Hemoglobin 9.2 L 11.5-16.0 g/dL Hematocrit 30 L 35-52 % Mean Corpuscular Volume 80 80-99 fL Mean Corpuscular Hemoglobin 25 25-34 pg Mean Corpuscular Hemoglobin Concent 31 L 32-36 g/dL Red Cell Distribution Width 15.2 H 10.0-14.5 % Platelet Count 325 130-400 10^3/uL Mean Platelet Volume 9.2 9.0-12.2 fL Immature Granulocyte % (Auto) 1 % Neutrophils (%) (Auto) 75 42-75 % Lymphocytes (%) (Auto) 13 12-44 % Monocytes (%) (Auto) 7 0-12 % Eosinophils (%) (Auto) 3 0-10 % Basophils (%) (Auto) 1 0-10 % Neutrophils # (Auto) 8.1 H 1.8-7.8 10^3/uL Lymphocytes # (Auto) 1.5 1.0-4.0 10^3/uL Monocytes # (Auto) 0.8 0.0-1.0 10^3/uL Eosinophils # (Auto) 0.3 0.0-0.3 10^3/uL Basophils # (Auto) 0.1 0.0-0.1 10^3/uL Immature Granulocyte # (Auto) 0.1 0.0-0.1 10^3/uL Sodium Level 129 L 135-145 MMOL/L Potassium Level 5.3 H 3.6-5.0 MMOL/L Chloride Level 101 98-107 MMOL/L Carbon Dioxide Level 17 L 21-32 MMOL/L Anion Gap 11 5-14 MMOL/L Blood Urea Nitrogen 85 H 7-18 MG/DL Creatinine 4.06 H 0.60-1.30 MG/DL Estimat Glomerular Filtration Rate 13 BUN/Creatinine Ratio 21 Glucose Level 270 H 70-105 MG/DL Calcium Level 9.7 8.5-10.1 MG/DL Corrected Calcium 10.2 H 8.5-10.1 MG/DL Magnesium Level 2.1 1.6-2.4 MG/DL Total Bilirubin 0.2 0.1-1.0 MG/DL Aspartate Amino Transf (AST/SGOT) 9 5-34 U/L Alanine Aminotransferase (ALT/SGPT) 10 0-55 U/L Alkaline Phosphatase 85 40-136 U/L C-Reactive Protein High Sensitivity 5.82 H 0.00-0.50 MG/DL Total Protein 9.4 H 6.4-8.2 GM/DL Albumin 3.4 3.2-4.5 GM/DL Lipase 104 H 8-78 U/L Serum Test, Qualitative NEGATIVE NEGATIVE Lactic Acid Level 1.05 0.50-2.00 MMOL/L Valproic Acid (Depakene) Level < 2.0 L 50.0-100.0 UG/ML (HARPREET WALKER MD) Micro Results Microbiology 06/29/21 Blood Culture - Preliminary, Resulted No growth 06/29/21 Urine Culture - Preliminary, Resulted Slight Growth Present (HARPREET WALKER MD) My Orders Orders - HARPREET WALKER MD Ua Culture If Indicated (06/29/21 18:42) Cbc With Automated Diff (06/29/21 19:01) Comprehensive Metabolic Panel (06/29/21 19:01) Hs C Reactive Protein (06/29/21 19:01) Hcg,Qualitative Serum (06/29/21 19:01) Lipase (06/29/21 19:01) Magnesium (06/29/21 19:01) Fentanyl Inj (Sublimaze Injection) (06/29/21 19:15) Urine Culture (06/29/21 18:48) Ed Iv/Invasive Line Start (06/29/21 19:20) Valproic Acid (06/29/21 20:05) Blood Culture (06/29/21 20:24) Vital Signs Adult Sepsis Patie Q15M (06/29/21 20:24) Remove Rings In Anticipation O (06/29/21 20:24) Lactic Acid Analyzer (06/29/21 20:24) Meropenem (Merrem 500 Mg) (06/29/21 20:30) Ns Iv 1000 Ml (Sodium Chloride 0.9%) (06/29/21 20:45) Hydrocodone/Apap 5/325 Tablet (Lortab 5 (06/29/21 20:45) Meropenem (Merrem 500 Mg) (06/29/21 20:47) Ns Iv 1000 Ml (Sodium Chloride 0.9%) (06/29/21 22:15) (HARPREET WALKER MD) Medications Given in ED (HARPREET WALKER MD) Vital Signs/I&O 06/29/21 06/29/21 18:12 20:45 Temp 36.1 36.1 Pulse 104 104 Resp 18 18 B/P (MAP) 134/104 (114) 134/104 Pulse Ox 99 99 O2 Delivery Room Air Room Air (HARPREET WALKER MD) Vital Signs/I&O Capillary Refill : Less Than 3 Seconds (DAISHA MEJIA MED ARIEL) Blood Pressure Mean: 114 Progress Note #1: Progress Note Patient was found to have acute kidney injury on chronic kidney disease. She was given 2 L of IV normal saline. Initial antibiotic therapy was administered with meropenem to treat suspected pyelonephritis. Meropenem was selected due to cephalosporin allergy and rebound urinary tract infection after prior treatments. Rocephin was also added to the admission orders as it was noted she received Rocephin on past admissions. The initial intent was to transfer this patient to a facility with nephrology and urology services. However, no transfer facility could be found less than 3 hours away. We therefore have decided to admit her here with continued hydration and treatment of urinary tract infection. Review of labs in the morning will determine whether she is ab le to stay at this facility or will require transfer. Progress Note #2: Progress Note Valproic acid level was found to be low. We are resuming her valproic acid on admission for seizure prevention. There is some concern for possible infection in the left great toe. She is receiving antibiotics for pyelonephritis which should suffice for treatment of this possible infection as well. (HARPREET WALKER MD) Departure Communication (Admissions) Time/Spoke to Admitting Phy: 22:45 (HARPREET WALKER MD) Impression Primary Impression: Renal failure, acute on chronic Qualified Codes: N17.9 - Acute kidney failure, unspecified; N18.9 - Chronic kidney disease, unspecified Additional Impression: Pyelonephritis Disposition: ADMITTED INPATIENT Condition: Improved Admissions Decision to Admit Reason: Admit from ER (General) Decision to Admit/Date: Jun 29, 2021 Time/Decision to Admit Time: 20:20 (HARPREET WALKER MD) Departure-Patient Inst. Referrals: [facility] (PCP) Primary Care Physician [employer] (Family) Primary Care Physician Medical Student Attestation and Attending Note: I have personally interviewed and examined this patient along with Daisha Mejia MS4. I have reviewed student documentation including history, physical, and assessments. I agree with the documentation except where otherwise noted. Exam: General: Alert, oriented, no acute distress, well developed HEENT: Normocephalic and atraumatic Heart: Regular rate and rhythm without murmur Lungs: Clear to auscultation bilaterally with normal effort Abdomen: Soft, mild generalized tenderness. Nondistended. Back: Bilateral CVA tenderness to percussion Neuropsych: Alert, oriented, no focal deficits Skin: Warm and dry without rashes, there is a patch of substance sewn over the nailbed of the left great toe. This substance has the appearance of necrotic tissue. Patient states it is an artificial patch of some sort. There is some mild localized erythema of the distal great toe with tenderness present. Capillary refill normal. (HARPREET WALKER MD) DAISHA MEIJA MED STUDENT Jun 29, 2021 18:52 HARPREET WALKER MD Jun 29, 2021 23:00
[2021-06-29 18:53] LABS: BILIRUBIN,URINE NEGATIVE (NEGATIVE); CLARITY,URINE CLOUDY; COLOR,URINE YELLOW; GLUCOSE, URINE (UA) NEGATIVE (NEGATIVE); KETONES,URINE NEGATIVE (NEGATIVE); LEUKOCYTE ESTERASE ,URINE 3+ (NEGATIVE); NITRITE,URINE NEGATIVE (NEGATIVE); PROTEIN,URINE 3+ (NEGATIVE)
[2021-06-29 19:09] LABS: BACTERIA,URINE FEW /HPF; RBC,URINE 25-50 /HPF; WBC,URINE TNTC /HPF
[2021-06-29] MEDS ORDERED: fentaNYL INJ 100 MCG/2 ML AMP IVP ONE (19:15)
[2021-06-29 19:36] LABS: BASOPHILS # (AUTO) 0.1 10^3/uL (0.0-0.1); BASOPHILS % (AUTO) 1 % (0-10); EOSINOPHILS # (AUTO) 0.3 10^3/uL (0.0-0.3); EOSINOPHILS % (AUTO) 3 % (0-10); HEMATOCRIT 30 % (35-52); HEMOGLOBIN 9.2 g/dL (11.5-16.0); LYMPHOCYTES # (AUTO) 1.5 10^3/uL (1.0-4.0); LYMPHOCYTES % (AUTO) 13 % (12-44); MEAN CORPUSCULAR HEMOGLOBIN 25 pg (25-34); MEAN CORPUSCULAR HGB CONC 31 g/dL (32-36); MEAN CORPUSCULAR VOLUME 80 fL (80-99); MEAN PLATELET VOLUME 9.2 fL (9.0-12.2); MONOCYTES # (AUTO) 0.8 10^3/uL (0.0-1.0); MONOCYTES % (AUTO) 7 % (0-12); NEUTROPHILS # (AUTO) 8.1 10^3/uL (1.8-7.8); NEUTROPHILS % (AUTO) 75 % (42-75); PLATELET COUNT 325 10^3/uL (130-400); WHITE BLOOD COUNT 10.8 10^3/uL (4.3-11.0)
[2021-06-29 20:17] LABS: ALBUMIN 3.4 GM/DL (3.2-4.5); BILIRUBIN,TOTAL 0.2 MG/DL (0.1-1.0); CALCIUM 9.7 MG/DL (8.5-10.1); CREATININE SERUM 4.06 MG/DL (0.60-1.30); MAGNESIUM 2.1 MG/DL (1.6-2.4); POTASSIUM 5.3 MMOL/L (3.6-5.0); TOTAL PROTEIN 9.4 GM/DL (6.4-8.2)
[2021-06-29] MEDS ORDERED: MEROPENEM 500 MG in WATER (STERILE) FOR INJECTION 10 ML IV ONE (20:30)
[2021-06-29] MEDS ORDERED: MEROPENEM 500 MG VIAL (MERREM) IV ONE ×2 (20:43→20:47)
[2021-06-29] MEDS ORDERED: HYDROcodone/APAP 5 MG/325 MG (LORTAB) TAB PO ONE (20:45)
[2021-06-29] MEDS ORDERED: NS IV 1000 ML 1,000 ML IV SCH ×2 (20:45→22:15)
[2021-06-30] VITALS (7 sets, daily range): BP systolic 92–132; BP diastolic 55–75
[2021-06-30] MEDS: NS IV 1000 ML 1,000 ML IV SCH ×5 (00:35→23:46)
[2021-06-30] MEDS: DIVALPROEX EXT RELEASE 500 MG (DEPAKOTE ER) TAB PO SCH ×2 (00:35→08:45)
[2021-06-30] MEDS: fentaNYL INJ 100 MCG/2 ML AMP IVP PRN ×2 (00:36→05:32)
[2021-06-30] MEDS: HYDROcodone/APAP 5 MG/325 MG (LORTAB) TAB PO PRN ×4 (03:33→19:37)
[2021-06-30 05:24] LABS: BASOPHILS # (AUTO) 0.1 10^3/uL (0.0-0.1); BASOPHILS % (AUTO) 1 % (0-10); EOSINOPHILS # (AUTO) 0.4 10^3/uL (0.0-0.3); EOSINOPHILS % (AUTO) 4 % (0-10); HEMATOCRIT 26 % (35-52); HEMOGLOBIN 7.8 g/dL (11.5-16.0); LYMPHOCYTES # (AUTO) 1.8 10^3/uL (1.0-4.0); LYMPHOCYTES % (AUTO) 17 % (12-44); MEAN CORPUSCULAR HEMOGLOBIN 25 pg (25-34); MEAN CORPUSCULAR HGB CONC 30 g/dL (32-36); MEAN CORPUSCULAR VOLUME 81 fL (80-99); MEAN PLATELET VOLUME 9.7 fL (9.0-12.2); MONOCYTES # (AUTO) 1.1 10^3/uL (0.0-1.0); MONOCYTES % (AUTO) 10 % (0-12); NEUTROPHILS # (AUTO) 7.6 10^3/uL (1.8-7.8); NEUTROPHILS % (AUTO) 69 % (42-75); PLATELET COUNT 280 10^3/uL (130-400); WHITE BLOOD COUNT 11.1 10^3/uL (4.3-11.0)
[2021-06-30 05:36] LABS: POTASSIUM 5.1 MMOL/L (3.6-5.0)
[2021-06-30 05:38] LABS: CALCIUM 8.8 MG/DL (8.5-10.1)
[2021-06-30 05:42] LABS: CREATININE SERUM 3.33 MG/DL (0.60-1.30)
[2021-06-30] MEDS: inSUlin ASPART (NovoLOG) 1 UNIT/0.01 ML (CHARGE PER UNIT) SC SCH ×4 (05:52→20:30)
[2021-06-30] MEDS: ONDANSETRON 4 MG/2 ML (SDV) Z0FRAN IVP PRN ×3 (05:57→20:27)
--- NOTE | 2021-06-30 08:39 | History & Physical ---
MYESHA PADILLA 06/30/21 0839: HPI History of Present Illness: Verónica is a 36yo F patient who came to ER yesterday for pain in her toe and symptoms of kidney failure. Patient had an ingrown toenail of her left first toe that was infected and removed a month ago. A skin graft was placed on the toe after removal of the infected nail and skin. Patient said that the toe started to hurt about a week ago and is so tender now that she can't wear a shoe. Patient states they haven't seen any drainage or puss on the toe. Was supposed to see a geological technician today to follow up on the skin graft. Denies running a fever, headache, or chills. Patient has been diagnosed with kidney failure but isn't sure what stage she is in. Patient knows when she is having acute failure when she starts throwing up and getting a metal taste in her mouth. Has had to come to the hospital once a month the last few months for her kidney failure. She is not on dialysis, is not on medications for kidney failure, has no insurance so isn't able to have a kidney removed, is meeting with a mold shaker this Monday in [place] to discuss her care. Has a history of kidney failure, epilepsy, anemic, bipolar depression, renal stones, and diabetes with peripheral neuropathy and retinopathy. Surgical history includes the removal of her toenail on her left first toe, had tubes placed in right kidney due to renal stones, and then had the tubes removed and stents placed in kidney. Has been constipated for the past week and tried at home laxative treatments which did not help, she has a history of being treated for constipation. Was diagnosed with a urinary infection in the ER and was started on antibiotics . Source: patient Exam Limitations: no limitations Date seen by provider: Jun 30, 2021 Time Seen by Provider: 08:25 Attending Physician Deandre Morrissey MD [facility] [place] Consult Date of Admission Jun 29, 2021 at 23:00 Home Medications Home Medications Reviewed patient Home Medication Reconciliation performed by pharmacy medication reconciliations gallery or museum technician and/or nursing. Patients Allergies have been reviewed. Allergies Coded Allergies: cephalexin (Verified Allergy, Severe, 12/16/19) SEIZURES cinnamon (Verified Allergy, Severe, Anaphylaxis, 12/16/19) levetiracetam (Verified Allergy, Intermediate, seizures, 05/19/21) aspirin (Verified Allergy, Unknown, 12/16/19) [id number] Hx Patient Social History Marrital Status: Number of Children: 0 Employed/Student: unemployed Drug of Choice: METH--DENIES IV USE Smoking Status: Former Smoker (Smoked a few cigarettes in high school) 2nd Hand Smoke Exposure: No Recent Hopitalizations: Yes (Was hospitalized for kidney failure last month) Physical Abuse Screen: No Sexual Abuse: No Alcohol Use?: No Substance type: Other (Patient admitted to using illegal drugs 10 years ago but did not want to disclose what type of drug it was) Have you traveled recently?: No Immunizations Up To Date Tetanus Booster (TDap): Unknown PED Vaccines UTD: Yes Past Medical History PMHx: Epilepsy Diabetes- dx at age 16, started on orals but shortly went on insulin- was 426 lbs Bipolar depression PTSD OCD Anxiety Peripheral neuropathy Kidney failure SurgHx: Kidney stone treatment- had tubes and stents placed in kidney Family Medical History Significant Family History: Heart Disease, Diabetes, Psychiatric Problems Other Significan Family Hx: SOCIAL HISTORY: -ETOH--PT STATES " I USED TO BE A BAD ALCOHOLIC 10 YEARS AGO" --CLAIMS SHE ONLY "OCCASIONALLY"DRINKS, BUT STILL DRINKS HEAVY AT TIMES. -DRUGS-ADMITS TO METH USE, DENIES IV USE. CLAIMS "NONE FOR 10 YEARS" -DENIES SMOKING Family History: Diabetes mellitus 19 MOTHER FH: bipolar disorder 19 MOTHER Hypertension 19 MOTHER Review of Systems (CHC) Constitutional: No chills, No fever; weakness, weight loss EENTM: No blurred vision, No nose congestion Respiratory: No cough, No dyspnea on exertion Cardiovascular: No chest pain, No palpitations Gastrointestinal: abdominal pain (LUQ pain that radiates to lower back), constipation, loss of appetite, nausea, vomiting Genitourinary: dysuria (Patient commonly has these symptoms and has chronic issues with UTIs), frequency : No Musculoskeletal: no symptoms reported Skin: change in color (The area of skin around the skin graft is somewhat red); No dryness (Toe has ), No rash Psychiatric/Neurological: Headache All Other Systems Reviewed Negative Unless Noted: No Reviewed Test Results Reviewed Test Results Lab Urine analysis from ER showed that there was an infection Radiology X-ray of left first toe showed no osteomyelitis Physical Exam-([facility]) Physical Exam Vital Signs VS - Last 72 Hours, by Label 06/29/21 06/29/21 06/29/21 06/29/21 18:12 20:45 23:35 23:45 Temp 36.1 36.1 36.1 Pulse 104 104 96 Resp 18 18 18 B/P (MAP) 134/104 (114) 134/104 116/84 Pulse Ox 99 99 100 100 O2 Delivery Room Air Room Air Room Air Room Air 06/30/21 06/30/21 06/30/21 06/30/21 00:00 03:27 08:00 08:00 Temp 36.5 36.7 36.6 Pulse 99 89 84 Resp 22 20 20 B/P (MAP) 121/60 (80) 97/55 (69) 132/75 (94) Pulse Ox 99 100 99 O2 Delivery Room Air Room Air Room Air Room Air 06/30/21 12:17 Temp 36.6 Pulse 84 Resp 20 B/P (MAP) 92/59 (70) Pulse Ox 98 O2 Delivery Room Air Capillary Refill : Less Than 3 Seconds General Appearance: mild distress Eyes: Bilateral Eye Normal Inspection HEENT: normal ENT inspection Neck: full range of motion, normal inspection Respiratory: lungs clear, normal breath sounds, no respiratory distress, no accessory muscle use Cardiovascular: normal peripheral pulses, regular rate, rhythm Peripheral Pulses: 3+ Radial Pulses (L) Gastrointestinal: normal bowel sounds, tenderness (LUQ tenderness that extends to lower back) Back: CVA tenderness (R), CVA tenderness (L) Extremities: normal range of motion Neurologic/Psychiatric: normal mood/affect, oriented x 3 Skin: other (Skin around skin graft is slightly red) Lymphatic: no adenopathy Assessment/Plan Assessment/Plan Admission Dx Acute renal failure Admission Status: Inpatient Order (span 2 midnights) Reason for Inpatient Admission: UTI Graft rejection (1) Hyponatremia Onset Date: ~ 06/29/2021 Status: Acute Assessment & Plan: Patient will continue to have IV sodium chloride to raise sodium levels and prevent dehydration (2) Chronic anemia Status: Chronic Assessment & Plan: Started giving medications from home so patient is taking oral iron. Treatment of the acute renal failure can be helpful in improving anemia as well. (3) CKD (chronic kidney disease) Status: Chronic Assessment & Plan: Patient is being given oral fluids and IV fluids to keep her hydrated. Creatinine has gone down from 4.06 to 3.33 so kidney function is improving. Qualifiers: Qualified Codes: N18.9 - Chronic kidney disease, unspecified (4) Renal failure, acute on chronic Onset Date: ~ 06/29/2021 Status: Acute Assessment & Plan: Patient is being given oral fluids and IV fluids. Creatinine is continuing to improve from yesterday. As soon as a hospital bed is available in a hospital with a mold shaker, it will be discussed with the patient if she would like to transfer. Qualifiers: Qualified Codes: N17.9 - Acute kidney failure, unspecified; N18.9 - Chronic kidney disease, unspecified (5) Urinary tract infection Onset Date: ~ 06/29/2021 Status: Acute Assessment & Plan: Patient was started on IV meropenem 10 ml @ 200 ml/hour and will continue treatment. Will monitor WBC and see if patient's symptoms of dysuria improve tomorrow. (6) DVT prophylaxis Status: Acute (7) Seizure disorder Status: Chronic Assessment & Plan: Will continue to administer Divalproex sodium which is a medication taken at home (8) Diabetes type 1, controlled Status: Chronic Assessment & Plan: Patient is being administed sliding insulin which the patient was taking at home. Qualifiers: (9) Bipolar disorder Status: Chronic Assessment & Plan: Is currently stable with no complications. (10) Constipation Assessment & Plan: Patient was given docusate. (11) Hyperkalemia, diminished renal excretion Status: Acute Assessment & Plan: Patient is being restarted on her at home sliding insulin which can help lower potassium levels. DEANDRE MORRISSEY MD 06/30/21 1641: Home Medications Allergies Coded Allergies: cephalexin (Verified Allergy, Severe, 12/16/19) SEIZURES cinnamon (Verified Allergy, Severe, Anaphylaxis, 12/16/19) levetiracetam (Verified Allergy, Intermediate, seizures, 05/19/21) aspirin (Verified Allergy, Unknown, 12/16/19) [id number] Hx Family Medical History Family History: Diabetes mellitus 19 MOTHER FH: bipolar disorder 19 MOTHER Hypertension 19 MOTHER Supervisory-Addendum Brief Verification & Attestation Participated in pt care: history, MDM, physical Personally performed: exam, history, MDM Care discussed with: Medical Student Procedures: n/a I personally saw and examined patient and agree with documentation by medical student. MYESHA PADILLA Jun 30, 2021 08:39 DEANDRE MORRISSEY MD Jun 30, 2021 16:41
[2021-06-30] MEDS: MEROPENEM 500 MG/SWFI 10 ML IV PUSH IV SCH ×4 (08:45→19:37)
[2021-06-30] MEDS ORDERED: NF-SODBICA PO (09:59)
[2021-06-30] MEDS ORDERED: SENN-109 PO (09:59)
[2021-06-30] MEDS ORDERED: PANT40TA52 PO (09:59)
[2021-06-30] MEDS ORDERED: FOLI1TAB33 PO (10:01)
--- NOTE | 2021-06-30 11:10 | Diagnostic Imaging Report ---
INDICATION: Left great toe infection. TECHNIQUE: Two views of the left foot. CORRELATION STUDY: None. FINDINGS: Soft tissue swelling of the great toe is present. There does appear to be slight lucency over the tuft of the toe. The proximal phalanx is intact. The remaining osseous structures are otherwise intact and unremarkable. No soft tissue foreign body. IMPRESSION: Soft tissue swelling of the great toe with what appears to be some early erosion of the tip of the toe. This does raise concern for potential underlying osteomyelitis. If further assessment is desired, MRI would be recommended. Dictated by: Dictated on workstation # [id number]
[2021-06-30] MEDS: HYDROmorphone 2 MG/ML VIAL (DILAUDID) IVP PRN ×2 (15:24→21:41)
[2021-06-30 18:03] LABS: POTASSIUM 5.1 MMOL/L (3.6-5.0)
[2021-06-30 18:04] LABS: CALCIUM 8.8 MG/DL (8.5-10.1)
[2021-06-30 18:09] LABS: CREATININE SERUM 3.02 MG/DL (0.60-1.30)
[2021-06-30] MEDS: SODIUM BICARBONATE 650 MG TABLET (NON-FORMULARY) PO SCH (19:36)
[2021-06-30] MEDS: SENNA W/DOCUSATE (SENOKOT S) TABLET PO SCH (20:27)
[2021-07-01] MEDS: diphenhydrAMINE 25 MG TAB (BENADRYL) PO PRN ×2 (00:15→15:30)
[2021-07-01] MEDS: HYDROcodone/APAP 5 MG/325 MG (LORTAB) TAB PO PRN ×3 (02:47→17:34)
[2021-07-01 03:29] VITALS: BP 99/55
[2021-07-01] MEDS: inSUlin ASPART (NovoLOG) 1 UNIT/0.01 ML (CHARGE PER UNIT) SC SCH ×4 (06:00→19:57)
[2021-07-01 06:24] LABS: HEMATOCRIT 24 % (35-52); HEMOGLOBIN 7.3 g/dL (11.5-16.0); MEAN CORPUSCULAR HEMOGLOBIN 25 pg (25-34); MEAN CORPUSCULAR HGB CONC 30 g/dL (32-36); MEAN CORPUSCULAR VOLUME 82 fL (80-99); MEAN PLATELET VOLUME 9.1 fL (9.0-12.2); PLATELET COUNT 272 10^3/uL (130-400); WHITE BLOOD COUNT 10.3 10^3/uL (4.3-11.0)
[2021-07-01] MEDS: NS IV 1000 ML 1,000 ML IV SCH ×3 (06:33→21:58)
[2021-07-01 06:48] LABS: CREATININE SERUM 2.56 MG/DL (0.60-1.30); POTASSIUM 5.1 MMOL/L (3.6-5.0)
--- NOTE | 2021-07-01 06:54 | Progress Note ---
MYESHA PADILLA 07/01/21 0654: Subjective Subjective/Events-last exam Verónica is a 36yo F being hospitalized for acute kidney failure and pain of the left first toe. She also is being treated for a UTI that was found upon admission. Her pain level is the same as yesterday. Says she is feeling very tired. Has had constipation the past week even after taking Senna yesterday. Review of Systems General: Appetite HEENT: No Head Aches, No Sinus Congestion Pulmonary: No Cough Cardiovascular: No: Chest Pain, Palpitations Gastrointestinal: Nausea, Constipation; No: Vomiting Genitourinary: Dysuria; No Incontinence Musculoskeletal: back pain Neurological: Weakness; No: Change in speech, Confusion Focused Exam Lactate Level 06/29/21 20:36: Lactic Acid Level 1.05 Respiratory: Lungs Clear Cardiovascular: Regular Rate, Rhythm Capillary Refill: Less Than 3 Seconds Peripheral Pulses: 3+ Radial Pulses (L) Skin: normal color Objective Exam Last Set of Vital Signs Vital Signs Date Time Temp Pulse Resp B/P (MAP) Pulse Ox O2 Delivery O2 Flow Rate FiO2 07/01/21 03:29 37.7 105 18 99/55 (70) 99 Room Air Capillary Refill : Less Than 3 Seconds I&O Intake and Output 07/01/21 00:00 Intake Total 5130 ml Balance 5130 ml Intake Oral 2120 ml IV Total 3010 ml # Voids 18 Daily Weight Change Yes, 24-33 lbs General: Alert, Oriented X3, Cooperative HEENT: Atraumatic Neck: Supple Lungs: Clear to Auscultation Heart: Regular Rate, No Murmurs Abdomen: Normal Bowel Sounds Extremities: No Clubbing, No Cyanosis, No Edema Skin: No Rashes Neuro: Normal Gait, Normal Speech, Normal Tone Psych/Mental Status: Mental Status NL, Mood NL Results/Procedures Lab Laboratory Tests 06/30/21 11:30: Glucometer 123H 06/30/21 15:51: Glucometer 155H 06/30/21 17:41: Sodium Level 131L, Potassium Level 5.1H, Chloride Level 109H, Carbon Dioxide Level 16L, Anion Gap 6, Blood Urea Nitrogen 68H, Creatinine 3.02H, Estimat Glomerular Filtration Rate 18, BUN/Creatinine Ratio 23, Glucose Level 173H, Calcium Level 8.8 06/30/21 20:27: Glucometer 150H 07/01/21 05:40: Glucometer 108 07/01/21 06:20: White Blood Count 10.3, Red Blood Count 2.93L, Hemoglobin 7.3L, Hematocrit 24L, Mean Corpuscular Volume 82, Mean Corpuscular Hemoglobin 25, Mean Corpuscular Hemoglobin Concent 30L, Red Cell Distribution Width 15.4H, Platelet Count 272, Mean Platelet Volume 9.1, Sodium Level 134L, Potassium Level 5.1H, Chloride Lev el 114H, Carbon Dioxide Level 13L, Anion Gap 7, Blood Urea Nitrogen 55H, Creatinine 2.56#H, Estimat Glomerular Filtration Rate 21, BUN/Creatinine Ratio 21, Glucose Level 107H, Calcium Level 9.0 Microbiology 06/29/21 Blood Culture - Preliminary, Resulted No growth 06/29/21 Urine Culture - Preliminary, Resulted Slight Growth Present Radiology X-ray of left first toe showed no osteomyelitis Assessment/Plan Assessment/Plan Admission Dx Acute kidney failure and toe pain Admission Status: Inpatient Order (span 2 midnights) (1) Hyponatremia Onset Date: ~ 06/29/2021 Status: Acute Assessment & Plan: Na almost back to normal values. Patient will continue to have IV sodium chloride to raise sodium levels and prevent dehydration (2) Chronic anemia Status: Chronic Assessment & Plan: Anemia is continuing to worsen which may be due to dilution from the IV and oral fluids. Patient will continue to take at home iron medication. (3) CKD (chronic kidney disease) Status: Chronic Assessment & Plan: Patient is being given oral fluids and IV fluids to keep her hydrated. Creatinine has gone down from 3.02 yesterday to 2.56 so kidney function is improving. Qualifiers: Qualified Codes: N18.9 - Chronic kidney disease, unspecified (4) Renal failure, acute on chronic Onset Date: ~ 06/29/2021 Status: Acute Assessment & Plan: Patient is being given oral fluids and IV fluids. Creatinine is continuing to improve from yesterday. As soon as a hospital bed is available in a hospital with a take out waiter, it will be discussed with the patient if she would like to transfer. Qualifiers: Qualified Codes: N17.9 - Acute kidney failure, unspecified; N18.9 - Chronic kidney disease, unspecified (5) Urinary tract infection Onset Date: ~ 06/29/2021 Status: Acute Assessment & Plan: Patient was started on IV meropenem 10 ml @ 200 ml/hour and will continue treatment. Papa is still having symptoms of dysuria WBC had gone down from yesterday. (6) DVT prophylaxis Status: Acute Assessment & Plan: Heparin (7) Seizure disorder Status: Chronic Assessment & Plan: Will continue to administer Divalproex sodium which is a medication taken at home (8) Diabetes type 1, controlled Status: Chronic Assessment & Plan: Patient is being administed sliding insulin which the patient was taking at home. Qualifiers: (9) Bipolar disorder Status: Chronic Assessment & Plan: Is currently stable with no complications. (10) Constipation Assessment & Plan: Patient was given lactulose. (11) Hyperkalemia, diminished renal excretion Status: Acute Assessment & Plan: Patient is being restarted on her at home sliding insulin which can help lower potassium levels. DEANDRE OREILLY MD 07/01/21 1615: Supervisory-Addendum Brief Verification & Attestation Participated in pt care: history, MDM, physical Personally performed: exam, history, MDM Care discussed with: Medical Student Procedures: n/a I personally saw and examined patient and my findings match those documented by the medical student. Additionally, MRI does show early osteo of distal great toe, consult surgery. MYESHA PADILLA Jul 01, 2021 06:54 DEANDRE OREILLY MD Jul 01, 2021 16:15
[2021-07-01] MEDS: HYDROmorphone 2 MG/ML VIAL (DILAUDID) IVP PRN ×4 (07:44→21:58)
[2021-07-01 08:00] VITALS: BP 100/64
[2021-07-01] MEDS: SENNA W/DOCUSATE (SENOKOT S) TABLET PO SCH ×2 (09:22→19:49)
[2021-07-01] MEDS: FOLIC ACID 1 MG TAB PO SCH (09:22)
[2021-07-01] MEDS: DIVALPROEX EXT RELEASE 500 MG (DEPAKOTE ER) TAB PO SCH (09:22)
[2021-07-01] MEDS: SODIUM BICARBONATE 650 MG TABLET (NON-FORMULARY) PO SCH ×2 (09:22→19:49)
[2021-07-01] MEDS: MEROPENEM 500 MG/SWFI 10 ML IV PUSH IV SCH ×4 (09:22→17:34)
[2021-07-01] MEDS: FERROUS SULF 325 MG (IRON) TAB PO SCH (09:23)
--- NOTE | 2021-07-01 09:58 | Diagnostic Imaging Report ---
Exam: MRI left foot without contrast. Date: July 01, 2021. Indication: 36-year-old female, history of fungal infection of left great toe. Redness and pain of the left great toe. Comparison: Left foot radiographs June 30, 2021. Technique: Multiple noncontrast MR sequences of the left foot were obtained. Findings: There is a dorsal skin defect at the level of the first distal phalanx which nearly directly contacts the bone. Although there is no cortical or bone destruction or clear T1 marrow signal loss, there is abnormal edema-like signal in the first distal phalanx most compatible with early osteomyelitis with the marrow signal abnormalities approximately 7 mm distal to the articulating surface. The additional bone marrow signal is unremarkable. The joint spaces are well preserved. There is no joint effusion. The imaged tendons are intact and without evidence of tenosynovitis. The Lisfranc ligament proper is intact. There is no prominent fatty muscle atrophy. There is no identified focal fluid collection or abscess on noncontrast imaging assessment. Impression: 1. Dorsal skin defect at the level of the first distal phalanx with adjacent early osteomyelitis of the first distal phalanx. 2. No identified focal fluid collection or abscess. 3. No findings to suggest septic arthritis or an infectious tenosynovitis. Dictated by: Dictated on workstation # [id number]
[2021-07-01] MEDS: ONDANSETRON 4 MG/2 ML (SDV) Z0FRAN IVP PRN (09:59)
[2021-07-01 11:16] VITALS: BP 104/67
[2021-07-01] MEDS ORDERED: LACTULOSE SYRUP 10GM/15ML (ENULOSE) 30ML UDC PO ONE (12:15)
--- NOTE | 2021-07-01 13:30 | Consultation - Surgery ---
SHAHANA GONZALEZ MED STUDENT 07/01/21 1330: History of Present Illness History of Present Illness Patient Consulted On(leanne/time) 07/01/21 13:29 Date Seen by Provider: Jul 01, 2021 Time Seen by Provider: 13:30 Reason for Visit: osteomyelitis of L big toe History of Present Illness Surgery consult for: osteomyelitis 36 y/o F presented to ED with a chief complaint of UTI and foot pain and significant history of kidney disease, not on dialysis or medication. A year ago, the patient noticed a white spot on the side of her L big toe and thought it was a blister so she ignored it. It worsened and became infected with an in grown toenail. She had the toenail removed in Jul 2020 in [place]. In March, Dr. Edge (wool broker) did a drainage of a fungal infection but she never received a report on the microbio. Last month, she had a skin graft and was given antibiotics. Last week she noticed pain in her L toe again. She states that her toe is sensitive to light touch. She can't put on shoes or have blankets touch it without pain occurring. It feels like "needles". She states it's a burning/aching sensation. She hasn't noticed drainage but states it feels like it drains. She is ambulatory and avoids walking on her big toe. She was supposed to see Dr. Tolbert yesterday but was admitted to the hospital meenu and never made it to her appointment. He had told her to elevate her foot, use ice, and keep it open however, ice is too sensitive. She denies fever, CALLAHAN, or chills. X- ray and MRI of the toe indicate osteomyelitis. Allergies and Home Medications Allergies Coded Allergies: cephalexin (Verified Allergy, Severe, 12/16/19) SEIZURES cinnamon (Verified Allergy, Severe, Anaphylaxis, 12/16/19) levetiracetam (Verified Allergy, Intermediate, seizures, 05/19/21) aspirin (Verified Allergy, Unknown, 12/16/19) Patient Home Medication List Acetaminophen (Tylenol Extra Strength) 500 Mg Tablet, 1,000 MG PO Q8H PRN for PAIN-MILD (1-4), (Reported) Entered as Reported by: KALEE MERCEDES on 05/19/21 0412 Last Action: Reviewed Divalproex Sodium (Depakote ER) 500 Mg Tab.er.24h, 500 MG PO HS, (Reported) Entered as Reported by: KALEE MERCEDES on 05/19/211134 Last Action: Reviewed Ferrous Sulfate (Iron) 325 Mg Tablet, 325 MG PO DAILY, (Reported) Entered as Reported by: KALEE MERCEDES on 05/19/211134 Last Action: Continued Folic Acid (Folic Acid) 1 Mg Tablet, 1 MG PO DAILY, (Reported) Entered as Reported by: KALEE MERCEDES on 06/30/21 100 Last Action: Continued Insulin Lispro (Humalog Kwikpen) 100 Unit/1 Ml Insuln.pen, UNIT SQ SLIDING/SCALE, (Reported) Entered as Reported by: KALEE MERCEDES on 05/19/211134 Last Action: Reviewed Methylcellulose (Fiber) 500 Mg Tablet, 1,000 MG PO BID, (Reported) Entered as Reported by: KALEE MERCEDES on 05/19/211134 Last Action: Reviewed Pantoprazole Sodium (Pantoprazole Sodium) 40 Mg Tablet.dr, 40 MG PO DAILY, (Rep orted) Entered as Reported by: KALEE MERCEDES on 06/30/21958 Last Action: Held Sennosides/Docusate Sodium (Senna-S Tablet) 1 Each Tablet, 2 EACH PO BID, (Reported) Entered as Reported by: KALEE MERCEDES on 06/30/21958 Last Action: Continued Sodium Bicarbonate (Sodium Bicarbonate) 650 Mg Tablet, 650 MG PO BID, (Reported) Entered as Reported by: KALEE MERCEDES on 06/30/21958 Last Action: Continued Past Lnbntzj-Eenmuq-Wcljft Hx Patient Social History Drug of Choice: METH--DENIES IV USE Smoking Status: Former Smoker (Smoked a few cigarettes in high school) Type Used: Cigarettes 2nd Hand Smoke Exposure: No Recent Hopitalizations: Yes (Was hospitalized for kidney failure last month) Physical Abuse Screen: No Sexual Abuse: No Alcohol Use?: No Substance type: Other (Patient admitted to using illegal drugs 10 years ago but did not want to disclose what type of drug it was) Have you traveled recently?: No Immunizations Up To Date Tetanus Booster (TDap): Unknown Seasonal Allergies Seasonal Allergies: No Surgeries History of Surgeries: Yes (KIDNEY STONE REMOVAL X 2; URETERAL STENTS X 5) Surgeries: Orthopedic (L toe nail skin graft 2020), Renal (bilateral ureteral shunts, PCNL) Respiratory History of Respiratory Disorde: No Cardiovascular History of Cardiac Disorders: No Cardiac Disorders: Heart Attack, Palpitations Neurological History of Neurological Disord: Yes (SEIZURES DX AGE 26-UNKNOWN CAUSE--NON-COMPLIANT IN ALL ASPECTS OF CARE) Neurological Disorders: Seizure Disorder (for past 6 years, last seizure was monday) Reproductive System Hx Reproductive Disorders: No Genitourinary History of Genitourinary Disor: Yes (CHRONIC KIDNEY DISEASE;KIDNEY STONE REMOVAL X 2;URETERAL STENTS X 5) Genitourinary Disorders: Kidney Stones, Renal Failure, UTI-Chronic Gastrointestinal History of Gastrointestinal Di: Yes Gastrointestinal Disorders: Gastroesophageal Reflux Musculoskeletal History of Musculoskeletal Dis: No Endocrine History of Endocrine Disorders: Yes (DX AGE 16; NON-COMPLIANT IN ALL ASPECTS OF CARE) Endocrine Disorders: Diabetes, Insulin dep HEENT History of HEENT Disorders: Yes (diabetic retinopathy in R eye) Cancer History of Cancer: No Psychosocial History of Psychiatric Problem: Yes (OCD) Behavioral Health Disorders: Anxiety, PTSD, Bipolar, Depression (Bipolar type ) Integumentary History of Skin or Integumenta: No Blood Transfusions History of Blood Disorders: No Family Medical History Significant Family History: Heart Disease (grandma), Diabetes (mom), Psychiatric Problems (mom - bipolar) Family Medial History: Diabetes mellitus 19 MOTHER FH: bipolar disorder 19 MOTHER Hypertension 19 MOTHER Review of Systems-General Constitutional: chills; No diaphoresis, No dizziness, No fever EENTM: blurred vision; No ear discharge, No hearing loss, No ear pain Respiratory: No cough, No dyspnea on exertion, No short of breath Cardiovascular: No chest pain, No palpitations Gastrointestinal: abdominal pain (due to kidneys), constipation; No diarrhea Genitourinary: No decreased output; dysuria, frequency; No hematuria Musculoskeletal: back pain (kidneys) Skin: change in color (redness of L big toe) Psychiatric/Neurological: Anxiety, Depressed; Denies Headache, Denies Numbness; Paresthesia Physical Exam-General Problems Physical Exam Vital Signs Vital Signs - First Documented 06/29/21 18:12 Temp 36.1 Pulse 104 Resp 18 B/P (MAP) 134/104 (114) Pulse Ox 99 O2 Delivery Room Air Capillary Refill : Less Than 3 Seconds General Appearance: WD/WN, no apparent distress Eyes: Bilateral Eye PERRL, Bilateral Eye EOMI Neck: non-tender, full range of motion, supple, normal inspection Respiratory: chest non-tender, lungs clear, normal breath sounds, no respiratory distress, no accessory muscle use Cardiovascular: regular rate, rhythm, no murmur Gastrointestinal: normal bowel sounds, soft, tenderness (L sided due to kidney disease/pain) Extremities: normal range of motion, non-tender, normal inspection, no pedal edema, calf tenderness (R LE) Neurologic/Psychiatric: washer meat II-XII nml as tested, no motor/sensory deficits, alert, normal mood/affect, oriented x 3 Skin: warm/dry, other (erythematous and mildly swollen L big toe to 1st metatarsal. Very sensitive to light touch) Data Review Labs Laboratory Tests 06/30/21 15:51: Glucometer 155H 06/30/21 17:41: Sodium Level 131L, Potassium Level 5.1H, Chloride Level 109H, Carbon Dioxide Level 16L, Anion Gap 6, Blood Urea Nitrogen 68H, Creatinine 3.02H, Estimat Glomerular Filtration Rate 18, BUN/Creatinine Ratio 23, Glucose Level 173H, Calcium Level 8.8 06/30/21 20:27: Glucometer 150H 07/01/21 05:40: Glucometer 108 07/01/21 06:20: White Blood Count 10.3, Red Blood Count 2.93L, Hemoglobin 7.3L, Hematocrit 24L, Mean Corpuscular Volume 82, Mean Corpuscular Hemoglobin 25, Mean Corpuscular Hemoglobin Concent 30L, Red Cell Distribution Width 15.4H, Platelet Count 272, Mean Platelet Volume 9.1, Sodium Level 134L, Potassium Level 5.1H, Chloride Level 114H, Carbon Dioxide Level 13L, Anion Gap 7, Blood Urea Nitrogen 55H, Creatinine 2.56#H, Estimat Glomerular Filtration Rate 21, BUN/Creatinine Ratio 21, Glucose Level 107H, Calcium Level 9.0 07/01/21 11:19: Glucometer 100 Microbiology 06/29/21 Blood Culture - Preliminary, Resulted No growth 06/29/21 Urine Culture - Preliminary, Resulted Slight Growth Present Radiology NAME: JOE HUBER Pamela [facility] REC#: [id number] PT STATUS: ADM IN : 1985 PHYSICIAN: DEANDRE OREILLY MD ADMIT DATE: 06/29/21 Signed Date of Exam:06/30/21 FOOT, LEFT, 2 VIEW INDICATION: Left great toe infection. TECHNIQUE: Two views of the left foot. CORRELATION STUDY: None. FINDINGS: Soft tissue swelling of the great toe is present. There does appear to be slight lucency over the tuft of the toe. The proximal phalanx is intact. The remaining osseous structures are otherwise intact and unremarkable. No soft tissue foreign body. IMPRESSION: Soft tissue swelling of the great toe with what appears to be some early erosion of the tip of the toe. This does raise concern for potential underlying osteomyelitis. If further assessment is desired, MRI would be recommended. Dictated by: Dictated on workstation # [id number] Dict: 06/30/21 1107 Trans: 06/30/211510 [id number] Interpreted by: BROOKLYN LAMBERT DO Electronically signed by: BROOKLYN LAMBERT DO 06/30/211510 NAME: JOE HUBER Pamela [facility] REC#: [id number] PT STATUS: ADM IN : 1985 PHYSICIAN: DEANDRE OREILLY MD ADMIT DATE: 06/29/21 Signed Date of Exam:07/01/21 MRI LT LOWER EXT W/O CON Exam: MRI left foot without contrast. Date: July 01, 2021. Indication: 36-year-old female, history of fungal infection of left great toe. Redness and pain of the left great toe. Comparison: Left foot radiographs June 30, 2021. Technique: Multiple noncontrast MR sequences of the left foot were obtained. Findings: There is a dorsal skin defect at the level of the first distal phalanx which nearly directly contacts the bone. Although there is no cortical or bone destruction or clear T1 marrow signal loss, there is abnormal edema-like signal in the first distal phalanx most compatible with early osteomyelitis with the marrow signal abnormalities approximately 7 mm distal to the articulating surface. The additional bone marrow signal is unremarkable. The joint spaces are well preserved. There is no joint effusion. The imaged tendons are intact and without evidence of tenosynovitis. The Lisfranc ligament proper is intact. There is no prominent fatty muscle atrophy. There is no identified focal fluid collection or abscess on noncontrast imaging assessment. Impression: 1. Dorsal skin defect at the level of the first distal phalanx with adjacent early osteomyelitis of the first distal phalanx. 2. No identified focal fluid collection or abscess. 3. No findings to suggest septic arthritis or an infectious tenosynovitis. Dictated by: Dictated on workstation # [id number] Dict: 07/01/21 0938 Trans: 07/01/21 1306 [facility] [id number] Interpreted by: GOLDY ESPANA MD Electronically signed by: GOLDY ESPANA MD 07/01/21 1306 Assessment/Plan Assessment/Plan Assessment/Plan osteomyelitis of L big toe UTI hyponatremia leukocytosis - improving chronic anemia - trending down Hx of kidney disease, DM, neuropathy,seizures, bipolar, acid reflux, chronic anemia, chronic constipation Patient prefers to have toe amputated than deal with pain and hospital trouble. Blood cultures yield no growth. MRI and x-ray show osteomyelitis. Will obtain consent and discuss procedure and risks. Plan is to do surgery tomorrow. Make patient NPO after midnight. Patient currently on antibiotics, continue abx. Continue IVF for renal failure. On lactulose for constipation. Continue home meds as needed. BRENDA GUTIÉRREZ DO 07/01/21 1656: History of Present Illness History of Present Illness Time Seen by Provider: 16:06 History of Present Illness Pt seen and examined, states she has pain in left 1st toe. Rates it as 4 out of 10, right now. She stated she wants the toe off. Allergies and Home Medications Allergies Coded Allergies: cephalexin (Verified Allergy, Severe, 12/16/19) SEIZURES cinnamon (Verified Allergy, Severe, Anaphylaxis, 12/16/19) levetiracetam (Verified Allergy, Intermediate, seizures, 05/19/21) aspirin (Verified Allergy, Unknown, 12/16/19) Patient Home Medication List Home Medication List Reviewed: Yes Acetaminophen (Tylenol Extra Strength) 500 Mg Tablet, 1,000 MG PO Q8H PRN for PAIN-MILD (1-4), (Reported) Entered as Reported by: KALEE MERCEDES on 05/19/21 8090 Last Action: Reviewed Divalproex Sodium (Depakote ER) 500 Mg Tab.er.24h, 500 MG PO HS, (Reported) Entered as Reported by: KALEE MERCEDES on 05/19/211134 Last Action: Reviewed Ferrous Sulfate (Iron) 325 Mg Tablet, 325 MG PO DAILY, (Reported) Entered as Reported by: KALEE MERCEDES on 05/19/211134 Last Action: Continued Folic Acid (Folic Acid) 1 Mg Tablet, 1 MG PO DAILY, (Reported) Entered as Reported by: KALEE MERCEDES on 06/30/21 100 Last Action: Continued Insulin Lispro (Humalog Kwikpen) 100 Unit/1 Ml Insuln.pen, UNIT SQ SLIDING/SCALE, (Reported) Entered as Reported by: KALEE MERCEDES on 05/19/211134 Last Action: Reviewed Methylcellulose (Fiber) 500 Mg Tablet, 1,000 MG PO BID, (Reported) Entered as Reported by: KALEE MERCEDES on 05/19/211134 Last Action: Reviewed Pantoprazole Sodium (Pantoprazole Sodium) 40 Mg Tablet.dr, 40 MG PO DAILY, (Reported) Entered as Reported by: KALEE MERCEDES on 06/30/21958 Last Action: Held Sennosides/Docusate Sodium (Senna-S Tablet) 1 Each Tablet, 2 EACH PO BID, (Reported) Entered as Reported by: KALEE MERCEDES on 06/30/21958 Last Action: Continued Sodium Bicarbonate (Sodium Bicarbonate) 650 Mg Tablet, 650 MG PO BID, (Reported) Entered as Reported by: KALEE MERCEDES on 06/30/21958 Last Action: Continued Past Jklahsz-Dronrc-Lmvhxx Hx Patient Social History Smoking Status: Current Everyday Smoker Type Used: Cigarettes Surgeries History of Surgeries: Yes Surgeries: Orthopedic (L toe nail skin graft 2020), Renal (bilateral ureteral shunts, PCNL) Respiratory History of Respiratory Disorde: No Cardiovascular History of Cardiac Disorders: Yes Cardiac Disorders: Heart Attack, Palpitations Neurological History of Neurological Disord: Yes Neurological Disorders: Seizure Disorder (for past 6 years, last seizure was monday) Reproductive System : No Genitourinary History of Genitourinary Disor: Yes Genitourinary Disorders: Kidney Infection, Kidney Stones, Renal Failure Gastrointestinal History of Gastrointestinal Di: Yes Gastrointestinal Disorders: Gastroesophageal Reflux Musculoskeletal History of Musculoskeletal Dis: Yes (loss of toenail) Endocrine History of Endocrine Disorders: Yes Endocrine Disorders: Diabetes, Insulin dep HEENT History of HEENT Disorders: Yes (diabetic retinopathy in R eye) Hearing Impairment: Denies Cancer History of Cancer: No Psychosocial History of Psychiatric Problem: Yes Behavioral Health Disorders: Anxiety, PTSD Integumentary History of Skin or Integumenta: No Family Medical History Significant Family History: Heart Disease (grandma), Diabetes (mom), Psychiatric Problems (mom - bipolar) Family Medial History: Diabetes mellitus 19 MOTHER FH: bipolar disorder 19 MOTHER Hypertension 19 MOTHER Review of Systems-General Constitutional: chills; No diaphoresis, No dizziness, No fever EENTM: blurred vision; No ear discharge, No hearing loss, No ear pain Respiratory: No cough, No dyspnea on exertion, No short of breath Cardiovascular: No chest pain, No palpitations Gastrointestinal: abdominal pain (due to kidneys), constipation; No diarrhea Genitourinary: No decreased output; dysuria, frequency; No hematuria Musculoskeletal: back pain (kidneys) Skin: change in color (redness of L big toe), lesions Psychiatric/Neurological: Anxiety, Depressed; Denies Headache, Denies Numbness; Paresthesia Physical Exam-General Problems Physical Exam General Appearance: WD/WN, no apparent distress Eyes: Bilateral Eye PERRL, Bilateral Eye EOMI HEENT: No scleral icterus (R), No scleral icterus (L), No pale conjunctivae (R) , No pale conjunctivae (L) Neck: non-tender, full range of motion, supple, normal inspection Respiratory: chest non-tender, lungs clear, normal breath sounds, no respiratory distress, no accessory muscle use Cardiovascular: regular rate, rhythm, no murmur Gastrointestinal: normal bowel sounds, soft, tenderness (L sided due to kidney disease/pain) Extremities: normal range of motion, non-tender, normal inspection, no pedal edema, calf tenderness (R LE) Neurologic/Psychiatric: washer meat II-XII nml as tested, alert, normal mood/affect, oriented x 3 Skin: warm/dry, other (erythematous and mildly swollen L big toe to 1st metatarsal. Very sensitive to light touch) Lymphatic: no adenopathy (neck, axilla or groin) Assessment/Plan Assessment/Plan Assessment/Plan osteomyelitis of L big toe UTI hyponatremia leukocytosis - improving chronic anemia - trending down Hx of kidney disease, DM, neuropathy,seizures, bipolar, acid reflux, chronic anemia, chronic constipation Patient prefers to have toe amputated than deal with pain and hospital trouble. Blood cultures yield no growth. MRI and x-ray show osteomyelitis. Will obtain consent and discuss procedure and risks. Plan is to do surgery tomorrow. Make patient NPO after midnight. Patient currently on antibiotics, continue abx. Continue IVF for renal failure. On lactulose for constipation. Continue home meds as needed. Supervisory-Addendum Brief Verification & Attestation Participated in pt care: history, MDM, physical Personally performed: exam, history, MDM, supervision of care Care discussed with: Medical Student Procedures: n/a Verification and Attestation of Medical Student E/M Service A medical student performed and documented this service. I then reviewed and verified all information documented by the medical student and made modifications to such information, when appropriate. I personally performed a physical exam, medical decision making and then discussed any differences between the notes and made revisions as necessary to create one note. Brenda Gutiérrez , 07/01/21 , 17:14 SHAHANA GONZALEZ MED STUDENT Jul 01, 2021 13:30 BRENDA GUTIÉRREZ DO Jul 01, 2021 16:56
[2021-07-01 15:59] VITALS: BP 99/61
[2021-07-01 20:00] VITALS: BP 120/72
[2021-07-01 23:30] VITALS: BP 139/80
[2021-07-02] VITALS (13 sets, daily range): BP systolic 100–133; BP diastolic 59–89
[2021-07-02] MEDS: MEROPENEM 500 MG/SWFI 10 ML IV PUSH IV SCH ×6 (00:05→16:23)
[2021-07-02] MEDS: diphenhydrAMINE 25 MG TAB (BENADRYL) PO PRN ×2 (00:05→21:53)
[2021-07-02] MEDS: HYDROcodone/APAP 5 MG/325 MG (LORTAB) TAB PO PRN ×3 (00:05→21:06)
[2021-07-02] MEDS: HYDROmorphone 2 MG/ML VIAL (DILAUDID) IVP PRN ×8 (01:11→23:44)
[2021-07-02] MEDS: NS IV 1000 ML 1,000 ML IV SCH ×4 (04:58→22:56)
[2021-07-02] MEDS: inSUlin ASPART (NovoLOG) 1 UNIT/0.01 ML (CHARGE PER UNIT) SC SCH ×4 (05:40→21:02)
[2021-07-02 06:21] LABS: BASOPHILS # (AUTO) 0.1 10^3/uL (0.0-0.1); BASOPHILS % (AUTO) 1 % (0-10); EOSINOPHILS # (AUTO) 0.3 10^3/uL (0.0-0.3); EOSINOPHILS % (AUTO) 3 % (0-10); HEMATOCRIT 25 % (35-52); HEMOGLOBIN 7.5 g/dL (11.5-16.0); LYMPHOCYTES # (AUTO) 1.8 10^3/uL (1.0-4.0); LYMPHOCYTES % (AUTO) 20 % (12-44); MEAN CORPUSCULAR HEMOGLOBIN 25 pg (25-34); MEAN CORPUSCULAR HGB CONC 30 g/dL (32-36); MEAN CORPUSCULAR VOLUME 83 fL (80-99); MEAN PLATELET VOLUME 9.5 fL (9.0-12.2); MONOCYTES # (AUTO) 0.7 10^3/uL (0.0-1.0); MONOCYTES % (AUTO) 8 % (0-12); NEUTROPHILS % (AUTO) 68 % (42-75); PLATELET COUNT 265 10^3/uL (130-400); WHITE BLOOD COUNT 8.9 10^3/uL (4.3-11.0)
[2021-07-02 06:41] LABS: POTASSIUM 4.9 MMOL/L (3.6-5.0)
[2021-07-02 06:43] LABS: CALCIUM 8.7 MG/DL (8.5-10.1)
[2021-07-02 06:47] LABS: CREATININE SERUM 2.05 MG/DL (0.60-1.30)
--- NOTE | 2021-07-02 08:21 | Progress Note ---
MYESHA PADILLA 07/02/21 0821: Subjective Subjective/Events-last exam Verónica is a 36yo F hospitalized for toe pain and acute renal failure. Patient denied any new symptoms today. Is on IV pain medication for toe pain and body aches because the patient is NPO right now for surgery, but is able to take oral pain medication. Scheduled to have toe amputated today. Patients back still aches but has improved since admission. Patient concerned about constipation when she leaves the hospital. Review of Systems General: No Fatigue HEENT: Head Aches (Patient has a small headache today); No Post Nasal Drip Pulmonary: No Cough Cardiovascular: No: Chest Pain, Edema Gastrointestinal: No: Nausea, Vomiting Genitourinary: Dysuria (Has improved since being admitted) Musculoskeletal: back pain (Patient still has some tenderness in lower back) Neurological: No: Weakness, Change in speech, Confusion Focused Exam Lactate Level 06/29/21 20:36: Lactic Acid Level 1.05 Respiratory: Chest Non Tender, Lungs Clear, Normal Breath Sounds, No Accessory Muscle Use Cardiovascular: Regular Rate, Rhythm, No Edema, No Murmur Capillary Refill: Less Than 3 Seconds Peripheral Pulses: 3+ Radial Pulses (R) Skin: normal color Objective Exam Last Set of Vital Signs Vital Signs Date Time Temp Pulse Resp B/P (MAP) Pulse Ox O2 Delivery O2 Flow Rate FiO2 07/02/21 03:20 37.0 83 18 101/59 (73) 97 07/01/21 20:00 Room Air Capillary Refill : Less Than 3 Seconds I&O Intake and Output 07/02/21 00:00 Intake Total 2960 ml Balance 2960 ml Intake Oral 1960 ml IV Total 1000 ml # Voids 14 General: Alert, Oriented X3, Cooperative, No Acute Distress HEENT: Atraumatic Neck: Supple Lungs: Clear to Auscultation Heart: Regular Rate, No Murmurs Abdomen: Normal Bowel Sounds Extremities: No Clubbing, No Cyanosis, No Edema Skin: No Rashes Neuro: Normal Gait, Normal Speech, Normal Tone Results/Procedures Lab Laboratory Tests 07/01/21 11:19: Glucometer 100 07/01/21 15:42: Glucometer 178H 07/01/21 18:00: Influenza Type A (RT-PCR) Not Detected, Influenza Type B (RT-PCR) Not Detected, SARS-CoV-2 RNA (RT-PCR) Not Detected 07/01/21 19:57: Glucometer 140H 07/02/21 05:19: White Blood Count 8.9, Red Blood Count 2.98L, Hemoglobin 7.5L, Hematocrit 25L, Mean Corpuscular Volume 83, Mean Corpuscular Hemoglobin 25, Mean Corpuscular Hemoglobin Concent 30L, Red Cell Distribution Width 15.6H, Platelet Count 265, Mean Platelet Volume 9.5, Immature Granulocyte % (Auto) 1, Neutrophils (%) (Auto) 68, Lymphocytes (%) (Auto) 20, Monocytes (%) (Auto) 8, Eosinophils (%) (Auto) 3, Basophils (%) (Auto) 1, Neutrophils # (Auto) 6.0, Lymphocytes # (Auto) 1.8, Monocytes # (Auto) 0.7, Eosinophils # (Auto) 0.3, Basophils # (Auto) 0.1, Immature Granulocyte # (Auto) 0.1, Sodium Level 133L, Potassium Level 4.9, Chloride Level 115H, Carbon Dioxide Level 12L, Anion Gap 6, Blood Urea Nitrogen 43H, Creatinine 2.05H, Estimat Glomerular Filtration Rate 28, BUN/Creatinine Ratio 21, Glucose Level 109H, Calcium Level 8.7 07/02/21 05:40: Glucometer 122H Microbiology 06/29/21 Blood Culture - Preliminary, Resulted No growth 06/29/21 Urine Culture - Preliminary, Resulted Slight Growth Present Radiology Assessment/Plan Assessment/Plan Admission Dx Acute kidney failure and toe pain Admission Status: Inpatient Order (span 2 midnights) Reason for Inpatient Admission: Osteomyelitis of left first toe (1) Hyponatremia Onset Date: ~ 06/29/2021 Status: Acute Assessment & Plan: Na has been maintained just below normal values. Patient will continue to have IV sodium chloride to raise sodium levels and prevent dehydration (2) Chronic anemia Status: Chronic Assessment & Plan: Anemia has improved but still not within normal limits. Patient will continue to take at home iron medication. (3) CKD (chronic kidney disease) Status: Chronic Assessment & Plan: Patient is being given oral fluids and IV fluids to keep her hydrated. Creatinine has gone down from 2.56 to 2.05 and GFR has improved from 21 to 28 so kidney function is improving. Qualifiers: Qualified Codes: N18.9 - Chronic kidney disease, unspecified (4) Renal failure, acute on chronic Onset Date: ~ 06/29/2021 Status: Acute Assessment & Plan: Patient is being given oral fluids and IV fluids. Creatinine and GFR is continuing to improve from yesterday. Qualifiers: Qualified Codes: N17.9 - Acute kidney failure, unspecified; N18.9 - Chronic kidney disease, unspecified (5) Urinary tract infection Onset Date: ~ 06/29/2021 Status: Acute Assessment & Plan: Patient was started on IV meropenem 10 ml @ 200 ml/hour and will continue treatment. Patient having less dysuria. (6) DVT prophylaxis Status: Acute Assessment & Plan: Heparin (7) Seizure disorder Status: Chronic Assessment & Plan: Will continue to administer Divalproex sodium which is a medication taken at home (8) Diabetes type 1, controlled Status: Chronic Assessment & Plan: Patient is being administed sliding insulin which the patient was taking at home. Blood sugars will be checked and patient is on a diabetic diet. Qualifiers: (9) Bipolar disorder Status: Chronic Assessment & Plan: Is currently stable with no complications. (10) Constipation Assessment & Plan: Patient was given lactulose. (11) Hyperkalemia, diminished renal excretion Status: Acute Assessment & Plan: Patient is being restarted on her at home sliding insulin which can help lower potassium levels. (12) Osteomyelitis Status: Acute Assessment & Plan: Surgery amputating the infected toe today. Qualifiers: Qualified Codes: M86.9 - Osteomyelitis, unspecified DEANDRE OREILLY MD 07/02/21 2143: Supervisory-Addendum Brief Verification & Attestation Participated in pt care: history, MDM, physical Personally performed: exam, history, MDM Care discussed with: Medical Student Procedures: n/a I personally saw and examined patient and did my own history and exam. Agree with documentation by the medical student. MYESHA PADILLA Jul 02, 2021 08:21 DEANDRE OREILLY MD Jul 02, 2021 21:43
--- NOTE | 2021-07-02 08:44 | Progress Note - Surgery ---
SHAHANA GONZALEZ MED STUDENT 07/02/21 0844: Subjective Date Seen by a Provider: Jul 02, 2021 Time Seen by a Provider: 08:30 Subjective/Events-last exam surgery consult for osteomyelitis today: Patient states she stubbed her toe last night on the IV pole and it continues to hurt this morning. She states it's super tender. She is ready for surgery. She ambulated yesterday with some pain/difficulty. She is NPO and had a BM last night. She has some burning with urination due to the UTI. Review of Systems General: No Chills, No Night Sweats; Fatigue; No Malaise HEENT: No Head Aches, No Visual Changes, No Eye Pain, No Ear Pain Pulmonary: No Dyspnea, No Cough Cardiovascular: No: Chest Pain, Palpitations Gastrointestinal: No: Nausea, Vomiting, Abdominal Pain Genitourinary: Dysuria; No Frequency Musculoskeletal: other (toe pain) Neurological: Incoordination; No: Weakness, Numbness Focused Exam Lactate Level 06/29/21 20:36: Lactic Acid Level 1.05 Objective Exam Vital Signs Date Time Temp Pulse Resp B/P (MAP) Pulse Ox O2 Delivery O2 Flow Rate FiO2 07/02/21 08:23 36.1 90 16 126/77 (93) 100 Room Air 07/02/21 03:20 37.0 83 18 101/59 (73) 97 07/01/21 23:30 37.0 100 20 139/80 (99) 99 07/01/21 20:00 37.6 93 18 120/72 (88) 96 Room Air 07/01/21 19:50 Room Air 07/01/21 15:59 36.6 86 18 99/61 (74) 98 Room Air 07/01/21 11:16 37.0 89 16 104/67 (79) 98 Room Air I & O 07/02/21 07:00 Intake Total 1720 ml Balance 1720 ml Capillary Refill : Less Than 3 Seconds General Appearance: WD/WN, Mild Distress HEENT: PERRL/EOMI; No Scleral Icterus (L), No Scleral Icterus (R) Neck: Full Range of Motion, Non Tender, Supple; No Lymphadenopathy (L), No Lymphadenopathy (R) Respiratory: Lungs Clear, Normal Breath Sounds, No Respiratory Distress Cardiovascular: Regular Rate, Rhythm, No Murmur Peripheral Pulses: 3+ Radial Pulses (R), 3+ Radial Pulses (L) Gastrointestinal: normal bowel sounds, soft, tenderness (L sided due to kidney disease/pain) Extremity: Normal Capillary Refill, No Pedal Edema, Calf Tenderness, Other (non-erythematous, non-edematous L big toe. Black graft present over nail bed. ) Neurologic/Psychiatric: Alert, Oriented x3, Normal Mood/Affect Skin: Normal Color, Warm/Dry; No Diaphoresis Lymphatic: No Adenopathy Results Lab Laboratory Tests 07/01/21 11:19: Glucometer 100 07/01/21 15:42: Glucometer 178H 07/01/21 18:00: Influenza Type A (RT-PCR) Not Detected, Influenza Type B (RT-PCR) Not Detected, SARS-CoV-2 RNA (RT-PCR) Not Detected 07/01/21 19:57: Glucometer 140H 07/02/21 05:19: White Blood Count 8.9, Red Blood Count 2.98L, Hemoglobin 7.5L, Hematocrit 25L, Mean Corpuscular Volume 83, Mean Corpuscular Hemoglobin 25, Mean Corpuscular Hemoglobin Concent 30L, Red Cell Distribution Width 15.6H, Platelet Count 265, Mean Platelet Volume 9.5, Immature Granulocyte % (Auto) 1, Neutrophils (%) (Auto) 68, Lymphocytes (%) (Auto) 20, Monocytes (%) (Auto) 8, Eosinophils (%) (Auto) 3, Basophils (%) (Auto) 1, Neutrophils # (Auto) 6.0, Lymphocytes # (Auto) 1.8, Monocytes # (Auto) 0.7, Eosinophils # (Auto) 0.3, Basophils # (Auto) 0.1, Immature Granulocyte # (Auto) 0.1, Sodium Level 133L, Potassium Level 4.9, Chloride Level 115H, Carbon Dioxide Level 12L, Anion Gap 6, Blood Urea Nitrogen 43H, Creatinine 2.05H, Estimat Glomerular Filtration Rate 28, BUN/Creatinine Ratio 21, Glucose Level 109H, Calcium Level 8.7 07/02/21 05:40: Glucometer 122H Microbiology 06/29/21 Blood Culture - Preliminary, Resulted No growth 06/29/21 Urine Culture - Preliminary, Resulted Slight Growth Present Assessment/Plan Assessment/Plan Assessment/Plan osteomyelitis of L big toe UTI hyponatremia leukocytosis - improving chronic anemia - trending down Hx of kidney disease, DM, neuropathy,seizures, bipolar, acid reflux, chronic anemia, chronic constipation Patient prefers to have toe amputated than deal with pain and hospital trouble. Blood cultures yield no growth. MRI and x-ray show osteomyelitis. Consent was obtained for amputation yesterday. Discuss procedure and risks. Plan is to do surgery today around noon. Patient was NPO after midnight. Patient currently on antibiotics, continue abx. Continue IVF for renal failure. On lactulose for con stipation. Continue home meds as needed after surgery. WILSON GUTIÉRREZ DO 07/02/21 1002: Subjective Time Seen by a Provider: 09:01 Subjective/Events-last exam Pt seen and examined, no changes; still has pain in toe. Review of Systems General: No Chills, No Night Sweats; Fatigue Pulmonary: No Dyspnea, No Cough Cardiovascular: No: Chest Pain, Palpitations Gastrointestinal: No: Nausea, Vomiting, Abdominal Pain Objective Exam General Appearance: Mild Distress Respiratory: Lungs Clear, Normal Breath Sounds, No Respiratory Distress Cardiovascular: Regular Rate, Rhythm, No Murmur Extremity: Other (non-erythematous, non-edematous L big toe. Black graft present over nail bed. ) Assessment/Plan Assessment/Plan Assessment/Plan osteomyelitis of L big toe UTI hyponatremia leukocytosis - improving chronic anemia - trending down Hx of kidney disease, DM, neuropathy,seizures, bipolar, acid reflux, chronic anemia, chronic constipation Plan is amputation today around noon; will be done by Dr. Ha. Patient was NPO after midnight. Patient currently on antibiotics, continue abx. Continue IVF for renal failure. On lactulose for constipation. Continue home meds as needed after surgery. Supervisory-Addendum Brief Verification & Attestation Participated in pt care: history, MDM, physical Personally performed: exam, history, MDM, supervision of care Care discussed with: Medical Student Procedures: n/a Verification and Attestation of Medical Student E/M Service A medical student performed and documented this service. I then reviewed and verified all information documented by the medical student and made modifications to such information, when appropriate. I personally performed a physical exam, medical decision making and then discussed any differences between the notes and made revisions as necessary to create one note. Wilson Gutiérrez , 07/02/21 , 10:01 SHAHANA GONZALEZ MED STUDENT Jul 02, 2021 08:44 WILSON GUTIÉRREZ DO Jul 02, 2021 10:02
[2021-07-02] MEDS: SENNA W/DOCUSATE (SENOKOT S) TABLET PO SCH ×2 (09:00→21:06)
[2021-07-02] MEDS: FOLIC ACID 1 MG TAB PO SCH (09:00)
[2021-07-02] MEDS: FERROUS SULF 325 MG (IRON) TAB PO SCH (09:00)
[2021-07-02] MEDS: DIVALPROEX EXT RELEASE 500 MG (DEPAKOTE ER) TAB PO SCH (09:00)
[2021-07-02] MEDS: SODIUM BICARBONATE 650 MG TABLET (NON-FORMULARY) PO SCH ×2 (09:00→21:06)
[2021-07-02 09:51] LABS: AMPHETAMINE SCREEN, URINE NEGATIVE (NEGATIVE); BARBITURATE SCREEN URINE NEGATIVE (NEGATIVE); BENZODIAZEPINES SCREEN URINE NEGATIVE (NEGATIVE); CANNABINOID SCREEN, URINE NEGATIVE (NEGATIVE); COCAINE SCREEN URINE NEGATIVE (NEGATIVE); METHADONE STAT NEGATIVE (NEGATIVE); METHAMPHETAMINE SCREEN URINE S NEGATIVE (NEGATIVE); OPIATE SCREEN URINE POSITIVE (NEGATIVE); OXYCODONE STAT NEGATIVE (NEGATIVE); PROPOXYPHENE STAT NEGATIVE (NEGATIVE); TRICYCLIC ANTIDEPRESSANTS SCRE NEGATIVE (NEGATIVE)
[2021-07-02] MEDS: LACTATED RINGERS 1,000 ML IV PRN ×2 (13:43→14:57)
[2021-07-02] MEDS ORDERED: fentaNYL INJ 100 MCG/2 ML AMP ONE (14:02)
[2021-07-02] MEDS ORDERED: MIDAZOLAM 2 MG/2 ML (VERSED) VIAL ONE (14:02)
[2021-07-02] MEDS ORDERED: proPOfol 200 MG/20 ML (DIPRIVAN) VIAL IV ONE (14:02)
[2021-07-02] MEDS ORDERED: LIDOCAINE PF 2% 5 ML (XYLOCAINE) VIAL ONE (14:02)
[2021-07-02] MEDS ORDERED: LACTATED RINGERS 1,000 ML IV PRN (15:00)
[2021-07-02] MEDS ORDERED: ONDANSETRON 4 MG/2 ML (SDV) Z0FRAN IVP PRN (15:15)
[2021-07-02] MEDS ORDERED: fentaNYL INJ 100 MCG/2 ML AMP IVP ONE (15:15)
[2021-07-02] MEDS ORDERED: morphine INJ 10 MG/ML 1ML (SYR OR VIAL) IVP ONE (15:15)
[2021-07-02] MEDS ORDERED: MEPERIDINE (DEMEROL) INJ 50 MG/ML IVP ONE (15:15)
[2021-07-02] MEDS ORDERED: morphine INJ 10 MG/ML 1ML (SYR OR VIAL) ONE (15:16)
[2021-07-02] MEDS ORDERED: LORazepam INJ 2 MG/ML (ATIVAN) VIAL ONE (20:04)
[2021-07-02] MEDS ORDERED: LORazepam INJ 2 MG/ML (ATIVAN) VIAL IVP NR (20:15)
[2021-07-02] MEDS ORDERED: DIVALPROEX EXT RELEASE 500 MG (DEPAKOTE ER) TAB PO SCH (21:00)
[2021-07-02] MEDS ORDERED: DIVALPROEX 500 MG DELAYED RELEASE (DEPAKOTE) TAB PO ONE (21:03)
[2021-07-02] MEDS: DIVALPROEX 500 MG DELAYED RELEASE (DEPAKOTE) TAB PO SCH (21:07)
[2021-07-02] MEDS: ONDANSETRON 4 MG/2 ML (SDV) Z0FRAN IVP PRN (21:48)
--- NOTE | 2021-07-02 23:47 | OPERATIVE REPORT ---
DATE OF SERVICE: 07/02/2021 PREOPERATIVE DIAGNOSIS: Osteomyelitis of the left great toe. POSTOPERATIVE DIAGNOSIS: Osteomyelitis of the left great toe. PROCEDURE: Left great toe amputation. SURGEON: Mike Ha DO ANESTHESIA: General. ESTIMATED BLOOD LOSS: Minimal. COMPLICATIONS: None. INDICATIONS: The patient is a 36-year-old female who states she has been having problems with her left great toe and infection for approximately a year. The patient has had recent grafting performed on the distal portion as well. She returns to the hospital with pain and findings consistent with osteomyelitis of the distal phalange of the great toe. The patient was discussed risks and benefits of having amputation of left great toe and wishes to proceed. Consent was signed in the chart. DESCRIPTION OF PROCEDURE: The patient was taken to the operating suite. She was prepped and draped in sterile fashion. Timeout was performed. A 15-blade scalpel was used to make an incision around the base of the left great toe. Cautery was used to dissect down through the subcutaneous tissue through the muscle and tendons all the way back down through to the metacarpophalangeal joint. Once this was encountered, careful dissection was used until the joint capsule was divided and the toe was completely removed. The distal portion of the metacarpal bone had no evidence of any infection. A culture of the joint was obtained as well. The wound was then irrigated with copious amounts of irrigation. The skin was then closed using 2-0 Prolene in a vertical mattress fashion. The area was then washed, and dried and sterile bandages were applied. The patient tolerated procedure well without any complications. She was taken to recovery room in stable condition. Job ID: [id number] DocumentID: [id number] Dictated Date: 07/02/2021 19:01:59 Consumer Loan Officer Date: 07/02/2021 23:46:40 Dictated By: MIKE HA DO
[2021-07-03] MEDS: MEROPENEM 500 MG/SWFI 10 ML IV PUSH IV SCH ×6 (00:21→16:48)
[2021-07-03] MEDS: HYDROmorphone 2 MG/ML VIAL (DILAUDID) IVP PRN ×10 (01:56→22:33)
[2021-07-03] MEDS: HYDROcodone/APAP 5 MG/325 MG (LORTAB) TAB PO PRN ×5 (02:05→21:29)
[2021-07-03 04:43] VITALS: BP 115/56
[2021-07-03] MEDS: inSUlin ASPART (NovoLOG) 1 UNIT/0.01 ML (CHARGE PER UNIT) SC SCH ×4 (05:24→21:28)
[2021-07-03 06:57] LABS: HEMATOCRIT 26 % (35-52); HEMOGLOBIN 7.8 g/dL (11.5-16.0); MEAN CORPUSCULAR HEMOGLOBIN 25 pg (25-34); MEAN CORPUSCULAR HGB CONC 30 g/dL (32-36); MEAN CORPUSCULAR VOLUME 84 fL (80-99); MEAN PLATELET VOLUME 9.7 fL (9.0-12.2); PLATELET COUNT 244 10^3/uL (130-400); WHITE BLOOD COUNT 7.6 10^3/uL (4.3-11.0)
[2021-07-03] MEDS: NS IV 1000 ML 1,000 ML IV SCH ×3 (06:59→16:48)
[2021-07-03 07:12] LABS: POTASSIUM 5.4 MMOL/L (3.6-5.0)
[2021-07-03 07:14] LABS: CALCIUM 8.5 MG/DL (8.5-10.1)
[2021-07-03 07:18] LABS: CREATININE SERUM 2.19 MG/DL (0.60-1.30)
--- NOTE | 2021-07-03 07:31 | Anesthesia-General Post-Op ---
General Patient Condition Mental Status/LOC: Same as Preop Cardiovascular: Satisfactory Nausea/Vomiting: Absent Respiratory: Satisfactory Pain: Controlled Complications: Absent Post Op Complications Complications None Follow Up Care/Instructions Patient Instructions None needed. Anesthesia/Patient Condition Patient Condition Patient is doing well, no complaints, stable vital signs, no apparent adverse anesthesia problems. No complications reported per nursing. FARHANA SHARP CRNA Jul 03, 2021 07:31
[2021-07-03] MEDS: FOLIC ACID 1 MG TAB PO SCH (08:07)
[2021-07-03] MEDS: SODIUM BICARBONATE 650 MG TABLET (NON-FORMULARY) PO SCH ×2 (08:08→20:23)
[2021-07-03] MEDS: SENNA W/DOCUSATE (SENOKOT S) TABLET PO SCH ×2 (08:08→20:23)
[2021-07-03] MEDS: DIVALPROEX 500 MG DELAYED RELEASE (DEPAKOTE) TAB PO SCH ×2 (08:12→20:23)
--- NOTE | 2021-07-03 08:24 | Progress Note - Surgery ---
MERCEDES VALLEJO 07/03/21 0824: Subjective Date Seen by a Provider: Jul 03, 2021 Time Seen by a Provider: 07:45 Subjective/Events-last exam Patient is S/P left Hallux amputation. She reports that her pain is a 9/10 and has been very bad since the surgery, even with IV pain medication. She is unable to move around without help. She has had the chills since surgery. She had a seizure last night, and does not remember anything from the time of seizure onset at approximately 745pm last night until midnight. Her partner reports that her speech was difficult to understand during that time frame. Her speech and memory have returned to normal since then. Patient denies any nausea/vomiting. Objective Exam Vital Signs Date Time Temp Pulse Resp B/P (MAP) Pulse Ox O2 Delivery O2 Flow Rate FiO2 07/03/21 04:43 37.4 100 20 115/56 (75) 99 Room Air 07/02/21 23:48 37.9 104 20 116/65 (82) 96 Room Air 07/02/21 20:59 Room Air 07/02/21 20:20 36.3 113 22 127/79 (95) 100 Room Air 07/02/21 16:07 36.0 93 20 133/66 (88) 99 Room Air 07/02/21 15:55 Room Air 07/02/21 15:55 36.7 14 119/82 (94) 97 Room Air 07/02/21 15:50 14 121/76 (91) 97 Room Air 07/02/21 15:45 OxyMask 0.5 07/02/21 15:40 12 116/76 (89) 100 OxyMask 2 07/02/21 15:40 12 116/76 (89) 100 OxyMask 2 07/02/21 15:35 OxyMask 2 07/02/21 15:30 15 127/88 (101) 97 OxyMask 2 07/02/21 15:20 OxyMask 4 07/02/21 15:20 11 127/89 (102) 100 OxyMask 2 07/02/21 15:10 10 106/71 (83) 100 OxyMask 4 07/02/21 15:05 36.4 16 100/61 (74) 97 OxyMask 8 07/02/21 15:05 OxyMask 8 07/02/21 11:52 36.0 91 18 116/74 (88) 100 Room Air 07/02/21 08:23 36.1 90 16 126/77 (93) 100 Room Air I & O 07/03/21 07:00 Intake Total 4527 ml Balance 4527 ml Capillary Refill : Less Than 3 SecondsLess Than 3 Seconds General Appearance: No Apparent Distress, Mild Distress HEENT: PERRL/EOMI; No Scleral Icterus (L), No Scleral Icterus (R) Neck: Normal Inspection, Supple; No Lymphadenopathy (L), No Lymphadenopathy (R) Respiratory: Chest Non Tender, Lungs Clear, Normal Breath Sounds, No Accessory Muscle Use Cardiovascular: Regular Rate, Rhythm, No Edema, No Murmur Peripheral Pulses: 3+ Radial Pulses (R), 3+ Radial Pulses (L) Gastrointestinal: non tender, soft, tenderness (L sided due to kidney disease/pain) Extremity: Other (S/P L hallux amputation. L foot wrapped.) Neurologic/Psychiatric: Alert, Oriented x3, Normal Mood/Affect Skin: Normal Color, Warm/Dry; No Diaphoresis Lymphatic: No Adenopathy Results Lab Laboratory Tests 07/02/21 09:28: Urine Opiates Screen POSITIVEH, Urine Oxycodone Screen NEGATIVE, Urine Methadone Screen NEGATIVE, Urine Propoxyphene Screen NEGATIVE, Urine Barbiturates Screen NEGATIVE, Ur Tricyclic Antidepressants Screen NEGATIVE, Urine Phencyclidine Screen NEGATIVE, Urine Amphetamines Screen NEGATIVE, Urine Methamphetamines Screen NEGATIVE, Urine Benzodiazepines Screen NEGATIVE, Urine Cocaine Screen NEGATIVE, Urine Cannabinoids Screen NEGATIVE 07/02/21 10:56: Glucometer 95 07/02/21 16:17: Glucometer 82 07/02/21 20:07: Glucometer 119H 07/03/21 05:08: Glucometer 139H 07/03/21 06:25: White Blood Count 7.6, Red Blood Count 3.15L, Hemoglobin 7.8L, Hematocrit 26L, Mean Corpuscular Volume 84, Mean Corpuscular Hemoglobin 25, Mean Corpuscular Hemoglobin Concent 30L, Red Cell Distribution Width 15.9H, Platelet Count 244, Mean Platelet Volume 9.7, Sodium Level 134L, Potassium Level 5.4H, Chloride Level 113H, Carbon Dioxide Level 12L, Anion Gap 9, Blood Urea Nitrogen 36H, Creatinine 2.19H, Estimat Glomerular Filtration Rate 26, BUN/Creatinine Ratio 1 6, Glucose Level 124H, Calcium Level 8.5 Microbiology 07/01/21 MRSA Screen - Final, Complete MRSA not isolated 06/29/21 Blood Culture - Preliminary, Resulted No growth 06/29/21 Urine Culture - Final, Complete 3 or more isolates Assessment/Plan Assessment/Plan Assessment/Plan osteomyelitis of L big toe UTI hyponatremia leukocytosis - improving chronic anemia - trending down Hx of kidney disease, DM, neuropathy,seizures, bipolar, acid reflux, chronic anemia, chronic constipation Plan is amputation today around noon; will be done by Dr. Ha. Patient was NPO after midnight. Patient currently on antibiotics, continue abx. Continue IVF for renal failure. On lactulose for constipation. Continue home meds as needed after surgery. MIKE HA DO 07/03/21 1406: Subjective Subjective/Events-last exam Patient is post ictal she had reported seizure. Patient seemed to have pain at the left great toe amputation site. Patient feels that pain control is difficult at this time. No other complaints at this time denies nausea vomiting fever sweats chills shortness of breath or chest pain. Objective Exam General Appearance: No Apparent Distress (Appears slightly disoriented) HEENT: PERRL/EOMI Neck: Normal Inspection, Supple Respiratory: Chest Non Tender, No Accessory Muscle Use, No Respiratory Distress Cardiovascular: Regular Rate, Rhythm, No Edema, No JVD Gastrointestinal: non tender, soft Extremity: Other (S/P left great toe amputation incision clean dry intact no erythema no signs of infection) Neurologic/Psychiatric: Alert; No Oriented x3, No Normal Mood/Affect; Other (Post ictal) Skin: Normal Color, Warm/Dry; No Diaphoresis Lymphatic: No Adenopathy Assessment/Plan Assessment/Plan Assessment/Plan osteomyelitis of L big toe UTI hyponatremia leukocytosis - improving chronic anemia - trend Hx of kidney disease, DM, neuropathy,seizures, bipolar, acid reflux, chronic anemia, chronic constipation Pain control Physical therapy to assist with ambulation Dressing changed Continue medical management. Supervisory-Addendum Brief Verification & Attestation Participated in pt care: history, MDM, physical Personally performed: exam, history, MDM, supervision of care Care discussed with: Medical Student Procedures: n/a Results interpretation: Verified all documentation Verification and Attestation of Medical Student E/M Service A medical student performed and documented this service in my presence. I reviewed and verified all information documented by the medical student and made modifications to such information, when appropriate. I personally performed the physical exam and medical decision making. Mike Ha, Jul 03, 2021,14:06 MERCEDES VALLEJO Jul 03, 2021 08:24 MIKE HA DO Jul 03, 2021 14:06
[2021-07-03 08:25] VITALS: BP 133/78
--- NOTE | 2021-07-03 08:26 | Progress Note - Hospitalist ---
Subjective HPI/CC On Admission Date Seen by Provider: Jul 03, 2021 Time Seen by Provider: 07:00 Subjective/Events-last exam Patient has extremely poor venous access they were able to get a midline left IVN but she was upset about the procedure and just need for amputation in general. She does not like how she feels when her blood sugar is low with apparent long history of poor diabetic control. P.o. intake has been poor this is presumed type 2 diabetes is there has been no evidence for DKA on no insulin since admission. Currently on sliding scale last blood sugar in the 130 range. Objective Exam Vital Signs Vital Signs Date Time Temp Pulse Resp B/P (MAP) Pulse Ox O2 Delivery O2 Flow Rate FiO2 07/03/21 04:43 37.4 100 20 115/56 (75) 99 Room Air 07/02/21 15:45 0.5 Capillary Refill : Less Than 3 SecondsLess Than 3 Seconds General Appearance: Anxious Respiratory: Chest Non Tender, Lungs Clear, Normal Breath Sounds, No Accessory Muscle Use, No Respiratory Distress Cardiovascular: Regular Rate, Rhythm, No Edema, No Gallop, No JVD, No Murmur, Normal Peripheral Pulses Extremity: Other (Left foot bandaged to above the level of the ankle no evidence for edema superior to this and no evidence for drainage on the bandage right lower extremity reveals no evidence for edema erythema ulceration or callus formation.) Results/Procedures Lab Laboratory Tests 07/03/21 06:25 Patient resulted labs reviewed. Assessment/Plan Assessment and Plan Assess & Plan/Chief Complaint (1) Hyponatremia Onset Date: ~ 06/29/2021 Status: Acute Assessment & Plan: Na has been maintained just below normal values. Patient will continue to have IV sodium chloride to raise sodium levels and prevent dehydration (2) Chronic anemia Status: Chronic Assessment & Plan: Anemia has improved but still not within normal limits. Patient will continue to take at home iron medication. (3) CKD (chronic kidney disease) Status: Chronic Assessment & Plan: Patient is being given oral fluids and IV fluids to keep her hydrated. Creatinine has gone down from 2.56 to 2.05 and GFR has improved from 21 to 28 so kidney function is improving. Qualifier 07/03 renal function continues to improve continue to monitor. Qualified Codes: N18.9 - Chronic kidney disease, unspecified (4) Renal failure, acute on chronic Onset Date: ~ 06/29/2021 Status: Acute Assessment & Plan: Patient is being given oral fluids and IV fluids. Creatinine and GFR is continuing to improve from yesterday. Qualifiers: Qualified Codes: N17.9 - Acute kidney failure, unspecified; N18.9 - Chronic kidney disease, unspecified (5) Urinary tract infection Onset Date: ~ 06/29/2021 Status: Acute Assessment & Plan: Patient was started on IV meropenem 10 ml @ 200 ml/hour and will continue treatment. Patient having less dysuria. (6) DVT prophylaxis Status: Acute Assessment & Plan: Heparin (7) Seizure disorder Status: Chronic Assessment & Plan: Will continue to administer Divalproex sodium which is a medication taken at home (8) Diabetes type 1, controlled Status: Chronic Assessment & Plan: Patient is being administed sliding insulin which the patient was taking at home. Blood sugars will be checked and patient is on a diabetic diet. Qualifiers: (9) Bipolar disorder Status: Chronic Assessment & Plan: Is currently stable with no complications. (10) Constipation Assessment & Plan: Patient was given lactulose. (11) Hyperkalemia, diminished renal excretion Status: Acute Assessment & Plan: Patient is being restarted on her at home sliding insulin which can help lower potassium levels. (12) Osteomyelitis Status: Acute Assessment & Plan: Surgery amputating the infected toe today. Qualifiers: Status post left great toe amputation postop day 1 doing as well as can be expected. SIMONE DALLAS MD Jul 03, 2021 08:26
[2021-07-03] MEDS ORDERED: LORazepam INJ 2 MG/ML (ATIVAN) VIAL ONE (09:01)
[2021-07-03] MEDS ORDERED: VALPROATE INJ (NON-FORMULARY) 1,000 MG in D5W 100 ML IVPB 100 ML IV ONE (09:15)
[2021-07-03 11:35] VITALS: BP 112/70
--- NOTE | 2021-07-03 11:57 | Physical Therapy Progress Note ---
Therapy Progress Note Attempted to see patient for PT initial evaluation on 3 occasions. First attempt patient was using the BR, Second attempt patient had just gotten pain medicine and requested time for medicine to begin to work. Third attempt patient had just had her dressing changed and adamantly refused PT treatment. Dr. Ha notified of situation. Will proceed with evaluation as patient is able to tolerate. DEMETRIUS FIELDS PT Jul 03, 2021 11:57
[2021-07-03] MEDS: FERROUS SULF 325 MG (IRON) TAB PO SCH (12:07)
[2021-07-03] MEDS: ONDANSETRON 4 MG/2 ML (SDV) Z0FRAN IVP PRN (13:02)
[2021-07-03 16:00] VITALS: BP 131/85
[2021-07-03 20:00] VITALS: BP 119/81
[2021-07-03] MEDS: diphenhydrAMINE 25 MG TAB (BENADRYL) PO PRN (21:29)
[2021-07-04] VITALS (7 sets, daily range): BP systolic 114–137; BP diastolic 56–82
[2021-07-04] MEDS: MEROPENEM 500 MG/SWFI 10 ML IV PUSH IV SCH ×2 (00:32)
[2021-07-04] MEDS: HYDROmorphone 2 MG/ML VIAL (DILAUDID) IVP PRN ×9 (00:32→23:29)
[2021-07-04] MEDS: NS IV 1000 ML 1,000 ML IV SCH ×4 (00:33→21:05)
[2021-07-04] MEDS: diphenhydrAMINE 25 MG TAB (BENADRYL) PO PRN ×2 (02:41→21:39)
[2021-07-04] MEDS: HYDROcodone/APAP 5 MG/325 MG (LORTAB) TAB PO PRN ×3 (05:04→21:39)
[2021-07-04 06:36] LABS: CALCIUM 7.7 MG/DL (8.5-10.1)
[2021-07-04] MEDS: inSUlin ASPART (NovoLOG) 1 UNIT/0.01 ML (CHARGE PER UNIT) SC SCH ×4 (06:40→20:14)
[2021-07-04 06:41] LABS: CREATININE SERUM 2.27 MG/DL (0.60-1.30)
[2021-07-04 06:48] LABS: VALPROIC ACID 9.2 UG/ML (50.0-100.0)
[2021-07-04] MEDS: DIVALPROEX 500 MG DELAYED RELEASE (DEPAKOTE) TAB PO SCH ×2 (08:41→20:14)
[2021-07-04] MEDS: FERROUS SULF 325 MG (IRON) TAB PO SCH (08:42)
[2021-07-04] MEDS: FOLIC ACID 1 MG TAB PO SCH (08:42)
[2021-07-04] MEDS: SODIUM BICARBONATE 650 MG TABLET (NON-FORMULARY) PO SCH ×2 (08:42→20:14)
[2021-07-04] MEDS: SENNA W/DOCUSATE (SENOKOT S) TABLET PO SCH ×2 (08:42→20:14)
--- NOTE | 2021-07-04 09:27 | Progress Note - Surgery ---
MERCEDES VALLEJO [birth year]: Subjective Date Seen by a Provider: Jul 04, 2021 Time Seen by a Provider: 09:00 Subjective/Events-last exam Patient reports that her pain is still a 06/25. She did not participate in PT yesterday due to pain and "too many people in the room". She denies any sweats/chills, nausea/vomiting. She has not had any seizures in the last 24hrs. She says she plans on getting up and moving around on crutches today. Objective Exam Vital Signs Date Time Temp Pulse Resp B/P (MAP) Pulse Ox O2 Delivery O2 Flow Rate FiO2 07/04/21 07:23 37.2 98 20 132/82 (99) 96 Room Air 07/04/21 04:59 37.4 104 20 132/82 (99) 100 Room Air 07/04/21 00:39 36.9 91 18 114/73 (87) 96 Room Air 07/03/21 20:25 Room Air 07/03/21 20:00 37.3 98 20 119/81 (94) 100 Room Air 07/03/21 16:00 37.2 102 18 131/85 (100) 100 Room Air 07/03/21 11:35 36.9 94 20 112/70 (84) 96 Room Air I & O 07/04/21 07:00 Intake Total 2470 ml Balance 2470 ml Capillary Refill : Less Than 3 SecondsLess Than 3 Seconds General Appearance: No Apparent Distress (Appears slightly disoriented) HEENT: PERRL/EOMI Neck: Normal Inspection, Supple Respiratory: Chest Non Tender, Lungs Clear, Normal Breath Sounds, No Accessory Muscle Use, No Respiratory Distress Cardiovascular: Regular Rate, Rhythm, No Edema, No JVD Peripheral Pulses: 3+ Radial Pulses (R), 3+ Radial Pulses (L) Gastrointestinal: non tender, soft Extremity: Other (S/P left great toe amputation incision clean dry intact no erythema no signs of infection) Neurologic/Psychiatric: Alert, Oriented x3, Normal Mood/Affect Skin: Normal Color, Warm/Dry; No Diaphoresis Lymphatic: No Adenopathy Results Lab Laboratory Tests 07/03/21 10:57: Glucometer 142H 07/03/21 16:10: Glucometer 114H 07/03/21 21:15: Glucometer 114H 07/04/21 06:16: Sodium Level 135, Potassium Level 6.0H, Chloride Level 117H, Carbon Dioxide Level 10L, Anion Gap 8, Blood Urea Nitrogen 30H, Creatinine 2.27H, Estimat Glomerular Filtration Rate 24, BUN/Creatinine Ratio 13, Glucose Level 103, Calcium Level 7.7L, Valproic Acid (Depakene) Level 9.2L Microbiology 07/02/21 Gram Stain - Final, Resulted 07/02/21 Anaerobic Culture, Resulted Pending 07/02/21 Surgical Culture - Preliminary, Resulted No growth 07/01/21 MRSA Screen - Final, Complete MRSA not isolated 06/29/21 Blood Culture - Preliminary, Resulted No growth 06/29/21 Urine Culture - Final, Complete 3 or more isolates Assessment/Plan Assessment/Plan Assessment/Plan osteomyelitis of L big toe UTI leukocytosis - improving chronic anemia - trend Hx of kidney disease, DM, neuropathy,seizures, bipolar, acid reflux, chronic anemia, chronic constipation Pain control Physical therapy to assist with ambulation Dressing changed Continue medical management. MIKE HA DO 07/04/211950: Subjective Subjective/Events-last exam Patient still complaining of pain. Did not do physical therapy yesterday. No further seizures. Patient with no other complaints at this time. Denies any nausea vomiting fever sweats chills shortness of breath or chest pain Objective Exam General Appearance: No Apparent Distress (Appears slightly disoriented) HEENT: PERRL/EOMI Neck: Normal Inspection, Supple Respiratory: Chest Non Tender, No Accessory Muscle Use, No Respiratory Distress Cardiovascular: Regular Rate, Rhythm, No JVD Gastrointestinal: non tender, soft Extremity: Other (S/P left great toe amputation incision clean dry intact no erythema no signs of infection) Neurologic/Psychiatric: Alert, Oriented x3 Skin: Normal Color, Warm/Dry Lymphatic: No Adenopathy Assessment/Plan Assessment/Plan Assessment/Plan osteomyelitis of L big toe UTI leukocytosis - improving chronic anemia - trend Hx of kidney disease, DM, neuropathy,seizures, bipolar, acid reflux, chronic anemia, chronic constipation Pain control-restarted gabapentin Physical therapy to assist with ambulation Dressing changed Continue medical management. Supervisory-Addendum Brief Verification & Attestation Participated in pt care: history, MDM, physical Personally performed: exam, history, MDM, supervision of care Care discussed with: Medical Student Procedures: n/a Results interpretation: Verified all documentation Verification and Attestation of Medical Student E/M Service A medical student performed and documented this service in my presence. I reviewed and verified all information documented by the medical student and made modifications to such information, when appropriate. I personally performed the physical exam and medical decision making. Mike Ha, Jul 04, 2021,19:51 MERCEDES VALLEJO Jul 04, 2021 09:27 MIKE HA DO Jul 04, 2021 19:51
--- NOTE | 2021-07-04 10:38 | Progress Note - Hospitalist ---
Subjective HPI/CC On Admission Date Seen by Provider: Jul 04, 2021 Time Seen by Provider: 08:30 Subjective/Events-last exam Patient feeling better today no seizures since I last saw her yesterday afternoon no chills or fever. Objective Exam Vital Signs Vital Signs Date Time Temp Pulse Resp B/P (MAP) Pulse Ox O2 Delivery O2 Flow Rate FiO2 07/04/21 08:00 Room Air 07/04/21 07:23 37.2 98 20 132/82 (99) 96 07/02/21 15:45 0.5 Capillary Refill : Less Than 3 SecondsLess Than 3 Seconds General Appearance: No Apparent Distress Respiratory: Chest Non Tender, Lungs Clear, No Accessory Muscle Use, No Respiratory Distress Cardiovascular: Regular Rate, Rhythm, No Edema, No Gallop, No JVD, No Murmur, Normal Peripheral Pulses Back: Other (No swelling noted photograph reviewed from yesterday when her bandage was off looking good) Results/Procedures Lab Laboratory Tests 07/04/21 06:16 Patient resulted labs reviewed. Assessment/Plan Assessment and Plan Assess & Plan/Chief Complaint (1) Hyponatremia Onset Date: ~ 06/29/2021 Status: Acute Assessment & Plan: Na has been maintained just below normal values. Patient will continue to have IV sodium chloride to raise sodium levels and prevent dehydration (2) Chronic anemia Status: Chronic Assessment & Plan: Anemia has improved but still not within normal limits. Patient will continue to take at home iron medication. (3) CKD (chronic kidney disease) Status: Chronic Assessment & Plan: Patient is being given oral fluids and IV fluids to keep her hydrated. Creatinine has gone down from 2.56 to 2.05 and GFR has improved from 21 to 28 so kidney function is improving. Qualifier 07/03 renal function continues to improve continue to monitor. 07/04 renal function continues to improve will decrease IV fluids. Patient encouraged to ambulate she has crutches and a walker likely discharge tomorrow. In regards to her underlying generalized seizure disorder with a seizure yesterday I suspect that combination of low Depakote level and meropenem were contributing factors. She had only been taking 500 mg of Depakote at home she has been increased 1000 mg twice daily here and did get an IV 1 g dose yesterday in addition her level is still little low at 9.2 but with discontinuance of meropenem we will continue current oral dose for now. Discussed the fact that she would need a basic metabolic panel and a Depakote level on her return to [facility] for which she has an appointment in early July with . She is also being set up to see a chief business development officer. We discussed signs and symptoms of wound infection and the importance of good foot wear looking at both of her feet and regular podiatry follow-up. Qualified Codes: N18.9 - Chronic kidney disease, unspecified (4) Renal failure, acute on chronic Onset Date: ~ 06/29/2021 Status: Acute Assessment & Plan: Patient is being given oral fluids and IV fluids. Creatinine and GFR is continuing to improve from yesterday. Qualifiers: Qualified Codes: N17.9 - Acute kidney failure, unspecified; N18.9 - Chronic kidney disease, unspecified (5) Urinary tract infection Onset Date: ~ 06/29/2021 Status: Acute Assessment & Plan: Patient was started on IV meropenem 10 ml @ 200 ml/hour and will continue treatment. Patient having less dysuria. (6) DVT prophylaxis Status: Acute Assessment & Plan: Heparin (7) Seizure disorder Status: Chronic Assessment & Plan: Will continue to administer Divalproex sodium which is a medication taken at home (8) Diabetes type 1, controlled Status: Chronic Assessment & Plan: Patient is being administed sliding insulin which the patient was taking at home. Blood sugars will be checked and patient is on a diabetic diet. Qualifiers: (9) Bipolar disorder Status: Chronic Assessment & Plan: Is currently stable with no complications. (10) Constipation Assessment & Plan: Patient was given lactulose. (11) Hyperkalemia, diminished renal excretion Status: Acute Assessment & Plan: Patient is being restarted on her at home sliding insulin which can help lower potassium levels. (12) Osteomyelitis Status: Acute Assessment & Plan: Surgery amputating the infected toe today. Qualifiers: Status post left great toe amputation postop day 1 doing as well as can be expected. SIMONE DALLAS MD Jul 04, 2021 10:38
[2021-07-04] MEDS: SOD POLYSTERENE 15 GM/60 ML (KAYEXALATE) UNIT DOSE PO SCH ×3 (12:57→23:29)
[2021-07-04] MEDS: LACTATED RINGERS 1,000 ML IV PRN (14:27)
[2021-07-05] MEDS: HYDROcodone/APAP 5 MG/325 MG (LORTAB) TAB PO PRN ×2 (02:34→08:41)
[2021-07-05] MEDS: NS IV 1000 ML 1,000 ML IV SCH ×2 (03:27→10:08)
[2021-07-05] MEDS: HYDROmorphone 2 MG/ML VIAL (DILAUDID) IVP PRN ×2 (03:45→23:20)
[2021-07-05 03:46] VITALS: BP 102/58
[2021-07-05] MEDS: inSUlin ASPART (NovoLOG) 1 UNIT/0.01 ML (CHARGE PER UNIT) SC SCH ×4 (05:51→20:47)
[2021-07-05] MEDS: SOD POLYSTERENE 15 GM/60 ML (KAYEXALATE) UNIT DOSE PO SCH ×4 (06:14→23:17)
[2021-07-05] MEDS: ONDANSETRON 4 MG/2 ML (SDV) Z0FRAN IVP PRN ×2 (06:14→12:54)
[2021-07-05 06:38] LABS: BASOPHILS % (AUTO) 1 % (0-10); EOSINOPHILS # (AUTO) 0.2 10^3/uL (0.0-0.3); EOSINOPHILS % (AUTO) 3 % (0-10); HEMATOCRIT 22 % (35-52); LYMPHOCYTES # (AUTO) 1.8 10^3/uL (1.0-4.0); LYMPHOCYTES % (AUTO) 27 % (12-44); MEAN CORPUSCULAR HEMOGLOBIN 25 pg (25-34); MEAN CORPUSCULAR HGB CONC 31 g/dL (32-36); MEAN CORPUSCULAR VOLUME 82 fL (80-99); MEAN PLATELET VOLUME 8.9 fL (9.0-12.2); MONOCYTES # (AUTO) 0.6 10^3/uL (0.0-1.0); MONOCYTES % (AUTO) 9 % (0-12); NEUTROPHILS # (AUTO) 3.9 10^3/uL (1.8-7.8); NEUTROPHILS % (AUTO) 60 % (42-75); PLATELET COUNT 233 10^3/uL (130-400); WHITE BLOOD COUNT 6.6 10^3/uL (4.3-11.0)
[2021-07-05 06:43] LABS: HEMOGLOBIN 6.8 g/dL (11.5-16.0)
[2021-07-05 06:46] LABS: POTASSIUM 4.1 MMOL/L (3.6-5.0)
[2021-07-05 06:51] LABS: CREATININE SERUM 1.79 MG/DL (0.60-1.30)
--- NOTE | 2021-07-05 07:56 | Progress Note - Surgery ---
MERCEDES VALLEJO [birth year] 0[birth year]: Subjective Date Seen by a Provider: Jul 05, 2021 Time Seen by a Provider: 07:30 Subjective/Events-last exam Patient reports that she is still in a considerable amount of pain. She tried to walk around on crutches yesterday but was only able to take a few steps, noting pain and lightheadedness during that time. She had some nausea this morning but no vomiting. She denies any sweats/chills in the last 24hrs. She has not had a bowel movement since the surgery but reports passing some gas. Objective Exam Vital Signs Date Time Temp Pulse Resp B/P (MAP) Pulse Ox O2 Delivery O2 Flow Rate FiO2 07/05/21 03:46 36.8 78 18 102/58 (73) 96 Room Air 07/04/21 23:30 37.2 97 18 116/56 (76) 100 Room Air 07/04/21 20:15 Room Air 07/04/21 20:00 36.8 102 18 133/76 (95) 99 Room Air 07/04/21 16:00 37.5 95 18 114/58 (76) 99 Room Air 07/04/21 12:25 37.0 101 18 137/79 (98) 100 Room Air 07/04/21 08:00 Room Air I & O 07/05/21 07:00 Intake Total 1810 ml Balance 1810 ml Capillary Refill : Less Than 3 SecondsLess Than 3 Seconds General Appearance: No Apparent Distress (Appears slightly disoriented), WD/WN HEENT: PERRL/EOMI Neck: Normal Inspection, Supple Respiratory: Chest Non Tender, Normal Breath Sounds, No Accessory Muscle Use, No Respiratory Distress Cardiovascular: Regular Rate, Rhythm, No JVD Peripheral Pulses: 3+ Radial Pulses (R), 3+ Radial Pulses (L) Gastrointestinal: non tender, soft Extremity: Normal Inspection, Non Tender, Other (S/P left great toe amputation incision clean dry intact no erythema no signs of infection) Neurologic/Psychiatric: Alert, Oriented x3, Normal Mood/Affect Skin: Normal Color, Warm/Dry Lymphatic: No Adenopathy Results Lab Laboratory Tests 07/04/21 11:26: Glucometer 83 07/04/21 15:35: Glucometer 174H 07/04/21 20:04: Glucometer 145H 07/05/21 05:05: Glucometer 87 07/05/21 06:24: White Blood Count 6.6, Red Blood Count 2.70L, Hemoglobin 6.8*L, Hematocrit 22L, Mean Corpuscular Volume 82, Mean Corpuscular Hemoglobin 25, Mean Corpuscular Hemoglobin Concent 31L, Red Cell Distribution Width 15.9H, Platelet Count 233, Mean Platelet Volume 8.9L, Immature Granulocyte % (Auto) 1, Neutrophils (%) (Auto) 60, Lymphocytes (%) (Auto) 27, Monocytes (%) (Auto) 9, Eosinophils (%) (Auto) 3, Basophils (%) (Auto) 1, Neutrophils # (Auto) 3.9, Lymphocytes # (Auto) 1.8, Monocytes # (Auto) 0.6, Eosinophils # (Auto) 0.2, Basophils # (Auto) 0.0, Immature Granulocyte # (Auto) 0.1, Sodium Level 138, Potassium Level 4.1, Chloride Level 118H, Carbon Dioxide Level 12L, Anion Gap 8, Blood Urea Nitrogen 23H, Creatinine 1.79H, Estimat Glomerular Filtration Rate 32, BUN/Creatinine Ratio 13, Glucose Level 88, Calcium Level 8.0L Microbiology 07/02/21 Gram Stain - Final, Resulted 07/02/21 Anaerobic Culture, Resulted Pending 07/02/21 Surgical Culture - Preliminary, Resulted No growth 07/01/21 MRSA Screen - Final, Complete MRSA not isolated 06/29/21 Blood Culture - Preliminary, Resulted No growth 06/29/21 Urine Culture - Final, Complete 3 or more isolates Assessment/Plan Assessment/Plan Assessment/Plan osteomyelitis of L big toe UTI leukocytosis - improving chronic anemia - trend Hx of kidney disease, DM, neuropathy,seizures, bipolar, acid reflux, chronic anemia, chronic constipation Pain control Physical therapy to assist with ambulation Dressing changed Continue medical management. MIKE HA DO 07/05/211946: Subjective Subjective/Events-last exam Patient states she is having significant amount of pain in the left amputation foot site. She is able to sit at the side of the bed and appears to be comfortable. Patient states that she is willing to work with physical therapy today. She denies any nausea vomiting fever sweats chills shortness of breath or chest pain at this time Objective Exam General Appearance: No Apparent Distress (Sitting on the side of the bed in no acute distress), WD/WN HEENT: PERRL/EOMI, Normal ENT Inspection Neck: Normal Inspection, Supple Respiratory: Chest Non Tender, No Accessory Muscle Use, No Respiratory Distress Cardiovascular: Regular Rate, Rhythm, No JVD Gastrointestinal: non tender, soft Extremity: Other (S/P left great toe amputation incision clean dry intact no erythema no signs of infection, minimal swelling to the area) Neurologic/Psychiatric: Alert, Oriented x3, Normal Mood/Affect Skin: Normal Color, Warm/Dry Lymphatic: No Adenopathy Assessment/Plan Assessment/Plan Assessment/Plan osteomyelitis of L big toe status post left great toe amputation UTI leukocytosis - improving chronic anemia - trend Hx of kidney disease, DM, neuropathy,seizures, bipolar, acid reflux, chronic anemia, chronic constipation Pain control Physical therapy to assist with ambulation Dressing changed Continue medical management. Supervisory-Addendum Brief Verification & Attestation Participated in pt care: history, MDM, physical Personally performed: exam, history, MDM, supervision of care Care discussed with: Medical Student Procedures: n/a Results interpretation: Verified all documentation Verification and Attestation of Medical Student E/M Service A medical student performed and documented this service in my presence. I reviewed and verified all information documented by the medical student and made modifications to such information, when appropriate. I personally performed the physical exam and medical decision making. Mike Ha, Jul 05, 2021,19:46 MERCEDES VALLEJO Jul 05, 2021 07:56 MIKE HA DO Jul 05, 2021 19:47
[2021-07-05 08:00] VITALS: BP 116/73
[2021-07-05] MEDS: SODIUM BICARBONATE 650 MG TABLET (NON-FORMULARY) PO SCH ×2 (08:41→20:44)
[2021-07-05] MEDS: FOLIC ACID 1 MG TAB PO SCH (08:41)
[2021-07-05] MEDS: FERROUS SULF 325 MG (IRON) TAB PO SCH (08:41)
[2021-07-05] MEDS: DIVALPROEX 500 MG DELAYED RELEASE (DEPAKOTE) TAB PO SCH ×2 (08:41→20:44)
[2021-07-05] MEDS: SENNA W/DOCUSATE (SENOKOT S) TABLET PO SCH ×4 (08:41→20:46)
[2021-07-05 09:59] LABS: ALBUMIN 2.3 GM/DL (3.2-4.5)
[2021-07-05 10:02] LABS: TOTAL PROTEIN 6.5 GM/DL (6.4-8.2)
[2021-07-05 10:04] LABS: BILIRUBIN,TOTAL 0.2 MG/DL (0.1-1.0)
[2021-07-05 10:08] LABS: BILIRUBIN,DIRECT 0.1 MG/DL (0.0-0.3); BILIRUBIN,INDIRECT 0.1 MG/DL
[2021-07-05] MEDS: LACTULOSE SYRUP 10GM/15ML (ENULOSE) 30ML UDC PO SCH ×2 (11:37→20:46)
[2021-07-05] MEDS: DOCUSATE SODIUM 100 MG (COLACE) CAP PO SCH ×2 (11:37→20:46)
[2021-07-05 12:00] VITALS: BP 116/79
--- NOTE | 2021-07-05 12:02 | Physical Therapy Evaluation ---
PT Evaluation-General Medical Diagnosis Admission Date Jun 29, 2021 at 23:00 Medical Diagnosis: renal failure/left great toe amputation Onset Date: Jun 29, 2021 Therapy Diagnosis Therapy Diagnosis: generalized weakness/debility Precautions Precautions/Isolations: Seizure, Fall Prevention, Standard Precautions Weight Bear Status Right Lower Extremity: Right Weight Bearing/Tolerated Left Lower Extremity: Left Partial Weight Bearing HEEL TOUCH LEFT FOOT Referral Physician: Dilcia Reason for Referral: Evaluation/Treatment Medical History Pertinent Medical History: DM (non compliant), Renal Insufficiency Additional Medical History seizure disorder Current History s/p left great toe amputation Reviewed History: Yes Social History Home: Single Level Current Living Status: Spouse Entry Into Home: Stairs With Railing PT Steps Into Home: 4 Prior Prior Level of Function SCALE: Activities may be completed with or without assistive devices. 4-Qykisgvcpy-kcytelm completes the activity by him/herself with no assistance from a helper. 5-Set-up or Clean-up Assistance-helper sets up or cleans up; patient completes activity. [place] assists only prior to or following the activity. 4-Supervision or Touching Assistance-helper provides verbal cues and/or touching/steadying and/or contact guard assistance as patient completes activity. Assistance may be provided throughout the activity or intermittently. 3-Partial/Moderate Assistance-helper does LESS THAN HALF the effort. [place] lifts, holds or supports trunk or limbs, but provides less than half the effort. 2-Substantial/Maximal Assistance-helper does MORE THAN HALF the effort. [place] lifts or holds trunk or limbs and provides more than half the effort. 8-Kwlevgrwb-tjnvri does ALL the effort. Patient does none of the effort to complete the activity. Or, the assistance of 2 or more helpers is required for the patient to complete the activity. If activity was not attempted, code reason: 7-Patient Refused. 9-Not Applicable-not attempted and the patient did not perform the activity before the current illness, exacerbation or injury. 10-Not Attempted due to Environmental Limitations-(lack of equipment, weather restraints, etc.). 88-Not Attempted due to Medical Conditions or Safety Concerns. Bed Mobility: 6 Transfers (B,C,W/C): 6 Gait: 6 Stairs: 6 Indoor Mobility (Ambulation): Independent Stairs: Independent Prior Devices Use: None PT Evaluation-Current Subjective Patient agrees to PT. Pain Numeric Pain Scale: 7 Location: Left Location Body Site: Foot Pain Description: Pressure, Acute Objective Patient Orientation: Normal For Age ROM/Strength ROM Lower Extremities bilateral LE WFL Strength Lower Extremities 4-/5 grossly bilateral LE Integumentary/Posture Integumentary refer to nursing notes Bowel Incontinence: No Bladder Incontinence: No Posture WFL Neuromuscular (Tone, Coordination, Reflexes) grossly intact Sensory Vision: Functional Hearing: Functional Transfers Roll Left to Right (QC): 6 Lying to Sitting/Side of Bed(Q: 6 Sit to Stand (QC): 6 Chair/Kht-dx-Xhdgq Xfer(QC): 6 Gait Does the Patient Walk?: Yes Mode of Locomotion: Walk Anticipated Mode of Locomotion: Walk Walk 10 feet (QC): 6 Walk 50 ft with 2 Turns(QC): 6 Walk 150 ft (QC): 6 Distance: 150' Gait Assistive Device: FWW Comments/Gait Description Patient able to comply with PWB left foot Stairs #of Steps: 1 1 Step (curb) (QC): 5 patient will perform side step up right with use of hand rail/patient able to perform Balance Sitting Static: Normal Sitting Dynamic: Normal Standing Static: Normal Standing Dynamic: Normal Assessment/Needs 36 y.o. female, will benefit from skilled PT to address functional strength and mobility to improve current LOF to safely return to home with spouse at maximum LOF. Rehab Potential: Fair PT [employer] Goals Group Home Goals PT [employer] Goals Time Frame: Jul 09, 2021 Roll Left & Right (QC): 6 Sit to Lying (QC): 6 Lying-Sitting on Side/Bed(QC): 6 Sit to Stand (QC): 6 Chair/Qgp-ns-Xnbvu Xfer(QC): 6 Toilet Transfer (QC): 6 Walk 10 feet (QC): 6 Walk 50ft with 2 Turns (QC): 6 Walk 150 ft (QC): 6 PT Plan Treatment/Plan Treatment Plan: Continue Plan of Care Treatment Plan: Education, Gait, Safety, Therapeutic Exercise Treatment Duration: Jul 09, 2021 Frequency: 5 times per week Estimated Hrs Per Day: .25 hour per day Patient and/or Family Agrees t: Yes Discharge Recommendations Therapy Discharge Recommendati: Home & Family Time/GCodes Time In: 1112 Time Out: 1130 Total Billed Treatment Time: 18 Total Billed Treatment 1 visit EVMod 18 min PAMELA JACOME PT Jul 05, 2021 12:02
--- NOTE | 2021-07-05 13:59 | Progress Note - Hospitalist ---
JAIMEJELANI Pamela 07/05/21 1359: Subjective HPI/CC On Admission Date Seen by Provider: Jul 05, 2021 Time Seen by Provider: 09:45 Verónica Ogden is a 36 yo female with a PMH of diabetes, CKD, anemia, seizures who was admitted 06/29 for management of osteomyelitis of left toe. Subjective/Events-last exam Today Verónica reports that she is in significant paint at her amputation sight, rating it 9/10. Reports that her current pain regimen is not adequate. Is concerned about her kidneys improving Denies fevers, chills, SOB. Denies nausea, vomiting, diarrhea. Denies weakness and fatigue. Objective Exam Vital Signs Vital Signs Date Time Temp Pulse Resp B/P (MAP) Pulse Ox O2 Delivery O2 Flow Rate FiO2 07/05/21 12:00 36.8 91 20 116/79 (91) 98 Room Air 07/02/21 15:45 0.5 Capillary Refill : Less Than 3 SecondsLess Than 3 Seconds General Appearance: No Apparent Distress, WD/WN Neck: Full Range of Motion Respiratory: Chest Non Tender, Lungs Clear, Normal Breath Sounds, No Accessory Muscle Use, No Respiratory Distress Cardiovascular: Regular Rate, Rhythm, No Edema, No Murmur, Normal Peripheral Pulses Gastrointestinal: Normal Bowel Sounds, Non Tender, Soft Extremity: Normal Capillary Refill Skin: Normal Color, Warm/Dry Results/Procedures Lab Laboratory Tests 07/05/21 06:24 Patient resulted labs reviewed. Assessment/Plan Assessment and Plan Assess & Plan/Chief Complaint Verónica Ogden is a 36 yo female with a PMH of diabetes, CKD, anemia, seizures who was admitted 06/29 for management of osteomyelitis of left toe. Current problems and mangement are the following: Left great toe osteomyelitis - resolved Pain -06/29: Left toe pain s/p skin graft -07/02: Amputation Plan: -Continue PT/OT -Continue wound care -Add oxycodone 5mg PO q4 PRN -Continue bowel regimen Acute on chronic anemia -Anemia likely from CKD below -Hb on admission: 9.2 -07/05: Hb dropped to 6.8 Plan: -Continue to follow ALDO on CKD: ALDO resolved -06/29: Admission Cr. 4.06 -07/05: Cr. 1.79 Plan: -Continue to monitor -Continue fluid intake UTI - resolved -Urine cultures positive for multiple bacteria -Managed with 6 day course of meropenem Seizures -Contine SENIOR DENTIST medications -Temporarily increase depakote to 1000mg BID BIBI JUDD DO 07/06/21 0535: Subjective Subjective/Events-last exam Pt is having more significant somatic social issues Needing pain medication and I did change Hydrocodone to Oxycodone Bowels havent moved so will initiate regimen Toe amputation performed and it looks good Hgb 6.8 which is chronic PT and OT will be ordered Review of Systems General: Fatigue, Malaise Objective Exam General Appearance: No Apparent Distress, WD/WN, Chronically ill Respiratory: Lungs Clear Cardiovascular: Regular Rate, Rhythm Neurologic/Psychiatric: Alert, Oriented x3 Assessment/Plan Assessment and Plan Assess & Plan/Chief Complaint Change meds to help pain PT and OT Supervisory-Addendum Brief Verification & Attestation Participated in pt care: history, MDM, physical Personally performed: exam, history, MDM, supervision of care Care discussed with: Medical Student Procedures: n/a Results interpretation: Verified all documentation Verification and Attestation of Medical Student E/M Service A medical student performed and documented this service in my presence. I reviewed and verified all information documented by the medical student and made modifications to such information, when appropriate. I personally performed the physical exam and medical decision making. Bibi Judd, Jul 06, 2021,05:34 JELANI SANDOVAL Jul 05, 2021 13:59 BIBI JUDD DO Jul 06, 2021 05:35
--- NOTE | 2021-07-05 14:04 | Occupational Therapy Eval ---
OT Evaluation-General/PLF Medical Diagnosis Admission Date Jun 29, 2021 at 23:00 Medical Diagnosis: renal failure/left great toe amputation Onset Date: Jun 29, 2021 Therapy Diagnosis Therapy Diagnosis: weakness, impaired adls Precautions Precautions/Isolations: Seizure, Fall Prevention, Standard Precautions Weight Bear Status Weight Bearing Restriction: Partial Weight Bearing Location Restriction: [place] Referral Physician: Dilcia Lares Reason: Evaluation/Treatment Medical History Pertinent Medical History: DM (non compliant), Neuropathy, Renal Insufficiency Additional Medical History epilepsy, PTSD, OCD, anxiety, kidney failure, Current History Pt arrived to ER due to pain in toe and symptoms of kidney failure. Infected Ingrown toenail, toe amputated. Pt now partial weightbearing. prior to admission she reports living in a home with her and 5 year daughter. She was indep with adls and shared iadl responsibilities with spouse. She verbalizes that she does not drive because she has history of epilepsy. She does not work and states that her spouse is in the process of purchasing a commode and shower chair. Reviewed History: Yes Social History Home: Single Level Current Living Status: Spouse Entry Into Home: Stairs With Railing Steps Into Home: 4 ADL-Prior Level of Function SCALE: Activities may be completed with or without assistive devices. 2-Clrveophhc-hrrfbva completes the activity by him/herself with no assistance from a helper. 5-Set-up or Clean-up Assistance-helper sets up or cleans up; patient completes activity. [place] assists only prior to or following the activity. 4-Supervision or Touching Assistance-helper provides verbal cues and/or touching/steadying and/or contact guard assistance as patient completes activity. Assistance may be provided throughout the activity or intermittently. 3-Partial/Moderate Assistance-helper does LESS THAN HALF the effort. [place] lifts, holds or supports trunk or limbs, but provides less than half the effort. 2-Substantial/Maximal Assistance-helper does MORE THAN HALF the effort. [place] lifts or holds trunk or limbs and provides more than half the effort. 5-Dvgmjcxym-xnfouy does ALL the effort. Patient does none of the effort to complete the activity. Or, the assistance of 2 or more helpers is required for the patient to complete the activity. If activity was not attempted, code reason: 7-Patient Refused. 9-Not Applicable-not attempted and the patient did not perform the activity before the current illness, exacerbation or injury. 10-Not Attempted due to Environmental Limitations-(lack of equipment, weather restraints, etc.). 88-Not Attempted due to Medical Conditions or Safety Concerns. Self Care: Independent Functional Cognition: Independent Drive Self: No OT Current Status Subjective Pt reports pain in L foot, pain meds already given. Appearance Pt sitting in chair, all needs within reach at end of session. in room. Mental Status/Objective Patient Orientation: Person, Place, Time, Situation Current Upper Extremity ROM WFL Upper Extremity Strength 3+/5 rizwana shoulder flexion elbow-distally 4/5 ADL-Treatment Eating (QC): 6 On/Off Footwear (QC): 3 Min a to don boot secondary to pain and pt not wanting velcro straps getting caught on bandage. Good flexibility to reach feet. She reports owning a tub and that her spouse is in the process of purchasing a shower chair. Demonstration and education on performing tub transfer while adhering to partial weight bearing. Pt agreeable to practice. Post demonstration, pt able to simulate task in shower stall with SBA-CGA for safety. present for training and willing to assist post d/c. Good adherence to partial weight bearing with gait to/from bathroom with use of walker. Education OT Patient Education: Correct positioning, Modified ADL techniques, Progress toward Goal/Update tx plan, Purpose of tx/functional activities, Reviewed precautions, Transfer techniques Teaching Recipient: Patient Teaching Methods: Demonstration, Discussion Response to Teaching: Verbalize Understanding, Return Demonstration OT Long-Term Goals Long-Term Goals Oral Hygiene (QC): 5 Toileting Hygiene (QC): 4 Lower Body Dressing (QC): 4 On/Off Footwear (QC): 4 1=Demonstrate adherence to instructed precautions during ADL tasks. 2=Patient will verbalize/demonstrate understanding of assistive devices/modifications for ADL. 3=Patient will improve strength/tolerance for activity to enable patient to perform ADL's. OT Education/Plan Problem List/Assessment Assessment: Decreased UE Strength, Impaired Funct Balance, Impaired I ADL's, Impaired Self-Care Skills Discharge Recommendations Plan/Recommendations: Continue POC Therapy Discharge Recommendati: Home & Family Equpiment Recommendations-D/C: Rails on Tub/Shower, Bath Chair Treatment Plan/Plan of Care Treatment,Training & Education: Yes Patient would benefit from OT for education, treatment and training to promote independence in ADL's, mobility, safety and/or upper extremity function for ADL's. Plan of Care: ADL Retraining, Orthotic Fitting/Training, UE Funct Exercise/Act Treatment Duration: Jul 07, 2021 Frequency: 2 times per week Estimated Hrs Per Day: .25 hour per day Rehab Potential: Fair 1-2 sessions Time/GCodes Start Time: 12:00 Stop Time: 12:15 Total Time Billed (hr/min): 15 Billed Treatment Time 1 visit, [place] OT Jul 05, 2021 14:04
[2021-07-05 15:23] VITALS: BP 113/74
[2021-07-05 19:30] VITALS: BP 119/69
[2021-07-05 23:30] VITALS: BP 108/55
[2021-07-06 04:00] VITALS: BP 111/57
[2021-07-06] MEDS: HYDROmorphone 2 MG/ML VIAL (DILAUDID) IVP PRN (04:00)
[2021-07-06 05:56] LABS: BASOPHILS % (AUTO) 0 % (0-10); EOSINOPHILS # (AUTO) 0.2 10^3/uL (0.0-0.3); EOSINOPHILS % (AUTO) 3 % (0-10); HEMATOCRIT 25 % (35-52); HEMOGLOBIN 7.6 g/dL (11.5-16.0); LYMPHOCYTES # (AUTO) 2.1 10^3/uL (1.0-4.0); LYMPHOCYTES % (AUTO) 26 % (12-44); MEAN CORPUSCULAR HEMOGLOBIN 25 pg (25-34); MEAN CORPUSCULAR HGB CONC 31 g/dL (32-36); MEAN CORPUSCULAR VOLUME 81 fL (80-99); MEAN PLATELET VOLUME 9.2 fL (9.0-12.2); MONOCYTES # (AUTO) 0.6 10^3/uL (0.0-1.0); MONOCYTES % (AUTO) 7 % (0-12); NEUTROPHILS # (AUTO) 5.1 10^3/uL (1.8-7.8); NEUTROPHILS % (AUTO) 63 % (42-75); PLATELET COUNT 266 10^3/uL (130-400); WHITE BLOOD COUNT 8.1 10^3/uL (4.3-11.0)
[2021-07-06] MEDS: SOD POLYSTERENE 15 GM/60 ML (KAYEXALATE) UNIT DOSE PO SCH ×2 (06:00→12:10)
[2021-07-06] MEDS: inSUlin ASPART (NovoLOG) 1 UNIT/0.01 ML (CHARGE PER UNIT) SC SCH ×2 (06:00→10:54)
[2021-07-06 06:14] LABS: ALBUMIN 2.5 GM/DL (3.2-4.5); POTASSIUM 3.6 MMOL/L (3.6-5.0)
[2021-07-06 06:15] LABS: CALCIUM 8.4 MG/DL (8.5-10.1)
[2021-07-06 06:16] LABS: TOTAL PROTEIN 7.3 GM/DL (6.4-8.2)
[2021-07-06 06:18] LABS: BILIRUBIN,TOTAL 0.1 MG/DL (0.1-1.0)
[2021-07-06 06:20] LABS: CREATININE SERUM 1.7 MG/DL (0.60-1.30)
[2021-07-06 06:28] LABS: VALPROIC ACID 10.1 UG/ML (50.0-100.0)
[2021-07-06 08:00] VITALS: BP 133/86
--- NOTE | 2021-07-06 08:01 | Progress Note - Surgery ---
Subjective Date Seen by a Provider: Jul 06, 2021 Time Seen by a Provider: 07:40 Subjective/Events-last exam Patient reports feeling well this morning with less pain in the foot. She had diarrhea yesterday following administration of laxative. Objective Exam Vital Signs Date Time Temp Pulse Resp B/P (MAP) Pulse Ox O2 Delivery O2 Flow Rate FiO2 07/06/21 04:00 37.0 73 20 111/57 (75) 96 Room Air 07/05/21 23:30 37.3 84 20 108/55 (72) 98 Room Air 07/05/21 20:49 Room Air 07/05/21 19:30 37.3 82 20 119/69 (86) 97 Room Air 07/05/21 15:23 36.3 94 18 113/74 (87) 100 Room Air 07/05/21 12:00 36.8 91 20 116/79 (91) 98 Room Air 07/05/21 08:00 36.9 81 20 116/73 (87) 97 Room Air 07/05/21 08:00 Room Air I & O 07/06/21 07:00 Intake Total 1850 ml Balance 1850 ml Capillary Refill : Less Than 3 SecondsLess Than 3 Seconds General Appearance: No Apparent Distress, WD/WN, Chronically ill HEENT: PERRL/EOMI, Normal ENT Inspection Neck: Normal Inspection, Supple Respiratory: Lungs Clear Cardiovascular: Regular Rate, Rhythm Peripheral Pulses: 3+ Radial Pulses (R), 3+ Radial Pulses (L) Gastrointestinal: non tender, soft Extremity: Other (S/P left great toe amputation incision clean dry intact no erythema no signs of infection, minimal swelling to the area) Neurologic/Psychiatric: Alert, Oriented x3 Skin: Normal Color, Warm/Dry Lymphatic: No Adenopathy Results Lab Laboratory Tests 07/05/21 09:34: Total Bilirubin 0.2, Direct Bilirubin 0.1, Indirect Bilirubin 0.1, Aspartate Amino Transf (AST/SGOT) 8, Alanine Aminotransferase (ALT/SGPT) 7, Alkaline Phosphatase 59, Total Protein 6.5, Albumin 2.3L 07/05/21 11:08: Glucometer 142H 07/05/21 15:26: Glucometer 123H 07/05/21 20:04: Glucometer 99 07/05/21 23:56: Glucometer 152H 07/06/21 05:32: White Blood Count 8.1, Red Blood Count 3.07L, Hemoglobin 7.6L, Hematocrit 25L, Mean Corpuscular Volume 81, Mean Corpuscular Hemoglobin 25, Mean Corpuscular Hemoglobin Concent 31L, Red Cell Distribution Width 15.6H, Platelet Count 266, Mean Platelet Volume 9.2, Immature Granulocyte % (Auto) 1, Neutrophils (%) (Auto) 63, Lymphocytes (%) (Auto) 26, Monocytes (%) (Auto) 7, Eosinophils (%) (Auto) 3, Basophils (%) (Auto) 0, Neutrophils # (Auto) 5.1, Lymphocytes # (Auto) 2.1, Monocytes # (Auto) 0.6, Eosinophils # (Auto) 0.2, Basophils # (Auto) 0.0, Immature Granulocyte # (Auto) 0.1, Sodium Level 139, Potassium Level 3.6, Chloride Level 116H, Carbon Dioxide Level 13L, Anion Gap 10, Blood Urea Nitrogen 19H, Creatinine 1.70H, Estimat Glomerular Filtration Rate 34, BUN/Creatinine Ratio 11, Glucose Level 114H, Calcium Level 8.4L, Corrected Calcium 9.6, Total Bilirubin 0.1, Aspartate Amino Transf (AST/SGOT) 7, Alanine Aminotransferase (ALT/SGPT) 7, Alkaline Phosphatase 61, Total Protein 7.3, Albumin 2.5L, Valproic Acid (Depakene) Level 10.1L 07/06/21 05:43: Glucometer 111H Microbiology 07/02/21 Gram Stain - Final, Complete 07/02/21 Anaerobic Culture - Final, Complete No anaerobes isolated 07/02/21 Surgical Culture - Final, Complete No growth 07/01/21 MRSA Screen - Final, Complete MRSA not isolated 06/29/21 Blood Culture - Final, Complete No growth 06/29/21 Urine Culture - Final, Complete 3 or more isolates Assessment/Plan Assessment/Plan Assessment/Plan osteomyelitis of L big toe status post left great toe amputation UTI leukocytosis - improving chronic anemia - trend Hx of kidney disease, DM, neuropathy,seizures, bipolar, acid reflux, chronic anemia, chronic constipation Pain control Physical therapy to assist with ambulation Dressing changed Continue medical management. MERCEDES VALLEJO Jul 06, 2021 08:01
--- NOTE | 2021-07-06 08:02 | Progress Note - Surgery ---
MERCEDES VALLEJO 07/06/21 0802: Subjective Date Seen by a Provider: Jul 06, 2021 Time Seen by a Provider: 07:40 Subjective/Events-last exam Patient reports feeling well this morning with less pain in the foot. She had some diarrhea yesterday following administration of laxative. She was able to participate in PT yesterday and was walking around on her own with the help of a walker. States she will probably be ready to go home today. Denies any N/V or sweats/chills. Objective Exam Vital Signs Date Time Temp Pulse Resp B/P (MAP) Pulse Ox O2 Delivery O2 Flow Rate FiO2 07/06/21 04:00 37.0 73 20 111/57 (75) 96 Room Air 07/05/21 23:30 37.3 84 20 108/55 (72) 98 Room Air 07/05/21 20:49 Room Air 07/05/21 19:30 37.3 82 20 119/69 (86) 97 Room Air 07/05/21 15:23 36.3 94 18 113/74 (87) 100 Room Air 07/05/21 12:00 36.8 91 20 116/79 (91) 98 Room Air 07/05/21 08:00 36.9 81 20 116/73 (87) 97 Room Air 07/05/21 08:00 Room Air I & O 07/06/21 07:00 Intake Total 1850 ml Balance 1850 ml Capillary Refill : Less Than 3 SecondsLess Than 3 Seconds General Appearance: No Apparent Distress, WD/WN, Chronically ill HEENT: PERRL/EOMI, Normal ENT Inspection Neck: Normal Inspection, Supple Respiratory: Lungs Clear, Normal Breath Sounds, No Respiratory Distress Cardiovascular: Regular Rate, Rhythm, Normal Peripheral Pulses Peripheral Pulses: 3+ Radial Pulses (R), 3+ Radial Pulses (L) Gastrointestinal: non tender, soft Extremity: Normal Inspection, No Calf Tenderness, Other (S/P left great toe amputation incision clean dry intact no erythema no signs of infection, minimal swelling to the area) Neurologic/Psychiatric: Alert, Oriented x3, Normal Mood/Affect Skin: Normal Color, Warm/Dry Lymphatic: No Adenopathy Results Lab Laboratory Tests 07/05/21 09:34: Total Bilirubin 0.2, Direct Bilirubin 0.1, Indirect Bilirubin 0.1, Aspartate Amino Transf (AST/SGOT) 8, Alanine Aminotransferase (ALT/SGPT) 7, Alkaline Phosphatase 59, Total Protein 6.5, Albumin 2.3L 07/05/21 11:08: Glucometer 142H 07/05/21 15:26: Glucometer 123H 07/05/21 20:04: Glucometer 99 07/05/21 23:56: Glucometer 152H 07/06/21 05:32: White Blood Count 8.1, Red Blood Count 3.07L, Hemoglobin 7.6L, Hematocrit 25L, Mean Corpuscular Volume 81, Mean Corpuscular Hemoglobin 25, Mean Corpuscular Hemoglobin Concent 31L, Red Cell Distribution Width 15.6H, Platelet Count 266, Mean Platelet Volume 9.2, Immature Granulocyte % (Auto) 1, Neutrophils (%) (Auto) 63, Lymphocytes (%) (Auto) 26, Monocytes (%) (Auto) 7, Eosinophils (%) (Auto) 3, Basophils (%) (Auto) 0, Neutrophils # (Auto) 5.1, Lymphocytes # (Auto) 2.1, Monocytes # (Auto) 0.6, Eosinophils # (Auto) 0.2, Basophils # (Auto) 0.0, Immature Granulocyte # (Auto) 0.1, Sodium Level 139, Potassium Level 3.6, Chloride Level 116H, Carbon Dioxide Level 13L, Anion Gap 10, Blood Urea Nitrogen 19H, Creatinine 1.70H, Estimat Glomerular Filtration Rate 34, BUN/Creatinine Ratio 11, Glucose Level 114H, Calcium Level 8.4L, Corrected Calcium 9.6, Total Bilirubin 0.1, Aspartate Amino Transf (AST/SGOT) 7, Alanine Aminotransferase (ALT/SGPT) 7, Alkaline Phosphatase 61, Total Protein 7.3, Albumin 2.5L, Valproic Acid (Depakene) Level 10.1L 07/06/21 05:43: Glucometer 111H Microbiology 07/02/21 Gram Stain - Final, Complete 07/02/21 Anaerobic Culture - Final, Complete No anaerobes isolated 07/02/21 Surgical Culture - Final, Complete No growth 07/01/21 MRSA Screen - Final, Complete MRSA not isolated 06/29/21 Blood Culture - Final, Complete No growth 06/29/21 Urine Culture - Final, Complete 3 or more isolates Assessment/Plan Assessment/Plan Assessment/Plan osteomyelitis of L big toe status post left great toe amputation UTI chronic anemia - trend Hx of kidney disease, DM, neuropathy,seizures, bipolar, acid reflux, chronic anemia, chronic constipation Pain control Physical therapy to assist with ambulation Dressing changed Continue medical management. MIKE MUSA DO 07/06/21 2001: Supervisory-Addendum Brief Verification & Attestation Participated in pt care: other (Patient not wanting to be seen by provider) Personally performed: other (Patient not want to be seen by provider) Care discussed with: Medical Student Procedures: n/a Patient did not want to be seen by this provider, admitting physician planning discharge. MERCEDES VALLEJO Jul 06, 2021 08:02 MIKE MUSA DO Jul 06, 2021 20:01
[2021-07-06] MEDS: FOLIC ACID 1 MG TAB PO SCH (08:50)
[2021-07-06] MEDS: SODIUM BICARBONATE 650 MG TABLET (NON-FORMULARY) PO SCH (08:51)
[2021-07-06] MEDS: FERROUS SULF 325 MG (IRON) TAB PO SCH (08:51)
[2021-07-06] MEDS: DIVALPROEX 500 MG DELAYED RELEASE (DEPAKOTE) TAB PO SCH (08:52)
[2021-07-06] MEDS: SENNA W/DOCUSATE (SENOKOT S) TABLET PO SCH ×2 (08:52)
[2021-07-06] MEDS: DOCUSATE SODIUM 100 MG (COLACE) CAP PO SCH (08:52)
[2021-07-06] MEDS: LACTULOSE SYRUP 10GM/15ML (ENULOSE) 30ML UDC PO SCH (08:52)
[2021-07-06] MEDS ORDERED: OXC5T PO (10:13)
[2021-07-06] MEDS ORDERED: DIVA-76 PO (10:13)
--- NOTE | 2021-07-06 10:14 | Discharge Summary ---
Discharge Summary Hospital Course Was the Problem List Reviewed?: Yes Problems/Dx: (1) Renal failure, acute on chronic Status: Acute Qualifiers: Qualified Codes: N17.9 - Acute kidney failure, unspecified; N18.9 - Chronic kidney disease, unspecified (2) Open toe wound Status: Acute (3) Hyperkalemia, diminished renal excretion Status: Acute (4) Metabolic acidosis Status: Acute (5) Seizure disorder Status: Chronic Hospital Course Date of Admission: Jun 29, 2021 at 23:00 Admission Diagnosis : Family Physician/Provider: William Holman Date of Discharge: 07/06/21 Discharge Diagnosis: Acute on chronic kidney disease, hyperkalemia, metabolic acidosis, left toe amputation, diabetes insulin requiring Hospital Course: Hospital course: Pt had an uneventful hospital course for eight days when she was admitted for acute on chronic renal failure, pyelonephritis, and ultimately had her left great toe amputated due to osteomyelitis. She was placed on IV fluids, good resolution of creatinine from 4.0 to 1.7, Hgb recovered at 7.6, overall she did very well, pain medication and change of Depakote of 1000 mg BID was sent into [facility]. She was provided a walker. Labs and Pending Lab Test: Laboratory Tests 07/05/21 11:08: Glucometer 142H 07/05/21 15:26: Glucometer 123H 07/05/21 20:04: Glucometer 99 07/05/21 23:56: Glucometer 152H 07/06/21 05:32: White Blood Count 8.1, Red Blood Count 3.07L, Hemoglobin 7.6L, Hematocrit 25L, Mean Corpuscular Volume 81, Mean Corpuscular Hemoglobin 25, Mean Corpuscular Hemoglobin Concent 31L, Red Cell Distribution Width 15.6H, Platelet Count 266, Mean Platelet Volume 9.2, Immature Granulocyte % (Auto) 1, Neutrophils (%) (Auto) 63, Lymphocytes (%) (Auto) 26, Monocytes (%) (Auto) 7, Eosinophils (%) (Auto) 3, Basophils (%) (Auto) 0, Neutrophils # (Auto) 5.1, Lymphocytes # (Auto) 2.1, Monocytes # (Auto) 0.6, Eosinophils # (Auto) 0.2, Basophils # (Auto) 0.0, Immature Granulocyte # (Auto) 0.1, Sodium Level 139, Potassium Level 3.6, Chloride Level 116H, Carbon Dioxide Level 13L, Anion Gap 10, Blood Urea Nitrogen 19H, Creatinine 1.70H, Estimat Glomerular Filtration Rate 34, BUN/Creatinine Ratio 11, Glucose Level 114H, Calcium Level 8.4L, Corrected Calcium 9.6, Total Bilirubin 0.1, Aspartate Amino Transf (AST/SGOT) 7, Alanine Aminotransferase (ALT/SGPT) 7, Alkaline Phosphatase 61, Total Protein 7.3, Albumin 2.5L, Valproic Acid (Depakene) Level 10.1L 07/06/21 05:43: Glucometer 111H Microbiology 07/02/21 Gram Stain - Final, Complete 07/02/21 Anaerobic Culture - Final, Complete No anaerobes isolated 07/02/21 Surgical Culture - Final, Complete No growth 07/01/21 MRSA Screen - Final, Complete MRSA not isolated 06/29/21 Blood Culture - Final, Complete No growth 06/29/21 Urine Culture - Final, Complete 3 or more isolates Home Meds Active Divalproex Sodium 500 Mg Tablet. 1,000 Mg PO BID Reported Folic Acid 1 Mg Tablet 1 Mg PO DAILY Pantoprazole Sodium 40 Mg Tablet. 40 Mg PO DAILY Senna-S Tablet (Sennosides/Docusate Sodium) 1 Each Tablet 2 Each PO BID Sodium Bicarbonate 650 Mg Tablet 650 Mg PO BID Tylenol Extra Strength (Acetaminophen) 500 Mg Tablet 1,000 Mg PO Q8H PRN Fiber (Methylcellulose) 500 Mg Tablet 1,000 Mg PO BID Iron (Ferrous Sulfate) 325 Mg Tablet 325 Mg PO DAILY Humalog Kwikpen (Insulin Lispro) 100 Unit/1 Ml Insuln.pen Unit SQ SLIDING/SCALE Depakote ER (Divalproex Sodium) 500 Mg Tab.er.24h 500 Mg PO HS LAST FILLED 01-05-2021 #60/60 DAY SUPPLY Assessment/Pt Instructions CH[facility] with Dr. Moser of scheduled Discharge Planning: <30 minutes discharge planning Discharge Instructions Discharge Diet: No Restrictions Discharge Physical Examination Vital Signs Vital Signs Date Time Temp Pulse Resp B/P (MAP) Pulse Ox O2 Delivery O2 Flow Rate FiO2 07/06/21 08:00 Room Air 07/06/21 08:00 36.9 79 20 133/86 (102) 98 07/02/21 15:45 0.5 General Appearance: No Apparent Distress, WD/WN, Chronically ill Allergies: Coded Allergies: cephalexin (Verified Allergy, Severe, 12/16/19) SEIZURES cinnamon (Verified Allergy, Severe, Anaphylaxis, 12/16/19) levetiracetam (Verified Allergy, Intermediate, seizures, 05/19/21) aspirin (Verified Allergy, Unknown, 12/16/19) Discharge Summary Date of Admission Jun 29, 2021 at 23:00 Date of Discharge Discharge Date: Jul 06, 2021 Discharge Diagnosis Change meds to help pain PT and OT MARIA EUGENIA JUDD DO Jul 06, 2021 10:14
--- NOTE | 2021-07-06 10:44 | Occupational Ther Daily Note ---
OT Current Status-Daily Note Subjective Pt reports possible d/c home today. Appearance Left sitting upright in bed, all needs within reach, spouse in the room. Mental Status/Objective Patient Orientation: Person, Place, Time, Situation ADL-Treatment Therapy Code Descriptions/Definitions Functional [place] Measure: 0=Not Assessed/NA 4=Minimal Assistance 1=Total Assistance 5=Supervision or Setup 2=Maximal Assistance 6=Modified [place] 3=Moderate Assistance 7=Complete IndependenceSCALE: Activities may be completed with or without assistive devices. 2-Ytoidxpopi-dmxasrj completes the activity by him/herself with no assistance from a helper. 5-Set-up or Clean-up Assistance-helper sets up or cleans up; patient completes activity. Daisy assists only prior to or following the activity. 4-Supervision or Touching Assistance-helper provides verbal cues and/or touching/steadying and/or contact guard assistance as patient completes a ctivity. Assistance may be provided throughout the activity or intermittently. 3-Partial/Moderate Assistance-helper does LESS THAN HALF the effort. Daisy lifts, holds or supports trunk or limbs, but provides less than half the effort. 2-Substantial/Maximal Assistance-helper does MORE THAN HALF the effort. Daisy lifts or holds trunk or limbs and provides more than half the effort. 1-Bejpxgijo-qjtkic does ALL the effort. Patient does none of the effort to complete the activity. Or, the assistance of 2 or more helpers is required for the patient to complete the activity. If activity was not attempted, code reason: 7-Patient Refused. 9-Not Applicable-not attempted and the patient did not perform the activity before the current illness, exacerbation or injury. 10-Not Attempted due to Environmental Limitations-(lack of equipment, weather restraints, etc.). 88-Not Attempted due to Medical Conditions or Safety Concerns. Other Treatment Pt with questions regarding DME (shower chair, commode, walker). Education provided; spouse and patient clarify understanding. Pt able to demonstrate transfers/gait throughout room with use of walker and with good adherence to partial weight bearing. No cues or assist needed for safety. Spouse reports that she will assist pt as needed post d/c. No further OT services needed at this time. Education OT Patient Education: Correct positioning, Purpose of tx/functional activities, Reviewed precautions Teaching Recipient: Patient, Family Teaching Methods: Demonstration, Discussion Response to Teaching: Verbalize Understanding, Return Demonstration OT Skilled Nursing Goals Skilled Nursing Goals Oral Hygiene (QC): 5 Toileting Hygiene (QC): 4 Lower Body Dressing (QC): 4 On/Off Footwear (QC): 4 1=Demonstrate adherence to instructed precautions during ADL tasks. 2=Patient will verbalize/demonstrate understanding of assistive devices/modifications for ADL. 3=Patient will improve strength/tolerance for activity to enable patient to perform ADL's. OT Education/Plan Problem List/Assessment Assessment: Impaired I ADL's Discharge Recommendations Plan/Recommendations: Discharge/Goals Met Therapy Discharge Recommendati: Home & Family Equpiment Recommendations-D/C: Rails on Tub/Shower, Bath Chair Treatment Plan/Plan of Care Treatment,Training & Education: Yes Patient would benefit from OT for education, treatment and training to promote independence in ADL's, mobility, safety and/or upper extremity function for ADL's. Plan of Care: ADL Retraining, Orthotic Fitting/Training, UE Funct Exercise/Act Treatment Duration: Jul 07, 2021 Frequency: 2 times per week Estimated Hrs Per Day: .25 hour per day Rehab Potential: Fair Time/GCodes Start Time: 09:53 Stop Time: 10:01 Total Time Billed (hr/min): 8 Billed Treatment Time 1 visit, Marysol Wood OT Jul 06, 2021 10:44
--- NOTE | 2021-07-06 11:43 | Physical Therapy Progress Note ---
Therapy Progress Note Patient is up ad sameer in room with FWW and PWB left foot without difficulty. PT to dismiss patient from services at this time. 1 visit PAMELA JACOME PT Jul 06, 2021 11:43
[2021-07-06 12:00] VITALS: BP 118/79
[2021-07-06 13:44] VITALS: BP 133/86
--- NOTE | 2021-07-06 14:12 | Progress Note ---
JELAIN SANDOVAL 07/06/21 1412: Progress Note Verónica Ogden is a 36 yo female with a past medical history of diabetes, CKD, anemia, seizures who was admitted 06/29 for management of osteomyelitis of left toe. Patient had been seeing Dr. Edge for management of an ingrown nail of the left great toe for which she had received a skin graft one month prior to admission. One week prior to admission patient experiencing significant pain of that toe. On 06/29 she was admitted to [facility]. Xray of the left foot on 06/30 was consistent with osteomyeltitis of the left great toe. On 07/02 the toe was amputated. Residual pain was managed with oxycodone 5mg q4 PRN, IV dilaudid q2 PRN, and PT/OT. By 07/06 patient reported adequate pain control and strength necessary for discharge. In addition, patient was noted to have acute kidney injury on CKD, UTI, chronic anemia secondary to CKD, and seizures. On admission, patient's creatinine was 4.06. This was managed with IVF. On 07/05 the creatinine was down to 1.7, which the patient believed was close to her baseline. UA on admission was consistent with a UTI, and culture grew several species of gram positive bacteria. This was managed with six day course of meropenem. Patient has long-standing history of c hronic anemia, and hemoglobin during this hospital stay ranged from 7-9 (9.2 on admission). This was monitored closely during admission. Finally, patient reported experiencing two seizures on admission. Patient has a long standing history of seizure disorder managed with Depakote 1000mg qday. As depakote levels were low, patient was managed with 1000mg BID, double her regular dose. She will be discharged with this higher amount. By 07/06 patient was medically stable and safe for discharge. Patient was in a greement. All questions and concerns were addressed. BIBI JUDD DO 07/07/21 0526: Supervisory-Addendum Brief Verification & Attestation Participated in pt care: history, MDM, physical Personally performed: exam, history, MDM, supervision of care Care discussed with: Medical Student Procedures: n/a Results interpretation: Verified all documentation Verification and Attestation of Medical Student E/M Service A medical student performed and documented this service in my presence. I reviewed and verified all information documented by the medical student and made modifications to such information, when appropriate. I personally performed the physical exam and medical decision making. Bibi Judd, Jul 07, 2021,05:26 JELANI SANDOVAL Jul 06, 2021 14:12 BIBI JUDD DO Jul 07, 2021 05:26
== END 2021-07-06 13:45 | disposition home or self-care (01) | DRG 908 ==
LOC: EDUNIT# 18:02 → ER 18:05 → 4TH 23:00
PROVIDERS: ADMIT Family Medicine; ATTEND Internal Medicine
PROC: 0Y6Q0Z0 Detachment at Left 1st Toe, Complete, Open Approach (ICD-10-PCS; principal; 2021-07-02 14:03)
DX: T86.822 Skin graft (allograft) (autograft) infection (principal); N12 Tubulo-interstitial nephritis, not specified as acute or chronic; M86.172 Other acute osteomyelitis, left ankle and foot; N17.9 Acute kidney failure, unspecified; E87.1 Hypo-osmolality and hyponatremia; G40.909 Epilepsy, unspecified, not intractable, without status epilepticus; F31.9 Bipolar disorder, unspecified; F43.10 Post-traumatic stress disorder, unspecified; Z20.822 Contact with and (suspected) exposure to COVID-19; F41.9 Anxiety disorder, unspecified; N18.9 Chronic kidney disease, unspecified; F42.9 Obsessive-compulsive disorder, unspecified; E10.42 Type 1 diabetes mellitus with diabetic polyneuropathy; E10.319 Type 1 diabetes mellitus with unspecified diabetic retinopathy without macular edema; E10.22 Type 1 diabetes mellitus with diabetic chronic kidney disease; K59.00 Constipation, unspecified; E87.5 Hyperkalemia; K21.9 Gastro-esophageal reflux disease without esophagitis; D64.9 Anemia, unspecified; I25.2 Old myocardial infarction; Z79.4 Long term (current) use of insulin; Z95.820 Peripheral vascular angioplasty status with implants and grafts; Z88.6 Allergy status to analgesic agent; Z88.1 Allergy status to other antibiotic agents; Z88.8 Allergy status to other drugs, medicaments and biological substances; Z91.018 Allergy to other foods; Z83.3 Family history of diabetes mellitus; Z81.8 Family history of other mental and behavioral disorders; Z91.19 Patient's noncompliance with other medical treatment and regimen
CPT/HCPCS: 36410; 36415; 73620; 76937; 80048; 80053; 80076; 80164; 80306; 81000; 82947; 83605; 83690; 83735; 84703; 85025; 85027; 86141; 87040; 87070; 87075; 87081; 87088; 87205; 87636; 96361; 96365; 96366; 96375

== ENCOUNTER 2021-07-21 06:27 | Emergency (ER) | payer OTHER ==
[~2021-07-21 06:27] MED LIST changes: +DIVA-76 PO; +FOLI1TAB33 PO; +NF-SODBICA PO; +OXC5T PO; +PANT40TA52 PO; +SENN-109 PO
[2021-07-21] MEDS ORDERED: fentaNYL INJ 100 MCG/2 ML AMP IVP ONE (07:00)
[2021-07-21] MEDS ORDERED: ONDANSETRON 4 MG/2 ML (SDV) Z0FRAN IVP ONE (07:00)
--- NOTE | 2021-07-21 07:01 | ED General ---
General Chief Complaint: Back Problems Stated Complaint: KIDNEY PAIN,LEFT SIDE,POSS UTI Source of Information: Patient Exam Limitations: No Limitations History of Present Illness Date Seen by Provider: Jul 21, 2021 Time Seen by Provider: 06:45 Initial Comments Patient is a 36-year-old insulin-dependent diabetic who presents to the [facility] department today with a chief complaint of concern for decreasing renal function, concern for urinary tract infection. Patient states she started feeling "sick" on Monday or Monday of this last week. She states she has developed some back pain worsening burning with urination, generalized fatigue, nausea and vomiting. Patient states that she has had a long history of kidney problems with previous surgical intervention to her right kidney, indwelling ureteral stents. She has no ongoing follow-up with urology or nephrology. Recent hospitalization about 3 weeks ago for a left great toe infection that ultimately resulted in an amputation. It has been 3 weeks almost to the day since her surgery. Patient states that she was advised her surgeon would not follow her up after they exchanged crosswords therefore her sutures have not been removed. She denies any increased pain, redness, swelling, drainage from the wound on the left foot. She did have some nausea and vomiting x3 this morning. Has left lower abdominal discomfort. Suffers with chronic constipation. States that she is scheduled to follow-up with Dr. Shea at [facility] soon to establish primary care. Is not Covid vaccinated. Not interested in vaccine today. All other review of systems reviewed and negative except as stated. Timing/Duration: 3-4 Days Severity: Moderate Associated Systoms: Malaise, Nausea/Vomiting Allergies and Home Medications Allergies Coded Allergies: cephalexin (Verified Allergy, Severe, 12/16/19) SEIZURES cinnamon (Verified Allergy, Severe, Anaphylaxis, 12/16/19) levetiracetam (Verified Allergy, Intermediate, seizures, 05/19/21) aspirin (Verified Allergy, Unknown, 12/16/19) Patient Home Medication List Home Medication List Reviewed: Yes Acetaminophen (Tylenol Extra Strength) 500 Mg Tablet, 1,000 MG PO Q8H PRN for PAIN-MILD (1-4), (Reported) Entered as Reported by: KALEE MERCEDES on 05/19/21 1135 Divalproex Sodium (Divalproex Sodium) 500 Mg Tablet., 1,000 MG PO BID Prescribed by: MARIA EUGENIA JUDD on 07/06/21 1013 Ferrous Sulfate (Iron) 325 Mg Tablet, 325 MG PO DAILY, (Reported) Entered as Reported by: KALEE MERCEDES on 05/19/21 1135 Folic Acid (Folic Acid) 1 Mg Tablet, 1 MG PO DAILY, (Reported) Entered as Reported by: KALEE MERCEDES on 06/30/21 1001 Insulin Lispro (Humalog Kwikpen) 100 Unit/1 Ml Insuln.pen, UNIT SQ SLIDING/SCALE, (Reported) Entered as Reported by: KALEE MERCEDES on 05/19/21 1135 Methylcellulose (Fiber) 500 Mg Tablet, 1,000 MG PO BID, (Reported) Entered as Reported by: KALEE MERCEDES on 05/19/21 1135 Oxycodone Hcl (Oxyir Tablet) 5 Mg Tab, 5 MG PO Q4H PRN for PAIN-SEVERE (8-10) Prescribed by: MARIA EUGENIA JUDD on 07/06/21 1014 Pantoprazole Sodium (Pantoprazole Sodium) 40 Mg Tablet.dr, 40 MG PO DAILY, (Reported) Entered as Reported by: KALEE MERCEDES on 06/30/21 0959 Sennosides/Docusate Sodium (Senna-S Tablet) 1 Each Tablet, 2 EACH PO BID, (Reported) Entered as Reported by: KALEE MERCEDES on 06/30/21 0959 Sodium Bicarbonate (Sodium Bicarbonate) 650 Mg Tablet, 650 MG PO BID, (Reported) Entered as Reported by: KALEE MERCEDES on 06/30/21 0959 Review of Systems Review of Systems Constitutional: see HPI, malaise EENTM: no symptoms reported Respiratory: no symptoms reported Cardiovascular: no symptoms reported Gastrointestinal: abdominal pain, nausea, vomiting Genitourinary: dysuria : No Musculoskeletal: back pain (left flank greater than right), joint pain (mild post operative discomfort left great toe "phantom pain") Skin: no symptoms reported All Other Systems Reviewed Negative Unless Noted: Yes Past Rnsqrmd-Rvgmhm-Musjeg Hx Immunizations Up To Date Tetanus Booster (TDap): Unknown First/Initial COVID19 Vaccinat: none Second COVID19 Vaccination Erick: none Seasonal Allergies Seasonal Allergies: No Past Medical History Surgery/Hospitalization HX: Recent kidney stents x2 placed in February Surgeries: Yes Orthopedic, Renal Respiratory: No Currently Using CPAP: No Currently Using BIPAP: No Cardiac: Yes Heart Attack, Palpitations Neurological: Yes Seizure Disorder Reproductive Disorders: No Genitourinary: Yes Kidney Infection, Kidney Stones, Renal Failure Gastrointestinal: Yes Gastroesophageal Reflux Musculoskeletal: Yes (loss of toenail) Endocrine: Yes Diabetes, Insulin dep HEENT: Yes (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 -DRUGS-ADMITS TO METH USE, DENIES IV USE. CLAIMS "NONE FOR 10 YEARS" -DENIES SMOKING Physical Exam Vital Signs Vital Signs - First Documented 07/21/21 06:40 Temp 36.1 Pulse 110 Resp 16 B/P (MAP) 124/98 (107) Pulse Ox 100 O2 Delivery Room Air Capillary Refill : Height, Weight, BMI Height: '" Weight: lbs. oz. kg; 24.86 BMI Method: General Appearance: No Apparent Distress, WD/WN Eyes: Bilateral Eye Normal Inspection, Bilateral Eye PERRL, Bilateral Eye EOMI HEENT: PERRL/EOMI Neck: Normal Inspection Respiratory: Lungs Clear, Normal Breath Sounds, No Accessory Muscle Use, No Respiratory Distress Cardiovascular: Regular Rate, Rhythm, Normal Peripheral Pulses Gastrointestinal: Normal Bowel Sounds, Soft, Tenderness (LLQ) Back: CVA Tenderness (L), CVA Tenderness (R) Extremity: Normal Capillary Refill, Normal Inspection, Normal Range of Motion, Non Tender, No Calf Tenderness, Other (post operative change to the left great toe area -minimal erythema, not really tender to palpation. sutures intact. no drainage to the suture line. no fluctuance) Neurologic/Psychiatric: Alert, Oriented x3, No Motor/Sensory Deficits, Normal Mood/Affect Procedures/Interventions Suture Removal/Wound Recheck : Suture Removal/Wound Recheck: Sutures removed by MD Progress/Results/Core Measures Suspected Sepsis SIRS Temperature: Pulse: Respiratory Rate: Laboratory Tests 07/21/21 07:42: White Blood Count 10.7 Blood Pressure / Mean: Laboratory Tests 07/21/21 07:42: Creatinine 2.23H, Platelet Count 391, Total Bilirubin 0.2 Results/Orders Lab Results Laboratory Tests Test 07/21/21 06:47 07/21/21 07:42 Range/Units Urine Color YELLOW Urine Clarity CLOUDY H Urine pH 6.0 5-9 Urine Specific [place] 1.015 L 1.016-1.022 Urine Protein 2+ H NEGATIVE Urine Glucose (UA) NEGATIVE NEGATIVE Urine Ketones NEGATIVE NEGATIVE Urine Nitrite NEGATIVE NEGATIVE Urine Bilirubin NEGATIVE NEGATIVE Urine Urobilinogen 0.2 < = 1.0 MG/DL Urine Leukocyte Esterase 2+ H NEGATIVE Urine RBC (Auto) 3+ H NEGATIVE Urine RBC 25-50 H /HPF Urine WBC TNTC H /HPF Urine Squamous Epithelial Cells RARE /HPF Urine Crystals NONE /LPF Urine Bacteria NEGATIVE /HPF Urine Casts NONE /LPF Urine Mucus NEGATIVE /LPF Urine Culture Indicated YES White Blood Count 10.7 4.3-11.0 10^3/uL Red Blood Count 3.52 L 3.80-5.11 10^6/uL Hemoglobin 8.8 L 11.5-16.0 g/dL Hematocrit 29 L 35-52 % Mean Corpuscular Volume 81 80-99 fL Mean Corpuscular Hemoglobin 25 25-34 pg Mean Corpuscular Hemoglobin Concent 31 L 32-36 g/dL Red Cell Distribution Width 14.4 10.0-14.5 % Platelet Count 391 130-400 10^3/uL Mean Platelet Volume 9.3 9.0-12.2 fL Immature Granulocyte % (Auto) 1 % Neutrophils (%) (Auto) 74 42-75 % Lymphocytes (%) (Auto) 17 12-44 % Monocytes (%) (Auto) 6 0-12 % Eosinophils (%) (Auto) 2 0-10 % Basophils (%) (Auto) 1 0-10 % Neutrophils # (Auto) 7.9 H 1.8-7.8 10^3/uL Lymphocytes # (Auto) 1.8 1.0-4.0 10^3/uL Monocytes # (Auto) 0.7 0.0-1.0 10^3/uL Eosinophils # (Auto) 0.2 0.0-0.3 10^3/uL Basophils # (Auto) 0.1 0.0-0.1 10^3/uL Immature Granulocyte # (Auto) 0.1 0.0-0.1 10^3/uL Sodium Level 133 L 135-145 MMOL/L Potassium Level 5.3 H 3.6-5.0 MMOL/L Chloride Level 102 98-107 MMOL/L Carbon Dioxide Level 19 L 21-32 MMOL/L Anion Gap 12 5-14 MMOL/L Blood Urea Nitrogen 49 H 7-18 MG/DL Creatinine 2.23 H 0.60-1.30 MG/DL Estimat Glomerular Filtration Rate 25 BUN/Creatinine Ratio 22 Glucose Level 207 H 70-105 MG/DL Calcium Level 9.9 8.5-10.1 MG/DL Corrected Calcium 10.5 H 8.5-10.1 MG/DL Total Bilirubin 0.2 0.1-1.0 MG/DL Aspartate Amino Transf (AST/SGOT) 14 5-34 U/L Alanine Aminotransferase (ALT/SGPT) 10 0-55 U/L Alkaline Phosphatase 79 40-136 U/L Total Protein 9.5 H 6.4-8.2 GM/DL Albumin 3.3 3.2-4.5 GM/DL My Orders Orders - DAISHA ALFONSO MD Ed Iv/Invasive Line Start (07/21/21 06:55) Cbc With Automated Diff (07/21/21 06:55) Comprehensive Metabolic Panel (07/21/21 06:55) Ua Culture If Indicated (07/21/21 06:55) Fentanyl Inj (Sublimaze Injection) (07/21/21 07:00) Ondansetron Injection (Zofran Injectio (07/21/21 07:00) Urine Culture (07/21/21 06:47) Ns Iv 1000 Ml (Sodium Chloride 0.9%) (07/21/21 09:00) Hydromorphone Injection (Dilaudid Inject (07/21/21 09:15) Medications Given in ED Current Medications Medications Dose Ordered Sig/Colton Route Start Time Stop Time Status Last Admin Dose Admin Fentanyl Citrate 50 mcg ONCE ONCE IVP 07/21/21 07:00 07/21/21 07:01 DC 07/21/21 07:55 50 MCG Hydromorphone HCl 0.5 mg ONCE ONCE IV 07/21/21 09:15 07/21/21 09:16 DC 07/21/21 09:20 0.5 MG Ondansetron HCl 4 mg ONCE ONCE IVP 07/21/21 07:00 07/21/21 07:01 DC 07/21/21 07:55 4 MG Vital Signs/I&O 07/21/21 06:40 Temp 36.1 Pulse 110 Resp 16 B/P (MAP) 124/98 (107) Pulse Ox 100 O2 Delivery Room Air Capillary Refill : Progress Note : Time: 10:16 Progress Note Reviewed patient's labs, she has normal CBC, relatively normal chemistry with mildly increased creatinine and depressed GFR. Urine shows too numerous to count white blood cells which has been consistent with previous urinalysis. I reviewed all of the patient's prior urine cultures none of which have grown any pathologic bacteria. I'm not going to place the patient on antibiotics at this time, will wait for urine culture. Patient is comfortable with this plan of care. I reviewed CAT scan from May she has no visible kidney stones on the left she does have some intraparenchymal stones on the right. Majority of her pain today is on the left. I don't suspect obstruction of her stent, pyelonephritis, any other acute surgical pathology. We'll send some pain medications to [facility] for her. Had a long discussion regarding urologic and nephrology care. She was supposed to have an appointment today with Dr. Castro from [place]. She had to miss this appointment secondary to coming to the ER today. I strongly encouraged her to call his office and reschedule that. She states that she will do this. We talked about dialysis. Different modalities. She demonstrates some basic understanding of this as a potential eventuality. Patient is given good return precautions. She is desiring discharge to home. All questions are sought and answered. Patient is stable for discharge. Departure Impression Primary Impression: Left flank pain Additional Impressions: Chronic kidney disease Qualified Codes: N18.9 - Chronic kidney disease, unspecified Diabetes Qualified Codes: E10.22 - Type 1 diabetes mellitus with diabetic chronic kidney disease Disposition: HOME, SELF-CARE Condition: Stable Departure-Patient Inst. Decision time for Depature: 10:20 Referrals: [facility] (PCP) Primary Care Physician CHARLES SHEA MD (Family) Primary Care Physician Patient Instructions: Chronic Kidney Disease (DC) Add. Discharge Instructions: Drink plenty of fluids to stay well-hydrated. Take [id number] Tylenol as needed for pain. I have also written you a prescription for a small amount of hydrocodone. Take 1 only as needed for severe pain. Monitor yourself for fever, worsening abdominal pain, nausea or vomiting. Come back to the emergency room if you have any new, concerning or emergent complaints. Please call Dr. Castro's office today to reschedule your appointment as soon as possible. Scripts Hydrocodone/Acetaminophen (Hydrocodone-Acetamin 5-325 mg) 1 Each Tablet 1 TAB PO Q6H PRN for PAIN-MODERATE (5-7), #10 TAB Prov: DAISHA ALFONSO MD 07/21/21 DAISHA ALFONSO MD Jul 21, 2021 07:01
[2021-07-21 07:08] LABS: BILIRUBIN,URINE NEGATIVE (NEGATIVE); COLOR,URINE YELLOW; GLUCOSE, URINE (UA) NEGATIVE (NEGATIVE); KETONES,URINE NEGATIVE (NEGATIVE); LEUKOCYTE ESTERASE ,URINE 2+ (NEGATIVE); NITRITE,URINE NEGATIVE (NEGATIVE); PROTEIN,URINE 2+ (NEGATIVE)
[2021-07-21 07:19] LABS: BACTERIA,URINE NEGATIVE /HPF; CLARITY,URINE CLOUDY; RBC,URINE 25-50 /HPF; SQUAMOUS EPITHELIAL CELL,UR RARE /HPF; WBC,URINE TNTC /HPF
[2021-07-21 07:50] LABS: BASOPHILS # (AUTO) 0.1 10^3/uL (0.0-0.1); BASOPHILS % (AUTO) 1 % (0-10); EOSINOPHILS # (AUTO) 0.2 10^3/uL (0.0-0.3); EOSINOPHILS % (AUTO) 2 % (0-10); HEMATOCRIT 29 % (35-52); HEMOGLOBIN 8.8 g/dL (11.5-16.0); LYMPHOCYTES # (AUTO) 1.8 10^3/uL (1.0-4.0); LYMPHOCYTES % (AUTO) 17 % (12-44); MEAN CORPUSCULAR HEMOGLOBIN 25 pg (25-34); MEAN CORPUSCULAR HGB CONC 31 g/dL (32-36); MEAN CORPUSCULAR VOLUME 81 fL (80-99); MEAN PLATELET VOLUME 9.3 fL (9.0-12.2); MONOCYTES # (AUTO) 0.7 10^3/uL (0.0-1.0); MONOCYTES % (AUTO) 6 % (0-12); NEUTROPHILS # (AUTO) 7.9 10^3/uL (1.8-7.8); NEUTROPHILS % (AUTO) 74 % (42-75); PLATELET COUNT 391 10^3/uL (130-400); WHITE BLOOD COUNT 10.7 10^3/uL (4.3-11.0)
[2021-07-21 08:07] LABS: ALBUMIN 3.3 GM/DL (3.2-4.5); POTASSIUM 5.3 MMOL/L (3.6-5.0)
[2021-07-21 08:08] LABS: CALCIUM 9.9 MG/DL (8.5-10.1)
[2021-07-21 08:09] LABS: TOTAL PROTEIN 9.5 GM/DL (6.4-8.2)
[2021-07-21 08:11] LABS: BILIRUBIN,TOTAL 0.2 MG/DL (0.1-1.0)
[2021-07-21 08:13] LABS: CREATININE SERUM 2.23 MG/DL (0.60-1.30)
[2021-07-21] MEDS ORDERED: NS IV 1000 ML 1,000 ML IV SCH (09:00)
[2021-07-21] MEDS ORDERED: HYDROmorphone 2 MG/ML VIAL (DILAUDID) IV ONE (09:15)
[2021-07-21] MEDS ORDERED: ACHD5005 PO (10:21)
[2021-07-21 10:33] VITALS: BP 100/77
== END 2021-07-21 10:37 | disposition home or self-care (01) ==
LOC: EDUNIT# 06:27 → ER 06:37
DX: R10.32 Left lower quadrant pain (principal); E11.22 Type 2 diabetes mellitus with diabetic chronic kidney disease; N18.9 Chronic kidney disease, unspecified; I25.2 Old myocardial infarction; G40.909 Epilepsy, unspecified, not intractable, without status epilepticus; K21.9 Gastro-esophageal reflux disease without esophagitis; Z79.4 Long term (current) use of insulin; Z79.899 Other long term (current) drug therapy
CPT/HCPCS: 36415; 36430; 80053; 81000; 85025; 87088

== ENCOUNTER 2021-07-26 12:03 | Emergency (ER) | payer OTHER ==
[~2021-07-26] VITALS: Ht 165 cm; Wt 70.0 kg
--- NOTE | 2021-07-26 12:34 | ED GU-Female ---
General Stated Complaint: FATIGUE,CHILLS Source: patient Exam Limitations: no limitations (JEANINE ANTUNEZ APRN) History of Present Illness Date Seen by Provider: Jul 26, 2021 Time Seen by Provider: 12:33 Initial Comments This is a 36 yo female who presented to the ER with concerns for urinary tract infection, left flank pain, burning urination, and dehydration. States that she was evaluated and treated at this emergency department on 07/21/2021 for same complaint. At that time her labs were relatively her baseline and decision to culture urine before prescribing antimicrobial's was made as she has had multiple urine cultures that have not grown any pathologic bacteria. Her culture on 07/21/21 was mixed bacterial adrián. Her initial symptoms began approximately 1 week ago. States that she was given hydrocodone for her pain however despite taking that her symptoms have progressively worsened. She is concerned that she has pyelonephritis again or there is an issue with her i ndwelling ureteral stents. States that her ureteral stents were placed in February 2021 and she has been unable to follow-up with nephrology since placement due to inability to keep appointments d/t frequent hospital admissions. She was supposed to have appointment with Dr. Castro from [place] on 07/21/2021 however she presented to this emergency department instead due to symptoms. (JEANINE ANTUNEZ APRN) Allergies and Home Medications Allergies Coded Allergies: cephalexin (Verified Allergy, Severe, 12/16/19) SEIZURES cinnamon (Verified Allergy, Severe, Anaphylaxis, 12/16/19) aspirin (Verified Allergy, Unknown, 12/16/19) Patient Home Medication List Home Medication List Reviewed: Yes (JEANINE ANTUNEZ APRN) Acetaminophen (Tylenol Extra Strength) 500 Mg Tablet, 1,000 MG PO Q8H PRN for PAIN-MILD (1-4), (Reported) Entered as Reported by: KALEE MERCEDES on 05/19/21 1135 Divalproex Sodium (Divalproex Sodium) 500 Mg Tablet.dr 1,000 MG PO BID Prescribed by: MARIA EUGENIA JUDD on 07/06/21 1013 Ferrous Sulfate (Iron) 325 Mg Tablet, 325 MG PO DAILY, (Reported) Entered as Reported by: KALEE MERCEDES on 05/19/21 1135 Folic Acid (Folic Acid) 1 Mg Tablet, 1 MG PO DAILY, (Reported) Entered as Reported by: KALEE MERCEDES on 06/30/21 1001 Hydrocodone/Acetaminophen (Hydrocodone-Acetamin 5-325 mg) 1 Each Tablet, 1 TAB PO Q6H PRN for PAIN-MODERATE (5-7) Prescribed by: DAISHA ALFONSO on 07/21/21 1021 Insulin Lispro (Humalog Kwikpen) 100 Unit/1 Ml Insuln.pen, UNIT SQ SLIDING/SCALE, (Reported) Entered as Reported by: KALEE MERCEDES on 05/19/21 1135 Methylcellulose (Fiber) 500 Mg Tablet, 1,000 MG PO BID, (Reported) Entered as Reported by: KALEE MERCEDES on 05/19/21 1135 Oxycodone Hcl (Oxyir Tablet) 5 Mg Tab, 5 MG PO Q4H PRN for PAIN-SEVERE (8-10) Prescribed by: MARIA EUGENIA JUDD on 07/06/21 1014 Pantoprazole Sodium (Pantoprazole Sodium) 40 Mg Tablet.dr, 40 MG PO DAILY, (Reported) Entered as Reported by: KALEE MERCEDES on 06/30/21 0959 Sennosides/Docusate Sodium (Senna-S Tablet) 1 Each Tablet, 2 EACH PO BID, (Reported) Entered as Reported by: KALEE MERCEDES on 06/30/21 0959 Sodium Bicarbonate (Sodium Bicarbonate) 650 Mg Tablet, 650 MG PO BID, (Reported) Entered as Reported by: KALEE MERCEDES on 06/30/21 0959 Review of Systems Review of Systems Constitutional: malaise EENTM: no symptoms reported Respiratory: no symptoms reported Cardiovascular: no symptoms reported Gastrointestinal: LUQ, LLQ, nausea, vomiting Genitourinary: burning; denies discharge; dysuria, flank pain : No Musculoskeletal: no symptoms reported Skin: other (incision of left great toe from amputation on 06/29/21. ) Psychiatric/Neurological: No Symptoms Reported Endocrine: No Symptoms Reported Hematologic/Lymphatic: No Symptoms Reported (JEANINE ANTUNEZ APRN) Past Kulhivx-Gyfave-Cgyzap Hx Immunizations Up To Date Tetanus Booster (TDap): Unknown First/Initial COVID19 Vaccinat: none Second COVID19 Vaccination Erick: none (JEANINE ANTUNEZ APRN) Seasonal Allergies Seasonal Allergies: No (JEANINE ANTUNEZ APRN) Past Medical History Surgery/Hospitalization HX: Recent kidney stents x2 placed in February; LEFT GREAT TOE AMPUTATED 07/02/21 Surgeries: Yes Orthopedic, Renal Respiratory: No Currently Using CPAP: No Currently Using BIPAP: No Cardiac: Yes Heart Attack, Palpitations Neurological: Yes Seizure Disorder Reproductive Disorders: No Genitourinary: Yes Kidney Infection, Kidney Stones, Renal Failure Gastrointestinal: Yes Gastroesophageal Reflux Musculoskeletal: Yes (loss of toenail) Endocrine: Yes Diabetes, Insulin dep HEENT: Yes (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 -DRUGS-ADMITS TO METH USE, DENIES IV USE. CLAIMS "NONE FOR 10 YEARS" -DENIES SMOKING (JEANINE ANTUNEZ APRN) Physical Exam Vital Signs Vital Signs - First Documented 07/26/21 12:25 Temp 36.4 Pulse 117 Resp 20 B/P (MAP) 121/89 (100) Pulse Ox 97 (BRAD,CHERYL K DO) Vital Signs Capillary Refill : (JEANINE ANTUNEZ APRN) Height, Weight, BMI Height: '" Weight: lbs. oz. kg; 24.86 BMI Method: General Appearance: WD/WN, no apparent distress HEENT: PERRL/EOMI, normal ENT inspection, TMs normal, pharynx normal Neck: full range of motion, supple, normal inspection Cardiovascular: regular rate, rhythm, no edema, no murmur Respiratory: lungs clear, normal breath sounds, no respiratory distress, no accessory muscle use Gastrointestinal: normal bowel sounds, soft, no organomegaly, no pulsatile mass; No distended; tenderness (LUQ, LLQ) Back: normal inspection, no vertebral tenderness, CVA tenderness (L) Extremities: normal range of motion, non-tender, normal inspection, no pedal edema Neurologic/Psychiatric: no motor/sensory deficits, alert, normal mood/affect, oriented x 3 Skin: normal color, warm/dry, other (surgical changes to left great toe. Insicion site approximated, no erythema to surrounding tissue, no drainage. ) (JEANINE ANTUNEZ APRN) Focused Exam Lactate Level 07/26/21 14:50: Lactic Acid Level 0.91 (CHERYL SALINAS DO) Progress/Results/Core Measures Suspected Sepsis SIRS Temperature: Pulse: Respiratory Rate: Laboratory Tests 07/26/21 12:33: White Blood Count 14.1H Blood Pressure / Mean: 07/26/21 14:50: Lactic Acid Level 0.91 Laboratory Tests 07/26/21 12:33: Creatinine 3.92#H, INR Comment 1.1, Platelet Count 362, Total Bilirubin 0.3 (JEANINE ANTUNEZ APRN) Results/Orders Lab Results Laboratory Tests Test 07/26/21 12:33 07/26/21 12:42 07/26/21 12:53 07/26/21 14:50 Range/Units White Blood Count 14.1 H 4.3-11.0 10^3/uL Red Blood Count 3.60 L 3.80-5.11 10^6/uL Hemoglobin 8.9 L 11.5-16.0 g/dL Hematocrit 29 L 35-52 % Mean Corpuscular Volume 81 80-99 fL Mean Corpuscular Hemoglobin 25 25-34 pg Mean Corpuscular Hemoglobin Concent 31 L 32-36 g/dL Red Cell Distribution Width 14.3 10.0-14.5 % Platelet Count 362 130-400 10^3/uL Mean Platelet Volume 9.8 9.0-12.2 fL Immature Granulocyte % (Auto) 1 % Neutrophils (%) (Auto) 81 H 42-75 % Lymphocytes (%) (Auto) 9 L 12-44 % Monocytes (%) (Auto) 7 0-12 % Eosinophils (%) (Auto) 1 0-10 % Basophils (%) (Auto) 0 0-10 % Neutrophils # (Auto) 11.4 H 1.8-7.8 10^3/uL Lymphocytes # (Auto) 1.3 1.0-4.0 10^3/uL Monocytes # (Auto) 1.0 0.0-1.0 10^3/uL Eosinophils # (Auto) 0.2 0.0-0.3 10^3/uL Basophils # (Auto) 0.1 0.0-0.1 10^3/uL Immature Granulocyte # (Auto) 0.1 0.0-0.1 10^3/uL Neutrophils % (Manual) 83 % Lymphocytes % (Manual) 5 % Monocytes % (Manual) 6 % Eosinophils % (Manual) 1 % Basophils % (Manual) 0 % Band Neutrophils 5 % Blood Morphology Comment NORMAL Prothrombin Time 14.5 12.2-14.7 SEC INR Comment 1.1 0.8-1.4 Activated Partial Thromboplast Time 30 24-35 SEC Sodium Level 128 L 135-145 MMOL/L Potassium Level 5.2 H 3.6-5.0 MMOL/L Chloride Level 100 98-107 MMOL/L Carbon Dioxide Level 16 L 21-32 MMOL/L Anion Gap 12 5-14 MMOL/L Blood Urea Nitrogen 66 H 7-18 MG/DL Creatinine 3.92 #H 0.60-1.30 MG/DL Estimat Glomerular Filtration Rate 13 BUN/Creatinine Ratio 17 Glucose Level 254 H 70-105 MG/DL Calcium Level 9.7 8.5-10.1 MG/DL Corrected Calcium 10.3 H 8.5-10.1 MG/DL Total Bilirubin 0.3 0.1-1.0 MG/DL Aspartate Amino Transf (AST/SGOT) 8 5-34 U/L Alanine Aminotransferase (ALT/SGPT) 10 0-55 U/L Alkaline Phosphatase 80 40-136 U/L C-Reactive Protein High Sensitivity 7.37 H 0.00-0.50 MG/DL Total Protein 9.4 H 6.4-8.2 GM/DL Albumin 3.3 3.2-4.5 GM/DL Procalcitonin 0.33 H <0.10 NG/ML Urine Color YELLOW Urine Clarity CLOUDY Urine pH 6.0 5-9 Urine Specific Pablo 1.020 1.016-1.022 Urine Protein 2+ H NEGATIVE Urine Glucose (UA) NEGATIVE NEGATIVE Urine Ketones NEGATIVE NEGATIVE Urine Nitrite NEGATIVE NEGATIVE Urine Bilirubin NEGATIVE NEGATIVE Urine Urobilinogen 0.2 < = 1.0 MG/DL Urine Leukocyte Esterase 3+ H NEGATIVE Urine RBC (Auto) 3+ H NEGATIVE Urine RBC 10-25 H /HPF Urine WBC TNTC H /HPF Urine Squamous Epithelial Cells NONE /HPF Urine Crystals NONE /LPF Urine Bacteria FEW H /HPF Urine Casts NONE /LPF Urine Mucus NEGATIVE /LPF Urine Culture Indicated YES Glucometer 266 H 70-110 MG/DL Lactic Acid Level 0.91 0.50-2.00 MMOL/L (CHERYL SALINAS DO) Micro Results Microbiology 07/26/21 Blood Culture - Preliminary, Resulted No growth 07/26/21 Blood Culture - Preliminary, Resulted Gram Positive Cocci See Comments 07/26/21 Urine Culture - Final, Complete >=3 Gram Positive Isolates (CHERYL SALINAS DO) Vital Signs/I&O Capillary Refill : (JEANINE ANTUNEZ BIT GATHERER) Progress Note : Progress Note Upon arrival patient examined and in no acute distress. Vital signs stable. Orders placed for basic labs, procal, CRP, and UA. Will give normal saline 1 L, Zofran 4 mg IV push, Dilaudid 0.5 mg IV push for pain. Labs reviewed she has elevation of white count14.1, NA-128, potassium 5.2, has h/o chronic anemia today her hemoglobin is 8.9 however her his baseline is around 7.57.8. Her creatinine on 07/06 was 1.7, 07/21 was 2.23, and today is 3.92. Her UA has TNTC WBCs, had quite a bit of gross pyuria. Procal-0.33, CRP- 7.37. Initiated sepsis work-up. Her vital signs remained stable at this time. Given Zosyn 4.5GM x1 in ED. Called [facility] in [place] for possible transfer at 1414, both facilities at capacity. Called [place] control to assist with bed placement. [facility] accepted the patient transfer, she is agreeable to transfer to this facility. States that she would be able to follow-up with nephrology once established. Pending lactic results and CT abdomen pelvis. Will update facility if any severe findings appreciated. Lactic0.91. CT unremarkable. VSS. Will call EMS for transfer at this time 1541. (JEANINE ANTUNEZ BIT GATHERER) Diagnostic Imaging Diagonstic Imaging: Xray Plain Films/CT/US/NM/MRI: chest Comments [facility] [place], [place] NAME: JOE HUBER [facility] REC#: [id number] PT STATUS: REG ER : 1985 PHYSICIAN: JEANINE ANTUNEZ BIT GATHERER ADMIT DATE: 07/26/21/ER Draft Date of Exam:07/26/21 CHEST 1 VIEW, AP/PA ONLY INDICATION: Sepsis. EXAMINATION: Portable chest at 1:34 p.m. FINDINGS: Heart size and pulmonary vascularity are normal. Lungs are clear. There are no effusions or pneumothoraces. IMPRESSION: Negative chest. Dictated on workstation # [id number] Dict: 07/26/21 1345 Trans: 07/26/21 1346 [id number] Interpreted by: ESTUARDO HILL MD Electronically signed by: Reviewed: Reviewed by Vt Diagonstic Imaging: CT Plain Films/CT/US/NM/MRI: abdomen Comments [facility] [place] [place] NAME: JOE HUBER [facility] REC#: [id number] PT STATUS: REG ER : 1985 PHYSICIAN: JEANINE ANTUNEZ BIT GATHERER ADMIT DATE: 07/26/21/ER Draft Date of Exam:07/26/21 CT ABDOMEN/PELVIS WO PROCEDURE: CT abdomen and pelvis without contrast. TECHNIQUE: Multiple contiguous axial images were obtained through the abdomen and pelvis without the use of intravenous contrast. Auto Exposure Controls were utilized during the CT exam to meet ALARA standards for radiation dose reduction. INDICATION: Dysuria and nausea with left flank pain. COMPARISON: Correlation is made with prior CT from 05/18/2021. FINDINGS: The lung bases remain clear. Liver and gallbladder are unremarkable. The pancreas and spleen are unremarkable. No adrenal mass is identified. 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 The bilateral nephroureteral stents remain in place. No calculi along the course of the stents are identified. There are nonobstructing calculi in the lower pole of the right kidney, similar to prior exam. Aorta is normal in caliber. There are several lymph nodes in the central retroperitoneum in left periaortic location, similar in appearance to prior CT. Bowel loops are normal in caliber. There is moderate stool throughout the colon. The uterus and bladder are unremarkable. There is no free fluid or fluid collection. No inflammatory changes are seen. Bony structures are nonacute. IMPRESSION: Stable noncontrast CT abdomen and pelvis since exam from 05/18/2021. Bilateral nephroureteral stents remain in place. There are nonobstructing calculi in the right kidney as well as bilateral renal cystic disease. No definite calculi along the course of the stents are identified. Dictated on workstation # [id number] Dict: 07/26/21 1520 Trans: 07/26/21 1536 [id number] Interpreted by: PJ DELEON MD Electronically signed by: Reviewed: Reviewed by Me (JEANINE ANTUNEZ APRN) Departure Impression Primary Impression: Acute on chronic renal failure Additional Impressions: Chronic anemia Urinary tract infection Disposition: XFER SHT-TRM HOSP Condition: Stable Transfer Transfer Reason: Exceeds level of care Time Spoke to Accepting Phy: 14:[address] Linda accepted transfer at this time. Transfer Facility: [facility] Method of Transfer: EMS (JEANINE ANTUNEZ APRN) Departure-Patient Inst. Referrals: [facility] (PCP) Primary Care Physician CHARLES SHEA MD (Family) Primary Care Physician ATTENDING PHYSICIAN NOTE: I WAS PHYSICALLY PRESENT ER PHYSICIAN, WHEN THIS PATIENT WAS IN ER, BUT I WAS NOT INVOLVED IN DECISION MAKING OR ANY CARE OF THIS PATIENT. (CHERYL SALINAS DO) JEANINE ANTUNEZ APRN Jul 26, 2021 12:34 CHERYL SALINAS DO Jul 28, 2021 02:06
[2021-07-26 12:51] LABS: BASOPHILS # (AUTO) 0.1 10^3/uL (0.0-0.1); BASOPHILS % (AUTO) 0 % (0-10); EOSINOPHILS # (AUTO) 0.2 10^3/uL (0.0-0.3); EOSINOPHILS % (AUTO) 1 % (0-10); HEMATOCRIT 29 % (35-52); HEMOGLOBIN 8.9 g/dL (11.5-16.0); LYMPHOCYTES # (AUTO) 1.3 10^3/uL (1.0-4.0); LYMPHOCYTES % (AUTO) 9 % (12-44); MEAN CORPUSCULAR HEMOGLOBIN 25 pg (25-34); MEAN CORPUSCULAR HGB CONC 31 g/dL (32-36); MEAN CORPUSCULAR VOLUME 81 fL (80-99); MEAN PLATELET VOLUME 9.8 fL (9.0-12.2); MONOCYTES % (AUTO) 7 % (0-12); NEUTROPHILS # (AUTO) 11.4 10^3/uL (1.8-7.8); NEUTROPHILS % (AUTO) 81 % (42-75); PLATELET COUNT 362 10^3/uL (130-400); WHITE BLOOD COUNT 14.1 10^3/uL (4.3-11.0)
[2021-07-26 12:54] LABS: BILIRUBIN,URINE NEGATIVE (NEGATIVE); CLARITY,URINE CLOUDY; COLOR,URINE YELLOW; GLUCOSE, URINE (UA) NEGATIVE (NEGATIVE); KETONES,URINE NEGATIVE (NEGATIVE); LEUKOCYTE ESTERASE ,URINE 3+ (NEGATIVE); NITRITE,URINE NEGATIVE (NEGATIVE); PROTEIN,URINE 2+ (NEGATIVE)
[2021-07-26 13:09] LABS: ALBUMIN 3.3 GM/DL (3.2-4.5); POTASSIUM 5.2 MMOL/L (3.6-5.0)
[2021-07-26 13:10] LABS: CALCIUM 9.7 MG/DL (8.5-10.1)
[2021-07-26 13:11] LABS: TOTAL PROTEIN 9.4 GM/DL (6.4-8.2)
[2021-07-26 13:13] LABS: BILIRUBIN,TOTAL 0.3 MG/DL (0.1-1.0)
[2021-07-26 13:15] LABS: CREATININE SERUM 3.92 MG/DL (0.60-1.30)
[2021-07-26 13:15] LABS: BACTERIA,URINE FEW /HPF; WBC,URINE TNTC /HPF
[2021-07-26] MEDS ORDERED: ONDANSETRON 4 MG/2 ML (SDV) Z0FRAN IVP ONE (13:15)
[2021-07-26] MEDS ORDERED: NS IV 1000 ML 1,000 ML IV ONE (13:15)
[2021-07-26] MEDS ORDERED: HYDROmorphone 2 MG/ML VIAL (DILAUDID) IV ONE (13:15)
[2021-07-26 13:23] LABS: BAND NEUTROPHILS 5 %; BASOPHILS % (MANUAL) 0 %; EOSINOPHILS % (MANUAL) 1 %; LYMPHOCYTES % (MANUAL) 5 %; MONOCYTES % (MANUAL) 6 %; NEUTROPHILS % (MANUAL) 83 %; RBC MORPH NORMAL
[2021-07-26 13:36] LABS: INR 1.1 (0.8-1.4); PROTHROMBIN TIME PATIENT 14.5 SEC (12.2-14.7)
--- NOTE | 2021-07-26 13:46 | Diagnostic Imaging Report ---
INDICATION: Sepsis. EXAMINATION: Portable chest at 1:34 p.m. FINDINGS: Heart size and pulmonary vascularity are normal. Lungs are clear. There are no effusions or pneumothoraces. IMPRESSION: Negative chest. Dictated by: Dictated on workstation # [id number]
[2021-07-26] MEDS ORDERED: PIPERACILLIN SODIUM/TAZOBACTAM 4.5 GM in NS (IVPB) 100 ML IV ONE (14:15)
[2021-07-26] MEDS ORDERED: NS IV 1000 ML 1,000 ML IV SCH ×2 (15:00→15:15)
[2021-07-26] MEDS ORDERED: NS IV 1000 ML 1,000 ML ONE (15:08)
--- NOTE | 2021-07-26 15:36 | Diagnostic Imaging Report ---
PROCEDURE: CT abdomen and pelvis without contrast. TECHNIQUE: Multiple contiguous axial images were obtained through the abdomen and pelvis without the use of intravenous contrast. Auto Exposure Controls were utilized during the CT exam to meet ALARA standards for radiation dose reduction. INDICATION: Dysuria and nausea with left flank pain. COMPARISON: Correlation is made with prior CT from 05/18/2021. FINDINGS: The lung bases remain clear. Liver and gallbladder are unremarkable. The pancreas and spleen are unremarkable. No adrenal mass is identified. 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 The bilateral nephroureteral stents remain in place. No calculi along the course of the stents are identified. There are nonobstructing calculi in the lower pole of the right kidney, similar to prior exam. Aorta is normal in caliber. There are several lymph nodes in the central retroperitoneum in left periaortic location, similar in appearance to prior CT. Bowel loops are normal in caliber. There is moderate stool throughout the colon. The uterus and bladder are unremarkable. There is no free fluid or fluid collection. No inflammatory changes are seen. Bony structures are nonacute. IMPRESSION: Stable noncontrast CT abdomen and pelvis since exam from 05/18/2021. Bilateral nephroureteral stents remain in place. There are nonobstructing calculi in the right kidney as well as bilateral renal cystic disease. No definite calculi along the course of the stents are identified. Dictated by: Dictated on workstation # [id number]
[2021-07-26 15:42] VITALS: BP 104/84
[2021-07-26] MEDS ORDERED: HYDROmorphone 2 MG/ML VIAL (DILAUDID) IVP ONE (17:00)
== END 2021-07-26 16:57 | disposition short-term general hospital (02) ==
LOC: EDUNIT# 12:03 → ER 12:04
DX: E11.22 Type 2 diabetes mellitus with diabetic chronic kidney disease (principal); N18.9 Chronic kidney disease, unspecified; D64.9 Anemia, unspecified; N39.0 Urinary tract infection, site not specified; I25.2 Old myocardial infarction; G40.909 Epilepsy, unspecified, not intractable, without status epilepticus; K21.9 Gastro-esophageal reflux disease without esophagitis; Z79.4 Long term (current) use of insulin; Z79.899 Other long term (current) drug therapy
CPT/HCPCS: 36415; 71045; 74176; 80053; 81000; 82947; 83605; 84145; 84703; 85007; 85027; 85610; 85730; 86141; 87040; 87088

== ENCOUNTER 2021-08-19 13:05 | Emergency (ER) | payer OTHER ==
[~2021-08-19] VITALS: Ht 65 cm; Wt 65.8 kg
[2021-08-19 13:17] VITALS: BP 135/72
[2021-08-19] MEDS ORDERED: fentaNYL INJ 100 MCG/2 ML AMP IVP ONE (13:45)
[2021-08-19] MEDS ORDERED: NS IV 1000 ML 1,000 ML IV SCH ×2 (13:45→14:45)
[2021-08-19] MEDS ORDERED: ONDANSETRON 4 MG/2 ML (SDV) Z0FRAN IVP ONE (13:45)
--- NOTE | 2021-08-19 13:46 | ED Abdominal Pain ---
General Chief Complaint: Abdominal/GI Problems Stated Complaint: NAUSEA, FLANK PAIN Nursing Triage Note: Pt arrives via POV from home with c/o chronic left sided flank pain; also reports she thinks her creatinine is elevated. States she was admitted to [facility] recently for the same. Source of Information: Patient Exam Limitations: No Limitations History of Present Illness Date Seen by Provider: Aug 19, 2021 Time Seen by Provider: 13:26 Initial Comments Patient and her significant other to the ER by private conveyance with chief complaint of 2 to 3 days progressively worsening 7 out of 10 left-sided flank and abdomen pain radiating down to her left low back. She has a history of sten ts placed in her left ureter. She has a history of type 1 diabetes with significant chronic kidney disease. She has not on dialysis. She was to follow with a park worker Dr. Castro at [facility] but has missed her appointments secondary to having to be admitted each time. 2 weeks ago she was admitted for pyelonephritis and had the stents were placed by a park worker/urology team at [facility]. Tylenol does not help her pain. She is had no fevers or chills. She did take a hydrocodone without any benefit. She has some kidney stones and had to have them cut out before but has never passed one. In the next few weeks she has an appointment to establish care with an image consultant and get a implanted glucose monitor. She has been nauseated and vomiting multiple times in the past couple days. No diarrhea. She says she has chronic constipation that gets worse whenever she vomits a lot. She says last time her creatinine got up to 10 and has not gone back down below 2.7. She says she did not feel completely well at the time of her last discharge. She spent 5 days in the hospital. She says she has not totally gotten over her last illness. She is not on antibiotics right now. Allergies and Home Medications Allergies Coded Allergies: cephalexin (Verified Allergy, Severe, 12/16/19) SEIZURES cinnamon (Verified Allergy, Severe, Anaphylaxis, 12/16/19) aspirin (Verified Allergy, Unknown, 12/16/19) Patient Home Medication List Home Medication List Reviewed: Yes Acetaminophen (Tylenol Extra Strength) 500 Mg Tablet, 1,000 MG PO Q8H PRN for PAIN-MILD (1-4), (Reported) Entered as Reported by: KALEE MERCEDES on 05/19/21 1135 Divalproex Sodium (Divalproex Sodium) 500 Mg Tablet.dr, 1,000 MG PO BID Prescribed by: MARIA EUGENIA JUDD on 07/06/21 1013 Ferrous Sulfate (Iron) 325 Mg Tablet, 325 MG PO DAILY, (Reported) Entered as Reported by: KALEE MERCEDES on 05/19/21 1135 Folic Acid (Folic Acid) 1 Mg Tablet, 1 MG PO DAILY, (Reported) Entered as Reported by: KALEE MERCEDES on 06/30/21 1001 Hydrocodone/Acetaminophen (Hydrocodone-Acetamin 5-325 mg) 1 Each Tablet, 1 TAB PO Q6H PRN for PAIN-MODERATE (5-7) Prescribed by: DIASHA ALFONSO on 07/21/21 1021 Insulin Lispro (Humalog Kwikpen) 100 Unit/1 Ml Insuln.pen, UNIT SQ SLIDING/SCALE, (Reported) Entered as Reported by: KALEE MERCEDES on 05/19/21 1135 Methylcellulose (Fiber) 500 Mg Tablet, 1,000 MG PO BID, (Reported) Entered as Reported by: KALEE MERCEDES on 05/19/21 1135 Oxycodone Hcl (Oxyir Tablet) 5 Mg Tab, 5 MG PO Q4H PRN for PAIN-SEVERE (8-10) Prescribed by: MARIA EUGENIA JUDD on 07/06/21 1014 Pantoprazole Sodium (Pantoprazole Sodium) 40 Mg Tablet.dr, 40 MG PO DAILY, (Reported) Entered as Reported by: KALEE MERCEDES on 06/30/21 0959 Sennosides/Docusate Sodium (Senna-S Tablet) 1 Each Tablet, 2 EACH PO BID, (Reported) Entered as Reported by: KALEE MERCEDES on 06/30/21 0959 Sodium Bicarbonate (Sodium Bicarbonate) 650 Mg Tablet, 650 MG PO BID, (Reported) Entered as Reported by: KALEE MERCEDES on 06/30/21 0959 Review of Systems Review of Systems Constitutional: No chills, No fever; malaise EENTM: No Blurred Vision, No Double Vision Respiratory: Denies Cough, Denies Shortness of Air Cardiovascular: Denies Chest Pain, Denies Lightheadedness Gastrointestinal: See HPI, Abdominal Pain, Constipated; Denies Diarrhea; Nausea, Poor Appetite, Vomiting Genitourinary: Denies Burning, Denies Discharge Musculoskeletal: No back pain, No joint pain Skin: No change in color, No pruritus, No rash Psychiatric/Neurological: Denies Anxiety, Denies Depressed All Other Systems Reviewed Negative Unless Noted: Yes Past Czilrpw-Vxvbww-Qhpznd Hx Patient Social History Tobacco Use?: No Use of E-Cig and/or Vaping dev: No Substance use?: No Alcohol Use?: No Pt feels they are or have been: No Immunizations Up To Date Tetanus Booster (TDap): Unknown First/Initial COVID19 Vaccinat: none Second COVID19 Vaccination Erick: none Third COVID19 Vaccination Date: none Seasonal Allergies Seasonal Allergies: No Past Medical History Surgery/Hospitalization HX: RECENT AMB TOE L FOOT. BILATERAL KIDNEY STENTS SINCE FEBRUARY Surgeries: Yes Orthopedic, Renal Respiratory: No Currently Using CPAP: No Currently Using BIPAP: No Cardiac: Yes Heart Attack, Palpitations Neurological: Yes Seizure Disorder Reproductive Disorders: No Genitourinary: Yes Kidney Infection, Kidney Stones, Renal Failure Gastrointestinal: Yes Gastroesophageal Reflux Musculoskeletal: Yes (loss of toenail) Endocrine: Yes Diabetes, Insulin dep HEENT: Yes (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 -DRUGS-ADMITS TO METH USE, DENIES IV USE. CLAIMS "NONE FOR 10 YEARS" -DENIES SMOKING Physical Exam Vital Signs Vital Signs - First Documented 08/19/21 13:17 Temp 36.8 Pulse 95 Resp 18 B/P (MAP) 135/72 (93) Pulse Ox 97 O2 Delivery Room Air Capillary Refill : Less Than 3 Seconds Height/Weight/BMI Height: '" Weight: lbs. oz. kg; 155.00 BMI Method: General Appearance: WD/WN, mild distress HEENT: PERRL/EOMI, pharynx normal Neck: full range of motion, normal inspection Respiratory: lungs clear, normal breath sounds, no respiratory distress, no accessory muscle use Cardiovascular: normal peripheral pulses, regular rate, rhythm Peripheral Pulses: 2+ Dorsalis Pedis (R), 2+ Left Dors-Pedis (L) Gastrointestinal: normal bowel sounds (Quiescent but present), soft, no organomegaly, guarding (Left upper and lower quadrant), tenderness (Left lower quadrant and left upper quadrant. No suprapubic tenderness) Extremities: normal inspection, normal capillary refill Neurologic/Psychiatric: alert, normal mood/affect, oriented x 3 Skin: normal color, warm/dry Progress/Results/Core Measures Results/Orders Lab Results Laboratory Tests Test 08/19/21 13:44 08/19/21 14:44 Range/Units White Blood Count 11.4 H 4.3-11.0 10^3/uL Red Blood Count 3.43 L 3.80-5.11 10^6/uL Hemoglobin 8.4 L 11.5-16.0 g/dL Hematocrit 27 L 35-52 % Mean Corpuscular Volume 80 80-99 fL Mean Corpuscular Hemoglobin 25 25-34 pg Mean Corpuscular Hemoglobin Concent 31 L 32-36 g/dL Red Cell Distribution Width 14.7 H 10.0-14.5 % Platelet Count 423 H 130-400 10^3/uL Mean Platelet Volume 9.4 9.0-12.2 fL Immature Granulocyte % (Auto) 1 % Neutrophils (%) (Auto) 74 42-75 % Lymphocytes (%) (Auto) 17 12-44 % Monocytes (%) (Auto) 6 0-12 % Eosinophils (%) (Auto) 2 0-10 % Basophils (%) (Auto) 1 0-10 % Neutrophils # (Auto) 8.4 H 1.8-7.8 10^3/uL Lymphocytes # (Auto) 1.9 1.0-4.0 10^3/uL Monocytes # (Auto) 0.7 0.0-1.0 10^3/uL Eosinophils # (Auto) 0.3 0.0-0.3 10^3/uL Basophils # (Auto) 0.1 0.0-0.1 10^3/uL Immature Granulocyte # (Auto) 0.1 0.0-0.1 10^3/uL Sodium Level 129 L 135-145 MMOL/L Potassium Level 5.4 H 3.6-5.0 MMOL/L Chloride Level 102 98-107 MMOL/L Carbon Dioxide Level 14 L 21-32 MMOL/L Anion Gap 13 5-14 MMOL/L Blood Urea Nitrogen 85 H 7-18 MG/DL Creatinine 5.16 H 0.60-1.30 MG/DL Estimat Glomerular Filtration Rate 9 BUN/Creatinine Ratio 16 Glucose Level 173 H 70-105 MG/DL Calcium Level 9.8 8.5-10.1 MG/DL Corrected Calcium 10.2 H 8.5-10.1 MG/DL Magnesium Level 2.2 1.6-2.4 MG/DL Total Bilirubin 0.3 0.1-1.0 MG/DL Aspartate Amino Transf (AST/SGOT) 10 5-34 U/L Alanine Aminotransferase (ALT/SGPT) < 6 0-55 U/L Alkaline Phosphatase 89 40-136 U/L C-Reactive Protein High Sensitivity 7.61 H 0.00-0.50 MG/DL Total Protein 9.6 H 6.4-8.2 GM/DL Albumin 3.5 3.2-4.5 GM/DL Lipase 124 H 8-78 U/L Urine Color YELLOW Urine Clarity CLEAR Urine pH 6.0 5-9 Urine Specific [place] 1.020 1.016-1.022 Urine Protein 2+ H NEGATIVE Urine Glucose (UA) NEGATIVE NEGATIVE Urine Ketones NEGATIVE NEGATIVE Urine Nitrite NEGATIVE NEGATIVE Urine Bilirubin NEGATIVE NEGATIVE Urine Urobilinogen 0.2 < = 1.0 MG/DL Urine Leukocyte Esterase 3+ H NEGATIVE Urine RBC (Auto) 3+ H NEGATIVE Urine RBC 25-50 H /HPF Urine WBC TNTC H /HPF Urine Squamous Epithelial Cells NONE /HPF Urine Crystals NONE /LPF Urine Bacteria NEGATIVE /HPF Urine Casts NONE /LPF Urine Mucus NEGATIVE /LPF Urine Culture Indicated YES My Orders Orders - KAIT REAGAN Ua Culture If Indicated (08/19/21 13:09) Urine Bedside (08/19/21 13:09) Ed Iv/Invasive Line Start (08/19/21 13:36) Ns Iv 1000 Ml (Sodium Chloride 0.9%) (08/19/21 13:45) Fentanyl Inj (Sublimaze Injection) (08/19/21 13:45) Ondansetron Injection (Zofran Injectio (08/19/21 13:45) Cbc With Automated Diff (08/19/21 13:36) Comprehensive Metabolic Panel (08/19/21 13:36) Hs C Reactive Protein (08/19/21 13:36) Lipase (08/19/21 13:36) Magnesium (08/19/21 14:03) Ct Abd/Pelvis Wo(Kidney Stone) (08/19/21 14:36) Ed Iv/Invasive Line Start (08/19/21 14:36) Ns Iv 1000 Ml (Sodium Chloride 0.9%) (08/19/21 14:45) Hydromorphone Injection (Dilaudid Inject (08/19/21 14:45) Urine Culture (08/19/21 14:44) Ceftriaxone (Rocephin) (08/19/21 17:00) Hydromorphone Injection (Dilaudid Inject (08/19/21 18:00) Medications Given in ED Current Medications Medications Dose Ordered Sig/Colton Route Start Time Stop Time Status Last Admin Dose Admin Ceftriaxone Sodium 1000 mg/ Sterile Water 10 ml @ 200 mls/hr ONCE ONCE IV 08/19/21 17:00 08/19/21 17:02 DC 08/19/21 17:04 200 MLS/HR Fentanyl Citrate 50 mcg ONCE ONCE IVP 08/19/21 13:45 08/19/21 13:46 DC 08/19/21 13:55 50 MCG Hydromorphone HCl 0.25 mg ONCE ONCE IVP 08/19/21 18:00 08/19/21 18:01 DC 08/19/21 18:06 0.25 MG Hydromorphone HCl 0.5 mg ONCE ONCE IV 08/19/21 14:45 08/19/21 14:46 DC 08/19/21 14:48 0.5 MG Ondansetron HCl 8 mg ONCE ONCE IVP 08/19/21 13:45 08/19/21 13:46 DC 08/19/21 13:55 8 MG Vital Signs/I&O 08/19/21 08/19/21 13:17 18:01 Temp 36.8 Pulse 95 89 Resp 18 18 B/P (MAP) 135/72 (93) 108/72 Pulse Ox 97 100 O2 Delivery Room Air Room Air Blood Pressure Mean: 93 Progress Progress Note #1: Time: 13:47 Progress Note Suspect ureteral strictures more than stone. She has a history of hydronephrosis secondary to this and pyelonephritis. She has heart rate in the 90s but no fevers or chills. We will give her some Zofran, fentanyl, IV fluids and check labs and urinalysis. Her discharge creatinine was 2.7 according to her . We have reinforced the importance of following up with endocrinology and nephrology/urology. She will need to have her stents replaced or removed in approximately 2-1/2 months. Progress Note #2: Time: 16:13 Progress Note Fentanyl did significantly help her pain and her nausea is gone after the Zofran. She says of fentanyl starting to wear off so we gave her a dose of Dilaudid half milligram. She has significant elevated creatinine and pyuria and we suspect pyelonephritis related to the stents. She has requested to stay locally if possible. We have put a call into Dr. Judd. Progress Note #3: Time: 16:50 Progress Note Patient resting comfortably. Another voicemail was left for medicine team. Second liter of fluids is complete. 1700: Dr. Hunter returned her call and states she does not feel comfortable caring for the patient without nephrology available and a creatinine above 5. She recommends transfer to an appropriate facility. Diagnostic Imaging Diagonstic Imaging: CT Plain Films/CT/US/NM/MRI: abdomen, pelvis Comments [facility], [place] NAME: JOE HUBER [facility] REC#: [id number] PT STATUS: REG ER : 1985 PHYSICIAN: KAIT REAGAN MD ADMIT DATE: 08/19/21/ER Signed Date of Exam:08/19/21 CT ABD/PELVIS WO(KIDNEY STONE) PROCEDURE: CT urinary tract, rule out kidney stone. TECHNIQUE: Multiple contiguous axial images were obtained through the abdomen and pelvis without the use of intravenous contrast. Auto Exposure Controls were utilized during the CT exam to meet ALARA standards for radiation dose reduction. INDICATION: Left-sided flank pain. Patient has known bilateral ureteral stents. Correlation is made with prior CT from 07/26/2021. Lung bases are clear. The liver and gallbladder are unremarkable. There is no biliary ductal dilatation. Pancreas and spleen are unremarkable. No adrenal mass is detected. 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 Bilateral nephroureteral stents remain in place. No calculi along the course of the stents are identified. There is no bladder calculi detected. No definite intrarenal calculi on the left side are identified. There are some calculi in the lower pole right kidney, nonobstructing and similar to prior CT. Multiple shotty lymph nodes in the left periaortic central retroperitoneum appear similar to prior study. Aorta is nonaneurysmal. Bowel loops are normal caliber. Uterus is unremarkable. No free fluid or fluid collection. IMPRESSION: Overall similar noncontrast CT abdomen pelvis study when compared with exam from 07/26/2021. Bilateral nephroureteral stents remain in place. 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 No calculi along the course of the stents are identified. Chronic ureteral and periureteral inflammation, unchanged. Dictated by: Dictated on workstation # [id number] Dict: 08/19/21 1503 Trans: 08/19/21 1552 CV [id number] Interpreted by: PJ DELEON MD Electronically signed by: PJ DELEON MD 08/19/21 1554 Reviewed: Reviewed by Me Departure Impression Primary Impression: Pyelonephritis Additional Impression: [id number] kidney injury Qualified Codes: N17.9 - Acute kidney failure, unspecified; N18.32 - Chronic kidney disease, stage 3b Disposition: XFER T-[facility] Condition: Stable Transfer Transfer Reason: Exceeds level of care (N o Nephrology) Time Spoke to Accepting Phy: 17:17 Transfer Progress Notes 1700: Called [place], [place] and they will call us back with an fruit grading supervisor. 1717: Discussed the case with Dr. Finley, internal and she agrees to accept the patient to their care for IV fluids and antibiotics. Transfer Time: 18:40 Transfer Facility: [place], [place] Method of Transfer: EMS Departure-Patient Inst. Referrals: CHARLES SHEA MD (PCP/Family) Primary Care Physician KAIT REAGAN Aug 19, 2021 13:46
[2021-08-19 13:50] LABS: BASOPHILS # (AUTO) 0.1 10^3/uL (0.0-0.1); BASOPHILS % (AUTO) 1 % (0-10); EOSINOPHILS # (AUTO) 0.3 10^3/uL (0.0-0.3); EOSINOPHILS % (AUTO) 2 % (0-10); HEMATOCRIT 27 % (35-52); HEMOGLOBIN 8.4 g/dL (11.5-16.0); LYMPHOCYTES # (AUTO) 1.9 10^3/uL (1.0-4.0); LYMPHOCYTES % (AUTO) 17 % (12-44); MEAN CORPUSCULAR HEMOGLOBIN 25 pg (25-34); MEAN CORPUSCULAR HGB CONC 31 g/dL (32-36); MEAN CORPUSCULAR VOLUME 80 fL (80-99); MEAN PLATELET VOLUME 9.4 fL (9.0-12.2); MONOCYTES # (AUTO) 0.7 10^3/uL (0.0-1.0); MONOCYTES % (AUTO) 6 % (0-12); NEUTROPHILS # (AUTO) 8.4 10^3/uL (1.8-7.8); NEUTROPHILS % (AUTO) 74 % (42-75); PLATELET COUNT 423 10^3/uL (130-400); WHITE BLOOD COUNT 11.4 10^3/uL (4.3-11.0)
[2021-08-19 14:10] LABS: ALANINE AMINOTRANSFERASE < 6 U/L (0-55); ALBUMIN 3.5 GM/DL (3.2-4.5); ALKALINE PHOSPHATASE 89 U/L (40-136); BILIRUBIN,TOTAL 0.3 MG/DL (0.1-1.0); BUN/CREATININE RATIO 16; CALCIUM 9.8 MG/DL (8.5-10.1); CARBON DIOXIDE 14 MMOL/L (21-32); CHLORIDE 102 MMOL/L (98-107); CREATININE SERUM 5.16 MG/DL (0.60-1.30); GFR ESTIMATED 9; GLUCOSE 173 MG/DL (70-105); LIPASE 124 U/L (8-78); POTASSIUM 5.4 MMOL/L (3.6-5.0); SODIUM 129 MMOL/L (135-145); TOTAL PROTEIN 9.6 GM/DL (6.4-8.2)
[2021-08-19] MEDS ORDERED: HYDROmorphone 2 MG/ML VIAL (DILAUDID) IV ONE (14:45)
[2021-08-19 14:48] LABS: BILIRUBIN,URINE NEGATIVE (NEGATIVE); CLARITY,URINE CLEAR; COLOR,URINE YELLOW; GLUCOSE, URINE (UA) NEGATIVE (NEGATIVE); KETONES,URINE NEGATIVE (NEGATIVE); LEUKOCYTE ESTERASE ,URINE 3+ (NEGATIVE); NITRITE,URINE NEGATIVE (NEGATIVE); PROTEIN,URINE 2+ (NEGATIVE)
[2021-08-19 14:58] LABS: BACTERIA,URINE NEGATIVE /HPF; RBC,URINE 25-50 /HPF; WBC,URINE TNTC /HPF
--- NOTE | 2021-08-19 16:06 | Diagnostic Imaging Report ---
PROCEDURE: CT urinary tract, rule out kidney stone. TECHNIQUE: Multiple contiguous axial images were obtained through the abdomen and pelvis without the use of intravenous contrast. Auto Exposure Controls were utilized during the CT exam to meet ALARA standards for radiation dose reduction. INDICATION: Left-sided flank pain. Patient has known bilateral ureteral stents. Correlation is made with prior CT from 07/26/2021. Lung bases are clear. The liver and gallbladder are unremarkable. There is no biliary ductal dilatation. Pancreas and spleen are unremarkable. No adrenal mass is detected. 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 Bilateral nephroureteral stents remain in place. No calculi along the course of the stents are identified. There is no bladder calculi detected. No definite intrarenal calculi on the left side are identified. There are some calculi in the lower pole right kidney, nonobstructing and similar to prior CT. Multiple shotty lymph nodes in the left periaortic central retroperitoneum appear similar to prior study. Aorta is nonaneurysmal. Bowel loops are normal caliber. Uterus is unremarkable. No free fluid or fluid collection. IMPRESSION: Overall similar noncontrast CT abdomen pelvis study when compared with exam from 07/26/2021. Bilateral nephroureteral stents remain in place. 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 No calculi along the course of the stents are identified. Chronic ureteral and periureteral inflammation, unchanged. Dictated by: Dictated on workstation # [id number]
[2021-08-19] MEDS ORDERED: cefTRIAXone 1,000 MG in WATER (STERILE) FOR INJECTION 10 ML IV ONE (17:00)
[2021-08-19] MEDS ORDERED: HYDROmorphone 2 MG/ML VIAL (DILAUDID) IVP ONE (18:00)
== END 2021-08-19 18:39 | disposition short-term general hospital (02) ==
LOC: EDUNIT# 13:05 → ER 13:10
DX: N12 Tubulo-interstitial nephritis, not specified as acute or chronic (principal); N17.9 Acute kidney failure, unspecified; I25.2 Old myocardial infarction; K21.9 Gastro-esophageal reflux disease without esophagitis; G40.909 Epilepsy, unspecified, not intractable, without status epilepticus; E11.9 Type 2 diabetes mellitus without complications; Z79.899 Other long term (current) drug therapy; Z79.4 Long term (current) use of insulin
CPT/HCPCS: 36415; 74176; 80053; 81000; 83690; 83735; 84703; 85025; 86141; 87088

== ENCOUNTER 2021-11-04 11:35 | Emergency (ER) | payer OTHER ==
[~2021-11-04] VITALS: Ht 165 cm; Wt 68.0 kg
[2021-11-04] MEDS ORDERED: NS IV 1000 ML 1,000 ML IV SCH (12:45)
[2021-11-04 12:47] LABS: BASOPHILS % (AUTO) 0 % (0-10); EOSINOPHILS # (AUTO) 0.2 10^3/uL (0.0-0.3); EOSINOPHILS % (AUTO) 1 % (0-10); HEMATOCRIT 32 % (35-52); HEMOGLOBIN 9.8 g/dL (11.5-16.0); LYMPHOCYTES # (AUTO) 1.6 10^3/uL (1.0-4.0); LYMPHOCYTES % (AUTO) 15 % (12-44); MEAN CORPUSCULAR HEMOGLOBIN 25 pg (25-34); MEAN CORPUSCULAR HGB CONC 31 g/dL (32-36); MEAN CORPUSCULAR VOLUME 82 fL (80-99); MONOCYTES # (AUTO) 0.7 10^3/uL (0.0-1.0); MONOCYTES % (AUTO) 7 % (0-12); NEUTROPHILS # (AUTO) 8.3 10^3/uL (1.8-7.8); NEUTROPHILS % (AUTO) 76 % (42-75); PLATELET COUNT 391 10^3/uL (130-400); WHITE BLOOD COUNT 10.9 10^3/uL (4.3-11.0)
[2021-11-04 12:59] LABS: ALBUMIN 3.7 GM/DL (3.2-4.5)
[2021-11-04 13:00] LABS: POTASSIUM 4.7 MMOL/L (3.6-5.0)
[2021-11-04] MEDS ORDERED: cefTRIAXone 1 GM PRE-MIX 50 ML IV ONE (13:00)
[2021-11-04 13:01] LABS: CALCIUM 9.9 MG/DL (8.5-10.1)
[2021-11-04 13:02] LABS: TOTAL PROTEIN 10.8 GM/DL (6.4-8.2)
[2021-11-04 13:04] LABS: BILIRUBIN,TOTAL 0.3 MG/DL (0.1-1.0)
[2021-11-04 13:06] LABS: CREATININE SERUM 7.7 MG/DL (0.60-1.30)
[2021-11-04 13:55] LABS: PROTHROMBIN TIME PATIENT 13.6 SEC (12.2-14.7)
--- NOTE | 2021-11-04 13:58 | ED General ---
General Chief Complaint: Cough/Cold/Flu Symptoms Stated Complaint: DIZZINESS,FATIGUE, BACK PAIN Nursing Triage Note: ARRIVED VIA AMB WITH MULTIPLE COMPLAINTS. STATES SHE FEELS LIKE "SHIT" HAS HAD A COUGH FOR A LONG TIME AND THINKS HER KIDNEY FAILURE IS WORSE. Source of Information: Patient Exam Limitations: No Limitations (KAIT AGRAWAL) History of Present Illness Date Seen by Provider: Nov 04, 2021 Time Seen by Provider: 12:00 Initial Comments Patient to the ER by private conveyance with chief complaint of intermittent pain especially in her suprapubic region and dysuria. She is with a history of urinary tract infections, stents in bilateral ureters and followed by a neph rologist. She has not had a fever or chills but has malaise and feels unwell. She is afraid she might be developing an infection in her kidneys. She has a little nausea but no vomiting. No diarrhea or constipation. She has stage IV kidney disease talking with her messenger floorperson about setting up for dialysis but has not started a fistula yet. Patient states her blood pressure consistently runs low in the 80s and 90s systolic. She feels very dehydrated. (KAIT AGRAWAL) Allergies and Home Medications Allergies Coded Allergies: cephalexin (Verified Allergy, Severe, 12/16/19) SEIZURES cinnamon (Verified Allergy, Severe, Anaphylaxis, 12/16/19) aspirin (Verified Allergy, Unknown, 12/16/19) Patient Home Medication List Home Medication List Reviewed: Yes (KAIT AGRAWAL) Acetaminophen (Tylenol Extra Strength) 500 Mg Tablet, 1,000 MG PO Q8H PRN for PAIN-MILD (1-4), (Reported) Entered as Reported by: KALEE MERCEDES on 05/19/21 1135 Divalproex Sodium (Divalproex Sodium) 500 Mg Tablet.dr, 1,000 MG PO BID Prescribed by: MARIA EUGENIA JUDD on 07/06/21 1013 Ferrous Sulfate (Iron) 325 Mg Tablet, 325 MG PO DAILY, (Reported) Entered as Reported by: KALEE MERCEDES on 05/19/21 1135 Folic Acid (Folic Acid) 1 Mg Tablet, 1 MG PO DAILY, (Reported) Entered as Reported by: KALEE MERCEDES on 06/30/21 1001 Hydrocodone/Acetaminophen (Hydrocodone-Acetamin 5-325 mg) 1 Each Tablet, 1 TAB PO Q6H PRN for PAIN-MODERATE (5-7) Prescribed by: DAISHA ALFONSO on 07/21/21 1021 Insulin Lispro (Humalog Kwikpen) 100 Unit/1 Ml Insuln.pen, UNIT SQ SLIDING/SCALE, (Reported) Entered as Reported by: KALEE MERCEDES on 05/19/21 1135 Methylcellulose (Fiber) 500 Mg Tablet, 1,000 MG PO BID, (Reported) Entered as Reported by: KALEE MERCEDES on 05/19/21 1135 Oxycodone Hcl (Oxyir Tablet) 5 Mg Tab, 5 MG PO Q4H PRN for PAIN-SEVERE (8-10) Prescribed by: MARIA EUGENIA JUDD on 07/06/21 1014 Pantoprazole Sodium (Pantoprazole Sodium) 40 Mg Tablet.dr, 40 MG PO DAILY, (Reported) Entered as Reported by: KALEE MERCEDES on 06/30/21 0959 Sennosides/Docusate Sodium (Senna-S Tablet) 1 Each Tablet, 2 EACH PO BID, (Reported) Entered as Reported by: KALEE MERCEDES on 06/30/21 0959 Sodium Bicarbonate (Sodium Bicarbonate) 650 Mg Tablet, 650 MG PO BID, (Reported) Entered as Reported by: KALEE MERCEDES on 06/30/21 0959 Review of Systems Review of Systems Constitutional: No chills, No fever; malaise EENTM: No ear discharge, No ear pain Respiratory: cough; No phlegm Cardiovascular: No chest pain, No palpitations Gastrointestinal: abdominal pain, nausea; No vomiting Genitourinary: see HPI; No discharge, No dysuria Musculoskeletal: No back pain, No joint pain (KAIT AGRAWAL) All Other Systems Reviewed Negative Unless Noted: Yes (KAIT AGRAWAL) Past Ujvjiyu-Cvmktg-Yjtjxs Hx Patient Social History Tobacco Use?: Yes Use of E-Cig and/or Vaping dev: No (KAIT AGRAWAL) Immunizations Up To Date Tetanus Booster (TDap): Unknown First/Initial COVID19 Vaccinat: none Second COVID19 Vaccination Erick: none Third COVID19 Vaccination Date: none (KAIT AGRAWAL) Seasonal Allergies Seasonal Allergies: No (KAIT AGRAWAL) Past Medical History Surgery/Hospitalization HX: RECENT AMB TOE L FOOT. BILATERAL KIDNEY STENTS SINCE FEBRUARY Surgeries: Yes Orthopedic, Renal Respiratory: No Currently Using CPAP: No Currently Using BIPAP: No Cardiac: Yes Heart Attack, Palpitations Neurological: Yes Seizure Disorder Reproductive Disorders: No Genitourinary: Yes Kidney Infection, Kidney Stones, Renal Failure Gastrointestinal: Yes Gastroesophageal Reflux Musculoskeletal: Yes (loss of toenail) Endocrine: Yes Diabetes, Insulin dep HEENT: Yes (diabetic retinopathy in R eye) Hearing Impairment: Denies Cancer: No Psychosocial: Yes Anxiety, PTSD Integumentary: No Blood Disorders: No (KAIT AGRAWAL) Family Medical History Diabetes mellitus 19 MOTHER FH: bipolar disorder 19 MOTHER Hypertension 19 MOTHER Heart Disease, Diabetes, Psychiatric Problems SOCIAL HISTORY: -ETOH--PT STATES " I USED TO BE A BAD ALCOHOLIC 10 YEARS AGO" --CLAIMS SHE ONLY "OCCASIONALLY"DRINKS, BUT STILL DRINKS HEAVY AT TIMES. -DRUGS-ADMITS TO METH USE, DENIES IV USE. CLAIMS "NONE FOR 10 YEARS" -DENIES SMOKING (KAIT AGRAWAL) Physical Exam-Suspected Sepsis Physical Exam Vital Signs Vital Signs - First Documented 11/04/21 12:15 Temp 36.3 Pulse 95 Resp 16 B/P (MAP) 88/63 (71) Pulse Ox 99 O2 Delivery Room Air (HARPREET WALKER MD) Vital Signs Capillary Refill : Less Than 3 Seconds (KAIT AGRAWAL) Blood Pressure Mean: 71 Height, Weight, BMI Height: '" Weight: lbs. oz. kg; 24.00 BMI Method: General Appearance: Anxious, Mild Distress Eyes: Bilateral Eye Normal Inspection, Bilateral Eye PERRL, Bilateral Eye EOMI HEENT: PERRL/EOMI, Pharynx Normal, Moist Mucous Membranes Neck: Full Range of Motion, Normal Inspection Respiratory: Lungs Clear, Normal Breath Sounds, No Accessory Muscle Use, No Respiratory Distress Cardiovascular: Regular Rate, Rhythm (92), No Edema, Normal Peripheral Pulses Gastrointestinal: Normal Bowel Sounds, Soft, Tenderness (Suprapubic without Rovsing, marked Yesenia's point, mesenteric signs) Extremity: Normal Capillary Refill, Normal Inspection Neurologic/Psychiatric: Alert, Oriented x3 Skin: normal color, warm/dry (KAIT AGRAWAL) Focused Exam Lactate Level 11/04/21 13:40: Lactic Acid Level 0.80 11/05/21 04:43: Lactic Acid Level 0.90 (HARPREET WALKER MD) Lactic Acid Level Laboratory Tests Test 11/05/21 04:43 Lactic Acid Level 0.90 MMOL/L (0.50-2.00) (HARPREET WALKER MD) Progress/Results/Core Measures Suspected Sepsis SIRS Temperature: Pulse: 95 Respiratory Rate: 16 Laboratory Tests 11/04/21 12:25: White Blood Count 10.9 11/05/21 04:43: White Blood Count 7.1 11/05/21 13:15: White Blood Count 6.4 Blood Pressure 88 /63 Mean: 71 11/04/21 13:40: Lactic Acid Level 0.80 11/05/21 04:43: Lactic Acid Level 0.90 Laboratory Tests 11/04/21 12:25: Platelet Count 391, Total Bilirubin 0.3 11/04/21 12:27: INR Comment 1.0 11/04/21 17:10: Creatinine 7.06#H 11/05/21 04:43: Platelet Count 234, Total Bilirubin 0.1, Creatinine 5.23#H 11/05/21 13:15: Creatinine 3.94#H, Platelet Count 227 (KAIT AGRAWAL) Results/Orders Lab Results Laboratory Tests Test 11/04/21 12:25 11/04/21 12:27 11/04/21 13:40 11/04/21 14:59 Range/Units White Blood Count 10.9 4.3-11.0 10^3/uL Red Blood Count 3.90 3.80-5.11 10^6/uL Hemoglobin 9.8 L 11.5-16.0 g/dL Hematocrit 32 L 35-52 % Mean Corpuscular Volume 82 80-99 fL Mean Corpuscular Hemoglobin 25 25-34 pg Mean Corpuscular Hemoglobin Concent 31 L 32-36 g/dL Red Cell Distribution Width 15.5 H 10.0-14.5 % Platelet Count 391 130-400 10^3/uL Mean Platelet Volume 10.0 9.0-12.2 fL Immature Granulocyte % (Auto) 1 % Neutrophils (%) (Auto) 76 H 42-75 % Lymphocytes (%) (Auto) 15 12-44 % Monocytes (%) (Auto) 7 0-12 % Eosinophils (%) (Auto) 1 0-10 % Basophils (%) (Auto) 0 0-10 % Neutrophils # (Auto) 8.3 H 1.8-7.8 10^3/uL Lymphocytes # (Auto) 1.6 1.0-4.0 10^3/uL Monocytes # (Auto) 0.7 0.0-1.0 10^3/uL Eosinophils # (Auto) 0.2 0.0-0.3 10^3/uL Basophils # (Auto) 0.0 0.0-0.1 10^3/uL Immature Granulocyte # (Auto) 0.1 0.0-0.1 10^3/uL Sodium Level 128 L 135-145 MMOL/L Potassium Level 4.7 3.6-5.0 MMOL/L Chloride Level 99 98-107 MMOL/L Carbon Dioxide Level 15 L 21-32 MMOL/L Anion Gap 14 5-14 MMOL/L Blood Urea Nitrogen 115 *H 7-18 MG/DL Creatinine 7.70 H 0.60-1.30 MG/DL Estimat Glomerular Filtration Rate 7 BUN/Creatinine Ratio 15 Glucose Level 114 H 70-105 MG/DL Glucometer 118 H 70-110 MG/DL Calcium Level 9.9 8.5-10.1 MG/DL Corrected Calcium 10.1 8.5-10.1 MG/DL Total Bilirubin 0.3 0.1-1.0 MG/DL Aspartate Amino Transf (AST/SGOT) 9 5-34 U/L Alanine Aminotransferase (ALT/SGPT) 6 0-55 U/L Alkaline Phosphatase 72 40-136 U/L Total Protein 10.8 H 6.4-8.2 GM/DL Albumin 3.7 3.2-4.5 GM/DL Influenza Type A (RT-PCR) Not Detected Not Detecte Influenza Type B (RT-PCR) Not Detected Not Detecte SARS-CoV-2 RNA (RT-PCR) Detected H Not Detecte Prothrombin Time 13.6 12.2-14.7 SEC INR Comment 1.0 0.8-1.4 Activated Partial Thromboplast Time 30 24-35 SEC Lactic Acid Level 0.80 0.50-2.00 MMOL/L Urine Color YELLOW Urine Clarity CLOUDY Urine pH 6.0 5-9 Urine Specific [place] 1.025 H 1.016-1.022 Urine Protein 2+ H NEGATIVE Urine Glucose (UA) NEGATIVE NEGATIVE Urine Ketones NEGATIVE NEGATIVE Urine Nitrite NEGATIVE NEGATIVE Urine Bilirubin NEGATIVE NEGATIVE Urine Urobilinogen 0.2 < = 1.0 MG/DL Urine Leukocyte Esterase 3+ H NEGATIVE Urine RBC (Auto) 3+ H NEGATIVE Urine RBC TNTC H /HPF Urine WBC TNTC H /HPF Urine Squamous Epithelial Cells TNTC H /HPF Urine Crystals NONE /LPF Urine Bacteria LARGE H /HPF Urine Casts NONE /LPF Urine Mucus NEGATIVE /LPF Urine Culture Indicated CULTURE PENDING Test 11/04/21 17:10 11/04/21 18:51 11/05/21 04:43 Range/Units Sodium Level 131 L 132 L 135-145 MMOL/L Potassium Level 5.0 4.0 3.6-5.0 MMOL/L Chloride Level 103 102 98-107 MMOL/L Carbon Dioxide Level 15 L 19 L 21-32 MMOL/L Anion Gap 13 11 5-14 MMOL/L Blood Urea Nitrogen 113 *H 99 H 7-18 MG/DL Creatinine 7.06 #H 0.60-1.30 MG/DL Estimat Glomerular Filtration Rate 7 10 BUN/Creatinine Ratio 16 19 Glucose Level 98 148 H 70-105 MG/DL Calcium Level 9.1 7.8 L 8.5-10.1 MG/DL Magnesium Level 2.7 H 2.1 1.6-2.4 MG/DL C-Reactive Protein High Sensitivity 8.55 H 7.31 H 0.00-0.50 MG/DL Procalcitonin 0.49 H <0.10 NG/ML Glucometer 110 70-110 MG/DL White Blood Count 7.1 4.3-11.0 10^3/uL Red Blood Count 2.61 L 3.80-5.11 10^6/uL Hemoglobin 6.6 #*L 11.5-16.0 g/dL Hematocrit 21 L 35-52 % Mean Corpuscular Volume 80 80-99 fL Mean Corpuscular Hemoglobin 25 25-34 pg Mean Corpuscular Hemoglobin Concent 32 32-36 g/dL Red Cell Distribution Width 15.3 H 10.0-14.5 % Platelet Count 234 130-400 10^3/uL Mean Platelet Volume 9.7 9.0-12.2 fL Immature Granulocyte % (Auto) 0 % Neutrophils (%) (Auto) 70 42-75 % Lymphocytes (%) (Auto) 18 12-44 % Monocytes (%) (Auto) 10 0-12 % Eosinophils (%) (Auto) 2 0-10 % Basophils (%) (Auto) 0 0-10 % Neutrophils # (Auto) 5.0 1.8-7.8 10^3/uL Lymphocytes # (Auto) 1.3 1.0-4.0 10^3/uL Monocytes # (Auto) 0.7 0.0-1.0 10^3/uL Eosinophils # (Auto) 0.2 0.0-0.3 10^3/uL Basophils # (Auto) 0.0 0.0-0.1 10^3/uL Immature Granulocyte # (Auto) 0.0 0.0-0.1 10^3/uL Lactic Acid Level 0.90 0.50-2.00 MMOL/L Corrected Calcium 9.0 8.5-10.1 MG/DL Total Bilirubin 0.1 0.1-1.0 MG/DL Aspartate Amino Transf (AST/SGOT) 7 5-34 U/L Alanine Aminotransferase (ALT/SGPT) 7 0-55 U/L Alkaline Phosphatase 49 40-136 U/L Total Protein 7.0 6.4-8.2 GM/DL Albumin 2.5 L 3.2-4.5 GM/DL (HARPREET WALKER MD) My Orders Orders - HARPREET WALKER MD Hs C Reactive Protein (11/04/21 18:31) Procalcitonin (Pct) (11/04/21 18:31) Cbc With Automated Diff (11/05/21 04:00) Comprehensive Metabolic Panel (11/05/21 04:00) Magnesium (11/05/21 04:00) Hs C Reactive Protein (11/05/21 04:00) Procalcitonin (Pct) (11/05/21 04:00) Ns Iv 1000 Ml (Sodium Chloride 0.9%) (11/04/21 19:00) Morphine Injection (Morphine Injection (11/04/21 21:45) Meropenem (Merrem 500 Mg) (11/04/21 21:45) Ondansetron Injection (Zofran Injectio (11/04/21 22:45) Hydrocodone/Apap 5/325 Tablet (Lortab 5 (11/04/21 22:45) Acetaminophen Tablet/Caplet (Tylenol T (11/05/21 02:30) Ns Iv 1000 Ml (Sodium Chloride 0.9%) (11/05/21 02:30) Lactic Acid Analyzer (11/05/21 04:20) Iron Tibc %Sat & Ferritin (11/05/21 05:09) Reticulocyte Count (11/05/21 05:09) Red Cells Leukocytes Reduced (11/05/21 05:09) Type And Screen (11/05/21 05:09) (HARPREET WALKER MD) Medications Given in ED Current Medications Medications Dose Ordered Sig/Colton Route Start Time Stop Time Status Last Admin Dose Admin Acetaminophen 325 mg ONCE ONCE PO 11/05/21 02:30 11/05/21 02:31 DC 11/05/21 02:20 325 MG Acetaminophen/ Hydrocodone Bitart 1 ea Q4H PRN PO 11/04/21 22:45 11/05/21 00:34 1 EA Meropenem 500 mg/ Sodium Chloride 100 ml @ 200 mls/hr ONCE ONCE IV 11/04/21 21:45 11/04/21 22:14 DC 11/04/21 21:55 200 MLS/HR Morphine Sulfate 4 mg PRN PRN IVP 11/04/21 21:45 11/04/21 21:55 4 MG (HARPREET WALKER MD) Vital Signs/I&O 11/04/21 11/04/21 11/04/21 11/04/21 18:53 19:00 19:30 20:00 Temp 37.1 37.1 Pulse 96 85 98 Resp 18 16 18 B/P (MAP) 102/63 98/76 96/64 Pulse Ox 100 100 98 99 O2 Delivery Room Air Room Air Room Air Room Air 11/04/21 11/04/21 11/04/21 11/05/21 21:00 22:00 23:00 00:00 Pulse 99 96 92 86 Resp 14 16 14 16 B/P (MAP) 89/54 96/64 94/64 84/58 Pulse Ox 95 97 99 97 O2 Delivery Room Air Room Air Room Air 11/05/21 11/05/21 11/05/21 11/05/21 01:00 02:00 02:20 02:45 Temp 37.8 37.8 Pulse 90 87 99 Resp 14 16 B/P (MAP) 93/68 82/57 Pulse Ox 97 98 O2 Delivery Room Air 11/05/21 11/05/21 11/05/21 02:50 03:00 04:00 Temp 37.8 37.8 36.4 Pulse 88 82 Resp 14 16 B/P (MAP) 93/67 95/57 Pulse Ox 96 95 O2 Delivery Room Air Room Air 11/05/21 00:00 Intake Total 1650 ml Balance 1650 ml (HARPREET WALKER MD) Vital Signs/I&O Capillary Refill : Less Than 3 Seconds (KAIT AGRAWAL) Blood Pressure Mean: 71 Progress Note #1: Time: 13:57 Progress Note The patient has a soft blood pressure in the upper 70s to low 90s. She appears to be dry has exudates on her tonsils. We will get COVID, influenza, rapid strep and give her a couple liters of fluid to try and rehydrate her. She is asking for Dilaudid for pain. She states fentanyl causes a headache. Morphine will cause a more profound drop in her blood pressure. We did initiate some fluids however none of them have gone in yet. We got them on a pressure bag now and we will give her 1/8 of a milligram of Dilaudid. Progress Note #2: Time: 16:08 Progress Note Called [facility] and paged Dr. Herrera the messenger floorperson on-call for Dr. Castro's group. The team at [facility] triage advises that they are on house wide diversion. He recommends to fluid her up with sodium hydroxide 3 A and 850 cc to make a liter and then give 1-1/2 L of this. After that just back to normal saline. By tomorrow if her labs are improved then she could go home and would not need admitted. Follow-up outpatient. If anything is worsening electrolytes or fever or other symptoms then he would agree with transferring the patient for admission. Progress Note #3: Time: 17:05 Progress Note Patient is been ordered some more Dilaudid quarter milligram. She is getting a meal and will do Accu-Cheks and dose her low sliding scale +[address] in [address] of Tresiba at night. She takes 500 Depakote in the morning. She does not want to go to [facility] she states she is had bad experiences there. Has been difficult getting patients transferred out and its possible we could discharge her from the ER if her labs are improving by morning. We will repeat a BMP and a magnesium now and initiate the bicarb bolus per nephrology recommendations. Patient is producing urine. We will dose her with Rocephin daily. Patient is not a candidate for paxlovid secondary to poor kidney function. When we spoke to her nephrology team they looked her up and said in September she had a creatinine of 2.8. Progress Note #4: Time: 07:32 Progress Note Patient's hemoglobin dipped likely due to dilution and kidney disorder causing poor production. Patient was ordered for a unit of blood. Her creatinine and acidemia significantly improved. She is on normal saline 150 an hour. She is received her 1-1/2 L of bicarb. She is showing signs of improvement. From her COVID standpoint she is not having any difficulty breathing. She is continue to maintain low blood pressures which she states is not unusual for her. Hopefully the blood will help. We will repeat labs about 4 hours after her blood is concluded. We will also attempt to make contact with her nephrology team again to rediscuss her case. Original plan is if she is improving after interventions does not have significant acidemia, electrolyte disorder etc. that she could go home and follow-up outpatient with nephrology. The patient still in agreement with this plan. The patient did receive meropenem overnight however she has aseptic vital signs other than her chronically soft blood pressure. The rest of her symptoms could just as easily be attributed to COVID and her urinalysis may very well just be contamination. With her renal stents it would be reasonable to continue antibiotics even outpatient and would suggest outpatient IM Rocephin. Previous urinary cultures were not particularly helpful as they are multi organism and likely contaminated. 1545: Attempted to make contact with nephrology team at [facility] and the messenger floorperson stated they would not give us a consult because they were afraid that they may have to accept the patient and they have no beds available. Referring back to the consult with Dr. Herrera from yesterday the patient's acidemia has nearly completely resolved her creatinine is within 1 mg/dL of baseline, 2.8 last month, 3.9 today and her nausea is under control. She did receive an extra dose of Zofran today. We will send her home with some Zofran, hydrocodone and conservative management of her COVID-19 as well as return precautions. Patient is in agreement with this plan. Now that her nausea is better we have ordered her a meal tray and if she can eat this and keep it down we will let her go home. She has follow-up plans with her messenger floorperson next week and plans to get labs done. (KAIT AGRAWAL) Progress Note #1: Time: 18:46 Progress Note Care of this patient was assumed from Dr. Agrawal at shift change. Labs were reviewed and orders placed for morning labs. We will monitor her condition through the evening and adjust IV fluids as needed. Progress Note #2: Time: 02:36 Progress Note Patient's pain has been treated with hydrocodone and morphine as needed. Systolic blood pressure at present is noted to be 86. A bolus of normal saline 1 L is being administered. Although patient has had intermittent hypotension, she does not appear septic by lab evaluation. Labs will be repeated again at 0400. After reviewing chart, it was noted patient has had multiple urine cultures that were not identified or run for sensitivity because there were 3 or more isolate is identified. Patient probably has polymicrobial colonization in addition to infection. For this reason we have extended the antibiotic coverage by adding meropenem 500 mg IV x1. Progress Note #3: Time: 05:36 Progress Note Patient did fairly well through the night. She has occasionally had intermittent hypotensive measurements. Hemoglobin returned at 6.6 this morning which likely explains, at least in part, her blood pressure issues. She reports need for transfusions in the past. She states transfusions improve her subjective status tremendously and she is looking forward to receiving transfusion today. (HARPREET WALKER MD) Diagnostic Imaging Diagonstic Imaging: Xray Plain Films/CT/US/NM/MRI: chest Comments [facility]. [place], [place] NAME: CECILEJOE M [facility] REC#: [id number] PT STATUS: REG ER : 1985 PHYSICIAN: KAIT AGRAWAL MD ADMIT DATE: 11/04/21/ER Draft Date of Exam:11/04/21 CHEST 1 VIEW, AP/PA ONLY INDICATION: Cough. EXAMINATION: Portable chest at 02:59 p.m. FINDINGS: Heart size and pulmonary vascularity are normal. Lungs are clear. There are no effusions or pneumothoraces. IMPRESSION: No acute abnormalities in the chest. Dictated on workstation # [id number] Dict: 11/04/21 1457 Trans: 11/04/21 1500 AS6 [id number] Interpreted by: ESTUARDO HILL MD Electronically signed by: Reviewed: Reviewed by Me (KAIT AGRAWAL) Departure Impression Primary Impression: [id number] kidney injury Qualified Codes: N17.9 - Acute kidney failure, unspecified; N18.9 - Chronic kidney disease, unspecified Additional Impression: Urinary tract infection Qualified Codes: N39.0 - Urinary tract infection, site not specified; R31.9 - Hematuria, unspecified Disposition: 01 HOME, SELF-CARE Condition: Stable Departure-Patient Inst. Decision time for Depature: 15:39 (KAIT AGRAWAL) Referrals: CHARLES SHEA MD (PCP/Family) Primary Care Physician Patient Instructions: Urinary Tract Infection, Adult (DC), Diabetic Nephropathy Add. Discharge Instructions: Drink lots of fluids. Omnicef 1 capsule once a day for 10 days. I suggest you roller picker some probiotics and take them twice a day to help replenish your gut bacteria so you do not develop diarrhea from all the antibiotics. Ondansetron 1 to 2 tablets every 6 hours as needed to control nausea or vomiting. Phenergan 1 tablet every 6 hours necessary for breakthrough nausea and vomiting. Hydrocodone 1 to 2 tablets every 6 hours as necessary for severe pain. Follow-up next week with your messenger floorperson to repeat blood work. Return to the nearest ER if you are having worsening symptoms. All discharge instructions reviewed with patient and/or family. Voiced understanding. Scripts Cefdinir (Cefdinir) 300 Mg Capsule 300 MG PO DAILY for 10 Days, #10 CAP 0 Refills Prov: KAIT AGRAWAL 11/05/21 Hydrocodone/Acetaminophen (Hydrocodone-Acetamin 5-325 mg) 1 Each Tablet 1-2 TAB PO Q6H PRN for PAIN-MODERATE (5-7), #20 TAB 0 Refills Prov: KAIT AGRAWAL 11/05/21 Promethazine HCl (Promethazine Tablet) 25 Mg Tablet 25 MG PO Q6H PRN for NAUSEA/VOMITING-2ND LINE, #12 TAB 0 Refills Prov: KAIT AGRAWAL 11/05/21 Ondansetron (Ondansetron Odt) 4 Mg Tab.rapdis 4-8 MG PO Q6H PRN for NAUSEA/VOMITING, #20 TAB 0 Refills Prov: KAIT AGRAWAL 11/05/21 KAIT AGRAWAL Nov 04, 2021 13:58 HARPREET WALKER MD Nov 04, 2021 18:47
[2021-11-04] MEDS ORDERED: HYDROmorphone 2 MG/ML VIAL (DILAUDID) IVP ONE ×2 (14:00→16:45)
--- NOTE | 2021-11-04 15:00 | Diagnostic Imaging Report ---
INDICATION: Cough. EXAMINATION: Portable chest at 02:59 p.m. FINDINGS: Heart size and pulmonary vascularity are normal. Lungs are clear. There are no effusions or pneumothoraces. IMPRESSION: No acute abnormalities in the chest. Dictated by: Dictated on workstation # [id number]
[2021-11-04 15:07] LABS: BILIRUBIN,URINE NEGATIVE (NEGATIVE); CLARITY,URINE CLOUDY; COLOR,URINE YELLOW; GLUCOSE, URINE (UA) NEGATIVE (NEGATIVE); KETONES,URINE NEGATIVE (NEGATIVE); LEUKOCYTE ESTERASE ,URINE 3+ (NEGATIVE); NITRITE,URINE NEGATIVE (NEGATIVE); PROTEIN,URINE 2+ (NEGATIVE)
[2021-11-04 15:39] LABS: BACTERIA,URINE LARGE /HPF; RBC,URINE TNTC /HPF; SQUAMOUS EPITHELIAL CELL,UR TNTC /HPF; WBC,URINE TNTC /HPF
[2021-11-04] MEDS: SODIUM BICARBONATE IV SCH ×2 (17:10→18:43)
[2021-11-04] MEDS: STERILE IV SCH ×2 (17:10→18:43)
[2021-11-04] MEDS: WATER FOR INJECTION IV SCH ×2 (17:10→18:43)
[2021-11-04 17:33] LABS: CALCIUM 9.1 MG/DL (8.5-10.1)
[2021-11-04 17:38] LABS: CREATININE SERUM 7.06 MG/DL (0.60-1.30)
[2021-11-04 17:40] LABS: MAGNESIUM 2.7 MG/DL (1.6-2.4)
[2021-11-04] MEDS: NS IV 1000 ML 1,000 ML IV SCH (19:44)
[2021-11-04] MEDS ORDERED: morphine INJ 10 MG/ML 1ML (SYR OR VIAL) IVP PRN (21:45)
[2021-11-04] MEDS ORDERED: oxyCODONE/APAP 5/325MG (PERCOCET 5) TABLET PO PRN (21:45)
[2021-11-04] MEDS ORDERED: MEROPENEM 500 MG in NS (IVPB) 100 ML IV ONE (21:45)
[2021-11-04] MEDS ORDERED: HYDROcodone/APAP 5 MG/325 MG (LORTAB) TAB PO PRN (22:45)
[2021-11-05] MEDS: NS IV 1000 ML 1,000 ML IV SCH ×3 (00:34→15:00)
[2021-11-05] MEDS ORDERED: ACETAMINOPHEN 325 MG TABLET PO ONE (02:30)
[2021-11-05] MEDS ORDERED: NS IV 1000 ML 1,000 ML IV SCH (02:30)
[2021-11-05 04:55] LABS: BASOPHILS % (AUTO) 0 % (0-10); EOSINOPHILS # (AUTO) 0.2 10^3/uL (0.0-0.3); EOSINOPHILS % (AUTO) 2 % (0-10); HEMATOCRIT 21 % (35-52); LYMPHOCYTES # (AUTO) 1.3 10^3/uL (1.0-4.0); LYMPHOCYTES % (AUTO) 18 % (12-44); MEAN CORPUSCULAR HEMOGLOBIN 25 pg (25-34); MEAN CORPUSCULAR HGB CONC 32 g/dL (32-36); MEAN CORPUSCULAR VOLUME 80 fL (80-99); MEAN PLATELET VOLUME 9.7 fL (9.0-12.2); MONOCYTES # (AUTO) 0.7 10^3/uL (0.0-1.0); MONOCYTES % (AUTO) 10 % (0-12); NEUTROPHILS % (AUTO) 70 % (42-75); PLATELET COUNT 234 10^3/uL (130-400); WHITE BLOOD COUNT 7.1 10^3/uL (4.3-11.0)
[2021-11-05 05:02] LABS: HEMOGLOBIN 6.6 g/dL (11.5-16.0)
[2021-11-05 05:22] LABS: ALBUMIN 2.5 GM/DL (3.2-4.5)
[2021-11-05 05:23] LABS: CALCIUM 7.8 MG/DL (8.5-10.1)
[2021-11-05 05:26] LABS: BILIRUBIN,TOTAL 0.1 MG/DL (0.1-1.0)
[2021-11-05 05:28] LABS: CREATININE SERUM 5.23 MG/DL (0.60-1.30)
[2021-11-05 05:31] LABS: MAGNESIUM 2.1 MG/DL (1.6-2.4)
[2021-11-05 05:52] LABS: RETICULOCYTE % 1.07 % (0.50-2.40)
[2021-11-05] MEDS: ONDANSETRON 4 MG/2 ML (SDV) Z0FRAN IVP PRN ×2 (06:20→14:43)
[2021-11-05 07:57] VITALS: BP 102/66
[2021-11-05 08:12] VITALS: BP 101/62
[2021-11-05 08:27] VITALS: BP 99/63
[2021-11-05 08:42] VITALS: BP 104/65
[2021-11-05 09:10] VITALS: BP 99/64
[2021-11-05 13:29] LABS: BASOPHILS % (AUTO) 0 % (0-10); EOSINOPHILS # (AUTO) 0.1 10^3/uL (0.0-0.3); EOSINOPHILS % (AUTO) 2 % (0-10); HEMATOCRIT 28 % (35-52); HEMOGLOBIN 8.7 g/dL (11.5-16.0); LYMPHOCYTES % (AUTO) 15 % (12-44); MEAN CORPUSCULAR HEMOGLOBIN 26 pg (25-34); MEAN CORPUSCULAR HGB CONC 31 g/dL (32-36); MEAN CORPUSCULAR VOLUME 84 fL (80-99); MEAN PLATELET VOLUME 9.3 fL (9.0-12.2); MONOCYTES # (AUTO) 0.6 10^3/uL (0.0-1.0); MONOCYTES % (AUTO) 10 % (0-12); NEUTROPHILS # (AUTO) 4.6 10^3/uL (1.8-7.8); NEUTROPHILS % (AUTO) 72 % (42-75); PLATELET COUNT 227 10^3/uL (130-400); WHITE BLOOD COUNT 6.4 10^3/uL (4.3-11.0)
[2021-11-05 13:48] LABS: POTASSIUM 4.2 MMOL/L (3.6-5.0)
[2021-11-05 13:49] LABS: CALCIUM 8.3 MG/DL (8.5-10.1)
[2021-11-05 13:54] LABS: CREATININE SERUM 3.94 MG/DL (0.60-1.30)
[2021-11-05] MEDS ORDERED: ONDANSETRON 4 MG/2 ML (SDV) Z0FRAN IVP ONE (14:45)
[2021-11-05] MEDS ORDERED: HYDROmorphone 2 MG/ML VIAL (DILAUDID) IVP ONE (14:45)
[2021-11-05] MEDS ORDERED: ONDA4TAB11 PO (15:44)
[2021-11-05] MEDS ORDERED: CEFD300C3 PO (15:44)
[2021-11-05] MEDS ORDERED: PROM25TA14 PO (15:44)
[2021-11-05] MEDS ORDERED: ACHD5005 PO (15:44)
[2021-11-05] MEDS ORDERED: cefTRIAXone 1 GM PRE-MIX 50 ML IV ONE (15:45)
[2021-11-05 16:27] VITALS: BP 103/73
== END 2021-11-05 16:28 | disposition home or self-care (01) ==
LOC: EDUNIT# 11:35 → ER 11:37
DX: N39.0 Urinary tract infection, site not specified (principal); N17.9 Acute kidney failure, unspecified; E11.22 Type 2 diabetes mellitus with diabetic chronic kidney disease; N18.9 Chronic kidney disease, unspecified; E11.319 Type 2 diabetes mellitus with unspecified diabetic retinopathy without macular edema; G40.909 Epilepsy, unspecified, not intractable, without status epilepticus; K21.9 Gastro-esophageal reflux disease without esophagitis; Z79.4 Long term (current) use of insulin; Z96.0 Presence of urogenital implants; Z79.899 Other long term (current) drug therapy; Z20.822 Contact with and (suspected) exposure to COVID-19
CPT/HCPCS: 71045; 80048 ×2; 80053 ×2; 81000; 82728; 82947 ×2; 83540; 83550; 83605 ×2; 83735 ×2; 84145 ×2; 85025 ×2; 85045; 85610; 85730; 86141 ×2; 86850; 86900; 86901; 86920; 87040; 87088; 87636; 99284; P9016; 36415

== ENCOUNTER 2021-11-30 13:56 | Emergency (ER) | payer MEDICAID, OTHER ==
[~2021-11-30 13:56] MED LIST changes: +ONDA4TAB11 PO; +PROM25TA14 PO
[2021-11-30] MEDS ORDERED: ONDANSETRON 4 MG/2 ML (SDV) Z0FRAN IVP ONE (15:00)
[2021-11-30 15:11] LABS: BASOPHILS % (AUTO) 0 % (0-10); EOSINOPHILS # (AUTO) 0.3 10^3/uL (0.0-0.3); EOSINOPHILS % (AUTO) 2 % (0-10); HEMATOCRIT 31 % (35-52); HEMOGLOBIN 9.8 g/dL (11.5-16.0); LYMPHOCYTES # (AUTO) 1.7 X 10^3 (1.0-4.0); LYMPHOCYTES % (AUTO) 11 % (12-44); MEAN CORPUSCULAR HEMOGLOBIN 26 pg (25-34); MEAN CORPUSCULAR HGB CONC 32 g/dL (32-36); MEAN CORPUSCULAR VOLUME 82 fL (80-99); MEAN PLATELET VOLUME 9.3 fL (9.0-12.2); MONOCYTES # (AUTO) 0.7 X 10^3 (0.0-1.0); MONOCYTES % (AUTO) 4 % (0-12); NEUTROPHILS # (AUTO) 13.5 X 10^3 (1.8-7.8); NEUTROPHILS % (AUTO) 83 % (42-75); PLATELET COUNT 463 10^3/uL (130-400); WHITE BLOOD COUNT 16.3 10^3/uL (4.3-11.0)
[2021-11-30 15:15] LABS: ALBUMIN 3.7 GM/DL (3.2-4.5); POTASSIUM 5.3 MMOL/L (3.6-5.0)
[2021-11-30] MEDS ORDERED: fentaNYL INJ 100 MCG/2 ML AMP IVP ONE (15:15)
[2021-11-30 15:16] LABS: CALCIUM 9.8 MG/DL (8.5-10.1)
[2021-11-30 15:18] LABS: TOTAL PROTEIN 10.2 GM/DL (6.4-8.2)
[2021-11-30 15:19] LABS: BILIRUBIN,TOTAL 0.2 MG/DL (0.1-1.0)
[2021-11-30 15:21] LABS: CREATININE SERUM 8.92 MG/DL (0.60-1.30)
[2021-11-30] MEDS ORDERED: NS IV 1000 ML 1,000 ML IV SCH ×2 (15:30→17:45)
[2021-11-30 15:54] LABS: EOSINOPHILS % (MANUAL) 2 %; LYMPHOCYTES % (MANUAL) 11 %; MONOCYTES % (MANUAL) 7 %; NEUTROPHILS % (MANUAL) 80 %; RBC MORPH NORMAL
[2021-11-30] MEDS ORDERED: cefTRIAXone 1 GM PRE-MIX 50 ML IV STA (16:17)
[2021-11-30 17:06] LABS: PROTHROMBIN TIME PATIENT 13.7 SEC (12.2-14.7)
[2021-11-30] MEDS ORDERED: morphine INJ 10 MG/ML 1ML (SYR OR VIAL) IVP STA (17:08)
--- NOTE | 2021-11-30 17:19 | ED Abdominal Pain ---
General Chief Complaint: Abdominal/GI Problems Stated Complaint: N/V,BACK/ABD PAIN Nursing Triage Note: PT AMB TO [facility] 4 WITH C/O ABD PAIN AND N/V X1 WEEK. PT HAS CHRONIC KIDNEY ISSUES AND HAS AN APPT TOMORROW WITH HER [employer] BUT COULD NOT CONTROL THE PAIN TODAY Source of Information: Patient Exam Limitations: No Limitations History of Present Illness Date Seen by Provider: Nov 30, 2021 Time Seen by Provider: 14:07 Initial Comments This 36-year-old young woman presents to the emergency room with complaints of abdominal pain, nausea, and vomiting for about a week. She was seen in this ER about 4 weeks ago for acute on chronic renal failure and urinary tract infection. A suitable transfer location with nephrology services cannot be found. She was treated in the ER for a couple days and discharged when she had dramatic improvement in renal function. Symptoms have since returned and she believes she has acute renal failure and urinary tract infection again. She has bilateral ureteral stents for which she is to see Dr. Walden in the near future. She is afebrile at this time. She does still make urine and urinated just prior to leaving her house. Allergies and Home Medications Allergies Coded Allergies: cephalexin (Verified Allergy, Severe, 12/16/19) SEIZURES cinnamon (Verified Allergy, Severe, Anaphylaxis, 12/16/19) aspirin (Verified Allergy, Unknown, 12/16/19) Patient Home Medication List Home Medication List Reviewed: Yes Acetaminophen (Tylenol Extra Strength) 500 Mg Tablet, 1,000 MG PO Q8H PRN for PAIN-MILD (1-4), (Reported) Entered as Reported by: KALEE MERCEDES on 05/19/21 1135 Cefdinir (Cefdinir) 300 Mg Capsule, 300 MG PO DAILY Prescribed by: KAIT REAGAN on 11/05/21 1544 Divalproex Sodium (Divalproex Sodium) 500 Mg Tablet.dr, 1,000 MG PO BID Prescribed by: MARIA EUGENIA JUDD on 07/06/21 1013 Ferrous Sulfate (Iron) 325 Mg Tablet, 325 MG PO DAILY, (Reported) Entered as Reported by: KALEE MERCEDES on 05/19/21 1135 Folic Acid (Folic Acid) 1 Mg Tablet, 1 MG PO DAILY, (Reported) Entered as Reported by: KALEE MERCEDES on 06/30/21 1001 Hydrocodone/Acetaminophen (Hydrocodone-Acetamin 5-325 mg) 1 Each Tablet, 1 TAB PO Q6H PRN for PAIN-MODERATE (5-7) Prescribed by: DAISHA ALFONSO on 07/21/21 1021 Hydrocodone/Acetaminophen (Hydrocodone-Acetamin 5-325 mg) 1 Each Tablet, 1-2 TAB PO Q6H PRN for PAIN-MODERATE (5-7) Prescribed by: KAIT REAGAN on 11/05/21 1545 Insulin Lispro (Humalog Kwikpen) 100 Unit/1 Ml Insuln.pen, UNIT SQ SLIDING/SCALE, (Reported) Entered as Reported by: KALEE MERCEDES on 05/19/21 1135 Methylcellulose (Fiber) 500 Mg Tablet, 1,000 MG PO BID, (Reported) Entered as Reported by: KALEE MERCEDES on 05/19/21 1135 Ondansetron (Ondansetron Odt) 4 Mg Tab.rapdis, 4-8 MG PO Q6H PRN for NAUSEA/VOMITING Prescribed by: KAIT REAGAN on 11/05/21 1544 Oxycodone Hcl (Oxyir Tablet) 5 Mg Tab, 5 MG PO Q4H PRN for PAIN-SEVERE (8-10) Prescribed by: MARIA EUGENIA JUDD on 07/06/21 1014 Pantoprazole Sodium (Pantoprazole Sodium) 40 Mg Tablet.dr, 40 MG PO DAILY, (Reported) Entered as Reported by: KALEE MERCEDES on 06/30/21 0959 Promethazine HCl (Promethazine Tablet) 25 Mg Tablet, 25 MG PO Q6H PRN for NAUSEA/VOMITING-2ND LINE Prescribed by: KAIT REAGAN on 11/05/21 1544 Sennosides/Docusate Sodium (Senna-S Tablet) 1 Each Tablet, 2 EACH PO BID, (Reported) Entered as Reported by: KALEE MERCEDES on 06/30/21 0959 Sodium Bicarbonate (Sodium Bicarbonate) 650 Mg Tablet, 650 MG PO BID, (Reported) Entered as Reported by: KALEE MERCEDES on 06/30/21 0959 Review of Systems Review of Systems Constitutional: no symptoms reported EENTM: No Symptoms Reported Respiratory: No Symptoms Reported Cardiovascular: No Symptoms Reported Gastrointestinal: See HPI Genitourinary: See HPI Musculoskeletal: no symptoms reported Skin: no symptoms reported Psychiatric/Neurological: No Symptoms Reported Endocrine: No Symptoms Reported Hematologic/Lymphatic: No Symptoms Reported Past Tvvukfg-Cuatsb-Nepunr Hx Patient Social History Tobacco Use?: No Substance use?: No Alcohol Use?: No Pt feels they are or have been: No Immunizations Up To Date Tetanus Booster (TDap): Unknown Influenza Vaccine Up-to-Date: No; Not Current First/Initial COVID19 Vaccinat: none Second COVID19 Vaccination Erick: none Third COVID19 Vaccination Date: none Seasonal Allergies Seasonal Allergies: No Past Medical History Surgery/Hospitalization HX: RECENT AMB TOE L FOOT. BILATERAL KIDNEY STENTS SINCE FEBRUARY Surgeries: Yes Orthopedic, Renal Respiratory: No Currently Using CPAP: No Currently Using BIPAP: No Cardiac: Yes Heart Attack, Palpitations Neurological: Yes Seizure Disorder Reproductive Disorders: No Genitourinary: Yes (Recurrent UTI/pyelonephritis) Kidney Infection, Kidney Stones, Renal Failure Gastrointestinal: Yes Gastroesophageal Reflux Musculoskeletal: Yes (loss of toenail) Endocrine: Yes Diabetes, Insulin dep HEENT: Yes (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 -DRUGS-ADMITS TO METH USE, DENIES IV USE. CLAIMS "NONE FOR 10 YEARS" -DENIES SMOKING Physical Exam Vital Signs Vital Signs - First Documented 11/30/21 14:10 Temp 35.5 Pulse 105 Resp 18 B/P (MAP) 116/81 (93) Pulse Ox 100 O2 Delivery Room Air Capillary Refill : Greater Than 3 Seconds Height/Weight/BMI Height: '" Weight: lbs. oz. 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, no motor/sensory deficits, alert, normal mood/affect, oriented x 3 Skin: normal color, warm/dry Focused Exam Lactate Level 11/30/21 14:14: Lactic Acid Level 0.79 Lactic Acid Level Laboratory Tests Test 11/30/21 14:14 Lactic Acid Level 0.79 MMOL/L (0.50-2.00) Progress/Results/Core Measures Results/Orders Lab Results Laboratory Tests Test 11/30/21 14:14 11/30/21 17:40 Range/Units White Blood Count 16.3 H 4.3-11.0 10^3/uL Red Blood Count 3.73 L 3.80-5.11 10^6/uL Hemoglobin 9.8 L 11.5-16.0 g/dL Hematocrit 31 L 35-52 % Mean Corpuscular Volume 82 80-99 fL Mean Corpuscular Hemoglobin 26 25-34 pg Mean Corpuscular Hemoglobin Concent 32 32-36 g/dL Red Cell Distribution Width 15.2 H 10.0-14.5 % Platelet Count 463 H 130-400 10^3/uL Mean Platelet Volume 9.3 9.0-12.2 fL Immature Granulocyte % (Auto) 1 % Neutrophils (%) (Auto) 83 H 42-75 % Lymphocytes (%) (Auto) 11 L 12-44 % Monocytes (%) (Auto) 4 0-12 % Eosinophils (%) (Auto) 2 0-10 % Basophils (%) (Auto) 0 0-10 % Neutrophils # (Auto) 13.5 H 1.8-7.8 X 10^3 Lymphocytes # (Auto) 1.7 1.0-4.0 X 10^3 Monocytes # (Auto) 0.7 0.0-1.0 X 10^3 Eosinophils # (Auto) 0.3 0.0-0.3 10^3/uL Basophils # (Auto) 0.0 0.0-0.1 10^3/uL Immature Granulocyte # (Auto) 0.1 0.0-0.1 10^3/uL Neutrophils % (Manual) 80 % Lymphocytes % (Manual) 11 % Monocytes % (Manual) 7 % Eosinophils % (Manual) 2 % Blood Morphology Comment NORMAL Prothrombin Time 13.7 12.2-14.7 SEC INR Comment 1.0 0.8-1.4 Activated Partial Thromboplast Time 31 24-35 SEC Sodium Level 129 L 135-145 MMOL/L Potassium Level 5.3 H 3.6-5.0 MMOL/L Chloride Level 103 98-107 MMOL/L Carbon Dioxide Level 11 L 21-32 MMOL/L Anion Gap 15 H 5-14 MMOL/L Blood Urea Nitrogen 116 *H 7-18 MG/DL Creatinine 8.92 H 0.60-1.30 MG/DL Estimat Glomerular Filtration Rate 5 BUN/Creatinine Ratio 13 Glucose Level 169 H 70-105 MG/DL Lactic Acid Level 0.79 0.50-2.00 MMOL/L Calcium Level 9.8 8.5-10.1 MG/DL Corrected Calcium 10.0 8.5-10.1 MG/DL Total Bilirubin 0.2 0.1-1.0 MG/DL Aspartate Amino Transf (AST/SGOT) 12 5-34 U/L Alanine Aminotransferase (ALT/SGPT) 16 0-55 U/L Alkaline Phosphatase 103 40-136 U/L C-Reactive Protein High Sensitivity 8.74 H 0.00-0.50 MG/DL Total Protein 10.2 H 6.4-8.2 GM/DL Albumin 3.7 3.2-4.5 GM/DL Lipase 167 H 8-78 U/L Serum Test, Qualitative NEGATIVE NEGATIVE Urine Color YELLOW Urine Clarity CLOUDY Urine pH 6.0 5-9 Urine Specific [place] 1.020 1.016-1.022 Urine Protein 2+ H NEGATIVE Urine Glucose (UA) NEGATIVE NEGATIVE Urine Ketones NEGATIVE NEGATIVE Urine Nitrite NEGATIVE NEGATIVE Urine Bilirubin NEGATIVE NEGATIVE Urine Urobilinogen 0.2 < = 1.0 MG/DL Urine Leukocyte Esterase 3+ H NEGATIVE Urine RBC (Auto) 3+ H NEGATIVE Urine RBC 50-100 H /HPF Urine WBC TNTC H /HPF Urine Squamous Epithelial Cells 10-25 H /HPF Urine Crystals NONE /LPF Urine Bacteria LARGE H /HPF Urine Casts NONE /LPF Urine Mucus NEGATIVE /LPF Urine Culture Indicated YES Micro Results Microbiology 11/30/21 Urine Culture - Final, Complete Gram Pos Mixed Bacterial Kacey 11/30/21 Blood Culture - Preliminary, Resulted No growth 11/30/21 Blood Culture - Preliminary, Resulted No growth My Orders Orders - HARPREET WALKER MD Ua Culture If Indicated (11/30/21 14:07) Ondansetron Injection (Zofran Injectio (11/30/21 15:00) Cbc With Automated Diff (11/30/21 15:04) Comprehensive Metabolic Panel (11/30/21 15:04) Hs C Reactive Protein (11/30/21 15:04) Lipase (11/30/21 15:04) Fentanyl Inj (Sublimaze Injection) (11/30/21 15:15) Manual Differential (11/30/21 14:14) Ed Iv/Invasive Line Start (11/30/21 15:28) Ns Iv 1000 Ml (Sodium Chloride 0.9%) (11/30/21 15:30) Ceftriaxone 1 Gm Pre-Mix (Rocephin 1 Gm (11/30/21 16:17) Blood Culture (11/30/21 16:49) Protime With Inr (11/30/21 16:49) Partial Thromboplastin Time (11/30/21 16:49) Vital Signs Adult Sepsis Patie Q15M (11/30/21 16:49) Remove Rings In Anticipation O (11/30/21 16:49) Lactic Acid Analyzer (11/30/21 16:49) Hcg,Qualitative Serum (11/30/21 17:07) Morphine Injection (Morphine Injection (11/30/21 17:08) Promethazine Injection (Phenergan Injec (11/30/21 17:45) Ns Iv 1000 Ml (Sodium Chloride 0.9%) (11/30/21 17:45) Urine Culture (11/30/21 17:40) General/Regular (11/30/21 Dinner) Medications Given in ED Vital Signs/I&O 11/30/21 11/30/21 14:10 20:00 Temp 35.5 35.5 Pulse 105 86 Resp 18 18 B/P (MAP) 116/81 (93) 103/72 Pulse Ox 100 100 O2 Delivery Room Air Room Air Blood Pressure Mean: 93 Progress Progress Note : Time: 17:17 Progress Note Patient was treated with fentanyl initially and now is being treated with morp margoth for recurrent pain. She is being hydrated with IV normal saline. A second liter will be administered as well. Initial antibiotic therapy is being started with Rocephin. A blood culture was drawn prior to administration of antibiotics. Unfortunately, due to a timing error in orders the second blood culture was being drawn during the administration of Rocephin. Patient is still not been able to provide a urine specimen. Prior urine cultures were polymicrobial with too many isolates to provide accurate sensitivities. Case was discussed with Dr. Cazares, hospitalist at [facility]. They are agreeable to receive Ms. Ogden in transfer. Departure Impression Primary Impression: Acute on chronic renal failure Qualified Codes: N17.9 - Acute kidney failure, unspecified; N18.9 - Chronic kidney disease, unspecified Additional Impressions: Urinary tract infection Qualified Codes: N39.0 - Urinary tract infection, site not specified Nausea and vomiting Qualified Codes: R11.2 - Nausea with vomiting, unspecified Disposition: XFER SHT-TRM HOSP Condition: Improved Transfer Transfer Reason: Exceeds level of care Time Spoke to Accepting Phy: 17:10 Transfer Progress Notes Transfer accepted by Dr. Cazares at [facility] in [place]. Transfer Time: 20:05 Transfer Facility: [facility] Method of Transfer: EMS Departure-Patient Inst. Referrals: CHARLES SHEA MD (PCP/Family) Primary Care Physician Copy Copies To 1: CHARLES SHEA MD, JOSHUA T MD Nov 30, 2021 17:19
[2021-11-30] MEDS ORDERED: PROMETHAZINE INJ 25 MG/ML (PHENERGAN) AMP IVP ONE (17:45)
[2021-11-30 17:50] LABS: BILIRUBIN,URINE NEGATIVE (NEGATIVE); CLARITY,URINE CLOUDY; COLOR,URINE YELLOW; GLUCOSE, URINE (UA) NEGATIVE (NEGATIVE); KETONES,URINE NEGATIVE (NEGATIVE); LEUKOCYTE ESTERASE ,URINE 3+ (NEGATIVE); NITRITE,URINE NEGATIVE (NEGATIVE); PROTEIN,URINE 2+ (NEGATIVE)
[2021-11-30 18:04] LABS: BACTERIA,URINE LARGE /HPF; RBC,URINE 50-100 /HPF; WBC,URINE TNTC /HPF
[2021-11-30] MEDS ORDERED: fentaNYL INJ 100 MCG/2 ML AMP IVP STA (19:52)
[2021-11-30 20:00] VITALS: BP 103/72
== END 2021-11-30 20:05 | disposition short-term general hospital (02) ==
LOC: EDUNIT# 13:56 → ER 13:58
DX: N17.9 Acute kidney failure, unspecified (principal); E11.22 Type 2 diabetes mellitus with diabetic chronic kidney disease; N18.9 Chronic kidney disease, unspecified; I25.2 Old myocardial infarction; N39.0 Urinary tract infection, site not specified; R11.2 Nausea with vomiting, unspecified; G40.909 Epilepsy, unspecified, not intractable, without status epilepticus; K21.9 Gastro-esophageal reflux disease without esophagitis; Z79.4 Long term (current) use of insulin; Z79.899 Other long term (current) drug therapy
CPT/HCPCS: 36415; 80053; 81000; 83605; 83690; 84703; 85007; 85027; 85610; 85730; 86141; 87040; 87088

== ENCOUNTER 2021-12-20 08:50 | Emergency (ER) | payer MEDICAID ==
[~2021-12-20] VITALS: Ht 165 cm; Wt 63.5 kg
[2021-12-20 09:15] LABS: BASOPHILS # (AUTO) 0.1 10^3/uL (0.0-0.1); BASOPHILS % (AUTO) 1 % (0-10); EOSINOPHILS # (AUTO) 0.1 10^3/uL (0.0-0.3); EOSINOPHILS % (AUTO) 1 % (0-10); HEMATOCRIT 35 % (35-52); HEMOGLOBIN 10.7 g/dL (11.5-16.0); LYMPHOCYTES # (AUTO) 1.1 10^3/uL (1.0-4.0); LYMPHOCYTES % (AUTO) 10 % (12-44); MEAN CORPUSCULAR HEMOGLOBIN 27 pg (25-34); MEAN CORPUSCULAR HGB CONC 31 g/dL (32-36); MEAN CORPUSCULAR VOLUME 88 fL (80-99); MEAN PLATELET VOLUME 9.6 fL (9.0-12.2); MONOCYTES # (AUTO) 0.1 10^3/uL (0.0-1.0); MONOCYTES % (AUTO) 1 % (0-12); NEUTROPHILS # (AUTO) 8.8 10^3/uL (1.8-7.8); NEUTROPHILS % (AUTO) 83 % (42-75); PLATELET COUNT 102 10^3/uL (130-400); WHITE BLOOD COUNT 10.6 10^3/uL (4.3-11.0)
[2021-12-20 09:34] LABS: ALBUMIN 3.1 GM/DL (3.2-4.5)
[2021-12-20 09:35] LABS: POTASSIUM 4.3 MMOL/L (3.6-5.0)
[2021-12-20 09:36] LABS: CALCIUM 9.3 MG/DL (8.5-10.1)
[2021-12-20 09:37] LABS: TOTAL PROTEIN 8.5 GM/DL (6.4-8.2)
[2021-12-20 09:39] LABS: BILIRUBIN,TOTAL 0.4 MG/DL (0.1-1.0)
[2021-12-20 09:41] LABS: CREATININE SERUM 3.65 MG/DL (0.60-1.30)
[2021-12-20 09:43] LABS: MAGNESIUM 1.2 MG/DL (1.6-2.4)
[2021-12-20] MEDS ORDERED: fentaNYL INJ 100 MCG/2 ML AMP IVP ONE (10:30)
--- NOTE | 2021-12-20 10:46 | Diagnostic Imaging Report ---
INDICATION: Allergic reaction with mild swelling in face and redness. TIME OF EXAM: 10:16 a.m. FINDINGS: The right-sided dialysis line has tip overlying the SVC. The heart size is normal. Lungs are clear. No infiltrates are detected. There is no effusion or pneumothorax. IMPRESSION: No acute cardiopulmonary process is detected. Dictated by: Dictated on workstation # [id number]
[2021-12-20 12:01] LABS: BILIRUBIN,URINE NEGATIVE (NEGATIVE); CLARITY,URINE CLOUDY; COLOR,URINE YELLOW; GLUCOSE, URINE (UA) NEGATIVE (NEGATIVE); KETONES,URINE NEGATIVE (NEGATIVE); LEUKOCYTE ESTERASE ,URINE 3+ (NEGATIVE); NITRITE,URINE NEGATIVE (NEGATIVE); PH,URINE 7.5 (5-9); PROTEIN,URINE 2+ (NEGATIVE)
[2021-12-20 12:14] LABS: BACTERIA,URINE LARGE /HPF; WBC,URINE TNTC /HPF
[2021-12-20] MEDS ORDERED: MEROPENEM 1,000 MG in NS (IVPB) 100 ML IV ONE (14:30)
[2021-12-20] MEDS ORDERED: MAGNESIUM 1 GM/100 ML IVPB 100 ML IV ONE (14:30)
--- NOTE | 2021-12-20 14:35 | ED General ---
General Chief Complaint: General Problems/Pain Stated Complaint: ALLERGIC REACTION Nursing Triage Note: PT ARRIVED PER EMS FROM [facility]. PT IS ALERT AND ORIENTED, PT HAVING SHIVERING. EMS REPORTS PT HAD POSSIBLE ALLERGIC RX TO [facility]. PT FACE REDDEND, MOUTH SWELLED, BECAME UNRESPONSIVE AFTER DOSE OF [facility] FOR DIALYSIS. PT STATES HAD C/P BUT DENIES C/P AT THIS X. PT STATES NO DIALYSIS GIVEN. PT CO OF ALL OVER PAIN 05/25. PT HAS DIALYSIS PORT IN R CHEST WALL. Source of Information: Patient, EMS, Other (dialysis staff) Exam Limitations: No Limitations History of Present Illness Date Seen by Provider: Dec 20, 2021 Time Seen by Provider: 08:51 Initial Comments This 36-year-old woman presents to the emergency room via EMS from [facility] dialysis center where she had an episode of altered mental status. Dialysis staff report that this was to be her third dialysis session with them. On the prior 2 sessions they had difficulty achieving desired flow rate and she had clotting of the dialyzer. During this visit they plan to give a higher dose of heparin to help avoid the prior problems. Immediately after giving the dose of heparin patient developed abdominal discomfort, nausea, discomfort radiating up into her chest, and flushing. She then became less responsive and stopped talking. She did not have complete loss of consciousness per staff. They gave Benadryl 50 mg IV and dispatched EMS. She is tachycardic on arrival but staff note that she had a pulse of 60 at 07:55. Patient reported not feeling well since her dialysis last Monday. In particular she had complained of nausea. Patient does have a history of seizures but had no convulsive activity while at dialysis. She is afebrile. She had prior history of COVID-[address] 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 Dr. Charles Shea is her primary care provider. Patient denies any shortness of breath or chest pain at this time. She has generalized aching throughout her body. Dialysis staff had presumed that she had an allergic reaction to heparin. However, such an immediate hypersensitivity to heparin is extremely rare. Allergies and Home Medications Allergies Coded Allergies: cephalexin (Verified Allergy, Severe, 12/16/19) SEIZURES cinnamon (Verified Allergy, Severe, Anaphylaxis, 12/16/19) aspirin (Verified Allergy, Unknown, 12/16/19) Patient Home Medication List Home Medication List Reviewed: Yes Acetaminophen (Tylenol Extra Strength) 500 Mg Tablet, 1,000 MG PO Q8H PRN for PAIN-MILD (1-4), (Reported) Entered as Reported by: KALEE MERCEDES on 05/19/21 1135 Cefdinir (Cefdinir) 300 Mg Capsule, 300 MG PO DAILY Prescribed by: KAIT REAGAN on 11/05/21 1544 Divalproex Sodium (Divalproex Sodium) 500 Mg Tablet.dr, 1,000 MG PO BID Prescribed by: MARIA EUGENIA JUDD on 07/06/21 1013 Ferrous Sulfate (Iron) 325 Mg Tablet, 325 MG PO DAILY, (Reported) Entered as Reported by: KALEE MERCEDES on 05/19/21 1135 Folic Acid (Folic Acid) 1 Mg Tablet, 1 MG PO DAILY, (Reported) Entered as Reported by: KALEE MERCEDES on 06/30/21 1001 Hydrocodone/Acetaminophen (Hydrocodone-Acetamin 5-325 mg) 1 Each Tablet, 1 TAB P O Q6H PRN for PAIN-MODERATE (5-7) Prescribed by: DAISHA ALFONSO on 07/21/21 1021 Hydrocodone/Acetaminophen (Hydrocodone-Acetamin 5-325 mg) 1 Each Tablet, 1-2 TAB PO Q6H PRN for PAIN-MODERATE (5-7) Prescribed by: KAIT REAGAN on 11/05/21 1545 Insulin Lispro (Humalog Kwikpen) 100 Unit/1 Ml Insuln.pen, UNIT SQ SLIDING/SCALE, (Reported) Entered as Reported by: KALEE MERCEDES on 05/19/21 1135 Methylcellulose (Fiber) 500 Mg Tablet, 1,000 MG PO BID, (Reported) Entered as Reported by: KALEE MERCEDES on 05/19/21 1135 Ondansetron (Ondansetron Odt) 4 Mg Tab.rapdis, 4-8 MG PO Q6H PRN for NAUSEA/VOMITING Prescribed by: KAIT REAGAN on 11/05/21 1544 Oxycodone Hcl (Oxyir Tablet) 5 Mg Tab, 5 MG PO Q4H PRN for PAIN-SEVERE (8-10) Prescribed by: MAIRA EUGENIA JUDD on 07/06/21 1014 Pantoprazole Sodium (Pantoprazole Sodium) 40 Mg Tablet.dr, 40 MG PO DAILY, (Reported) Entered as Reported by: KALEE MERCEDES on 06/30/21 09 Promethazine HCl (Promethazine Tablet) 25 Mg Tablet, 25 MG PO Q6H PRN for NAUSEA/VOMITING-2ND LINE Prescribed by: KAIT REAGAN on 11/05/21 1544 Sennosides/Docusate Sodium (Senna-S Tablet) 1 Each Tablet, 2 EACH PO BID, (Reported) Entered as Reported by: KALEE MERCEDES on 06/30/21 0959 Sodium Bicarbonate (Sodium Bicarbonate) 650 Mg Tablet, 650 MG PO BID, (Reported) Entered as Reported by: KALEE MERCEDES on 06/30/2159 Review of Systems Review of Systems Constitutional: see HPI EENTM: no symptoms reported Respiratory: no symptoms reported Cardiovascular: see HPI Gastrointestinal: see HPI Genitourinary: no symptoms reported Musculoskeletal: no symptoms reported Skin: no symptoms reported Psychiatric/Neurological: See HPI Hematologic/Lymphatic: No Symptoms Reported Past Lpckcfd-Qcojta-Cdqsyc Hx Patient Social History Tobacco Use?: No Substance use?: No Alcohol Use?: No Immunizations Up To Date Tetanus Booster (TDap): Unknown First/Initial COVID19 Vaccinat: none Second COVID19 Vaccination Erick: none Third COVID19 Vaccination Date: none Seasonal Allergies Seasonal Allergies: No Past Medical History Surgery/Hospitalization HX: RECENT AMB TOE L FOOT. BILATERAL KIDNEY STENTS SINCE FEBRUARY. 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 -DRUGS-ADMITS TO METH USE, DENIES IV USE. CLAIMS "NONE FOR 10 YEARS" -DENIES SMOKING Physical Exam-Suspected Sepsis Physical Exam Vital Signs Vital Signs - First Documented 12/20/21 08:50 Temp 36.8 Pulse 120 Resp 24 B/P (MAP) 147/85 (105) Pulse Ox 100 O2 Delivery Nasal Cannula O2 Flow Rate 2.00 Capillary Refill : Less Than 3 Seconds Blood Pressure Mean: 105 Height, Weight, BMI Height: '" Weight: lbs. oz. 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 Norm as Tested Skin: normal color, warm/dry Focused Exam Lactate Level 12/20/21 09:00: Lactic Acid Level 2.46*H 12/20/21 11:25: Lactic Acid Level 1.66 Lactic Acid Level Progress/Results/Core Measures Suspected Sepsis SIRS Temperature: Pulse: 120 Respiratory Rate: 24 Laboratory Tests 12/20/21 09:00: White Blood Count 10.6 Blood Pressure 147 /85 Mean: 105 12/20/21 09:00: Lactic Acid Level 2.46*H 12/20/21 11:25: Lactic Acid Level 1.66 Laboratory Tests 12/20/21 09:00: Creatinine 3.65H, INR Comment 1.0, Platelet Count 102L, Total Bilirubin 0.4 Results/Orders Lab Results Laboratory Tests Test 12/20/21 09:00 12/20/21 09:08 12/20/21 11:25 12/20/21 11:43 Range/Units White Blood Count 10.6 4.3-11.0 10^3/uL Red Blood Count 3.98 3.80-5.11 10^6/uL Hemoglobin 10.7 L 11.5-16.0 g/dL Hematocrit 35 35-52 % Mean Corpuscular Volume 88 80-99 fL Mean Corpuscular Hemoglobin 27 25-34 pg Mean Corpuscular Hemoglobin Concent 31 L 32-36 g/dL Red Cell Distribution Width 13.2 10.0-14.5 % Platelet Count 102 L 130-400 10^3/uL Mean Platelet Volume 9.6 9.0-12.2 fL Immature Granulocyte % (Auto) 4 % Neutrophils (%) (Auto) 83 H 42-75 % Lymphocytes (%) (Auto) 10 L 12-44 % Monocytes (%) (Auto) 1 0-12 % Eosinophils (%) (Auto) 1 0-10 % Basophils (%) (Auto) 1 0-10 % Neutrophils # (Auto) 8.8 H 1.8-7.8 10^3/uL Lymphocytes # (Auto) 1.1 1.0-4.0 10^3/uL Monocytes # (Auto) 0.1 0.0-1.0 10^3/uL Eosinophils # (Auto) 0.1 0.0-0.3 10^3/uL Basophils # (Auto) 0.1 0.0-0.1 10^3/uL Immature Granulocyte # (Auto) 0.4 H 0.0-0.1 10^3/uL Prothrombin Time 14.0 12.2-14.7 SEC INR Comment 1.0 0.8-1.4 Activated Partial Thromboplast Time 57 H 24-35 SEC Sodium Level 136 135-145 MMOL/L Potassium Level 4.3 3.6-5.0 MMOL/L Chloride Level 101 98-107 MMOL/L Carbon Dioxide Level 20 L 21-32 MMOL/L Anion Gap 15 H 5-14 MMOL/L Blood Urea Nitrogen 30 H 7-18 MG/DL Creatinine 3.65 H 0.60-1.30 MG/DL Estimat Glomerular Filtration Rate 16 BUN/Creatinine Ratio 8 Glucose Level 196 H 70-105 MG/DL Lactic Acid Level 2.46 *H 1.66 0.50-2.00 MMOL/L Calcium Level 9.3 8.5-10.1 MG/DL Corrected Calcium 10.0 8.5-10.1 MG/DL Magnesium Level 1.2 L 1.6-2.4 MG/DL Total Bilirubin 0.4 0.1-1.0 MG/DL Aspartate Amino Transf (AST/SGOT) 10 5-34 U/L Alanine Aminotransferase (ALT/SGPT) 9 0-55 U/L Alkaline Phosphatase 85 40-136 U/L Myoglobin 14.7 10.0-92.0 NG/ML Troponin I < 0.028 <0.028 NG/ML C-Reactive Protein High Sensitivity 6.92 H 0.00-0.50 MG/DL Total Protein 8.5 H 6.4-8.2 GM/DL Albumin 3.1 L 3.2-4.5 GM/DL Procalcitonin 0.35 H <0.10 NG/ML Influenza Type A (RT-PCR) Not Detected Not Detecte Influenza Type B (RT-PCR) Not Detected Not Detecte SARS-CoV-2 RNA (RT-PCR) Not Detected Not Detecte Urine Color YELLOW Urine Clarity CLOUDY Urine pH 7.5 5-9 Urine Specific [place] 1.015 L 1.016-1.022 Urine Protein 2+ H NEGATIVE Urine Glucose (UA) NEGATIVE NEGATIVE Urine Ketones NEGATIVE NEGATIVE Urine Nitrite NEGATIVE NEGATIVE Urine Bilirubin NEGATIVE NEGATIVE Urine Urobilinogen 0.2 < = 1.0 MG/DL Urine Leukocyte Esterase 3+ H NEGATIVE Urine RBC (Auto) 2+ H NEGATIVE Urine RBC 10-25 H /HPF Urine WBC TNTC H /HPF Urine Crystals NONE /LPF Urine Bacteria LARGE H /HPF Urine Casts NONE /LPF Urine Mucus NEGATIVE /LPF Urine Culture Indicated CULTURE PENDING My Orders Orders - HARPREET WALKER MD Cbc With Automated Diff (12/20/21 08:56) Magnesium (12/20/21 08:56) Chest 1 View, Ap/Pa Only (12/20/21 08:56) Ekg Tracing (12/20/21 08:56) Comprehensive Metabolic Panel (12/20/21 08:56) Myoglobin Serum (12/20/21 08:56) Protime With Inr (12/20/21 08:56) Partial Thromboplastin Time (12/20/21 08:56) O2 (12/20/21 08:56) Monitor-Rhythm Ecg Trace Only (12/20/21 08:56) Ed Iv/Invasive Line Start (12/20/21 08:56) Troponin I Teena (12/20/21 08:56) Blood Culture (12/20/21 08:56) Sputum Culture (12/20/21 08:56) Urinalysis (12/20/21 08:56) Urine Culture (12/20/21 08:56) Vital Signs Adult Sepsis Patie Q15M (12/20/21 08:56) Remove Rings In Anticipation O (12/20/21 08:56) Lactic Acid Analyzer (12/20/21 08:56) Hs C Reactive Protein (12/20/21 08:56) Procalcitonin (Pct) (12/20/21 08:56) Covid 19 Inhouse Test (12/20/21 08:56) Influenza A And B By Pcr (12/20/21 08:56) Fentanyl Inj (Sublimaze Injection) (12/20/21 10:30) Cho 60g/M 3snack (16-2000 Ignacio) (12/20/21 Lunch) Meropenem (Merrem 1000 Mg) (12/20/21 14:30) Magnesium 1 Gm/100 Ml Ivpb (Magnesium Betancur (12/20/21 14:30) Ns Iv 500 Ml (Sodium Chloride 0.9%) (12/20/21 15:15) Hydrocodone/Apap 5/325 Tablet (Lortab 5 (12/20/21 16:30) Medications Given in ED Current Medications Medications Dose Ordered Sig/Colton Route Start Time Stop Time Status Last Admin Dose Admin Acetaminophen/ Hydrocodone Bitart 1 ea ONCE ONCE PO 12/20/21 16:30 12/20/21 16:31 DC 12/20/21 16:35 1 EA Fentanyl Citrate 50 mcg ONCE ONCE IVP 12/20/21 10:30 12/20/21 10:31 DC 12/20/21 10:46 50 MCG Magnesium Sulfate/ Dextrose 100 ml @ 100 mls/hr ONCE ONCE IV 12/20/21 14:30 12/20/21 15:29 DC 12/20/21 15:33 100 MLS/HR Meropenem 1000 mg/ Sodium Chloride 100 ml @ 200 mls/hr ONCE ONCE IV 12/20/21 14:30 12/20/21 14:59 DC 12/20/21 15:05 200 MLS/HR Sodium Chloride 500 ml @ 0 mls/hr Q0M ONCE IV 12/20/21 15:15 12/20/21 15:16 DC 12/20/21 15:32 500 MLS/HR Vital Signs/I&O 12/20/21 12/20/21 12/20/21 08:50 08:50 16:03 Temp 36.8 Pulse 120 84 Resp 24 20 B/P (MAP) 147/85 (105) 104/70 Pulse Ox 100 100 100 O2 Delivery Nasal Cannula Nasal Cannula Room Air O2 Flow Rate 2.00 2.00 Capillary Refill : Less Than 3 Seconds Blood Pressure Mean: 105 Progress Note : Time: 15:49 Progress Note Patient received a thorough work-up in the emergency room. Cardiopulmonary evaluation was unremarkable. Covid and influenza screening were negative. Completion of the work-up was delayed as she would not allow a catheter urine specimen and it took hours to get her to void. Patient subjectively eventually returned to baseline. She was able to ambulate to the bathroom on her own power and ate lunch. Her urine appeared high uric. In her case it is difficult to know when she has true infection versus colonization when she develops systemic symptoms such as though she has been experiencing since Monday. Meropenem was given for initial treatment. Cultures from prior visits were reviewed and they generally demonstrated polymicrobial results on which no sensitivities were performed. She did develop some hypotension with systolic blood pressures in the 80s. Patient reports that her baseline systolic blood pressure is in the 90s. She is receiving a 500 mL normal saline bolus. Magnesium was also low at 1.2. She is receiving a 1 g IV bolus of magnesium. I discussed the case with Dr. Castro. He has suggested that she be admitted at [facility] for multiple reasons including lack of clarity about what was occurring at the dialysis center, question of infection, and complications during each of her last 3 dialysis sessions. Patient is agreeable to admission and transfer to [facility]. ECG Initial ECG Impression Date: Dec 20, 2021 Initial ECG Impression Time: 10:00 Initial ECG Rate: 108 Initial ECG Rhythm: S.Tach Comment Sinus tachycardia with no ST elevation or depression. No axis deviation. Automated read notes left posterior fascicular block. Diagnostic Imaging Diagonstic Imaging: Xray Plain Films/CT/US/NM/MRI: chest Comments NAME: [facility] REC#: [id number] PT STATUS: REG ER : 1985 PHYSICIAN: HARPREET WALKER MD ADMIT DATE: 12/20/21/ER Draft Date of Exam:12/20/21 CHEST 1 VIEW, AP/PA ONLY INDICATION: Allergic reaction with mild swelling in face and redness. TIME OF EXAM: 10:16 a.m. FINDINGS: The right-sided dialysis line has tip overlying the SVC. The heart size is normal. Lungs are clear. No infiltrates are detected. There is no effusion or pneumothorax. IMPRESSION: No acute cardiopulmonary process is detected. Dictated on workstation # [id number] Dict: 12/20/21 1027 Trans: 12/20/21 1046 [id number] Interpreted by: PJ DELEON MD Departure Impression Primary Impression: End stage renal failure on dialysis Additional Impressions: Dialysis complication Qualified Codes: T82.9XXA - Unspecified complication of cardiac and vascular prosthetic device, implant and graft, initial encounter Near syncope Urinary tract infection Qualified Codes: N39.0 - Urinary tract infection, site not specified Disposition: XFER SHT-TRM HOSP Condition: Improved Transfer Transfer Reason: Exceeds level of care Time Spoke to Accepting Phy: 14:20 Transfer Progress Notes Transfer was discussed with Dr. Castro at 1420. He recommended admitting to [facility] for further observation and evaluation as well as dialysis in the morning. Dr. Chavez was the accepting hospitalist. Transfer Time: 17:00 Transfer Facility: [facility] Method of Transfer: EMS Departure-Patient Inst. Referrals: CHARLES SHEA MD (PCP/Family) Primary Care Physician Copy Copies To 1: DEANDRE OREILLY MD, JOSHUA T MD Dec 20, 2021 14:35
[2021-12-20] MEDS ORDERED: NS IV 500 ML 500 ML IV ONE (15:15)
[2021-12-20 16:03] VITALS: BP 104/70
[2021-12-20] MEDS ORDERED: HYDROcodone/APAP 5 MG/325 MG (LORTAB) TAB PO ONE (16:30)
== END 2021-12-20 17:00 | disposition short-term general hospital (02) ==
LOC: EDUNIT# 08:50 → ER 08:51
DX: N18.6 End stage renal disease (principal); T82.9XXA Unspecified complication of cardiac and vascular prosthetic device, implant and graft, initial encounter; N39.0 Urinary tract infection, site not specified; Z86.16 Personal history of COVID-19; Z20.822 Contact with and (suspected) exposure to COVID-19
CPT/HCPCS: 36415; 71045; 80053; 81000; 83605; 83735; 83874; 84145; 84484; 85025; 85610; 85730; 86141; 87040; 87088; 87636; 93005; 93041

== ENCOUNTER 2022-04-11 17:14 | Emergency (ER) | payer MEDICARE, MEDICAID ==
[~2022-04-11] VITALS: Ht 165.1 cm; Wt 79.3 kg
--- NOTE | 2022-04-11 18:27 | ED Neurological Problem ---
General Chief Complaint: Neurological Problems Stated Complaint: SEIZURES Nursing Triage Note: pt to room by [facility]. ems reports pt called out for seizure. seizure was unwitnessed by ems. pt states she has not been taking her depakote but has not had a seizure for about 6 months. pt states she has dialysis MWF and she gave a UA today at dialysis after stating she thinks she has a UTI. pt states she has had burning with urination, pain in bladder and pain in left back. pt is A&Ox4 on arrival, speech normal, states she does not know if she fell or hit her head Source: patient Exam Limitations: no limitations History of Present Illness Date Seen by Provider: Apr 11, 2022 Time Seen by Provider: 18:15 Initial Comments Patient is a 36-year-old female history of end-stage renal disease on hemodialysis, dialyzes Wednesdays. She is here with her . relates that she has had 3 seizures in the last 24 hours. They are not generalized tonic-clonic they are more a stiffening type with loss of awareness. Patient's states that she had about a 45-second period of apnea after the third 1 today. Patient complains of a little discomfort with urination. She is concerned she might have a UTI. She still makes lots of urine in spite of her dialysis. She has a headache and is requesting Tylenol. No URI symptoms, chest pain or shortness of breath. She has chronic abdominal pain. Chronic nausea. Very mild left flank pain. No abnormal vaginal discharge. No diarrhea, black or bloody stools. She is not COVID vaccinated. Patient's relates that they have been under increased stress over the last 3 weeks secondary to having a baby. They are both not sleeping very well. This could be the trigger for her seizures. Patient states she has had seizures for about 8 years. She is supposed to be taking valproic acid but has not been because she forgets. All other review of systems reviewed and negative except as stated. Timing/Duration: 24 hours Severity: moderate Associated Symptoms: nausea/vomiting, weakness Allergies and Home Medications Allergies Coded Allergies: cephalexin (Verified Allergy, Severe, 12/16/19) SEIZURES cinnamon (Verified Allergy, Severe, Anaphylaxis, 12/16/19) aspirin (Verified Allergy, Unknown, 12/16/19) Patient Home Medication List Home Medication List Reviewed: Yes Acetaminophen (Tylenol Extra Strength) 500 Mg Tablet, 1,000 MG PO Q8H PRN for PAIN-MILD (1-4), (Reported) Entered as Reported by: KALEE MERCEDES on 05/19/21 1135 Cefdinir (Cefdinir) 300 Mg Capsule, 300 MG PO DAILY Prescribed by: KAIT REAGAN on 11/05/21 1544 Divalproex Sodium (Divalproex Sodium) 500 Mg Tablet.dr, 1,000 MG PO BID Prescribed by: MARIA EUGENIA JUDD on 07/06/21 1013 Ferrous Sulfate (Iron) 325 Mg Tablet, 325 MG PO DAILY, (Reported) Entered as Reported by: KALEE MERCEDES on 05/19/21 1135 Folic Acid (Folic Acid) 1 Mg Tablet, 1 MG PO DAILY, (Reported) Entered as Reported by: KALEE MERCEDES on 06/30/21 1001 Hydrocodone/Acetaminophen (Hydrocodone-Acetamin 5-325 mg) 1 Each Tablet, 1 TAB PO Q6H PRN for PAIN-MODERATE (5-7) Prescribed by: DAISHA ALFONSO on 07/21/21 1021 Hydrocodone/Acetaminophen (Hydrocodone-Acetamin 5-325 mg) 1 Each Tablet, 1-2 TAB PO Q6H PRN for PAIN-MODERATE (5-7) Prescribed by: KAIT REAGAN on 11/05/21 1545 Insulin Lispro (Humalog Kwikpen) 100 Unit/1 Ml Insuln.pen, UNIT SQ SLIDING/SCALE, (Reported) Entered as Reported by: KALEE MERCEDES on 05/19/21 1135 Levofloxacin (Levofloxacin) 250 Mg Tablet, 250 MG PO Q48H Prescribed by: DAISHA ALFONSO on 04/11/22 1957 Methylcellulose (Fiber) 500 Mg Tablet, 1,000 MG PO BID, (Reported) Entered as Reported by: KALEE MERCEDES on 05/19/21 1135 Ondansetron (Ondansetron Odt) 4 Mg Tab.rapdis, 4-8 MG PO Q6H PRN for NA USEA/VOMITING Prescribed by: KAIT REAGAN on 11/05/21 1544 Oxycodone Hcl (Oxyir Tablet) 5 Mg Tab, 5 MG PO Q4H PRN for PAIN-SEVERE (8-10) Prescribed by: MARIA EUGENIA JUDD on 07/06/21 1014 Pantoprazole Sodium (Pantoprazole Sodium) 40 Mg Tablet.dr, 40 MG PO DAILY, (Reported) Entered as Reported by: KALEE MERCEDES on 06/30/21 0959 Promethazine HCl (Promethazine Tablet) 25 Mg Tablet, 25 MG PO Q6H PRN for NAUSEA/VOMITING-2ND LINE Prescribed by: KAIT REAGAN on 11/05/21 1544 Sennosides/Docusate Sodium (Senna-S Tablet) 1 Each Tablet, 2 EACH PO BID, (Reported) Entered as Reported by: KALEE MERCEDES on 06/30/21 09 Sodium Bicarbonate (Sodium Bicarbonate) 650 Mg Tablet, 650 MG PO BID, (Reported) Entered as Reported by: KALEE MERCEDES on 06/30/2159 Review of Systems Review of Systems Constitutional: see HPI Eyes: No Symptoms Reported Ears, Nose, Mouth, Throat: no symptoms reported Respiratory: no symptoms reported Cardiovascular: no symptoms reported Gastrointestinal: abdominal pain, nausea Genitourinary: dysuria : No Musculoskeletal: no symptoms reported Skin: no symptoms reported Psychiatric/Neurological: Headache All Other Systems Reviewed Negative Unless Noted: Yes Past Nalxtcj-Zsnwbs-Mjblqq Hx Immunizations Up To Date Tetanus Booster (TDap): Unknown First/Initial COVID19 Vaccinat: none Second COVID19 Vaccination Erick: none Third COVID19 Vaccination Date: none Seasonal Allergies Seasonal Allergies: No Past Medical History Surgery/Hospitalization HX: RECENT AMB TOE L FOOT. BILATERAL KIDNEY STENTS SINCE FEBRUARY. 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 -DRUGS-ADMITS TO METH USE, DENIES IV USE. CLAIMS "NONE FOR 10 YEARS" -DENIES SMOKING Physical Exam Vital Signs Vital Signs - First Documented 04/11/22 17:14 Temp 36.3 Pulse 106 Resp 16 B/P (MAP) 118/86 (97) Pulse Ox 100 Capillary Refill : Height, Weight, BMI Height: '" Weight: lbs. oz. kg; 29.00 BMI Method: General Appearance: WD/WN, no apparent distress HEENT: PERRL/EOMI, pharynx normal Neck: normal inspection Respiratory: lungs clear, normal breath sounds, no respiratory distress, no accessory muscle use Cardiovascular: regular rate, rhythm, other (mahurker dialysis catheter right chest) Gastrointestinal: normal bowel sounds, non tender, soft Extremities: normal range of motion, normal inspection Neurologic/Psychiatric: no motor/sensory deficits, alert, normal mood/affect, oriented x 3 Crainal Nerves: normal hearing, normal speech, PERRL Coordination/Gait: normal gait Motor/Sensory: no motor deficit, no sensory deficit Skin: normal color, warm/dry Progress/Results/Core Measures Results/Orders Lab Results Laboratory Tests Test 04/11/22 17:18 04/11/22 18:45 Range/Units White Blood Count 10.6 4.3-11.0 10^3/uL Red Blood Count 4.01 3.80-5.11 10^6/uL Hemoglobin 10.7 L 11.5-16.0 g/dL Hematocrit 35 35-52 % Mean Corpuscular Volume 87 80-99 fL Mean Corpuscular Hemoglobin 27 25-34 pg Mean Corpuscular Hemoglobin Concent 31 L 32-36 g/dL Red Cell Distribution Width 12.8 10.0-14.5 % Platelet Count 251 130-400 10^3/uL Mean Platelet Volume 9.7 9.0-12.2 fL Immature Granulocyte % (Auto) 1 % Neutrophils (%) (Auto) 77 H 42-75 % Lymphocytes (%) (Auto) 12 12-44 % Monocytes (%) (Auto) 7 0-12 % Eosinophils (%) (Auto) 2 0-10 % Basophils (%) (Auto) 0 0-10 % Neutrophils # (Auto) 8.1 H 1.8-7.8 10^3/uL Lymphocytes # (Auto) 1.3 1.0-4.0 10^3/uL Monocytes # (Auto) 0.8 0.0-1.0 10^3/uL Eosinophils # (Auto) 0.3 0.0-0.3 10^3/uL Basophils # (Auto) 0.0 0.0-0.1 10^3/uL Immature Granulocyte # (Auto) 0.1 0.0-0.1 10^3/uL Percent Immature Platelet Fraction 2.1 0.0-7.6 % Sodium Level 135 135-145 MMOL/L Potassium Level 4.4 3.6-5.0 MMOL/L Chloride Level 98 98-107 MMOL/L Carbon Dioxide Level 26 21-32 MMOL/L Anion Gap 11 5-14 MMOL/L Blood Urea Nitrogen 24 H 7-18 MG/DL Creatinine 3.13 H 0.60-1.30 MG/DL Estimat Glomerular Filtration Rate 19 BUN/Creatinine Ratio 8 Glucose Level 286 H 70-105 MG/DL Calcium Level 8.8 8.5-10.1 MG/DL Urine Color YELLOW Urine Clarity CLOUDY H Urine pH 8.0 5-9 Urine Specific [place] 1.010 L 1.016-1.022 Urine Protein 3+ H NEGATIVE Urine Glucose (UA) NEGATIVE NEGATIVE Urine Ketones NEGATIVE NEGATIVE Urine Nitrite NEGATIVE NEGATIVE Urine Bilirubin NEGATIVE NEGATIVE Urine Urobilinogen 0.2 < = 1.0 MG/DL Urine Leukocyte Esterase 3+ H NEGATIVE Urine RBC (Auto) 3+ H NEGATIVE Urine RBC 50-100 H /HPF Urine WBC TNTC H /HPF Urine Squamous Epithelial Cells TNTC H /HPF Urine Crystals NONE /LPF Urine Bacteria LARGE H /HPF Urine Casts NONE /LPF Urine Mucus NEGATIVE /LPF Urine Culture Indicated YES My Orders Orders - DAISHA ALFONSO MD Ed Iv/Invasive Line Start (04/11/22 18:27) Cbc With Automated Diff (04/11/22 18:27) Basic Metabolic Panel (04/11/22 18:27) Ua Culture If Indicated (04/11/22 18:27) Diphenhydramine Injection (Benadryl Inje (04/11/22 18:30) Urine Culture (04/11/22 18:45) Acetaminophen Tablet (Tylenol Tablet) (04/11/22 20:00) Levofloxacin Tablet (Levaquin Tablet) (04/11/22 20:00) Medications Given in ED Current Medications Medications Dose Ordered Sig/Colton Route Start Time Stop Time Status Last Admin Dose Admin Acetaminophen 1,000 mg ONCE ONCE PO 04/11/22 20:00 04/11/22 20:01 DC 04/11/22 20:15 1,000 MG Diphenhydramine HCl 25 mg ONCE ONCE IVP 04/11/22 18:30 04/11/22 18:31 DC 04/11/22 18:50 25 MG Levofloxacin 250 mg ONCE ONCE PO 04/11/22 20:00 04/11/22 20:01 DC 04/11/22 20:15 250 MG Vital Signs/I&O 04/11/22 04/11/22 17:14 20:18 Temp 36.3 Pulse 106 94 Resp 16 12 B/P (MAP) 118/86 (97) 126/88 Pulse Ox 100 98 Blood Pressure Mean: 97 Progress Progress Note : Time: 19:53 Progress Note Patient reassessed, resting comfortably nausea is improved she still has a headache. I am giving her a gram of Tylenol. She is allergic to cephalexin. She would not be a candidate for Macrobid or Bactrim. We will do Levaquin renal dosing to 50 mg by mouth every other day x3 doses. I have advised her that cultures will take 2 or 3 days to come back. I did ask for a second urine specimen as the first 1 showed too numerous to count squamous epithelial cells. She cannot urinate at this time. Seeing as how she has symptoms of UTI and a history of frequent UTIs we will go ahead and treat her. We will give her first dose of oral Levaquin here in the department. She is comfortable with the plan of care. I strongly encouraged her to take her seizure medications. She verbalized understanding. All questions are sought and answered. Departure Impression Primary Impression: Seizure disorder Additional Impression: Urinary tract infection Qualified Codes: N30.01 - Acute cystitis with hematuria Disposition: HOME, SELF-CARE Condition: Stable Departure-Patient Inst. Decision time for Depature: 19:54 Referrals: CHARLES SHEA MD (PCP/Family) Primary Care Physician Add. Discharge Instructions: Drink fluids to stay well-hydrated. Take 2 more doses of the Levaquin. You will take this again in 48 hours so your next dose will be on Monday evening. The following dose will be on Monday evening. Cultures will take 2 to 3 days to return. We will contact you if your antibiotics need to be restarted or changed. Please take your seizure medicines every day as directed. Keep up with your dialysis. Return to the emergency department for any new, concerning or emergent complaints. Scripts Levofloxacin (Levofloxacin) 250 Mg Tablet 250 MG PO Q48H, #2 TAB Next dose on 04/13; last dose 04/15 Prov: DAISHA ALFONSO MD 04/11/22 Copy Copies To 1: CHARLES SHEA MD, KATHRYN M MD Apr 11, 2022 18:27
[2022-04-11] MEDS ORDERED: diphenhydrAMINE 50 MG/ML INJ (BENADRYL) IVP ONE (18:30)
[2022-04-11 18:38] LABS: POTASSIUM 4.4 MMOL/L (3.6-5.0)
[2022-04-11 18:39] LABS: CALCIUM 8.8 MG/DL (8.5-10.1); EOSINOPHILS % (AUTO) 2 % (0-10)
[2022-04-11 18:41] LABS: BASOPHILS % (AUTO) 0 % (0-10); EOSINOPHILS # (AUTO) 0.3 10^3/uL (0.0-0.3); HEMATOCRIT 35 % (35-52); HEMOGLOBIN 10.7 g/dL (11.5-16.0); LYMPHOCYTES # (AUTO) 1.3 10^3/uL (1.0-4.0); LYMPHOCYTES % (AUTO) 12 % (12-44); MEAN CORPUSCULAR HEMOGLOBIN 27 pg (25-34); MEAN CORPUSCULAR HGB CONC 31 g/dL (32-36); MEAN CORPUSCULAR VOLUME 87 fL (80-99); MEAN PLATELET VOLUME 9.7 fL (9.0-12.2); MONOCYTES # (AUTO) 0.8 10^3/uL (0.0-1.0); MONOCYTES % (AUTO) 7 % (0-12); NEUTROPHILS # (AUTO) 8.1 10^3/uL (1.8-7.8); NEUTROPHILS % (AUTO) 77 % (42-75); PLATELET COUNT 251 10^3/uL (130-400); WHITE BLOOD COUNT 10.6 10^3/uL (4.3-11.0)
[2022-04-11 18:44] LABS: CREATININE SERUM 3.13 MG/DL (0.60-1.30)
[2022-04-11 19:21] LABS: CLARITY,URINE CLOUDY; COLOR,URINE YELLOW
[2022-04-11 19:22] LABS: GLUCOSE, URINE (UA) NEGATIVE (NEGATIVE); KETONES,URINE NEGATIVE (NEGATIVE); PROTEIN,URINE 3+ (NEGATIVE)
[2022-04-11 19:23] LABS: BACTERIA,URINE LARGE /HPF; BILIRUBIN,URINE NEGATIVE (NEGATIVE); LEUKOCYTE ESTERASE ,URINE 3+ (NEGATIVE); NITRITE,URINE NEGATIVE (NEGATIVE); RBC,URINE 50-100 /HPF; SQUAMOUS EPITHELIAL CELL,UR TNTC /HPF; WBC,URINE TNTC /HPF
[2022-04-11] MEDS ORDERED: LVF250T PO (19:57)
[2022-04-11] MEDS ORDERED: ACETAMINOPHEN 500 MG TAB (TYLENOL) PO ONE (20:00)
[2022-04-11 20:18] VITALS: BP 126/88
== END 2022-04-11 20:23 | disposition home or self-care (01) ==
LOC: EDUNIT# 17:14 → ER 17:15
DX: G40.909 Epilepsy, unspecified, not intractable, without status epilepticus (principal); N39.0 Urinary tract infection, site not specified; T42.6X6A Underdosing of other antiepileptic and sedative-hypnotic drugs, initial encounter; E11.319 Type 2 diabetes mellitus with unspecified diabetic retinopathy without macular edema; E11.22 Type 2 diabetes mellitus with diabetic chronic kidney disease; N18.6 End stage renal disease; Z91.14 Patient's other noncompliance with medication regimen; Z79.4 Long term (current) use of insulin; Z88.1 Allergy status to other antibiotic agents; Z99.2 Dependence on renal dialysis; Z28.310 Unvaccinated for COVID-19
CPT/HCPCS: 36415; 80048; 81000; 85025; 87088

== ENCOUNTER → 2022-06-14 | Outpatient (CLI) | payer MEDICARE, MEDICAID ==
[~2022-06-14] MED LIST changes: +LVF250T PO
== END ==
LOC: CARD 10:27
PROVIDERS: ATTEND Internal Medicine Cardiovascular Disease
DX: I35.0 Nonrheumatic aortic (valve) stenosis (principal)
CPT/HCPCS: 93306

== ENCOUNTER 2022-10-03 06:19 | Emergency (ER) | payer MEDICARE, MEDICAID ==
[~2022-10-03] VITALS: Ht 165 cm; Wt 86.0 kg
[~2022-10-03 06:19] MED LIST changes: +LEVO250T66 PO; -LVF250T PO
--- NOTE | 2022-10-03 06:24 | ED EENT ---
History of Present Illness General Stated Complaint: NOSE BLEED History of Present Illness Date Seen by Provider: Oct 03, 2022 Time Seen by Provider: 06:24 Initial Comments Patient left AMA, no active nosebleed in the ER Allergies and Home Medications Allergies Coded Allergies: cephalexin (Verified Allergy, Severe, 12/16/19) SEIZURES cinnamon (Verified Allergy, Severe, Anaphylaxis, 12/16/19) aspirin (Verified Allergy, Unknown, 12/16/19) Patient Home Medication List Home Medication List Reviewed: Yes Acetaminophen (Tylenol Extra Strength) 500 Mg Tablet, 1,000 MG PO Q8H PRN for PAIN-MILD (1-4), (Reported) Entered as Reported by: KALEE MERCEDES on 05/19/21 1135 Cefdinir (Cefdinir) 300 Mg Capsule, 300 MG PO DAILY Prescribed by: KAIT REAGAN on 11/05/21 1544 Divalproex Sodium (Divalproex Sodium) 500 Mg Tablet.dr, 1,000 MG PO BID Prescribed by: MARIA EUGENIA JUDD on 07/06/21 1013 Ferrous Sulfate (Iron) 325 Mg Tablet, 325 MG PO DAILY, (Reported) Entered as Reported by: KALEE MERCEDES on 05/19/21 1135 Folic Acid (Folic Acid) 1 Mg Tablet, 1 MG PO DAILY, (Reported) Entered as Reported by: KALEE MERCEDES on 06/30/21 1001 Hydrocodone/Acetaminophen (Hydrocodone-Acetamin 5-325 mg) 1 Each Tablet, 1 TAB PO Q6H PRN for PAIN-MODERATE (5-7) Prescribed by: DAISHA ALFONSO on 07/21/21 1021 Hydrocodone/Acetaminophen (Hydrocodone-Acetamin 5-325 mg) 1 Each Tablet, 1-2 TAB PO Q6H PRN for PAIN-MODERATE (5-7) Prescribed by: KAIT REAGAN on 11/05/21 1545 Insulin Lispro (Humalog Kwikpen) 100 Unit/1 Ml Insuln.pen, UNIT SQ SLIDING/SCALE, (Reported) Entered as Reported by: KALEE MERCEDES on 05/19/21 1135 Levofloxacin (Levofloxacin) 250 Mg Tablet, 250 MG PO Q48H Prescribed by: DAISHA ALFONSO on 04/11/22 1957 Methylcellulose (Fiber) 500 Mg Tablet, 1,000 MG PO BID, (Reported) Entered as Reported by: KALEE MERCEDES on 05/19/21 1135 Ondansetron (Ondansetron Odt) 4 Mg Tab.rapdis, 4-8 MG PO Q6H PRN for NAUSEA/VOMITING Prescribed by: KAIT REAGAN on 11/05/21 1544 Oxycodone Hcl (Oxyir Tablet) 5 Mg Tab, 5 MG PO Q4H PRN for PAIN-SEVERE (8-10) Prescribed by: MARIA EUGENIA JUDD on 07/06/21 1014 Pantoprazole Sodium (Pantoprazole Sodium) 40 Mg Tablet.dr, 40 MG PO DAILY, (Reported) Entered as Reported by: KALEE MERCEDES on 06/30/21 0959 Promethazine HCl (Promethazine Tablet) 25 Mg Tablet, 25 MG PO Q6H PRN for NAUSEA/VOMITING-2ND LINE Prescribed by: KAIT REAGAN on 11/05/21 1544 Sennosides/Docusate Sodium (Senna-S Tablet) 1 Each Tablet, 2 EACH PO BID, (Reported) Entered as Reported by: KALEE MERCEDES on 06/30/21 0959 Sodium Bicarbonate (Sodium Bicarbonate) 650 Mg Tablet, 650 MG PO BID, (Reported) Entered as Reported by: KALEE MERCEDES on 06/30/21 0959 Review of Systems Review of Systems Constitutional: no symptoms reported Eyes: No Symptoms Reported Ears: No Symptoms Reported Nose: epistaxis Mouth: no symptoms reported Throat: no symptoms reported Respiratory: no symptoms reported Cardiovascular: no symptoms reported Gastrointestinal: no symptoms reported Musculoskeletal: no symptoms reported Skin: no symptoms reported Neurological: No Symptoms Reported Hematologic/Lymphatic: No Symptoms Reported Immunological/Allergic: no symptoms reported Past Kfyedda-Epxqmq-Tnzzwu Hx Immunizations Up To Date Tetanus Booster (TDap): Unknown First/Initial COVID19 Vaccinat: none Second COVID19 Vaccination Erick: none Third COVID19 Vaccination Date: none Seasonal Allergies Seasonal Allergies: No Past Medical History Surgery/Hospitalization HX: RECENT AMB TOE L FOOT. BILATERAL KIDNEY STENTS SINCE FEBRUARY. 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 -DRUGS-ADMITS TO METH USE, DENIES IV USE. CLAIMS "NONE FOR 10 YEARS" -DENIES SMOKING Physical Exam Vital Signs Vital Signs - First Documented 10/03/22 06:27 Temp 36.3 Pulse 93 Resp 20 B/P (MAP) 166/110 (128) Pulse Ox 99 O2 Delivery Room Air Height, Weight, BMI Height: '" Weight: lbs. oz. kg; 29.00 BMI Method: General Appearance: no apparent distress Nose: other (No active bleeding in the ER) Progress/Results/Core Measures Progress Progress Note : Progress Note Patient left AMA Departure Impression Primary Impression: Epistaxis Disposition: 07 AGAINST MEDICAL ADVICE Condition: Against Medical Advice Departure-Patient Inst. Referrals: CHARLES SHEA MD (PCP/Family) Primary Care Physician [place] YOUSIF MD Oct 03, 2022 06:24
[2022-10-03 06:27] VITALS: BP 166/110
== END 2022-10-03 06:47 | disposition left against medical advice (07) ==
LOC: EDUNIT# 06:19 → ER 06:20
DX: R04.0 Epistaxis (principal)
CPT/HCPCS: 99283

== ENCOUNTER 2022-10-05 17:27 | Emergency (ER) | payer MEDICARE, MEDICAID ==
[~2022-10-05] VITALS: Ht 165 cm; Wt 86.0 kg
--- NOTE | 2022-10-05 18:22 | ED Cough/URI ---
General Chief Complaint: Cough/Cold/Flu Symptoms Stated Complaint: WEAK,HEADACHE,N/V Nursing Triage Note: PT AMB TO TRIAGE W CO OF N/V/FEVER SINCE MONDAY. PT GOES TO DIALYSIS AND HAS BEEN EXPOSED TO FLU, PT HAS ALSO BEEN HAVING SEIZURES PAST 2 DAYS Source: patient Exam Limitations: clinical condition History of Present Illness Date Seen by Provider: Oct 05, 2022 Allergies and Home Medications Allergies Coded Allergies: cephalexin (Verified Allergy, Severe, 12/16/19) SEIZURES cinnamon (Verified Allergy, Severe, Anaphylaxis, 12/16/19) aspirin (Verified Allergy, Unknown, 12/16/19) Patient Home Medication List Acetaminophen (Tylenol Extra Strength) 500 Mg Tablet, 1,000 MG PO Q8H PRN for PAIN-MILD (1-4), (Reported) Entered as Reported by: KALEE MERCEDES on 05/19/21 1135 Cefdinir (Cefdinir) 300 Mg Capsule, 300 MG PO DAILY Prescribed by: KAIT REAGAN on 11/05/21 1544 Divalproex Sodium (Divalproex Sodium) 500 Mg Tablet.dr, 1,000 MG PO BID Prescribed by: MARIA EUGENIA JUDD on 07/06/21 1013 Ferrous Sulfate (Iron) 325 Mg Tablet, 325 MG PO DAILY, (Reported) Entered as Reported by: KALEE MERCEDES on 05/19/21 1135 Folic Acid (Folic Acid) 1 Mg Tablet, 1 MG PO DAILY, (Reported) Entered as Reported by: KALEE MERCEDES on 06/30/21 1001 Hydrocodone/Acetaminophen (Hydrocodone-Acetamin 5-325 mg) 1 Each Tablet, 1 TAB PO Q6H PRN for PAIN-MODERATE (5-7) Prescribed by: DAISHA ALFONSO on 07/21/21 1021 Hydrocodone/Acetaminophen (Hydrocodone-Acetamin 5-325 mg) 1 Each Tablet, 1-2 TAB PO Q6H PRN for PAIN-MODERATE (5-7) Prescribed by: KAIT REAGAN on 11/05/21 1545 Insulin Lispro (Humalog Kwikpen) 100 Unit/1 Ml Insuln.pen, UNIT SQ SLIDING/SCALE, (Reported) Entered as Reported by: KALEE MERCEDES on 05/19/21 1135 Levofloxacin (Levofloxacin) 250 Mg Tablet, 250 MG PO Q48H Prescribed by: DAISHA ALFONSO on 04/11/221956 Methylcellulose (Fiber) 500 Mg Tablet, 1,000 MG PO BID, (Reported) Entered as Reported by: KALEE MERCEDES on 05/19/21 1135 Ondansetron (Ondansetron Odt) 4 Mg Tab.rapdis, 4-8 MG PO Q6H PRN for NAUSEA/VOMITING Prescribed by: KAIT REAGAN on 11/05/21 1544 Oxycodone Hcl (Oxyir Tablet) 5 Mg Tab, 5 MG PO Q4H PRN for PAIN-SEVERE (8-10) Prescribed by: MARIA EUGENIA JUDD on 07/06/21 1014 Pantoprazole Sodium (Pantoprazole Sodium) 40 Mg Tablet.dr, 40 MG PO DAILY, (Rep orted) Entered as Reported by: KALEE MERCEDES on 06/30/21 0959 Promethazine HCl (Promethazine Tablet) 25 Mg Tablet, 25 MG PO Q6H PRN for NAUSEA/VOMITING-2ND LINE Prescribed by: KAIT REAGAN on 11/05/21 1544 Sennosides/Docusate Sodium (Senna-S Tablet) 1 Each Tablet, 2 EACH PO BID, (Reported) Entered as Reported by: KALEE MERCEDES on 06/30/21 0959 Sodium Bicarbonate (Sodium Bicarbonate) 650 Mg Tablet, 650 MG PO BID, (Reported) Entered as Reported by: KALEE MERCEDES on 06/30/21 0959 Past Ljayljk-Ihniom-Bsxzgg Hx Patient Social History Tobacco Use?: No Substance use?: No Alcohol Use?: No Pt feels they are or have been: No Immunizations Up To Date Tetanus Booster (TDap): Unknown Influenza Vaccine Up-to-Date: No; Not Current First/Initial COVID19 Vaccinat: none Second COVID19 Vaccination Erick: none Third COVID19 Vaccination Date: none Seasonal Allergies Seasonal Allergies: No Past Medical History Surgery/Hospitalization HX: RECENT AMB TOE L FOOT. BILATERAL KIDNEY STENTS SINCE FEBRUARY. 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 -DRUGS-ADMITS TO METH USE, DENIES IV USE. CLAIMS "NONE FOR 10 YEARS" -DENIES SMOKING Physical Exam Vital Signs - First Documented 10/05/22 10/05/22 17:30 17:45 Temp 36.8 Pulse 102 Resp 18 B/P (MAP) 156/105 (122) Pulse Ox 98 O2 Delivery Room Air Capillary Refill : Less Than 3 Seconds Height: '" Weight: lbs. oz. kg; 31.00 BMI Method: Focused Exam Lactate Level 10/05/22 18:30: Lactic Acid Level 0.89 Lactic Acid Level Laboratory Tests Test 10/05/22 18:30 Lactic Acid Level 0.89 MMOL/L (0.50-2.00) Progress/Results/Core Measures Suspected Sepsis SIRS Temperature: Pulse: 102 Respiratory Rate: 18 Laboratory Tests 10/05/22 18:30: White Blood Count 11.1H Blood Pressure 156 /105 Mean: 122 10/05/22 18:30: Lactic Acid Level 0.89 Laboratory Tests 10/05/22 18:30: Creatinine 6.86H, INR Comment 1.0, Platelet Count 228, Total Bilirubin 0.4 Results/Orders Lab Results Laboratory Tests Test 10/05/22 17:55 10/05/22 18:30 10/05/22 19:20 Range/Units Influenza Type A (RT-PCR) Not Detected Not Detecte Influenza Type B (RT-PCR) Not Detected Not Detecte SARS-CoV-2 RNA (RT-PCR) Not Detected Not Detecte White Blood Count 11.1 H 4.3-11.0 10^3/uL Red Blood Count 4.16 3.80-5.11 10^6/uL Hemoglobin 11.4 L 11.5-16.0 g/dL Hematocrit 35 35-52 % Mean Corpuscular Volume 85 80-99 fL Mean Corpuscular Hemoglobin 27 25-34 pg Mean Corpuscular Hemoglobin Concent 32 32-36 g/dL Red Cell Distribution Width 13.7 10.0-14.5 % Platelet Count 228 130-400 10^3/uL Mean Platelet Volume 9.7 9.0-12.2 fL Immature Granulocyte % (Auto) 1 % Neutrophils (%) (Auto) 86 H 42-75 % Lymphocytes (%) (Auto) 10 L 12-44 % Monocytes (%) (Auto) 3 0-12 % Eosinophils (%) (Auto) 1 0-10 % Basophils (%) (Auto) 0 0-10 % Neutrophils # (Auto) 9.5 H 1.8-7.8 10^3/uL Lymphocytes # (Auto) 1.1 1.0-4.0 10^3/uL Monocytes # (Auto) 0.4 0.0-1.0 10^3/uL Eosinophils # (Auto) 0.1 0.0-0.3 10^3/uL Basophils # (Auto) 0.0 0.0-0.1 10^3/uL Immature Granulocyte # (Auto) 0.1 0.0-0.1 10^3/uL Prothrombin Time 13.4 12.2-14.7 SEC INR Comment 1.0 0.8-1.4 Activated Partial Thromboplast Time 28 24-35 SEC Sodium Level 135 135-145 MMOL/L Potassium Level 4.2 3.6-5.0 MMOL/L Chloride Level 98 98-107 MMOL/L Carbon Dioxide Level 23 21-32 MMOL/L Anion Gap 14 5-14 MMOL/L Blood Urea Nitrogen 40 H 7-18 MG/DL Creatinine 6.86 H 0.60-1.30 MG/DL Estimat Glomerular Filtration Rate 7 BUN/Creatinine Ratio 6 Glucose Level 104 70-105 MG/DL Lactic Acid Level 0.89 0.50-2.00 MMOL/L Calcium Level 8.3 L 8.5-10.1 MG/DL Corrected Calcium 8.5 8.5-10.1 MG/DL Total Bilirubin 0.4 0.1-1.0 MG/DL Aspartate Amino Transf (AST/SGOT) 14 5-34 U/L Alanine Aminotransferase (ALT/SGPT) 12 0-55 U/L Alkaline Phosphatase 89 40-136 U/L Total Protein 9.5 H 6.4-8.2 GM/DL Albumin 3.8 3.2-4.5 GM/DL Urine Color YELLOW Urine Clarity CLOUDY Urine pH 7.5 5-9 Urine Specific Frederic 1.020 1.016-1.022 Urine Protein 3+ H NEGATIVE Urine Glucose (UA) 1+ H NEGATIVE Urine Ketones TRACE H NEGATIVE Urine Nitrite NEGATIVE NEGATIVE Urine Bilirubin NEGATIVE NEGATIVE Urine Urobilinogen 0.2 < = 1.0 MG/DL Urine Leukocyte Esterase 3+ H NEGATIVE Urine RBC (Auto) 3+ H NEGATIVE Urine RBC TNTC H /HPF Urine WBC TNTC H /HPF Urine Squamous Epithelial Cells 2-5 /HPF Urine Crystals NONE /LPF Urine Bacteria MODERATE H /HPF Urine Casts NONE /LPF Urine Mucus NEGATIVE /LPF Urine Culture Indicated CULTURE PENDING My Orders Orders - JEANINE ANTUNEZ [employer]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 Covid 19 Inhouse Test (10/05/22 17:54) Influenza A And B By Pcr (10/05/22 17:54) Cbc With Automated Diff (10/05/22 18:16) Comprehensive Metabolic Panel (10/05/22 18:16) Blood Culture (10/05/22 18:16) Sputum Culture (10/05/22 18:16) Urinalysis (10/05/22 18:16) Urine Culture (10/05/22 18:16) Protime With Inr (10/05/22 18:16) Partial Thromboplastin Time (10/05/22 18:16) Chest 1 View, Ap/Pa Only (10/05/22 18:16) Ed Iv/Invasive Line Start (10/05/22 18:16) Vital Signs Adult Sepsis Patie Q15M (10/05/22 18:16) O2 (10/05/22 18:16) Remove Rings In Anticipation O (10/05/22 18:16) Lactic Acid Analyzer (10/05/22 18:16) Ondansetron Injection (Zofran Injectio (10/05/22 18:45) Fentanyl Inj (Sublimaze Injection) (10/05/22 18:45) Hydromorphone Injection (Dilaudid Inject (10/05/22 20:15) Ceftriaxone 1 Gm Pre-Mix (Rocephin 1 Gm (10/05/22 20:15) Medications Given in ED Current Medications Medications Dose Ordered Sig/Colton Route Start Time Stop Time Status Last Admin Dose Admin Fentanyl Citrate 50 mcg ONCE ONCE IVP 10/05/22 18:45 10/05/22 18:46 DC 10/05/22 18:48 50 MCG Ondansetron HCl 4 mg ONCE ONCE IVP 10/05/22 18:45 10/05/22 18:46 DC 10/05/22 18:47 4 MG Vital Signs/I&O 10/05/22 10/05/22 17:30 17:45 Temp 36.8 36.8 Pulse 102 102 Resp 18 18 B/P (MAP) 156/105 (122) 136/76 Pulse Ox 98 98 O2 Delivery Room Air Capillary Refill : Less Than 3 Seconds Blood Pressure Mean: 122 Departure Impression Primary Impression: UTI (urinary tract infection) Disposition: 01 HOME, SELF-CARE Condition: Improved Departure-Patient Inst. Decision time for Depature: 20:09 Referrals: CHARLES SHEA MD (PCP/Family) Primary Care Physician Patient Instructions: Urinary Tract Infection, Adult (DC) Add. Discharge Instructions: Plan: 1. Follow-up with your primary care provider later this week or early next week. 2. Take antibiotics as directed and complete full course. 3. Drink plenty of fluids to keep your bladder flushed. May take Tylenol as needed for fever and comfort per package. 4. Return to the ER if you have any new, concerning, worsening symptoms. All discharge instructions reviewed with patient and/or family. Voiced understanding. Scripts Levofloxacin (Levofloxacin) 500 Mg Tablet 250 MG PO Q48H for 5 Days, #5 TAB 0 Refills Prov: JEANINE ANTUNEZ [employer]ARD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 10/05/22 JEANINE ANTUNEZ 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 Oct 05, 2022 18:22
--- NOTE | 2022-10-05 18:43 | Diagnostic Imaging Report ---
EXAMINATION: Chest, one view. HISTORY: Cough, fever. COMPARISON: 12/20/2021. FINDINGS: Heart size and pulmonary vasculature are normal. The lungs are clear without consolidation, pleural effusion, or pneumothorax. The osseous structures are intact. A right-sided catheter is unchanged. IMPRESSION: 1. No acute radiographic abnormality in the chest. Dictated by: Dictated on workstation # [id number]
[2022-10-05] MEDS ORDERED: ONDANSETRON 4 MG/2 ML (SDV) Z0FRAN IVP ONE (18:45)
[2022-10-05] MEDS ORDERED: fentaNYL INJ 100 MCG/2 ML AMP IVP ONE (18:45)
[2022-10-05 18:46] LABS: BASOPHILS % (AUTO) 0 % (0-10); EOSINOPHILS # (AUTO) 0.1 10^3/uL (0.0-0.3); EOSINOPHILS % (AUTO) 1 % (0-10); HEMATOCRIT 35 % (35-52); HEMOGLOBIN 11.4 g/dL (11.5-16.0); LYMPHOCYTES # (AUTO) 1.1 10^3/uL (1.0-4.0); LYMPHOCYTES % (AUTO) 10 % (12-44); MEAN CORPUSCULAR HEMOGLOBIN 27 pg (25-34); MEAN CORPUSCULAR HGB CONC 32 g/dL (32-36); MEAN CORPUSCULAR VOLUME 85 fL (80-99); MEAN PLATELET VOLUME 9.7 fL (9.0-12.2); MONOCYTES # (AUTO) 0.4 10^3/uL (0.0-1.0); MONOCYTES % (AUTO) 3 % (0-12); NEUTROPHILS # (AUTO) 9.5 10^3/uL (1.8-7.8); NEUTROPHILS % (AUTO) 86 % (42-75); PLATELET COUNT 228 10^3/uL (130-400); WHITE BLOOD COUNT 11.1 10^3/uL (4.3-11.0)
[2022-10-05 18:58] LABS: PROTHROMBIN TIME PATIENT 13.4 SEC (12.2-14.7)
[2022-10-05 19:08] LABS: ALBUMIN 3.8 GM/DL (3.2-4.5); BILIRUBIN,TOTAL 0.4 MG/DL (0.1-1.0); CALCIUM 8.3 MG/DL (8.5-10.1); CREATININE SERUM 6.86 MG/DL (0.60-1.30); POTASSIUM 4.2 MMOL/L (3.6-5.0); TOTAL PROTEIN 9.5 GM/DL (6.4-8.2)
[2022-10-05 19:29] LABS: BILIRUBIN,URINE NEGATIVE (NEGATIVE); CLARITY,URINE CLOUDY; COLOR,URINE YELLOW; GLUCOSE, URINE (UA) 1+ (NEGATIVE); KETONES,URINE TRACE (NEGATIVE); LEUKOCYTE ESTERASE ,URINE 3+ (NEGATIVE); NITRITE,URINE NEGATIVE (NEGATIVE); PH,URINE 7.5 (5-9); PROTEIN,URINE 3+ (NEGATIVE)
[2022-10-05 19:47] LABS: BACTERIA,URINE MODERATE /HPF; RBC,URINE TNTC /HPF; WBC,URINE TNTC /HPF
[2022-10-05] MEDS ORDERED: LEVO-55 PO (20:14)
[2022-10-05] MEDS ORDERED: HYDROmorphone 2 MG/ML VIAL (DILAUDID) IV ONE (20:15)
[2022-10-05] MEDS ORDERED: cefTRIAXone 1 GM PRE-MIX 50 ML IV ONE (20:15)
[2022-10-05 20:55] VITALS: BP 119/66
== END 2022-10-05 20:55 | disposition home or self-care (01) ==
LOC: EDUNIT# 17:27 → ER 17:29
DX: N39.0 Urinary tract infection, site not specified (principal); E11.9 Type 2 diabetes mellitus without complications; Z79.4 Long term (current) use of insulin; Z88.1 Allergy status to other antibiotic agents; Z88.6 Allergy status to analgesic agent; Z87.442 Personal history of urinary calculi; Z20.822 Contact with and (suspected) exposure to COVID-19
CPT/HCPCS: 36415; 71045; 80053; 81000; 83605; 85025; 85610; 85730; 87040; 87088; 87636

== ENCOUNTER 2022-12-10 20:52 | Emergency (ER) | payer MEDICARE, MEDICAID ==
[~2022-12-10] VITALS: Ht 165.1 cm; Wt 80.9 kg
[~2022-12-10 20:52] MED LIST changes: +LEVO-55 PO
[2022-12-10] MEDS ORDERED: VALPROATE INJ (NON-FORMULARY) 500 MG in D5W 100 ML IVPB 100 ML IV STA (21:09)
[2022-12-10 21:12] LABS: BASOPHILS % (AUTO) 0 % (0-10); EOSINOPHILS # (AUTO) 0.1 10^3/uL (0.0-0.3); EOSINOPHILS % (AUTO) 1 % (0-10); HEMATOCRIT 33 % (35-52); HEMOGLOBIN 10.6 g/dL (11.5-16.0); LYMPHOCYTES # (AUTO) 1.9 10^3/uL (1.0-4.0); LYMPHOCYTES % (AUTO) 12 % (12-44); MEAN CORPUSCULAR HEMOGLOBIN 27 pg (25-34); MEAN CORPUSCULAR HGB CONC 32 g/dL (32-36); MEAN CORPUSCULAR VOLUME 85 fL (80-99); MEAN PLATELET VOLUME 9.9 fL (9.0-12.2); MONOCYTES # (AUTO) 1.2 10^3/uL (0.0-1.0); MONOCYTES % (AUTO) 7 % (0-12); NEUTROPHILS # (AUTO) 13.1 10^3/uL (1.8-7.8); NEUTROPHILS % (AUTO) 80 % (42-75); PLATELET COUNT 226 10^3/uL (130-400); WHITE BLOOD COUNT 16.4 10^3/uL (4.3-11.0)
[2022-12-10 21:13] LABS: BILIRUBIN,URINE NEGATIVE (NEGATIVE); CLARITY,URINE CLOUDY; COLOR,URINE YELLOW; GLUCOSE, URINE (UA) NEGATIVE (NEGATIVE); KETONES,URINE NEGATIVE (NEGATIVE); LEUKOCYTE ESTERASE ,URINE 3+ (NEGATIVE); NITRITE,URINE NEGATIVE (NEGATIVE); PROTEIN,URINE 3+ (NEGATIVE)
[2022-12-10] MEDS ORDERED: ONDANSETRON 4 MG/2 ML (SDV) Z0FRAN IVP ONE ×2 (21:15)
[2022-12-10 21:20] LABS: ALBUMIN 3.5 GM/DL (3.2-4.5); CHLORIDE 98 MMOL/L (98-107); POTASSIUM 3.9 MMOL/L (3.6-5.0); SODIUM 134 MMOL/L (135-145)
[2022-12-10 21:21] LABS: CALCIUM 8.4 MG/DL (8.5-10.1)
[2022-12-10 21:22] LABS: GLUCOSE 177 MG/DL (70-105); TOTAL PROTEIN 8.7 GM/DL (6.4-8.2)
[2022-12-10 21:23] LABS: CARBON DIOXIDE 19 MMOL/L (21-32)
[2022-12-10 21:24] LABS: BILIRUBIN,TOTAL 0.5 MG/DL (0.1-1.0)
[2022-12-10 21:26] LABS: ALKALINE PHOSPHATASE 84 U/L (40-136); CREATININE SERUM 9.79 MG/DL (0.60-1.30); GFR ESTIMATED 5
[2022-12-10 21:27] LABS: BUN/CREATININE RATIO 4
[2022-12-10 21:28] LABS: BACTERIA,URINE LARGE /HPF
[2022-12-10 21:29] LABS: RBC,URINE TNTC /HPF
[2022-12-10 21:29] LABS: ALANINE AMINOTRANSFERASE 9 U/L (0-55)
[2022-12-10 21:30] LABS: WBC,URINE TNTC /HPF
[2022-12-10] MEDS ORDERED: D5W 100 ML IVPB 100 ML IV ONE (21:35)
--- NOTE | 2022-12-10 21:43 | Diagnostic Imaging Report ---
EXAM: Chest PA/LAT (2 view) INDICATION: Cough. Fever. COMPARISON: 10/05/2022. FINDINGS: Normal heart size and central pulmonary vascularity. Right IJ tunneled port CVC tip in low SVC. No new focal pulmonary opacity. No pleural effusion or pneumothorax. No acute osseous finding. IMPRESSION: No acute cardiopulmonary finding. Dictated by: Dictated on workstation # [id number]
[2022-12-10 21:53] LABS: VALPROIC ACID < 2.0 UG/ML (50.0-100.0)
[2022-12-10] MEDS ORDERED: fentaNYL INJ 100 MCG/2 ML AMP IVP ONE (22:00)
[2022-12-10] MEDS ORDERED: ACETAMINOPHEN 500 MG TAB (TYLENOL) PO ONE (22:00)
--- NOTE | 2022-12-10 22:00 | ED General ---
General Chief Complaint: General Problems/Pain Stated Complaint: SEIZURE Nursing Triage Note: TO ED VIA [facility] EMS TO ROOM 7 WITH C/O 1 MIN SEIZURE AT HOME, COLD SX FOR 2 WEEKS, COUGH FOR 3 DAYS. HX EPILEPSY, DM, ESRD ON DIALYSIS MWF WITH LAST ON Monday12/09/22. Source of Information: Patient Exam Limitations: No Limitations (HARPREET WALKER MD) History of Present Illness Date Seen by Provider: Dec 10, 2022 Time Seen by Provider: 20:54 Initial Comments This 37-year-old woman presents to the emergency room via EMS with primary complaint of seizure at home. She reports having a known seizure disorder. The seizure was generalized in nature and lasted less than 1 minute per her who witnessed the event. She normally takes Depakote 500 mg twice daily for her seizures. She is a dialysis patient who is dialyzed Monday, Monday, and Monday. She did attend dialysis yesterday. She still makes a significant amount of urine despite being a dialysis patient and is known for having urinary tract infections in the past. She is alert and oriented on arrival. She reports not feeling well for 2 or 3 weeks. She has had a cough for the past 3 days and a subjective fever for the past 2 days. EMS reports a temperature of 100.6 on their assessment. She started heaving shortly after her initial asse ssment and reports a history of chronic vomiting. Patient reports taking Tylenol about 5 hours prior to arrival. She denies any pain or irritation around her dialysis port. No inflammation is noted around the port on exam. She is diabetic, and blood sugar is 178 during assessment. (HARPREET WALKER MD) Allergies and Home Medications Allergies Coded Allergies: cephalexin (Verified Allergy, Severe, 12/16/19) SEIZURES cinnamon (Verified Allergy, Severe, Anaphylaxis, 12/16/19) aspirin (Verified Allergy, Unknown, 12/16/19) levetiracetam (Verified Adverse Reaction, Unknown, 12/10/22) STATES "IT MAKES ME FEEL UNWELL AND IT CAUSES ME SEIZURES" Patient Home Medication List Home Medication List Reviewed: Yes (HARPREET WALKER MD) Acetaminophen (Tylenol Extra Strength) 500 Mg Tablet, 1,000 MG PO Q8H PRN for PAIN-MILD (1-4), (Reported) Entered as Reported by: KALEE MERCEDES on 05/19/21 1135 Cefdinir (Cefdinir) 300 Mg Capsule, 300 MG PO DAILY Prescribed by: KAIT REAGAN on 11/05/21 1544 Divalproex Sodium (Divalproex Sodium) 500 Mg Tablet.dr, 1,000 MG PO BID Prescribed by: MARIA EUGENIA JUDD on 07/06/21 1013 Ferrous Sulfate (Iron) 325 Mg Tablet, 325 MG PO DAILY, (Reported) Entered as Reported by: KALEE MERCEDES on 05/19/21 1135 Folic Acid (Folic Acid) 1 Mg Tablet, 1 MG PO DAILY, (Reported) Entered as Reported by: KALEE MERCEDES on 06/30/21 1001 Hydrocodone/Acetaminophen (Hydrocodone-Acetamin 5-325 mg) 1 Each Tablet, 1 TAB PO Q6H PRN for PAIN-MODERATE (5-7) Prescribed by: DAISHA ALFONSO on 07/21/21 1021 Hydrocodone/Acetaminophen (Hydrocodone-Acetamin 5-325 mg) 1 Each Tablet, 1-2 TAB PO Q6H PRN for PAIN-MODERATE (5-7) Prescribed by: KAIT REAGAN on 11/05/21 1545 Insulin Lispro (Humalog Kwikpen) 100 Unit/1 Ml Insuln.pen, UNIT SQ SLIDING/SCALE, (Reported) Entered as Reported by: KALEE MERCEDES on 05/19/21 113 Levofloxacin (Levofloxacin) 250 Mg Tablet, 250 MG PO Q48H Prescribed by: DAISHA ALFONSO on 04/11/221956 Levofloxacin (Levofloxacin) 500 Mg Tablet, 250 MG PO Q48H Prescribed by: JEANINE ANTUNEZ on 10/05/222013 Methylcellulose (Fiber) 500 Mg Tablet, 1,000 MG PO BID, (Reported) Entered as Reported by: KALEE MERCEDES on 05/19/21 113 Ondansetron (Ondansetron Odt) 4 Mg Tab.rapdis, 4-8 MG PO Q6H PRN for NAUSEA/VOMITING Prescribed by: KAIT REAGAN on 11/05/21 1544 Oxycodone Hcl (Oxyir Tablet) 5 Mg Tab, 5 MG PO Q4H PRN for PAIN-SEVERE (8-10) Prescribed by: MARIA EUGENIA JUDD on 07/06/21 1014 Pantoprazole Sodium (Pantoprazole Sodium) 40 Mg Tablet.dr, 40 MG PO DAILY, (Reported) Entered as Reported by: KALEE MERCEDES on 06/30/21 0959 Promethazine HCl (Promethazine Tablet) 25 Mg Tablet, 25 MG PO Q6H PRN for NAUSEA/VOMITING-2ND LINE Prescribed by: KAIT REAGAN on 11/05/21 1544 Sennosides/Docusate Sodium (Senna-S Tablet) 1 Each Tablet, 2 EACH PO BID, (Reported) Entered as Reported by: KALEE MERCEDES on 06/30/21 0959 Sodium Bicarbonate (Sodium Bicarbonate) 650 Mg Tablet, 650 MG PO BID, (Reported) Entered as Reported by: KALEE MERCEDES on 06/30/21 0959 Review of Systems Review of Systems Constitutional: see HPI EENTM: no symptoms reported Respiratory: see HPI Cardiovascular: no symptoms reported Gastrointestinal: see HPI Genitourinary: see HPI : No Musculoskeletal: no symptoms reported Skin: no symptoms reported Psychiatric/Neurological: See HPI Hematologic/Lymphatic: No Symptoms Reported (HARPREET WALKER MD) Past Bkszkgl-Mrrrbs-Tqbedr Hx Patient Social History Tobacco Use?: No Substance use?: No Alcohol Use?: No (HARPREET WALKER MD) Immunizations Up To Date Tetanus Booster (TDap): Unknown Influenza Vaccine Up-to-Date: No; Not Current First/Initial COVID19 Vaccinat: none Second COVID19 Vaccination Erick: none Third COVID19 Vaccination Date: none (HARPREET WALKER MD) Seasonal Allergies Seasonal Allergies: No (HARPREET WALKER MD) Past Medical History Surgery/Hospitalization HX: RECENT AMB TOE L FOOT. BILATERAL KIDNEY STENTS SINCE FEBRUARY. DIALYSIS PORT R CHEST WALL Surgeries: Yes (Dialysis port) Amputation (Toe), Orthopedic, Renal Respiratory: No Currently Using CPAP: No Currently Using BIPAP: No Cardiac: Yes Heart Attack, Palpitations Neurological: Yes Seizure Disorder (No EEG confirmation) : No Reproductive Disorders: No Genitourinary: Yes (Recurrent UTI/pyelonephritis) Kidney Infection, Kidney Stones, Renal Failure, Dialysis Gastrointestinal: Yes Gastroesophageal Reflux Musculoskeletal: Yes (loss of toenail) Endocrine: Yes Diabetes, Insulin dep HEENT: Yes (diabetic retinopathy in R eye) Hearing Impairment: Denies Cancer: No Psychosocial: Yes Anxiety, PTSD Integumentary: No Blood Disorders: No (HARPREET WALKER MD) Family Medical History Diabetes mellitus 19 MOTHER FH: bipolar disorder 19 MOTHER Hypertension 19 MOTHER Heart Disease, Diabetes, Psychiatric Problems SOCIAL HISTORY: -ETOH--PT STATES " I USED TO BE A BAD ALCOHOLIC 10 YEARS AGO" --CLAIMS SHE ONLY "OCCASIONALLY"DRINKS, BUT STILL DRINKS HEAVY AT TIMES. -DRUGS-ADMITS TO METH USE, DENIES IV USE. CLAIMS "NONE FOR 10 YEARS" -DENIES SMOKING (HARPREET WALKER MD) Physical Exam-Suspected Sepsis Physical Exam Vital Signs Vital Signs - First Documented 12/10/22 20:54 Temp 37.9 Pulse 106 Resp 16 B/P (MAP) 146/87 (106) Pulse Ox 100 O2 Delivery Room Air (ESTUARDO RODRIGUEZ MD) Vital Signs Capillary Refill : Less Than 3 Seconds (HARPREET WALKER MD) Blood Pressure Mean: 106 Height, Weight, BMI Height: '" Weight: lbs. oz. kg; 29.00 BMI Method: General Appearance: No Apparent Distress, WD/WN HEENT: PERRL/EOMI, Normal ENT Inspection Neck: Normal Inspection Respiratory: Lungs Clear, Normal Breath Sounds, No Accessory Muscle Use Cardiovascular: No Edema, No Murmur, Tachycardia (Regular, mild) Gastrointestinal: Normal Bowel Sounds, Soft; No Distended; Tenderness (Minimal in the suprapubic region) Extremity: Normal Inspection, No Pedal Edema Neurologic/Psychiatric: Alert, Oriented x3, No Motor/Sensory Deficits, Normal Mood/Affect, service parts coordinator II-XII Norm as Tested Skin: normal color, warm/dry (HARPREET WALKER MD) Focused Exam Lactate Level 12/10/22 20:58: Lactic Acid Level 1.16 (ESTUARDO RODRIGUEZ MD) Progress/Results/Core Measures Suspected Sepsis SIRS Temperature: Pulse: 106 Respiratory Rate: 16 Laboratory Tests 12/10/22 20:58: White Blood Count 16.4H Blood Pressure 146 /87 Mean: 106 12/10/22 20:58: Lactic Acid Level 1.16 Laboratory Tests 12/10/22 20:58: Creatinine 9.79H, INR Comment 1.1, Platelet Count 226, Total Bilirubin 0.5 (HARPREET WALKER MD) Results/Orders Lab Results Laboratory Tests Test 12/10/22 20:58 12/10/22 21:02 12/10/22 21:05 12/10/22 21:07 Range/Units White Blood Count 16.4 H 4.3-11.0 10^3/uL Red Blood Count 3.90 3.80-5.11 10^6/uL Hemoglobin 10.6 L 11.5-16.0 g/dL Hematocrit 33 L 35-52 % Mean Corpuscular Volume 85 80-99 fL Mean Corpuscular Hemoglobin 27 25-34 pg Mean Corpuscular Hemoglobin Concent 32 32-36 g/dL Red Cell Distribution Width 13.3 10.0-14.5 % Platelet Count 226 130-400 10^3/uL Mean Platelet Volume 9.9 9.0-12.2 fL Immature Granulocyte % (Auto) 1 % Neutrophils (%) (Auto) 80 H 42-75 % Lymphocytes (%) (Auto) 12 12-44 % Monocytes (%) (Auto) 7 0-12 % Eosinophils (%) (Auto) 1 0-10 % Basophils (%) (Auto) 0 0-10 % Neutrophils # (Auto) 13.1 H 1.8-7.8 10^3/uL Lymphocytes # (Auto) 1.9 1.0-4.0 10^3/uL Monocytes # (Auto) 1.2 H 0.0-1.0 10^3/uL Eosinophils # (Auto) 0.1 0.0-0.3 10^3/uL Basophils # (Auto) 0.0 0.0-0.1 10^3/uL Immature Granulocyte # (Auto) 0.1 0.0-0.1 10^3/uL Neutrophils % (Manual) 70 % Lymphocytes % (Manual) 18 % Monocytes % (Manual) 5 % Eosinophils % (Manual) 1 % Band Neutrophils 6 % Platelet Estimate NORMAL Hypochromasia SLIGHT Prothrombin Time 14.2 12.2-14.7 SEC INR Comment 1.1 0.8-1.4 Activated Partial Thromboplast Time 30 24-35 SEC Sodium Level 134 L 135-145 MMOL/L Potassium Level 3.9 3.6-5.0 MMOL/L Chloride Level 98 98-107 MMOL/L Carbon Dioxide Level 19 L 21-32 MMOL/L Anion Gap 17 H 5-14 MMOL/L Blood Urea Nitrogen 36 H 7-18 MG/DL Creatinine 9.79 H 0.60-1.30 MG/DL Estimat Glomerular Filtration Rate 5 BUN/Creatinine Ratio 4 Glucose Level 177 H 70-105 MG/DL Lactic Acid Level 1.16 0.50-2.00 MMOL/L Calcium Level 8.4 L 8.5-10.1 MG/DL Corrected Calcium 8.8 8.5-10.1 MG/DL Total Bilirubin 0.5 0.1-1.0 MG/DL Aspartate Amino Transf (AST/SGOT) 10 5-34 U/L Alanine Aminotransferase (ALT/SGPT) 9 0-55 U/L Alkaline Phosphatase 84 40-136 U/L Total Creatine Kinase 31 29-168 U/L C-Reactive Protein High Sensitivity 15.75 H 0.00-0.50 MG/DL Total Protein 8.7 H 6.4-8.2 GM/DL Albumin 3.5 3.2-4.5 GM/DL Serum Test, Qualitative NEGATIVE NEGATIVE Valproic Acid (Depakene) Level < 2.0 L 50.0-100.0 UG/ML Glucometer 177 H 70-110 MG/DL Influenza Type A (RT-PCR) Not Detected Not Detecte Influenza Type B (RT-PCR) Not Detected Not Detecte SARS-CoV-2 RNA (RT-PCR) Not Detected Not Detecte Urine Color YELLOW Urine Clarity CLOUDY Urine pH 8.0 5-9 Urine Specific [place] 1.020 1.016-1.022 Urine Protein 3+ H NEGATIVE Urine Glucose (UA) NEGATIVE NEGATIVE Urine Ketones NEGATIVE NEGATIVE Urine Nitrite NEGATIVE NEGATIVE Urine Bilirubin NEGATIVE NEGATIVE Urine Urobilinogen 0.2 < = 1.0 MG/DL Urine Leukocyte Esterase 3+ H NEGATIVE Urine RBC (Auto) 2+ H NEGATIVE Urine RBC TNTC H /HPF Urine WBC TNTC H /HPF Urine Squamous Epithelial Cells NONE /HPF Urine Crystals NONE /LPF Urine Bacteria LARGE H /HPF Urine Casts NONE /LPF Urine Mucus NEGATIVE /LPF Urine Culture Indicated YES (ESTUARDO RODRIGUEZ MD) My Orders Orders - ESTUARDO RODRIGUEZ MD Ondansetron Injection (Zofran Injectio (12/11/22 08:15) Fentanyl Inj (Sublimaze Injection) (12/11/22 08:38) (ESTUARDO RODRIGUEZ MD) Medications Given in ED Current Medications Medications Dose Ordered Sig/[place]ton Route Start Time Stop Time Status Last Admin Dose Admin Acetaminophen 1,000 mg ONCE ONCE PO 12/10/22 22:00 12/10/22 22:01 DC 12/10/22 22:02 1,000 MG Divalproex Sodium 500 mg ONCE ONCE PO 12/11/22 06:00 12/11/22 06:01 DC 12/11/22 06:29 500 MG Fentanyl Citrate 50 mcg ONCE ONCE IVP 12/10/22 22:00 12/10/22 22:01 DC 12/10/22 22:03 50 MCG Meropenem 500 mg/ Sodium Chloride 100 ml @ 200 mls/hr ONCE ONCE IV 12/10/22 22:30 12/10/22 22:59 DC 12/10/22 22:51 200 MLS/HR Ondansetron HCl 4 mg ONCE ONCE IVP 12/11/22 08:15 12/11/22 08:16 DC 12/11/22 08:16 4 MG Ondansetron HCl 8 mg ONCE ONCE IVP 12/10/22 21:15 12/10/22 21:16 DC 12/10/22 21:21 8 MG Sodium Chloride 500 ml @ 0 mls/hr Q0M ONCE IV 12/11/22 06:00 12/11/22 06:01 DC 12/11/22 06:30 999 MLS/HR (ESTUARDO RODRIGUEZ MD) Vital Signs/I&O 12/10/22 20:54 Temp 37.9 Pulse 106 Resp 16 B/P (MAP) 146/87 (106) Pulse Ox 100 O2 Delivery Room Air 12/11/22 00:00 Intake Total 205 ml Balance 205 ml (ESTUARDO RODRIGUEZ MD) Vital Signs/I&O Capillary Refill : Less Than 3 Seconds (HARPREET WALKER MD) Blood Pressure Mean: 106 Point of Care Testing Finger Stick Blood Glucose: 177 Blood Glucose Action Taken: DR. WALKER NOTIFIED (HARPREET WALKER MD) Progress Note #1: Time: 21:55 Progress Note Patient was interviewed and examined upon arrival. She seizure activity was brief at home and has not occurred for EMS or for us here. She does appear to be septic meeting SIRS criteria and having urinary tract infection. Urine cultures from her prior visits recently were reviewed and showed only lactobacillus. Rocephin is being ordered for initial antibiotic therapy. Patient is hemodynamically stable at this time, alert, and oriented. Labs have been reviewed in their entirety including CBC, CMP, CRP, urinalysis. Chest x- ray was also viewed by me and report reviewed. Influenza and COVID screens were negative. Patient was given Zofran for her dry heaving and fentanyl for her back ache. Progress Note #2: Time: 23:03 Progress Note Patient appeared to be septic based on source of infection from UTI and SIRS evidenced by leukocytosis, fever, and tachycardia. She has not received IV fluids as she is a dialysis patient and is currently hemodynamically stable. Because admission is appropriate for this patient, transfer to [place] where nephrology and dialysis services are available was pursued. While I was di scussing the case with Dr. Hernandez, hospitalist, nurses reported she had another brief seizure lasting less than 2 minutes. This was communicated to Dr. Hernandez. He requested she received a dose of meropenem for her antibiotic therapy and a dose of Keppra 1000 mg IV. Patient did receive valproic acid 500 mg IV. I inquired about her negative valproic acid level, and she admitted she has not had any Depakote for a few weeks. She is simply noncompliant because she forgets. I also inquired about her seizure history and the diagnosis of epilepsy. She has never had epilepsy confirmed on EEG by her own report. She has had consultation with Dr. Zhang in the past and has tried multiple medications. She reports that Keppra had a paradoxical effect and caused inc rease in seizure frequency. Use of Keppra is being deferred at this time given this history. I will update [place] with this information. EMS is currently not available for transfer. Transfer will likely not be available until after 03:30. It was noted that patient had no postictal state after the seizure activity. There was no loss of bowel or bladder continence. With the lack of EEG evidence to support epilepsy, pseudoseizure should be within the differential. Patient received Tylenol for her fever. Progress Note #3: Time: 23:13 Progress Note Nursing staff reports patient had another seizure-like event. This event lasted less than a minute and consisted of decreased responsiveness with altered breath ing pattern but no convulsions. There were no change in vital signs during the event. Given the atypical nature of these events and their brevity, I am electing to defer any further seizure treatment. We will continue to observe. Patient's reports that these episodes occur more often when patient is stressed, sleep deprived, or ill, and all episodes tonight of happened in the presence of patient's . Progress Note #4: Time: 03:05 Progress Note Patient is stable at this time and without any further seizure-like activity. Transport is being delayed as [facility] declines transport at this time. Progress Note #5: Time: 06:00 Progress Note Patient has been stable through the night. She did have a generalized decrease in her blood pressures while asleep. Review of her blood pressures reveals to systolic blood pressures of 90 and one systolic blood pressure of 89. MAP has been above 65. A 500 mL normal saline bolus has been ordered to help support her pressures. Her morning dose of valproic acid has also been ordered. Patient is awaiting transfer to [place]. Care is being transitioned to Dr. Rodriguez at this time. (HARPREET WALKER MD) Progress Note : Progress Note Care assumed of the patient at 0 600 pending transfer. Patient resting comfortably. 0815: Patient is having some nausea so I did order Zofran 4 mg IV. I have made contact with the ship design teacher and we should have transport soon. 0830: Transport in route and patient will go to [place]. Patient informed and is appreciative of the care here and is otherwise doing okay currently. 500 mL fluid bolus initiated earlier is complete. Pending transfer. 0839: I did order fentanyl 50 mcg IV for reported pain. We will do that prior to transfer. (ESTUARDO RODRIGUEZ MD) ECG Initial ECG Impression: Atrial Fibrillation (HARPREET WALKER MD) Diagnostic Imaging Diagonstic Imaging: Xray Plain Films/CT/US/NM/MRI: chest Comments 2 view chest x-rays were reviewed by me and compared with prior. On my interpretation I did not appreciate any acute changes from prior. No pneumonia was appreciated. Radiologist's report was reviewed as below also: NAME: JENNI HUBERKristy Santiago [facility] REC#: [id number] PT STATUS: REG ER : 1985 PHYSICIAN: HARPREET WALKER MD ADMIT DATE: 12/10/22/ER Draft Date of Exam:12/10/22 CHEST PA/LAT (2 VIEW) EXAM: Chest PA/LAT (2 view) INDICATION: Cough. Fever. COMPARISON: 10/05/2022. FINDINGS: Normal heart size and central pulmonary vascularity. Right IJ tunneled port CVC tip in low SVC. No new focal pulmonary opacity. No pleural effusion or pneumothorax. No acute osseous finding. IMPRESSION: No acute cardiopulmonary finding. Dictated on workstation # [id number] Dict: 12/10/222139 Trans: 12/10/222141 [facility] [id number] Interpreted by: MADELINE VITALE MD (HARPREET WALKER MD) Departure Impression Primary Impression: Sepsis Qualified Codes: A41.9 - Sepsis, unspecified organism Additional Impressions: UTI (urinary tract infection) Qualified Codes: N39.0 - Urinary tract infection, site not specified Seizure-like activity End stage renal failure on dialysis Noncompliance with medication regimen Disposition: SHT-TRM HOSP Condition: Improved Transfer Transfer Reason: Exceeds level of care Time Spoke to Accepting Phy: 22:25 Transfer Facility: [facility] Method of Transfer: EMS (HARPREET WALKER MD) Transfer Time: 08:36 (ESTUARDO RODRIGUEZ MD) Departure-Patient Inst. Referrals: CHARLES SHEA MD (PCP/Family) Primary Care Physician Copy Copies To 1: CHARLES SHEA MD, JOSHUA T MD Dec 10, 2022 22:00 ESTUARDO RODRIGUEZ MD Dec 11, 2022 08:37
[2022-12-10 22:11] LABS: INR 1.1 (0.8-1.4); PROTHROMBIN TIME PATIENT 14.2 SEC (12.2-14.7)
[2022-12-10] MEDS ORDERED: cefTRIAXone 1 GM PRE-MIX 50 ML IV STA (22:21)
[2022-12-10 22:29] LABS: BAND NEUTROPHILS 6 %; EOSINOPHILS % (MANUAL) 1 %; HYPOCHROMASIA SLIGHT; LYMPHOCYTES % (MANUAL) 18 %; MONOCYTES % (MANUAL) 5 %; NEUTROPHILS % (MANUAL) 70 %; PLATELET ESTIMATE NORMAL
[2022-12-10] MEDS ORDERED: MEROPENEM 500 MG in NS (IVPB) 100 ML IV ONE (22:30)
[2022-12-10] MEDS ORDERED: levETIRAcetam 1000 mg/NS 100ml 100 ML IV STA (22:30)
[2022-12-11] MEDS ORDERED: morphine INJ 10 MG/ML 1ML (SYR OR VIAL) IVP STA ×2 (00:09→06:08)
[2022-12-11] MEDS ORDERED: DIVALPROEX 250 MG DELAYED RELEASE (DEPAKOTE) TAB PO ONE (06:00)
[2022-12-11] MEDS ORDERED: NS IV 500 ML 500 ML IV ONE (06:00)
[2022-12-11] MEDS ORDERED: ONDANSETRON 4 MG/2 ML (SDV) Z0FRAN IVP ONE (08:15)
[2022-12-11] MEDS ORDERED: fentaNYL INJ 100 MCG/2 ML AMP IVP STA (08:38)
[2022-12-11 08:43] VITALS: BP 130/77
== END 2022-12-11 08:49 | disposition short-term general hospital (02) ==
LOC: EDUNIT# 20:52 → ER 20:54
DX: A41.9 Sepsis, unspecified organism (principal); N39.0 Urinary tract infection, site not specified; G40.909 Epilepsy, unspecified, not intractable, without status epilepticus; E11.22 Type 2 diabetes mellitus with diabetic chronic kidney disease; N18.6 End stage renal disease; R03.1 Nonspecific low blood-pressure reading; Z91.14 Patient's other noncompliance with medication regimen; Z99.2 Dependence on renal dialysis; Z79.4 Long term (current) use of insulin; Z28.310 Unvaccinated for COVID-19; Z88.6 Allergy status to analgesic agent; Z88.1 Allergy status to other antibiotic agents; Z20.822 Contact with and (suspected) exposure to COVID-19
CPT/HCPCS: 36415; 71046; 80053; 80164; 81000; 82550; 82947; 83605; 84703; 85007; 85027; 85610; 85730; 86141; 87040; 87088; 87636

== ENCOUNTER 2023-01-11 16:31 | Emergency (ER) | payer MEDICARE, MEDICAID ==
[~2023-01-11] VITALS: Ht 165 cm; Wt 85.0 kg
--- NOTE | 2023-01-11 16:50 | ED General ---
General Chief Complaint: Altered Mental Status Stated Complaint: AMS|HIGH BLOOD PRESSURE Nursing Triage Note: Patient to ER via EMS w c/o altered mental status. Patient had dialysis today and went to [facility]. EMS reports family called because she started acting funny. Patient states she's been "feeling confused, and I think i'm sepsis again." Source of Information: Patient Exam Limitations: No Limitations History of Present Illness Date Seen by Provider: Jan 11, 2023 Time Seen by Provider: 16:37 Initial Comments Patient is a 37-year-old female history of diabetes end-stage renal disease on hemodialysis for the last year presents to the emergency room with a chief complaint of feeling "confused" and "sick". She states she gets "infections" a lot and seems to be always sick. She completed dialysis this morning after having skipped Monday and Monday. She states no problems during dialysis. Symptoms started afterwards. Patient is concerned that she might have "sepsis". She denies headache, earache, sore throat or runny nose. No shortness of breath. She complains of diffuse body aches that she rates as a "8". No nausea vomiting. No diarrhea. She still makes urine, no dysuria, urgency or frequency. No abnormal vaginal discharge. No rashes. Her access is in her right upper chest she has had for a year and it was recently changed out a month ago. It is nontender. No sick contacts at home. She has been traveling recently which is why she missed dialysis 2 days ago and the Monday before. She is not COVID vaccinated or flu vaccinated. Timing/Duration: 1-3 Hours Severity: Moderate Associated Systoms: Malaise, Weakness, Other (Muscle pain) Allergies and Home Medications Allergies Coded Allergies: cephalexin (Verified Allergy, Severe, 12/16/19) SEIZURES cinnamon (Verified Allergy, Severe, Anaphylaxis, 12/16/19) aspirin (Verified Allergy, Unknown, 12/16/19) levetiracetam (Verified Adverse Reaction, Unknown, 12/10/22) STATES "IT MAKES ME FEEL UNWELL AND IT CAUSES ME SEIZURES" Patient Home Medication List Home Medication List Reviewed: Yes Acetaminophen (Tylenol Extra Strength) 500 Mg Tablet, 1,000 MG PO Q8H PRN for PAIN-MILD (1-4), (Reported) Entered as Reported by: KALEE MERCEDES on 05/19/21 1135 Cefdinir (Cefdinir) 300 Mg Capsule, 300 MG PO DAILY Prescribed by: KAIT REAGAN on 11/05/21 1544 Divalproex Sodium (Divalproex Sodium) 500 Mg Tablet.dr, 1,000 MG PO BID Prescribed by: MARIA EUGENIA JUDD on 07/06/21 1013 Ferrous Sulfate (Iron) 325 Mg Tablet, 325 MG PO DAILY, (Reported) Entered as Reported by: KALEE MERCEDES on 05/19/21 1135 Folic Acid (Folic Acid) 1 Mg Tablet, 1 MG PO DAILY, (Reported) Entered as Reported by: KALEE MERCEDES on 06/30/21 1001 Hydrocodone/Acetaminophen (Hydrocodone-Acetamin 5-325 mg) 1 Each Tablet, 1 TAB PO Q6H PRN for PAIN-MODERATE (5-7) Prescribed by: DAISHA ALFONSO on 07/21/21 1021 Hydrocodone/Acetaminophen (Hydrocodone-Acetamin 5-325 mg) 1 Each Tablet, 1-2 TAB PO Q6H PRN for PAIN-MODERATE (5-7) Prescribed by: KAIT REAGAN on 11/05/21 1545 Insulin Lispro (Humalog Kwikpen) 100 Unit/1 Ml Insuln.pen, UNIT SQ SLIDING/SCALE, (Reported) Entered as Reported by: KALEE MERCEDES on 05/19/21 113 Levofloxacin (Levofloxacin) 250 Mg Tablet, 250 MG PO Q48H Prescribed by: DAISHA ALFONSO on 04/11/221956 Levofloxacin (Levofloxacin) 500 Mg Tablet, 250 MG PO Q48H Prescribed by: JEANINE ANTUNEZ on 10/05/222013 Methylcellulose (Fiber) 500 Mg Tablet, 1,000 MG PO BID, (Reported) Entered as Reported by: KALEE MERCEDES on 05/19/21 113 Ondansetron (Ondansetron Odt) 4 Mg Tab.rapdis, 4-8 MG PO Q6H PRN for NAUSEA/VOMITING Prescribed by: KAIT REAGAN on 11/05/21 1544 Oxycodone Hcl (Oxyir Tablet) 5 Mg Tab, 5 MG PO Q4H PRN for PAIN-SEVERE (8-10) Prescribed by: MARIA EUGENIA JUDD on 07/06/21 1014 Pantoprazole Sodium (Pantoprazole Sodium) 40 Mg Tablet.dr, 40 MG PO DAILY, (Reported) Entered as Reported by: KALEE MERCEDES on 06/30/21 0959 Promethazine HCl (Promethazine Tablet) 25 Mg Tablet, 25 MG PO Q6H PRN for NAUSEA/VOMITING-2ND LINE Prescribed by: KAIT REAGAN on 11/05/21 1544 Sennosides/Docusate Sodium (Senna-S Tablet) 1 Each Tablet, 2 EACH PO BID, (Reported) Entered as Reported by: KALEE MERCEDES on 06/30/21 09 Sodium Bicarbonate (Sodium Bicarbonate) 650 Mg Tablet, 650 MG PO BID, (Reported) Entered as Reported by: KALEE MERCEDES on 06/30/2159 Review of Systems Review of Systems Constitutional: see HPI EENTM: no symptoms reported Respiratory: no symptoms reported Cardiovascular: no symptoms reported Gastrointestinal: no symptoms reported Genitourinary: no symptoms reported Musculoskeletal: muscle cramps Skin: no symptoms reported Psychiatric/Neurological: Weakness, Other ("confusion" reported by EMS) All Other Systems Reviewed Negative Unless Noted: Yes Past Icxneie-Mceiya-Bdipky Hx Patient Social History Tobacco Use?: No Substance use?: No Alcohol Use?: No Immunizations Up To Date Tetanus Booster (TDap): Unknown First/Initial COVID19 Vaccinat: none Second COVID19 Vaccination Erick: none Third COVID19 Vaccination Date: none Seasonal Allergies Seasonal Allergies: No Past Medical History Surgery/Hospitalization HX: RECENT AMB TOE L FOOT. BILATERAL KIDNEY STENTS SINCE FEBRUARY. DIALYSIS PORT R CHEST WALL Surgeries: Yes (Dialysis port) Amputation, Orthopedic, Renal Respiratory: No Currently Using CPAP: No Currently Using BIPAP: No Cardiac: Yes Heart Attack, Palpitations Neurological: Yes Seizure Disorder Reproductive Disorders: No Genitourinary: Yes (Recurrent UTI/pyelonephritis) Kidney Infection, Kidney Stones, Renal Failure, Dialysis Gastrointestinal: Yes Gastroesophageal Reflux Musculoskeletal: Yes (loss of toenail) Endocrine: Yes Diabetes, Insulin dep HEENT: Yes (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 -DRUGS-ADMITS TO METH USE, DENIES IV USE. CLAIMS "NONE FOR 10 YEARS" -DENIES SMOKING Physical Exam Vital Signs Vital Signs - First Documented 01/11/23 16:37 Temp 36.9 Pulse 106 Resp 18 B/P (MAP) 135/91 (106) Pulse Ox 100 O2 Delivery Room Air Capillary Refill : Less Than 3 Seconds Height, Weight, BMI Height: '" Weight: lbs. oz. kg; 31.00 BMI Method: General Appearance: No Apparent Distress, WD/WN Eyes: Bilateral Eye Normal Inspection, Bilateral Eye PERRL, Bilateral Eye EOMI HEENT: PERRL/EOMI, Pharynx Normal Neck: Full Range of Motion, Normal Inspection, Supple Respiratory: Lungs Clear, Normal Breath Sounds, No Accessory Muscle Use, No Respiratory Distress Cardiovascular: Regular Rate, Rhythm, Tachycardia (110 HR) Gastrointestinal: Tenderness (diffuse tenderness to palpation (patient states this is "normal" for her)) Extremity: Normal Inspection Neurologic/Psychiatric: Alert, Oriented x3, No Motor/Sensory Deficits, Depressed Affect Skin: Normal Color, Warm/Dry, Other (Mahurker catheter right chest wall, non tender, no erythema) Focused Exam Lactate Level 01/11/23 17:10: Lactic Acid Level 0.76 Lactic Acid Level Laboratory Tests Test 01/11/23 17:10 Lactic Acid Level 0.76 MMOL/L (0.50-2.00) Progress/Results/Core Measures Suspected Sepsis SIRS Temperature: Pulse: 106 Respiratory Rate: 18 Laboratory Tests 01/11/23 16:59: White Blood Count 11.7H Blood Pressure 135 /91 Mean: 106 01/11/23 17:10: Lactic Acid Level 0.76 Laboratory Tests 01/11/23 16:59: Platelet Count 204, Total Bilirubin 0.6 Results/Orders Lab Results Laboratory Tests Test 01/11/23 16:39 01/11/23 16:58 01/11/23 16:59 01/11/23 17:10 Range/Units Glucometer 160 H 70-110 MG/DL Influenza Type A (RT-PCR) Not Detected Not Detecte Influenza Type B (RT-PCR) Not Detected Not Detecte SARS-CoV-2 RNA (RT-PCR) Not Detected Not Detecte White Blood Count 11.7 H 4.3-11.0 10^3/uL Red Blood Count 3.54 L 3.80-5.11 10^6/uL Hemoglobin 9.4 L 11.5-16.0 g/dL Hematocrit 30 L 35-52 % Mean Corpuscular Volume 85 80-99 fL Mean Corpuscular Hemoglobin 27 25-34 pg Mean Corpuscular Hemoglobin Concent 31 L 32-36 g/dL Red Cell Distribution Width 14.2 10.0-14.5 % Platelet Count 204 130-400 10^3/uL Mean Platelet Volume 10.5 9.0-12.2 fL Immature Granulocyte % (Auto) 1 % Neutrophils (%) (Auto) 87 H 42-75 % Lymphocytes (%) (Auto) 7 L 12-44 % Monocytes (%) (Auto) 4 0-12 % Eosinophils (%) (Auto) 0 0-10 % Basophils (%) (Auto) 0 0-10 % Neutrophils # (Auto) 10.3 H 1.8-7.8 10^3/uL Lymphocytes # (Auto) 0.8 L 1.0-4.0 10^3/uL Monocytes # (Auto) 0.5 0.0-1.0 10^3/uL Eosinophils # (Auto) 0.0 0.0-0.3 10^3/uL Basophils # (Auto) 0.0 0.0-0.1 10^3/uL Immature Granulocyte # (Auto) 0.2 H 0.0-0.1 10^3/uL Sodium Level 136 135-145 MMOL/L Potassium Level 3.8 3.6-5.0 MMOL/L Chloride Level 97 L 98-107 MMOL/L Carbon Dioxide Level 23 21-32 MMOL/L Anion Gap 16 H 5-14 MMOL/L Glucose Level 164 H 70-105 MG/DL Calcium Level 7.7 L 8.5-10.1 MG/DL Corrected Calcium 7.9 L 8.5-10.1 MG/DL Total Bilirubin 0.6 0.1-1.0 MG/DL Total Protein 9.0 H 6.4-8.2 GM/DL Albumin 3.8 3.2-4.5 GM/DL Lactic Acid Level 0.76 0.50-2.00 MMOL/L My Orders Orders - DAISHA ALFONSO MD Cbc With Automated Diff (01/11/23 16:45) Comprehensive Metabolic Panel (01/11/23 16:45) Blood Culture (01/11/23 16:45) Sputum Culture (01/11/23 16:45) Urinalysis (01/11/23 16:45) Urine Culture (01/11/23 16:45) Protime With Inr (01/11/23 16:45) Partial Thromboplastin Time (01/11/23 16:45) Chest 1 View, Ap/Pa Only (01/11/23 16:45) Ed Iv/Invasive Line Start (01/11/23 16:45) Ed Iv/Invasive Line Start (01/11/23 16:45) Vital Signs Adult Sepsis Patie Q15M (01/11/23 16:45) O2 (01/11/23 16:45) Remove Rings In Anticipation O (01/11/23 16:45) Lactic Acid Analyzer (01/11/23 16:45) Covid 19 Inhouse Test (01/11/23 16:55) Influenza A And B By Pcr (01/11/23 16:55) Isolation Central Supply Req (01/11/23 16:55) Vital Signs/I&O 01/11/23 16:37 Temp 36.9 Pulse 106 Resp 18 B/P (MAP) 135/91 (106) Pulse Ox 100 O2 Delivery Room Air Capillary Refill : Less Than 3 Seconds Blood Pressure Mean: 106 Progress Note : Time: 17:43 Progress Note Patient seen and examined by me. Evaluation today includes CBC, Chem-12, lactic acid, coags, COVID and flu test, chest x-ray. Patient's exam is pertinent for well-developed well-nourished female in no acute distress. Vital signs slightly tachycardic with a heart rate of 105. Blood pressure is good in the 120s over 80s. She is afebrile, not hypoxic. Lungs are clear heart is regular/tachycardic, abdomen soft mildly tender which the patient states is normal for her. Moves all extremities normally, no focal neurologic deficits. Mentation is normal. Differential diagnosis based on history and physical exam, sepsis, viral syndrome, metabolic derangement. Labs reviewed, CBC shows a white blood cell count of 11.7, hemoglobin of 9.4, hematocrit 30, platelet count of 204. Chemistry is within normal limits BUN and creatinine consistent with renal failure at 35 and 6.62. Lactic acid is 0.76. PT is 15, PTT is 84. Chest x-ray is clear without infiltrate or effusion. CO VID and flu tests are negative. Patient was monitored in the emergency department during work-up and evaluation. She is quite sleepy but arousable to voice. Voices no complaints at this time. Had asked for some pain medication due to her muscle pain earlier. Will recommend Tylenol at home for her symptoms. Suspect possible nonspecific viral syndrome developing. She has no clinical or objective findings concerning for sepsis at this time. She is not hypotensive, hypoxic. Her heart rate is down to 100. She is afebrile. I have reviewed her medical record from previous visits every single urine specimen she has ever provided at this facility has had too numerous to count white blood cells. As she is asymptomatic of urinary tract infection at this time I believe it is not useful to get another urine specimen. None of her urine specimens have ever grown out a pathologic bacteria, it has always been "normal bacterial adrián". I have talked to Joe about return precautions. She verbalized understanding and is agreeable to the plan of care. She states her mother will come pick her up. No indications at this time for admission or further treatment. I have recommended that she keep up with her dialysis treatments even when she is traveling. Diagnostic Imaging Diagonstic Imaging: Xray Plain Films/CT/US/NM/MRI: chest Comments [facility], [place] NAME: CECILEJENNIKristy Santiago [facility] REC#: [id number] PT STATUS: REG ER : 1985 PHYSICIAN: DAISHA ALFONSO MD ADMIT DATE: 01/11/23/ER Signed Date of Exam:01/11/23 CHEST 1 VIEW, AP/PA ONLY EXAMINATION: Chest 1 view HISTORY: AMS, feels sick COMPARISON: 10/05/2022 FINDINGS: Heart size and pulmonary vasculature are normal. The lungs are clear without consolidation, pleural effusion, or pneumothorax. The osseous structures are intact. Right-sided catheter is unchanged. IMPRESSION: 1. No acute radiographic abnormality in the chest. Dictated by: Dictated on workstation # [id number] Dict: 01/11/238 Trans: 01/11/231705 [facility] [id number] Interpreted by: PABLITO HILL DO Electronically signed by: PABLITO HILL DO 01/11/231705 Departure Impression Primary Impression: Myalgia Additional Impression: End-stage renal disease on hemodialysis Disposition: HOME, SELF-CARE Condition: Stable Departure-Patient Inst. Decision time for Depature: 17:47 Referrals: CHARLES SHEA MD (PCP/Family) Primary Care Physician Patient Instructions: Dialysis and Diet Add. Discharge Instructions: Continue to take your routine daily medications as prescribed. Please call your primary care physician's office tomorrow for a follow-up appointment regarding your symptoms today. If anything changes or worsens, if you get a fever, vomiting, shortness of breath or any other emergent, concerning symptoms please return to the emergency department for reevaluation. You can take extra strength Tylenol 2 tablets every 6 hours as needed for pain. Copy Copies To 1: CHARLES SHEA MD, KATHRYN M MD Jan 11, 2023 16:50
--- NOTE | 2023-01-11 17:01 | Diagnostic Imaging Report ---
EXAMINATION: Chest 1 view HISTORY: AMS, feels sick COMPARISON: 10/05/2022 FINDINGS: Heart size and pulmonary vasculature are normal. The lungs are clear without consolidation, pleural effusion, or pneumothorax. The osseous structures are intact. Right-sided catheter is unchanged. IMPRESSION: 1. No acute radiographic abnormality in the chest. Dictated by: Dictated on workstation # [id number]
[2023-01-11 17:06] LABS: BASOPHILS % (AUTO) 0 % (0-10); EOSINOPHILS % (AUTO) 0 % (0-10); HEMATOCRIT 30 % (35-52); HEMOGLOBIN 9.4 g/dL (11.5-16.0); LYMPHOCYTES # (AUTO) 0.8 10^3/uL (1.0-4.0); LYMPHOCYTES % (AUTO) 7 % (12-44); MEAN CORPUSCULAR HEMOGLOBIN 27 pg (25-34); MEAN CORPUSCULAR HGB CONC 31 g/dL (32-36); MEAN CORPUSCULAR VOLUME 85 fL (80-99); MEAN PLATELET VOLUME 10.5 fL (9.0-12.2); MONOCYTES # (AUTO) 0.5 10^3/uL (0.0-1.0); MONOCYTES % (AUTO) 4 % (0-12); NEUTROPHILS # (AUTO) 10.3 10^3/uL (1.8-7.8); NEUTROPHILS % (AUTO) 87 % (42-75); PLATELET COUNT 204 10^3/uL (130-400); WHITE BLOOD COUNT 11.7 10^3/uL (4.3-11.0)
[2023-01-11 17:23] LABS: ALBUMIN 3.8 GM/DL (3.2-4.5)
[2023-01-11 17:24] LABS: POTASSIUM 3.8 MMOL/L (3.6-5.0)
[2023-01-11 17:25] LABS: CALCIUM 7.7 MG/DL (8.5-10.1)
[2023-01-11 17:27] LABS: INR 1.1 (0.8-1.4)
[2023-01-11 17:28] LABS: BILIRUBIN,TOTAL 0.6 MG/DL (0.1-1.0)
[2023-01-11 17:30] LABS: CREATININE SERUM 6.62 MG/DL (0.60-1.30)
[2023-01-11 17:55] VITALS: BP 118/69
== END 2023-01-11 18:04 | disposition home or self-care (01) ==
LOC: EDUNIT# 16:31 → ER 16:32
DX: M79.10 Myalgia, unspecified site (principal); E11.22 Type 2 diabetes mellitus with diabetic chronic kidney disease; N18.6 End stage renal disease; R00.0 Tachycardia, unspecified; Z99.2 Dependence on renal dialysis; Z79.4 Long term (current) use of insulin; Z88.6 Allergy status to analgesic agent; Z28.310 Unvaccinated for COVID-19; Z20.822 Contact with and (suspected) exposure to COVID-19
CPT/HCPCS: 36415; 71045; 80053; 82947; 83605; 85025; 85610; 85730; 87040; 87636